=== PATIENT | female | born 1980 | race Caucasian/White ===

== ENCOUNTER 2019-04-22 10:58 | Observation (INO) | payer SELFPAY ==
[~2019-04-22] VITALS: Ht 175.2 cm; Wt 105.8 kg
[2019-04-22] VITALS (10 sets, daily range): BP systolic 106–138; BP diastolic 55–88
[~2019-04-22 10:58] MED LIST: AZTH250C; CTRZ10T; FLX20C; KETO-22 PO; OLN2.5T; ORPH100T PO; [UNRECOGNIZED DRUG - OTHER]
[2019-04-22] MEDS ORDERED: D5 NS 1000 ML IV SOLUTION 1,000 ML IV ONE ×2 (11:27→13:02)
[2019-04-22] MEDS ORDERED: ONDANSETRON 4 MG/2 ML (SDV) Z0FRAN ONE (11:27)
[2019-04-22] MEDS ORDERED: ONDANSETRON 4 MG/2 ML (SDV) Z0FRAN IVP ONE (11:30)
--- NOTE | 2019-04-22 11:32 | ED General ---
General Chief Complaint: Glucose Problems Stated Complaint: LOW BLOOD SUGAR Nursing Triage Note: PT BROUGHT IN BY [facility] WITH COMPLAINT OF LOW BLOOD SUGAR. ON SCENE, PTS BS WAS 24. PT GIVEN AMP D50, BS UP TO 160. ON SECOND RECHECK, BS DOWN TO 90 AND GIVEN SECOND AMP D50. ON ARRIVAL, BS 69. PT STATES HER SUGARS HAVE BEEN IN THE 60s AT HOME THE LAST WEEK BUT ARE USUALLY IN THE 400s. STATES SHE HAS NOT BEEN EATING MUCH AT HOME DUE TO STRESS. Nursing Sepsis Screen: No Definite Risk History of Present Illness Date Seen by Provider: Apr 22, 2019 Time Seen by Provider: 11:05 Initial Comments 38-year-old female presents via EMS after having hypoglycemia at home. She's been a type II diabetic and her providers concerned that she may be a late onset type I diabetic. She is only taking insulin for her diabetes, Levemir and regular. She reports over the last 3 days that she has not been eating or drinking due to stress. She does report taking her insulin yesterday but she is unsure of the amount or times. She adjusts her insulin based on her diet and blood sugars. Prior to 3 days ago, she reports blood sugars 150-300. She did not eat last evening but did consume alcohol products, she is unsure of amounts but doesn't report drinking vodka and beer. Here last recall is approximately 2030 yesterday. Her last hemoglobin A1c was 7.8; she is seeing a counselor about the stress. Her only other medication is ibuprofen. She denies any suicidal or homicidal thoughts. She is currently unemployed. She denies illicit drug use, but does state she could have used drugs last night and doesn't remember. Timing/Duration: 2-3 Days Associated Systoms: No Chest Pain, No Cough, No Diaphoresis, No Fever/Chills, No Headaches; Loss of Appetite, Malaise, Nausea/Vomiting; No Rash, No Seizure, No Shortness of Air, No Syncope; Weakness Allergies and Home Medications Allergies Coded Allergies: Cephalexin (Verified Allergy, Unknown, 05/06/07) Morphine (Verified Allergy, Unknown, 05/06/07) Home Medications Ketorolac Tromethamine 10 Mg Tablet, 10 MG PO Q6H PRN FOR PAIN Prescribed by: ELIESER MERINO on 12/08/10 1524 Orphenadrine Citrate 100 Mg Tablet.sa, 100 MG PO BID FOR MUSCLE SPASMS Prescribed by: ELIESER MERINO on 12/08/10 1524 Patient Home Medication List Home Medication List Reviewed: Yes Review of Systems Review of Systems Constitutional: see HPI, malaise, weakness Gastrointestinal: see HPI, loss of appetite, nausea Psychiatric/Neurological: See HPI, Other (Stress) All Other Systems Reviewed Negative Unless Noted: Yes Past Whlxjnx-Jczctf-Ptbrrd Hx Past Med/Social Hx: Reviewed Nursing Past Med/Soc Hx Patient Social History Alcohol Use: Occasionally Uses Recreational Drug Use: No Smoking Status: Current Everyday Smoker Recent Foreign Travel: No Contact w/Someone Who Travel: No Recent Infectious Disease Expo: No Recent Hopitalizations: No Physical Abuse: No Sexual Abuse: No Mistreated: No Fear: No Immunizations Up To Date Tetanus Booster (TDap): Unknown PED Vaccines UTD: Yes Seasonal Allergies Seasonal Allergies: No Past Medical History Surgeries: Yes (WILEY., KIDNEY BIOPSY) Respiratory: No Cardiac: No Reproductive Disorders: No Sexually Transmitted Disease: No Gastrointestinal: Yes Musculoskeletal: Yes (NO CURVATURE IN LOWER SPINE) Chronic Back Pain Endocrine: Yes Diabetes, Insulin dep Are Your Blood Sugars Over 250: Yes Physical Exam Vital Signs Vital Signs - First Documented 04/22/19 10:58 Temp 35.4 Pulse 85 Resp 16 B/P (MAP) 128/101 (110) Pulse Ox 99 O2 Delivery Room Air Capillary Refill : Less Than 3 Seconds Height, Weight, BMI Height: '" Weight: lbs. oz. kg; 34.00 BMI Method: General Appearance: No Apparent Distress, WD/WN Eyes: Bilateral Eye Normal Inspection, Bilateral Eye PERRL, Bilateral Eye EOMI HEENT: PERRL/EOMI, TMs Normal, Normal ENT Inspection, Pharynx Normal, Other (or al mucosa pink and moist) Neck: Full Range of Motion, Normal Inspection, Non Tender, Supple Respiratory: Chest Non Tender, Lungs Clear, Normal Breath Sounds Cardiovascular: Regular Rate, Rhythm, No Murmur, Normal Peripheral Pulses Gastrointestinal: Normal Bowel Sounds, Non Tender, Soft; No Distended, No Guarding, No Mass, No Rebound, No Tenderness Back: Normal Inspection, No CVA Tenderness Extremity: Normal Capillary Refill, Normal Inspection, Normal Range of Motion, No Calf Tenderness Neurologic/Psychiatric: Alert, Oriented x3, No Motor/Sensory Deficits, Normal Mood/Affect Skin: Normal Color, Warm/Dry; No Diaphoresis, No Rash Lymphatic: No Adenopathy Progress/Results/Core Measures Suspected Sepsis Recent Fever Within 48 Hours: No Infection Criteria Present: None New/Unexplained Altered Menta: No Sepsis Screen: No Definite Risk SIRS Temperature: Pulse: 85 Respiratory Rate: 16 Laboratory Tests 04/22/19 11:11: White Blood Count 9.5 Blood Pressure 128 /101 Mean: 110 Laboratory Tests 04/22/19 11:11: Creatinine 0.73, Platelet Count 312, Total Bilirubin 0.3 Results/Orders Lab Results Laboratory Tests Test 04/22/19 11:10 04/22/19 11:11 04/22/19 12:05 04/22/19 12:49 Range/Units Glucometer 69 L 77 70-110 MG/DL White Blood Count 9.5 4.3-11.0 10^3/uL Red Blood Count 4.41 4.35-5.85 10^6/uL Hemoglobin 13.8 11.5-16.0 G/DL Hematocrit 41 35-52 % Mean Corpuscular Volume 93 80-99 FL Mean Corpuscular Hemoglobin 31 25-34 PG Mean Corpuscular Hemoglobin Concent 34 32-36 G/DL Red Cell Distribution Width 13.8 10.0-14.5 % Platelet Count 312 130-400 10^3/uL Mean Platelet Volume 9.8 7.4-10.4 FL Neutrophils (%) (Auto) 84 H 42-75 % Lymphocytes (%) (Auto) 12 12-44 % Monocytes (%) (Auto) 4 0-12 % Eosinophils (%) (Auto) 0 0-10 % Basophils (%) (Auto) 0 0-10 % Neutrophils # (Auto) 7.9 H 1.8-7.8 X 10^3 Lymphocytes # (Auto) 1.1 1.0-4.0 X 10^3 Monocytes # (Auto) 0.4 0.0-1.0 X 10^3 Eosinophils # (Auto) 0.0 0.0-0.3 10^3/uL Basophils # (Auto) 0.0 0.0-0.1 10^3/uL Sodium Level 147 H 135-145 MMOL/L Potassium Level 2.8 L 3.6-5.0 MMOL/L Chloride Level 107 98-107 MMOL/L Carbon Dioxide Level 23 21-32 MMOL/L Anion Gap 17 H 5-14 MMOL/L Blood Urea Nitrogen 15 7-18 MG/DL Creatinine 0.73 0.60-1.30 MG/DL Estimat Glomerular Filtration Rate > 60 BUN/Creatinine Ratio 21 Glucose Level 67 L 70-105 MG/DL Calcium Level 9.3 8.5-10.1 MG/DL Corrected Calcium 9.2 8.5-10.1 MG/DL Total Bilirubin 0.3 0.1-1.0 MG/DL Aspartate Amino Transf (AST/SGOT) 19 5-34 U/L Alanine Aminotransferase (ALT/SGPT) 17 0-55 U/L Alkaline Phosphatase 78 40-136 U/L Total Protein 7.4 6.4-8.2 GM/DL Albumin 4.1 3.2-4.5 GM/DL Serum Alcohol < 10 <10 MG/DL Urine Color YELLOW Urine Clarity CLEAR Urine pH 6 5-9 Urine Specific [place] 1.020 1.016-1.022 Urine Protein 3+ H NEGATIVE Urine Glucose (UA) 3+ H NEGATIVE Urine Ketones 1+ H NEGATIVE Urine Nitrite NEGATIVE NEGATIVE Urine Bilirubin NEGATIVE NEGATIVE Urine Urobilinogen 1 NORMAL MG/DL Urine Leukocyte Esterase 1+ H NEGATIVE Urine RBC (Auto) NEGATIVE NEGATIVE Urine RBC RARE /HPF Urine WBC 0-2 /HPF Urine Squamous Epithelial Cells 2-5 /HPF Urine Crystals NONE /LPF Urine Bacteria MODERATE H /HPF Urine Casts NONE /LPF Urine Mucus LARGE H /LPF Urine Culture Indicated NO Urine Opiates Screen NEGATIVE NEGATIVE Urine Oxycodone Screen NEGATIVE NEGATIVE Urine Methadone Screen NEGATIVE NEGATIVE Urine Propoxyphene Screen NEGATIVE NEGATIVE Urine Barbiturates Screen NEGATIVE NEGATIVE Ur Tricyclic Antidepressants Screen NEGATIVE NEGATIVE Urine Phencyclidine Screen NEGATIVE NEGATIVE Urine Amphetamines Screen NEGATIVE NEGATIVE Urine Methamphetamines Screen NEGATIVE NEGATIVE Urine Benzodiazepines Screen NEGATIVE NEGATIVE Urine Cocaine Screen NEGATIVE NEGATIVE Urine Cannabinoids Screen POSITIVE H NEGATIVE Test 04/22/19 14:23 Range/Units Glucometer 39 *L 70-110 MG/DL My Orders Orders - SUDHEER OLIVERA Accucheck Stat ONCE (04/22/19 11:10) Alcohol (04/22/19 11:27) Cbc With Automated Diff (04/22/19 11:27) Comprehensive Metabolic Panel (04/22/19 11:27) Drug Screen Stat (Urine) (04/22/19 11:27) Ua Culture If Indicated (04/22/19 11:27) Ondansetron Injection (Zofran Injectio (04/22/19 11:30) D5 Ns 1000 Ml Iv Solution (Dextrose 5%/0 (04/22/19 11:27) Ondansetron Injection (Zofran Injectio (04/22/19 11:27) Potassium Cl 10meq/50ml Ivpb (Kcl 10 Meq (04/22/19 12:00) Accucheck Stat ONCE (04/22/19 12:41) General/Regular (04/22/19 Dinner) D5 Ns 1000 Ml Iv Solution (Dextrose 5%/0 (04/22/19 13:02) Medications Given in ED Current Medications Medications Dose Ordered Sig/Yvan Route Start Time Stop Time Status Last Admin Dose Admin Dextrose/Sodium Chloride 1,000 ml @ STK-MED ONCE IV 04/22/19 11:27 04/22/19 11:28 DC 04/22/19 11:30 500 MLS/HR Dextrose/Sodium Chloride 1,000 ml @ STK-MED ONCE IV 04/22/19 13:02 04/22/19 13:03 DC 04/22/19 13:06 500 MLS/HR Ondansetron HCl 8 mg ONCE ONCE IVP 04/22/19 11:30 04/22/19 11:31 DC 04/22/19 11:30 8 MG Vital Signs/I&O 04/22/19 10:58 Temp 35.4 Pulse 85 Resp 16 B/P (MAP) 128/101 (110) Pulse Ox 99 O2 Delivery Room Air Capillary Refill : Less Than 3 Seconds Blood Pressure Mean: 110 Point of Care Testing Finger Stick Blood Glucose: 69 Progress Note : Time: 11:05 Progress Note Patient seen and evaluated, will give D5 half-normal saline at 250 mils per hour. Zofran 8 mg per IV and labs. 1200 Nausea improved. Alert and oriented. No complaints at this time. 1230 eating soup broth and hot tea. No further N/V. K+ 2.7, will give 20 mEq of K+ in IV. 1245 Accucheck 77. [address] Jo, agreed to admit patient. Will change to D10 IV. Cont inue to monitor Accucheck Q1 hour. Will admit to ICU. Patient agreeable to plans. No complaints at this time. Departure Impression Primary Impression: Hypoglycemia associated with diabetes Disposition: ADMITTED INPATIENT Condition: Stable Admissions Decision to Admit Reason: Admit from ER (General) Decision to Admit/Date: Apr 22, 2019 Time/Decision to Admit Time: 13:30 Departure-Patient Inst. Referrals: NO,LOCAL PHYSICIAN (PCP/Family) Primary Care Physician SUDHEER OLIVERA Apr 22, 2019 11:32
[2019-04-22 11:34] LABS: BASOPHILS % (AUTO) 0 % (0-10); EOSINOPHILS % (AUTO) 0 % (0-10); HEMATOCRIT 41 % (35-52); HEMOGLOBIN 13.8 G/DL (11.5-16.0); LYMPHOCYTES # (AUTO) 1.1 X 10^3 (1.0-4.0); LYMPHOCYTES % (AUTO) 12 % (12-44); MEAN CORPUSCULAR HEMOGLOBIN 31 PG (25-34); MEAN CORPUSCULAR HGB CONC 34 G/DL (32-36); MEAN CORPUSCULAR VOLUME 93 FL (80-99); MEAN PLATELET VOLUME 9.8 FL (7.4-10.4); MONOCYTES # (AUTO) 0.4 X 10^3 (0.0-1.0); MONOCYTES % (AUTO) 4 % (0-12); NEUTROPHILS # (AUTO) 7.9 X 10^3 (1.8-7.8); NEUTROPHILS % (AUTO) 84 % (42-75); PLATELET COUNT 312 10^3/uL (130-400); RED CELL DISTRIBUTION WIDTH 13.8 % (10.0-14.5); WHITE BLOOD COUNT 9.5 10^3/uL (4.3-11.0)
[2019-04-22 11:52] LABS: ALANINE AMINOTRANSFERASE 17 U/L (0-55); ALBUMIN 4.1 GM/DL (3.2-4.5); ALKALINE PHOSPHATASE 78 U/L (40-136); BILIRUBIN,TOTAL 0.3 MG/DL (0.1-1.0); BUN/CREATININE RATIO 21; CALCIUM 9.3 MG/DL (8.5-10.1); CARBON DIOXIDE 23 MMOL/L (21-32); CHLORIDE 107 MMOL/L (98-107); CREATININE SERUM 0.73 MG/DL (0.60-1.30); GFR ESTIMATED > 60; GLUCOSE 67 MG/DL (70-105); POTASSIUM 2.8 MMOL/L (3.6-5.0); SODIUM 147 MMOL/L (135-145); TOTAL PROTEIN 7.4 GM/DL (6.4-8.2)
[2019-04-22 12:14] LABS: BILIRUBIN,URINE NEGATIVE (NEGATIVE); CLARITY,URINE CLEAR; COLOR,URINE YELLOW; GLUCOSE, URINE (UA) 3+ (NEGATIVE); KETONES,URINE 1+ (NEGATIVE); LEUKOCYTE ESTERASE ,URINE 1+ (NEGATIVE); NITRITE,URINE NEGATIVE (NEGATIVE); PH,URINE 6 (5-9); PROTEIN,URINE 3+ (NEGATIVE); UROBILINOGEN,URINE 1 MG/DL (NORMAL)
[2019-04-22] MEDS: POTASSIUM CL 10MEQ/50ML IVPB 50 ML IV SCH ×2 (12:25→13:24)
[2019-04-22 12:28] LABS: AMPHETAMINE SCREEN, URINE NEGATIVE (NEGATIVE); BARBITURATE SCREEN URINE NEGATIVE (NEGATIVE); BENZODIAZEPINES SCREEN URINE NEGATIVE (NEGATIVE); CANNABINOID SCREEN, URINE POSITIVE (NEGATIVE); COCAINE SCREEN URINE NEGATIVE (NEGATIVE); METHADONE STAT NEGATIVE (NEGATIVE); METHAMPHETAMINE SCREEN URINE S NEGATIVE (NEGATIVE); OPIATE SCREEN URINE NEGATIVE (NEGATIVE); OXYCODONE STAT NEGATIVE (NEGATIVE); PROPOXYPHENE STAT NEGATIVE (NEGATIVE); TRICYCLIC ANTIDEPRESSANTS SCRE NEGATIVE (NEGATIVE)
[2019-04-22 12:32] LABS: BACTERIA,URINE MODERATE /HPF; RBC,URINE RARE /HPF; WBC,URINE 0-2 /HPF
--- NOTE | 2019-04-22 14:20 | NUR ---
NOEMI CABEZAS admitted to room CU5-1, with an admitting diagnosis of hypoglycemia, on 04/22/19 from AM via wheelchair, accompanied by staff.NOEMI CABEZAS introduced to surroundings, call light, bed controls, phone, TV, temperature control, lights, meal times, smoking policy, visitor policy, side rail policy, bathrooms and showers. Patient Rights given to patient in the handbook. NOEMI CABEZAS verbalizes understanding that [facility] is not responsible for the loss or damage to any personal effects or valuables that are kept in the patients posession during their hospitalization. The following Patient Care Plans were discussed with the pt: Discharge Planning. NOEMI CABEZAS verbalizes understanding of Interdisciplinary Patient Education. Patient and/or family were informed about the Rapid Response Team and its purpose.
[2019-04-22] MEDS ORDERED: DEXTROSE 50% 50 ML (IMS) SYR ONE ×2 (14:24→15:41)
[2019-04-22] MEDS ORDERED: LORazepam INJ 2 MG/ML (ATIVAN) VIAL IVP PRN (15:15)
[2019-04-22] MEDS ORDERED: DEXTROSE 10% IV SOLUTION 1,000 ML IV SCH ×2 (15:15→18:00)
[2019-04-22] MEDS ORDERED: ACETAMINOPHEN 325 MG TABLET PO PRN (15:15)
[2019-04-22] MEDS ORDERED: IBUPROFEN 600 MG (MOTRIN) TAB PO PRN (15:15)
[2019-04-22] MEDS: ONDANSETRON 4 MG/2 ML (SDV) Z0FRAN IVP PRN (15:16)
[2019-04-22] MEDS: DEXTROSE 50% 50 ML (IMS) SYR IV PRN ×4 (15:30→19:28)
[2019-04-22] MEDS: KCL 10 MEQ TAB (MICRO K) PO SCH (16:47)
[2019-04-22] MEDS ORDERED: LOPERAMIDE 2 MG (IMODIUM) TABLET PO PRN (17:15)
[2019-04-22] MEDS ORDERED: MELATONIN 3 MG TABLET PO PRN (17:15)
[2019-04-22] MEDS ORDERED: CALCIUM CARBONATE 500 MG (TUMS) TAB.CHEW PO PRN (17:15)
[2019-04-22] MEDS ORDERED: DOCUSATE SODIUM 100 MG (COLACE) CAP PO PRN (17:15)
[2019-04-22] MEDS ORDERED: ALPRAZolam 0.25 MG (XANAX) TAB PO PRN (17:15)
[2019-04-22] MEDS ORDERED: DEXTROSE 50% 50 ML (IMS) SYR INJ STA (17:44)
[2019-04-22 18:26] LABS: BUN/CREATININE RATIO 20; CALCIUM 8.5 MG/DL (8.5-10.1); CARBON DIOXIDE 21 MMOL/L (21-32); CHLORIDE 108 MMOL/L (98-107); CREATININE SERUM 0.69 MG/DL (0.60-1.30); GFR ESTIMATED > 60; GLUCOSE 110 MG/DL (70-105); MAGNESIUM 1.8 MG/DL (1.6-2.4); PHOSPHORUS 2.1 MG/DL (2.3-4.7); POTASSIUM 3.6 MMOL/L (3.6-5.0); SODIUM 142 MMOL/L (135-145)
[2019-04-22] MEDS: SENNA W/DOCUSATE (SENOKOT S) TABLET PO SCH (19:31)
[2019-04-23] VITALS (12 sets, daily range): BP systolic 81–127; BP diastolic 38–80
--- NOTE | 2019-04-23 00:18 | NUR ---
THIS RN CONTACTED E-ICU ABOUT PT BLOOD SUGARS. PT CAME IN WITH DIAGNOSIS OF HYPOGLYCEMIA. THIS RN INFORMED JOSÉ, -ICU THAT THE LAST THREE BLOOD SUGARS: 2227- 138, 2326- 184, 0015- 194. THIS RN ASKED IF DR. HERNANDEZ WANTED TO LEAVE D10 RUNNING AT 100MLS/HR OR IF HE WANTED TO CHANGE HER FLUIDS OR THE RATE. GLEN, E-ICU STATED SHE WOULD PASS MY MESSAGE ALONG TO DR. HERNANDEZ.
--- NOTE | 2019-04-23 00:25 | NUR ---
ATTEMPTED TO DOCUMENT ON PT OUTCOMES. UNABLE TO DOCUMENT THIS RN WAS FLAGGED THAT A TARGET DATE NOT SET.
[2019-04-23] MEDS ORDERED: D5 NS 1000 ML IV SOLUTION 1,000 ML IV ONE (00:34)
[2019-04-23] MEDS ORDERED: D5 NS 1000 ML IV SOLUTION 1,000 ML IV SCH (01:00)
--- NOTE | 2019-04-23 03:21 | NUR ---
NOTIFIED E-ICU OF PT'S CONTINUED ELEVATION IN BLOOD SUGARS. THIS RN INFORMED Alex KUMAR-ICU OF LAST THREE CONSECUTIVE BLOOD SUGARS: 0017- 221, 0218- 930, 0320- 291. Alex KUMAR-NELSON STATED SHE WOULD NOTIFY DR. HERNANDEZ. Addendum: 04/23/19 at 0329 by NIKO COELHO RN 328- SID TILLMAN PLACED PT'S FLUID ON STANDBY UNTIL ORDERS ARE OBTAINED.
--- NOTE | 2019-04-23 03:25 | NUR ---
RECEIVED CALL FROM JOSÉ, E-ICU. JOSÉ WANTED TO CONFIRM IF THE PATIENT HAD SLIDING SCALE INSULIN ORDERED DURING. THIS RN INFORMED HER THAT THE PT DOES NOT HAVE SLIDING SCALE INSULIN ORDERED. JOSÉ STATED SHE WOULD SEE IF DR. HERNANDEZ WANTS TO D/C THE D5NS AND START SLIDING SCALE INSULIN.
[2019-04-23] MEDS ORDERED: NS IV 1000 ML 1,000 ML ONE (03:32)
--- NOTE | 2019-04-23 03:32 | NUR ---
RECEIVED CALL FROM JOSÉ E-ICU. JOSÉ STATED THAT DR. HERNANDEZ WANTS TO D/C PT'S D5NS, START NS AT 100MLS/HR, ADMINISTER A ONE TIME DOSE OF LISPRO SUBCU. AND CALL IN TWO HOURS WITH AN UPDATE ON PT'S BLOOD SUGAR. SEE ORDER HISTORY.
[2019-04-23] MEDS ORDERED: inSUlin ASPART (NovoLOG) 1 UNIT/0.01 ML (CHARGE PER UNIT) ONE (03:33)
[2019-04-23] MEDS ORDERED: NS IV 1000 ML 1,000 ML IV SCH (03:45)
[2019-04-23] MEDS ORDERED: inSUlin ASPART (NovoLOG) 1 UNIT/0.01 ML (CHARGE PER UNIT) SC ONE (03:45)
[2019-04-23 03:55] LABS: BASOPHILS % (AUTO) 0 % (0-10); EOSINOPHILS # (AUTO) 0.2 10^3/uL (0.0-0.3); EOSINOPHILS % (AUTO) 3 % (0-10); HEMATOCRIT 38 % (35-52); HEMOGLOBIN 12.6 G/DL (11.5-16.0); LYMPHOCYTES # (AUTO) 2.9 X 10^3 (1.0-4.0); LYMPHOCYTES % (AUTO) 36 % (12-44); MEAN CORPUSCULAR HEMOGLOBIN 31 PG (25-34); MEAN CORPUSCULAR HGB CONC 34 G/DL (32-36); MEAN CORPUSCULAR VOLUME 94 FL (80-99); MEAN PLATELET VOLUME 10.1 FL (7.4-10.4); MONOCYTES # (AUTO) 0.4 X 10^3 (0.0-1.0); MONOCYTES % (AUTO) 5 % (0-12); NEUTROPHILS # (AUTO) 4.7 X 10^3 (1.8-7.8); NEUTROPHILS % (AUTO) 57 % (42-75); PLATELET COUNT 253 10^3/uL (130-400); RED CELL DISTRIBUTION WIDTH 13.7 % (10.0-14.5); WHITE BLOOD COUNT 8.3 10^3/uL (4.3-11.0)
[2019-04-23] MEDS ORDERED: DEXTROSE 10% IV SOLUTION 1,000 ML IV SCH (04:00)
[2019-04-23 04:15] LABS: ALANINE AMINOTRANSFERASE 11 U/L (0-55); ALBUMIN 3.3 GM/DL (3.2-4.5); ALKALINE PHOSPHATASE 80 U/L (40-136); BILIRUBIN,TOTAL 0.4 MG/DL (0.1-1.0); BUN/CREATININE RATIO 11; CALCIUM 8.1 MG/DL (8.5-10.1); CARBON DIOXIDE 22 MMOL/L (21-32); CHLORIDE 106 MMOL/L (98-107); CREATININE SERUM 0.88 MG/DL (0.60-1.30); GFR ESTIMATED > 60; GLUCOSE 315 MG/DL (70-105); MAGNESIUM 1.8 MG/DL (1.6-2.4); PHOSPHORUS 2.8 MG/DL (2.3-4.7); POTASSIUM 3.6 MMOL/L (3.6-5.0); SODIUM 138 MMOL/L (135-145)
[2019-04-23] MEDS ORDERED: KCL 20 MEQ TAB (K-DUR) PO ONE (04:45)
[2019-04-23] MEDS: ONDANSETRON 4 MG/2 ML (SDV) Z0FRAN IVP PRN (05:35)
--- NOTE | 2019-04-23 05:44 | NUR ---
04/23/19 0541- THIS RN CONTACTED E-ICU TO PROVIDE UPDATE ON PT'S BLOOD SUGAR LEVELS AFTER ADMINISTERED 8UNITS LISPRO AND WAITING TWO HOURS TO CHECK FINGER STICK PER DR. HERNANDEZ'S ORDERS. THIS RN INFORMED JOSÉ, -ICU THAT PT'S BLOOD SUGAR 165. THIS RN ASKED IF WE NEED TO CONTINUE Q1H FINGER STICKS. AGAR, -ICU STATED SHE WOULD PASS ALONG THIS RN'S REQUEST TO DR. HERNANDEZ. 04/23/19 0544- ORDERS RECEIVED TO CHANGE PT'S ACCUCHECKS FROM Q1H TO AC/HS. SEE ORDER HISTORY.
[2019-04-23] MEDS ORDERED: KCL 20 MEQ TAB (K-DUR) PO SCH (06:00)
[2019-04-23] MEDS ORDERED: POTASSIUM CL 10MEQ/50ML IVPB 50 ML IV SCH (06:00)
[2019-04-23] MEDS ORDERED: MAGNESIUM 1 GM/100 ML IVPB 100 ML IV SCH (06:00)
[2019-04-23] MEDS: SENNA W/DOCUSATE (SENOKOT S) TABLET PO SCH (08:30)
[2019-04-23] MEDS: KCL 10 MEQ TAB (MICRO K) PO SCH (08:30)
[2019-04-23] MEDS ORDERED: INSU100V5 SQ ×2 (09:05→09:53)
[2019-04-23] MEDS ORDERED: DIPH25CA79 PO (09:05)
[2019-04-23] MEDS ORDERED: IBUP-1780 PO (09:05)
[2019-04-23] MEDS ORDERED: INSU100V16 SQ ×2 (09:05→09:53)
--- NOTE | 2019-04-23 09:05 | NUR ---
SPOKE WITH THE PATIENT ABOUT HER MEDICATIONS. SHE LISTED WHAT SHE IS TAKING AND I VERIFIED THE LAST FILL DATES WITH [facility]. [facility] FILLED: 04-16-19 LEVEMIR VIALS 50 UNITS BID 04-04-19 IBU 800MG BID PRN #[id number] 03-23-19 NOVOLOG VIALS 20 UNITS TID (STATES SHE USES 10 UNITS TID WITH MEALS) SHE STATES SHE ALSO TAKES BENADRYL OTC NEEDED.
--- NOTE | 2019-04-23 10:48 | Short Stay Summary-Hospitalist ---
ANTONIA AVILAAN MED STUDENT 04/23/19 1048: History of Present Illness HPI/Chief Complaint CC: Severe hypoglycemia Patient asleep in bed when I entered. She denies having any memory of arriving in the hospital or anything that occurred last night after 8 pm. She does recall having some spells of dizziness/lightheadedness yesterday. She reports having had one episode of hypoglycemia similar to this before, but she did not need to go to the hospital. Mostly complains of anxiety and emotional distress, causing her symptoms of chest pain and nausea. The anxiety and distress is caused in part by her current medical condition as well as recent events in her personal life. The chest pain is across her whole chest, described as tension or tightness, and is not associated with exertion or shortness of breath. Her nausea is constant, not associated with eating, but she does not have an appetite because of it. Source: patient, other (friend) Exam Limitations: no limitations Date Seen 04/23/19 Time Seen by a Provider: 08:50 Attending Physician Judit Jo DO PCP No,Local Physician Referring Physician Date of Admission Apr 22, 2019 at 13:20 Home Medications & Allergies Home Medications Reviewed patient Home Medication Reconciliation performed by pharmacy medication reconciliations commercial hvac technician and/or nursing. Patients Allergies have been reviewed. Allergies Allergies Coded Allergies cephalexin (Verified Allergy, Unknown, 05/06/07) morphine (Verified Allergy, Unknown, 05/06/07) Past Wwgkbou-Jrbixa-Kphref Hx Past Med/Social Hx: Reviewed Nursing Past Med/Soc Hx Patient Social History Alcohol Use: Occasionally Uses Recreational Drug Use: No Smoking Status: Current Everyday Smoker Recent Foreign Travel: No Contact w/other who traveled: No Recent Hopitalizations: No Recent Infectious Disease Expo: No Immunizations Up To Date Tetanus Booster (TDap): Unknown Pediatric: Yes Seasonal Allergies Seasonal Allergies: No Past Medical History Reproductive: No Sexually Transmitted Disease: No Musculoskeletal: Chronic Back Pain Endocrine: Diabetes, Insulin dep Are Your Blood Sugars Over 250: Yes Review of Systems Constitutional: No chills; dizziness (light headed); No fever Respiratory: no symptoms reported; No dyspnea on exertion, No short of breath Cardiovascular: No no symptoms reported; chest pain (tightness across whole chest, relates to anxiety/emotional distress); No edema, No palpitations Gastrointestinal: nausea (reports caused by anxiety/emotional distress) Psychiatric/Neurological: Anxiety, Emotional Problems; Denies Numbness, Denies Tingling Physical Exam Physical Exam Vital Signs Vital Signs - First Documented 04/22/19 10:58 Temp 35.4 Pulse 85 Resp 16 B/P (MAP) 128/101 (110) Pulse Ox 99 O2 Delivery Room Air Capillary Refill : Less Than 3 Seconds Height, Weight, BMI Height: '" Weight: lbs. oz. kg; 34.00 BMI Method: General Appearance: No Apparent Distress, WD/WN, Anxious HEENT: Other (oral mucosa pink and moist) Respiratory: Chest Non Tender, Lungs Clear, Normal Breath Sounds Cardiovascular: Regular Rate, Rhythm, No Murmur, Normal Peripheral Pulses Gastrointestinal: No Distended, No Guarding, No Mass, No Rebound, No Tenderness Extremity: Normal Capillary Refill, Normal Inspection, No Calf Tenderness, No Pedal Edema Neurologic/Psychiatric: Alert, Oriented x3, No Motor/Sensory Deficits, Normal Mood/Affect Skin: Normal Color, Warm/Dry; No Diaphoresis, No Rash Results Results/Procedures Labs Laboratory Tests 04/22/19 11:11 04/22/19 18:00 04/23/19 03:05 Patient resulted labs reviewed. Clinical Quality Measures DVT/VTE Risk/Contraindication: Risk Factor Score Per Nursin RFS Level Per Nursing on Admit: 1=Low/No VTE PPX JUDIT JO DO 04/23/192107: History of Present Illness HPI/Chief Complaint CC: Refractory Hypoglycemia HPI: This is a 38yoWF who presented to the ER with altered mental status found to have blood sugar of 24 which is not unusual for her since her usual blood sugars are 300 but very brittle status who doesn't remember anything the past 24 hrs other than drinking alcohol and having marijuana use. Pt found to have such refractory hypoglycemia requiring a D10 drip 60cc an hour with a half an amp of D50 for blood sugars less than 80. She is now back to her usual of 300 and is ready to go home. I did adjust her down a little bit prior to DC. She will have close follow up as scheduled with Art Cabrera in 2 days. Physical Exam Physical Exam General Appearance: No Apparent Distress, WD/WN, Anxious Neck: Full Range of Motion Respiratory: Lungs Clear Cardiovascular: Regular Rate, Rhythm Short Stay Diagnosis Discharge Diagnosis-Short Stay Admission Diagnosis Refractory hypoglycemia Final Discharge Diagnosis Refractory hypoglycemia Conclusion Plan DC home Decrease insulin Stop ETOH and SHELL Diagnosis/Problems Diagnosis/Problems (1) Hypoglycemia associated with diabetes Status: Acute Supervisory-Addendum Brief Verification & Attestation Participated in pt care: history, MDM, physical Personally performed: exam, history, MDM, supervision of care Care discussed with: Medical Student Procedures: n/a Results interpretation: Verified all documentation Verification and Attestation of Medical Student E/M Service A medical student performed and documented this service in my presence. I rev iewed and verified all information documented by the medical student and made modifications to such information, when appropriate. I personally performed the physical exam and medical decision making. Judit Jo, Apr 23, 2019,21:08 JAVED AVILA MED STUDENT Apr 23, 2019 10:48 JUIDT JO DO Apr 23, 2019 21:08
[2019-04-23] MEDS ORDERED: inSUlin ASPART (NovoLOG) 1 UNIT/0.01 ML (CHARGE PER UNIT) SC SCH (16:00)
[2019-04-23] MEDS ORDERED: THIAMINE 100 MG/ML 2 ML (VITAMIN B-1) VIAL IV SCH (18:00)
== END 2019-04-23 09:51 | disposition home or self-care (01) ==
LOC: EDUNIT# 11:00 → ER 11:02 → UNDOADMOB 13:20 → ICU 13:20 → UNDODISOB 04-23 11:20
PROVIDERS: ADMIT Family Medicine; ATTEND Internal Medicine
DX: E16.2 Hypoglycemia, unspecified (principal); F17.210 Nicotine dependence, cigarettes, uncomplicated; M54.9 Dorsalgia, unspecified; G89.29 Other chronic pain; E11.9 Type 2 diabetes mellitus without complications; Z88.1 Allergy status to other antibiotic agents; Z88.5 Allergy status to narcotic agent; Z79.4 Long term (current) use of insulin
CPT/HCPCS: 36415; 80048; 80053; 80306; 80320; 81000; 82962; 83735; 84100; 85025; 87081; G0378

== ENCOUNTER 2019-05-12 19:22 | Inpatient (IN) | payer MEDICAID ==
[~2019-05-12] VITALS: Ht 160 cm; Wt 102.7 kg
[~2019-05-12 19:22] MED LIST changes: +DIPH25CA79 PO; +IBUP-1780 PO; +INSU100V16 SQ; +INSU100V5 SQ
[2019-05-12] MEDS ORDERED: NS IV 1000 ML 1,000 ML IV ONE ×2 (19:39→20:15)
[2019-05-12] MEDS ORDERED: NITROGLYCERIN 0.4 MG SL TABS BTL 25'S SL ONE (19:41)
[2019-05-12] MEDS ORDERED: ASPIRIN 81 MG CHEW (CHILDREN'S ASA) ONE (19:41)
[2019-05-12] MEDS: NITROGLYCERIN 0.4 MG SL TABS BTL 25'S SL PRN ×2 (19:45→19:51)
[2019-05-12] MEDS ORDERED: ONDANSETRON 4 MG/2 ML (SDV) Z0FRAN IVP ONE (19:45)
[2019-05-12] MEDS ORDERED: ASPIRIN 81 MG CHEW (CHILDREN'S ASA) PO ONE (19:45)
[2019-05-12 19:47] LABS: BASOPHILS % (AUTO) 0 % (0-10); EOSINOPHILS # (AUTO) 0.1 10^3/uL (0.0-0.3); EOSINOPHILS % (AUTO) 1 % (0-10); HEMATOCRIT 45 % (35-52); HEMOGLOBIN 14.6 G/DL (11.5-16.0); LYMPHOCYTES # (AUTO) 2.1 X 10^3 (1.0-4.0); LYMPHOCYTES % (AUTO) 13 % (12-44); MEAN CORPUSCULAR HEMOGLOBIN 31 PG (25-34); MEAN CORPUSCULAR HGB CONC 32 G/DL (32-36); MEAN CORPUSCULAR VOLUME 94 FL (80-99); MEAN PLATELET VOLUME 10.4 FL (7.4-10.4); MONOCYTES # (AUTO) 0.4 X 10^3 (0.0-1.0); MONOCYTES % (AUTO) 3 % (0-12); NEUTROPHILS # (AUTO) 13.7 X 10^3 (1.8-7.8); NEUTROPHILS % (AUTO) 84 % (42-75); PLATELET COUNT 290 10^3/uL (130-400); RED CELL DISTRIBUTION WIDTH 13.8 % (10.0-14.5); WHITE BLOOD COUNT 16.4 10^3/uL (4.3-11.0)
--- NOTE | 2019-05-12 19:57 | Diagnostic Imaging Report ---
INDICATION: Chest pain. Comparison with 12/08/2010. FINDINGS: Portable chest shows the lungs to be well aerated. There are no infiltrates. The heart is not enlarged. There is no pulmonary edema. No hilar adenopathy. No pneumothorax or pleural effusion. No bony abnormalities. IMPRESSION: Normal portable chest. Dictated by: Dictated on workstation # [id number]
[2019-05-12 19:59] LABS: PROTHROMBIN TIME PATIENT 13.2 SEC (12.2-14.7)
[2019-05-12 20:05] LABS: BAND NEUTROPHILS 6 %; BASOPHILS % (MANUAL) 0 %; EOSINOPHILS % (MANUAL) 0 %; LYMPHOCYTES % (MANUAL) 9 %; MONOCYTES % (MANUAL) 1 %; NEUTROPHILS % (MANUAL) 84 %; TOXIC GRANULATION/VACUOLAZATIO 1+
--- NOTE | 2019-05-12 20:06 | ED Chest Pain ---
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 PT REPORTS NO HX OF CARDIAC PROBLEMS. Nursing Sepsis Screen: No Definite Risk Source: patient, old records Exam Limitations: no limitations History of Present Illness Date Seen by Provider: May 12, 2019 Time Seen by Provider: 19:31 Initial Comments This 38-year-old woman presents to the emergency room with complaints of chest pain and pain that radiates across her shoulders and back that started about an hour prior to arrival. She has associated nausea. She is tachycardic and dyspneic but not hypoxic. She has history of diabetes and episodes of DKA. She denies any recent drug or alcohol use but she does have history of alcohol abuse in the past. She does smoke. She has no known cardiac disease. She has been afebrile. Pain does not seem to change with breathing or movement. She describes the pain as originating from the lower central chest and characterized as a squeezing. She reports a pain level of 8 or 9 out of 10. She reports her blood sugars have been normal today. She took her long-acting insulin this morning. Allergies and Home Medications Allergies Coded Allergies: cephalexin (Verified Allergy, Unknown, 05/06/07) morphine (Verified Allergy, Unknown, 05/06/07) Home Medications Diphenhydramine HCl 25 Mg Capsule, 25 MG PO TID PRN for ALLERGIES, (Reported) Ibuprofen 800 Mg Tablet, 800 MG PO BID PRN for PAIN-MILD, (Reported) Insulin Aspart 100 Unit/1 Ml Susp, 7 UNIT SQ AC Prescribed by: RAIN ARROYO on 04/23/19952 Insulin Determir 1,000 Units/10 Ml Soln, 38 UNITS SQ BID Prescribed by: RAIN ARROYO on 04/23/19952 Patient Home Medication List Home Medication List Reviewed: Yes Review of Systems Review of Systems Constitutional: no symptoms reported EENTM: No Symptoms Reported Respiratory: See HPI Cardiovascular: See HPI Gastrointestinal: See HPI Genitourinary: No Symptoms Reported Musculoskeletal: no symptoms reported Skin: no symptoms reported Psychiatric/Neurological: No Symptoms Reported Endocrine: No Symptoms Reported Hematologic/Lymphatic: No Symptoms Reported Past Hjfrnpw-Sfgshy-Ogkjdz Hx Past Med/Social Hx: Reviewed and Corrections made Patient Social History Alcohol Use: Denies Use Recreational Drug Use: No Smoking Status: Current Everyday Smoker Type Used: Cigars 2nd Hand Smoke Exposure: Yes Recent Foreign Travel: No Contact w/Someone Who Travel: No Recent Infectious Disease Expo: No Recent Hopitalizations: No Physical Abuse: No Sexual Abuse: No Mistreated: No Fear: No Immunizations Up To Date Tetanus Booster (TDap): Unknown PED Vaccines UTD: Yes Seasonal Allergies Seasonal Allergies: No Past Medical History Surgeries: Yes (WILEY., KIDNEY BIOPSY) Tubal Ligation Respiratory: No Cardiac: No Neurological: No Reproductive Disorders: No Sexually Transmitted Disease: No Gastrointestinal: Yes Musculoskeletal: Yes (NO CURVATURE IN LOWER SPINE) Chronic Back Pain Endocrine: Yes (reports history of DKA) Diabetes, Insulin dep HEENT: No Cancer: No Psychosocial: No Physical Exam Vital Signs Vital Signs - First Documented 05/12/19 19:30 Temp 36.4 Pulse 122 Resp 20 B/P (MAP) 161/80 (107) O2 Delivery Room Air Capillary Refill : Less Than 3 Seconds Height, Weight, BMI Height: '" Weight: lbs. oz. kg; 40.00 BMI Method: General Appearance: WD/WN, Moderate Distress HEENT: PERRL/EOMI, Other (oropharynx dry) Neck: Normal Inspection Respiratory: Lungs Clear; No Crackles, No Wheezing; Other (tachypnea. Tenderness to palpation is mild over the left lower anterior chest) Cardiovascular: No Edema, No Murmur, Tachycardia Gastrointestinal: Normal Bowel Sounds, Soft, Tenderness (minimal in the epigas trium) Extremity: Normal Inspection, No Pedal Edema, Other (minimal tenderness in the right calf) Neurologic/Psychiatric: Oriented x3, No Motor/Sensory Deficits, nitro man II-XII Norm as Tested, Other (anxious) Skin: Normal Color, Warm/Dry Progress/Results/Core Measures Results/Orders Lab Results Laboratory Tests Test 05/12/19 19:35 05/12/19 20:26 05/12/19 21:03 Range/Units White Blood Count 16.4 H 4.3-11.0 10^3/uL Red Blood Count 4.77 4.35-5.85 10^6/uL Hemoglobin 14.6 11.5-16.0 G/DL Hematocrit 45 35-52 % Mean Corpuscular Volume 94 80-99 FL Mean Corpuscular Hemoglobin 31 25-34 PG Mean Corpuscular Hemoglobin Concent 32 32-36 G/DL Red Cell Distribution Width 13.8 10.0-14.5 % Platelet Count 290 130-400 10^3/uL Mean Platelet Volume 10.4 7.4-10.4 FL Neutrophils (%) (Auto) 84 H 42-75 % Lymphocytes (%) (Auto) 13 12-44 % Monocytes (%) (Auto) 3 0-12 % Eosinophils (%) (Auto) 1 0-10 % Basophils (%) (Auto) 0 0-10 % Neutrophils # (Auto) 13.7 H 1.8-7.8 X 10^3 Lymphocytes # (Auto) 2.1 1.0-4.0 X 10^3 Monocytes # (Auto) 0.4 0.0-1.0 X 10^3 Eosinophils # (Auto) 0.1 0.0-0.3 10^3/uL Basophils # (Auto) 0.0 0.0-0.1 10^3/uL Neutrophils % (Manual) 84 % Lymphocytes % (Manual) 9 % Monocytes % (Manual) 1 % Eosinophils % (Manual) 0 % Basophils % (Manual) 0 % Band Neutrophils 6 % Toxic Granulation 1+ Prothrombin Time 13.2 12.2-14.7 SEC INR Comment 1.0 0.8-1.4 Activated Partial Thromboplast Time 30 24-35 SEC D-Dimer 0.49 0.00-0.49 UG/ML Sodium Level 135 135-145 MMOL/L Potassium Level 4.6 3.6-5.0 MMOL/L Chloride Level 100 98-107 MMOL/L Carbon Dioxide Level 9 *L 21-32 MMOL/L Anion Gap 26 H 5-14 MMOL/L Blood Urea Nitrogen 15 7-18 MG/DL Creatinine 1.17 0.60-1.30 MG/DL Estimat Glomerular Filtration Rate 52 BUN/Creatinine Ratio 13 Glucose Level 550 *H 70-105 MG/DL Calcium Level 9.4 8.5-10.1 MG/DL Corrected Calcium 9.2 8.5-10.1 MG/DL Magnesium Level 2.1 1.6-2.4 MG/DL Total Bilirubin 0.9 0.1-1.0 MG/DL Aspartate Amino Transf (AST/SGOT) 12 5-34 U/L Alanine Aminotransferase (ALT/SGPT) 10 0-55 U/L Alkaline Phosphatase 107 40-136 U/L Myoglobin 22.3 10.0-92.0 NG/ML Troponin I < 0.028 <0.028 NG/ML Total Protein 7.8 6.4-8.2 GM/DL Albumin 4.3 3.2-4.5 GM/DL Lipase < 4 L 8-78 U/L Beta-Hydroxybutyrate (Chem panel) 7.58 H 0.00-0.27 MMOL/L Serum Test, Qualitative NEGATIVE NEGATIVE Serum Alcohol < 10 <10 MG/DL Urine Color YELLOW Urine Clarity CLEAR Urine pH 6 5-9 Urine Specific [place] 1.020 1.016-1.022 Urine Protein 2+ H NEGATIVE Urine Glucose (UA) 4+ H NEGATIVE Urine Ketones 4+ H NEGATIVE Urine Nitrite NEGATIVE NEGATIVE Urine Bilirubin NEGATIVE NEGATIVE Urine Urobilinogen NORMAL NORMAL MG/DL Urine Leukocyte Esterase NEGATIVE NEGATIVE Urine RBC (Auto) NEGATIVE NEGATIVE Urine RBC NONE /HPF Urine WBC NONE /HPF Urine Squamous Epithelial Cells 2-5 /HPF Urine Crystals NONE /LPF Urine Bacteria TRACE /HPF Urine Casts NONE /LPF Urine Mucus NEGATIVE /LPF Urine Culture Indicated NO Urine Opiates Screen NEGATIVE NEGATIVE Urine Oxycodone Screen NEGATIVE NEGATIVE Urine Methadone Screen NEGATIVE NEGATIVE Urine Propoxyphene Screen NEGATIVE NEGATIVE Urine Barbiturates Screen NEGATIVE NEGATIVE Ur Tricyclic Antidepressants Screen NEGATIVE NEGATIVE Urine Phencyclidine Screen NEGATIVE NEGATIVE Urine Amphetamines Screen NEGATIVE NEGATIVE Urine Methamphetamines Screen NEGATIVE NEGATIVE Urine Benzodiazepines Screen NEGATIVE NEGATIVE Urine Cocaine Screen NEGATIVE NEGATIVE Urine Cannabinoids Screen POSITIVE H NEGATIVE Glucometer 434 *H 70-110 MG/DL My Orders Orders - CHARISMA PHILLIPS MD Cbc With Automated Diff (05/12/19 19:39) Magnesium (05/12/19 19:39) Chest 1 View, Ap/Pa Only (05/12/19 19:39) Ekg Tracing (05/12/19 19:39) Cardiac Profile 1 (05/12/19 19:39) Comprehensive Metabolic Panel (05/12/19 19:39) Myoglobin Serum (05/12/19 19:39) Protime With Inr (05/12/19 19:39) Partial Thromboplastin Time (05/12/19 19:39) O2 (05/12/19 19:39) Monitor-Rhythm Ecg Trace Only (05/12/19 19:39) Lipid Panel (05/13/19 06:00) Ed Iv/Invasive Line Start (05/12/19 19:39) Fibrin Degradation Products (05/12/19 19:39) Nitroglycerin 0.4 Mg Btl 25's (Nitrostat (05/12/19 19:45) Aspirin Chewable Tablet (Baby Aspirin Ch (05/12/19 19:45) Alcohol (05/12/19 19:39) Drug Screen Stat (Urine) (05/12/19 19:39) Hcg,Qualitative Serum (05/12/19 19:39) Ondansetron Injection (Zofran Injectio (05/12/19 19:45) Ns Iv 1000 Ml (Sodium Chloride 0.9%) (05/12/19 19:39) Ua Culture If Indicated (05/12/19 19:41) Nitroglycerin 0.4 Mg Btl 25's (Nitrostat (05/12/19 19:41) Aspirin Chewable Tablet (Baby Aspirin Ch (05/12/19 19:41) Manual Differential (05/12/19 19:35) Lipase (05/12/19 20:07) Ct Angio Chest W (05/12/19 20:15) Insulin (Regular) Human (Humulin R (Per (05/12/19 20:15) Ed Iv/Invasive Line Start (05/12/19 20:15) Ns Iv 1000 Ml (Sodium Chloride 0.9%) (05/12/19 20:15) Famotidine Injection (Pepcid Injection) (05/12/19 20:30) Promethazine Injection (Phenergan Injec (05/12/19 20:30) Iohexol Injection (Omnipaque 350 Mg/Ml 1 (05/12/19 20:30) Received Contrast (Hold Metformin- Contr (05/12/19 20:30) Sodium Chloride Flush (Catheter Flush Sy (05/12/19 20:30) Ns (Ivpb) (Sodium Chloride 0.9% Ivpb Bag (05/12/19 20:30) Accucheck Stat ONCE (05/12/19 20:57) Medications Given in ED Current Medications Medications Dose Ordered Sig/Yvan Route Start Time Stop Time Status Last Admin Dose Admin Aspirin 324 mg ONCE ONCE PO 05/12/19 19:45 05/12/19 19:46 DC 05/12/19 19:45 324 MG Famotidine 20 mg ONCE ONCE IVP 05/12/19 20:30 05/12/19 20:31 DC 05/12/19 20:49 20 MG Insulin Human Regular 5 unit ONCE ONCE IV 05/12/19 20:15 05/12/19 20:16 DC 05/12/19 20:24 5 UNIT Iohexol 100 ml ONCE ONCE IV 05/12/19 20:30 05/12/19 20:31 DC 05/12/19 20:39 83 ML Nitroglycerin 0.4 mg UD PRN SL 05/12/19 19:45 05/12/19 19:51 0.4 MG Ondansetron HCl 8 mg ONCE ONCE IVP 05/12/19 19:45 05/12/19 19:46 DC 05/12/19 19:44 8 MG Promethazine HCl 25 mg ONCE ONCE IVP 05/12/19 20:30 05/12/19 20:31 DC 05/12/19 21:05 25 MG Sodium Chloride 10 ml NEEDED PRN IV 05/12/19 20:30 05/12/19 20:39 10 ML Sodium Chloride 100 ml ONCE ONCE IV 05/12/19 20:30 05/12/19 20:31 DC 05/12/19 20:39 80 ML Sodium Chloride 1,000 ml @ 0 mls/hr Q0M ONCE IV 05/12/19 19:39 05/12/19 19:41 DC 05/12/19 19:44 999 MLS/HR Sodium Chloride 1,000 ml @ 0 mls/hr Q0M ONCE IV 05/12/19 20:15 05/12/19 20:16 DC 05/12/19 21:05 999 MLS/HR Vital Signs/I&O 05/12/19 05/12/19 19:30 19:52 Temp 36.4 Pulse 122 Resp 20 B/P (MAP) 161/80 (107) O2 Delivery Room Air Room Air Blood Pressure Mean: 107 Progress Progress Note #1: Time: 20:01 Progress Note Chest pain workup is underway. Patient received 2 nitroglycerin which seemed to improve her pain from 8 or 9 out of 10 down to 4/10. She still complains of a lot of pain across her shoulders. She is still tachypneic. Aspirin was administered. Zofran was given for nausea but patient vomited despite Zofran. Patient has a leukocytosis. Most of her labs are still pending. EKG showed sinus tachycardia with no ST changes. IV fluids are infusing. Progress Note #2: Time: 20:24 Progress Note The patient's pain is significantly better and nausea is beginning to subside. Labs have been reviewed. Patient appears to have DKA with a CO2 of 9 and a blood sugar of 550. A second liter of IV normal saline has been ordered. Residual nausea will be treated with Phenergan. Insulin therapy will be initiated with 5 units of regular insulin by IV route. I discussed evaluating her chest pain further CT angiogram. This would help rule out any aortic pathology or occult infection not picked up on the x-ray. Patient states she h as never experienced chest and back pain like this before with DKA and she would like to proceed with CT angiogram to rule out other causes. Progress Note #3: Time: 22:25 Progress Note Patient received 2 full liters of IV normal saline. She also received Phenergan for refractory nausea. Blood sugars were trending down. Just prior to transfer to the ICU a third liter of IV fluid was hung containing 5 units of insulin. Initial ECG Impression Date: May 12, 2019 Initial ECG Impression Time: 19:37 Initial ECG Rate: 122 Initial ECG Rhythm: S.Tach Comment Sinus tachycardia with no ST elevation or depression. No abnormal intervals or axis deviation. Diagnostic Imaging Diagonstic Imaging: Xray Plain Films/CT/US/NM/MRI: chest Comments Chest x-ray viewed by me and report reviewed. See report below: NAME: NOEMI CABEZAS [facility] REC#: [id number] PT STATUS: REG ER : 1980 PHYSICIAN: CHARISMA PHILLIPS MD ADMIT DATE: 05/12/19/ER Draft Date of Exam:05/12/19 CHEST 1 VIEW, AP/PA ONLY INDICATION: Chest pain. Comparison with 12/08/2010. FINDINGS: Portable chest shows the lungs to be well aerated. There are no infiltrates. The heart is not enlarged. There is no pulmonary edema. No hilar adenopathy. No pneumothorax or pleural effusion. No bony abnormalities. IMPRESSION: Normal portable chest. Dictated on workstation # [id number] Dict: 05/12/191954 Trans: 05/12/191955 [facility] [id number] Interpreted by: CHE TAYLOR MD Diagonstic Imaging: CT Plain Films/CT/US/NM/MRI: chest Comments CT angiogram of the chest viewed by me and report reviewed. See report below: NAME: NOEMI CABEZAS [facility] REC#: [id number] PT STATUS: REG ER : 1980 PHYSICIAN: CHARISMA PHILLIPS MD ADMIT DATE: 05/12/19/ER Signed Date of Exam:05/12/19 CT ANGIO CHEST W PROCEDURE: CT angiography of the chest with contrast. TECHNIQUE: Multiple contiguous axial images were obtained through the chest after uneventful bolus administration of intravenous contrast. 3D reconstructed CTA MIP acquisitions were also performed. Auto Exposure Controls were utilized during the CT exam to meet ALARA standards for radiation dose reduction. INDICATION: Chest pain with shortness of breath. FINDINGS: There is moderate opacification of the pulmonary arteries. No filling defects are demonstrated. No evidence of aortic aneurysm or dissection. No evidence of pleural effusion or pericardial effusion. The azygous lymph node measures 1.2 cm. Hilar lymph node measures approximately 1.2 cm, bilaterally, as well. The heart is not enlarged. No evidence of pneumothorax. The adrenal glands are not enlarged. There are no bony lesions. IMPRESSION: Normal CT angiography of the chest. No evidence of pulmonary emboli. Dictated by: Dictated on workstation # [id number] Dict: 05/12/192045 Trans: 05/12/192053 [facility] [id number] Interpreted by: CHE TAYLOR MD Electronically signed by: CHE TAYLOR MD 05/12/192053 Departure Communication (Admissions) Time/Spoke to Admitting Phy: 21:10 Dr. Puente Time/Spoke to Consulting Phy: 21:15 Dr. Aragon Impression Primary Impression: Diabetic ketoacidosis Qualified Codes: E10.10 - Type 1 diabetes mellitus with ketoacidosis without coma Additional Impressions: Chest pain Qualified Codes: R07.9 - Chest pain, unspecified Nausea and vomiting Qualified Codes: R11.2 - Nausea with vomiting, unspecified Disposition: ADMITTED INPATIENT Condition: Improved Admissions Decision to Admit Reason: Admit from ER (General) Decision to Admit/Date: May 12, 2019 Time/Decision to Admit Time: 20:10 Departure-Patient Inst. Referrals: [facility] [place] [facility] [place] Primary Care Physician CHARISMA PHILLIPS MD May 12, 2019 20:06
[2019-05-12 20:10] LABS: ALANINE AMINOTRANSFERASE 10 U/L (0-55); ALBUMIN 4.3 GM/DL (3.2-4.5); ALKALINE PHOSPHATASE 107 U/L (40-136); BILIRUBIN,TOTAL 0.9 MG/DL (0.1-1.0); BUN/CREATININE RATIO 13; CALCIUM 9.4 MG/DL (8.5-10.1); CHLORIDE 100 MMOL/L (98-107); CREATININE SERUM 1.17 MG/DL (0.60-1.30); GFR ESTIMATED 52; MAGNESIUM 2.1 MG/DL (1.6-2.4); POTASSIUM 4.6 MMOL/L (3.6-5.0); SODIUM 135 MMOL/L (135-145); TOTAL PROTEIN 7.8 GM/DL (6.4-8.2)
[2019-05-12 20:12] LABS: CARBON DIOXIDE 9 MMOL/L (21-32); GLUCOSE 550 MG/DL (70-105)
[2019-05-12] MEDS ORDERED: inSUlin (REGULAR) HUMAN 1 UNIT/0.01 ML (CHARGE PER UNIT) IV ONE ×2 (20:15→21:30)
[2019-05-12] MEDS ORDERED: FAMOTIDINE 20MG/2ML IV (PEPCID) IVP ONE (20:30)
[2019-05-12] MEDS ORDERED: NS 100 ML (IVPB) BAG IV ONE (20:30)
[2019-05-12] MEDS ORDERED: CATHETER FLUSH 10 ML SYR IV PRN (20:30)
[2019-05-12] MEDS ORDERED: HOLD METFORMIN - RECEIVED CONTRAST 20 ML VIAL IV SCH (20:30)
[2019-05-12] MEDS ORDERED: IOHEXOL 350 MG/ML 100 ML (OMNIPAQUE 350) VIAL IV ONE (20:30)
[2019-05-12] MEDS ORDERED: PROMETHAZINE INJ 25 MG/ML (PHENERGAN) AMP IVP ONE (20:30)
[2019-05-12 20:31] LABS: BILIRUBIN,URINE NEGATIVE (NEGATIVE); CLARITY,URINE CLEAR; COLOR,URINE YELLOW; GLUCOSE, URINE (UA) 4+ (NEGATIVE); KETONES,URINE 4+ (NEGATIVE); LEUKOCYTE ESTERASE ,URINE NEGATIVE (NEGATIVE); NITRITE,URINE NEGATIVE (NEGATIVE); PH,URINE 6 (5-9); PROTEIN,URINE 2+ (NEGATIVE)
[2019-05-12 20:36] LABS: BACTERIA,URINE TRACE /HPF
--- NOTE | 2019-05-12 20:52 | Diagnostic Imaging Report ---
PROCEDURE: CT angiography of the chest with contrast. TECHNIQUE: Multiple contiguous axial images were obtained through the chest after uneventful bolus administration of intravenous contrast. 3D reconstructed CTA MIP acquisitions were also performed. Auto Exposure Controls were utilized during the CT exam to meet ALARA standards for radiation dose reduction. INDICATION: Chest pain with shortness of breath. FINDINGS: There is moderate opacification of the pulmonary arteries. No filling defects are demonstrated. No evidence of aortic aneurysm or dissection. No evidence of pleural effusion or pericardial effusion. The azygous lymph node measures 1.2 cm. Hilar lymph node measures approximately 1.2 cm, bilaterally, as well. The heart is not enlarged. No evidence of pneumothorax. The adrenal glands are not enlarged. There are no bony lesions. IMPRESSION: Normal CT angiography of the chest. No evidence of pulmonary emboli. Dictated by: Dictated on workstation # [id number]
[2019-05-12 20:54] LABS: AMPHETAMINE SCREEN, URINE NEGATIVE (NEGATIVE); BARBITURATE SCREEN URINE NEGATIVE (NEGATIVE); BENZODIAZEPINES SCREEN URINE NEGATIVE (NEGATIVE); CANNABINOID SCREEN, URINE POSITIVE (NEGATIVE); COCAINE SCREEN URINE NEGATIVE (NEGATIVE); METHADONE STAT NEGATIVE (NEGATIVE); METHAMPHETAMINE SCREEN URINE S NEGATIVE (NEGATIVE); OPIATE SCREEN URINE NEGATIVE (NEGATIVE); OXYCODONE STAT NEGATIVE (NEGATIVE); PROPOXYPHENE STAT NEGATIVE (NEGATIVE); TRICYCLIC ANTIDEPRESSANTS SCRE NEGATIVE (NEGATIVE)
[2019-05-12] MEDS ORDERED: NS IV 1000 ML 1,000 ML IV SCH (21:24)
--- NOTE | 2019-05-12 21:47 | NUR ---
REPORT CALLED TO SID TILLMAN. THE ICU ROOM IS BEING CLEANED AND RN STATES SHE WILL CALL WHEN THE ROOM IS READY.
--- NOTE | 2019-05-12 21:56 | NUR ---
PT RESTING IN BED. PT INFORMED THAT THE ROOM SHE WILL BE TRANSFERING TO IN ICU IS BEING CLEANED AND THAT SHE WILL BE MOVED SOON THE ROOM IS READY.
[2019-05-12] MEDS ORDERED: NORMAL SALINE 250 ML ONE (22:36)
[2019-05-12] MEDS ORDERED: REGULAR inSUlin DRIP 250 UNITS/NS 250 ML IV SCH ×2 (22:45)
[2019-05-12] MEDS ORDERED: NS IV 1000 ML X 1 WIDE OPEN IV ONE (22:45)
[2019-05-12] MEDS ORDERED: morphine INJ 4 MG/ML 1 ML (VIAL/SYRINGE) IV PRN (22:45)
[2019-05-12] MEDS ORDERED: NICOTINE 21 MG (NICODERM) PATCH TD PRN (22:45)
[2019-05-12] MEDS ORDERED: DEXTROSE 10% IV SOLUTION 1,000 ML IV SCH (22:45)
[2019-05-12] MEDS ORDERED: NITROGLYCERIN 0.4 MG SL TABS BTL 25'S SL PRN (22:45)
[2019-05-12 22:46] VITALS: BP 138/76
[2019-05-12 23:00] VITALS: BP 143/78
[2019-05-12] MEDS: D5 1/2 NS IV 1,000 ML IV SCH (23:11)
[2019-05-12 23:15] VITALS: BP 122/66
[2019-05-12] MEDS: 1/2 NS IV SOLUTION 1,000 ML IV SCH (23:29)
[2019-05-12 23:30] VITALS: BP 117/74
[2019-05-12] MEDS: POTASSIUM CL 10MEQ/50ML IVPB 50 ML IV SCH (23:30)
[2019-05-13] VITALS (11 sets, daily range): BP systolic 100–126; BP diastolic 40–84
--- NOTE | 2019-05-13 00:07 | NUR ---
PT INFORMED THIS RN THAT SHE IS NOT ALLERGIC TO MORPHINE AND REQUESTED THAT THIS RN TAKE IT OFF HER ALLERGY LIST. MORPHINE TAKEN OFF OF PT ALLERGY LIST PER PT REQUEST.
[2019-05-13 00:53] LABS: BUN/CREATININE RATIO 15; CALCIUM 7.8 MG/DL (8.5-10.1); CHLORIDE 111 MMOL/L (98-107); CREATININE SERUM 0.87 MG/DL (0.60-1.30); GFR ESTIMATED > 60; GLUCOSE 261 MG/DL (70-105); POTASSIUM 4.5 MMOL/L (3.6-5.0); SODIUM 138 MMOL/L (135-145)
[2019-05-13 00:55] LABS: CARBON DIOXIDE 8 MMOL/L (21-32)
[2019-05-13] MEDS: D5 1/2 NS IV 1,000 ML IV SCH ×2 (01:07→05:55)
[2019-05-13] MEDS ORDERED: MIRTAZAPINE 15 MG (REMERON) TAB ONE (01:10)
[2019-05-13] MEDS: POTASSIUM CL 10MEQ/50ML IVPB 50 ML IV SCH ×4 (01:19→07:09)
[2019-05-13] MEDS ORDERED: MIRTAZAPINE 15 MG (REMERON) TAB PO ONE ×2 (01:23→21:00)
[2019-05-13] MEDS: 1/2 NS IV SOLUTION 1,000 ML IV SCH ×2 (03:00→06:46)
[2019-05-13 03:42] LABS: BASOPHILS % (AUTO) 0 % (0-10); EOSINOPHILS % (AUTO) 0 % (0-10); HEMATOCRIT 37 % (35-52); LYMPHOCYTES # (AUTO) 2.6 X 10^3 (1.0-4.0); LYMPHOCYTES % (AUTO) 22 % (12-44); MEAN CORPUSCULAR HEMOGLOBIN 31 PG (25-34); MEAN CORPUSCULAR HGB CONC 33 G/DL (32-36); MEAN CORPUSCULAR VOLUME 94 FL (80-99); MEAN PLATELET VOLUME 10.3 FL (7.4-10.4); MONOCYTES # (AUTO) 0.4 X 10^3 (0.0-1.0); MONOCYTES % (AUTO) 4 % (0-12); NEUTROPHILS # (AUTO) 8.8 X 10^3 (1.8-7.8); NEUTROPHILS % (AUTO) 74 % (42-75); PLATELET COUNT 275 10^3/uL (130-400); RED CELL DISTRIBUTION WIDTH 13.5 % (10.0-14.5); WHITE BLOOD COUNT 11.9 10^3/uL (4.3-11.0)
[2019-05-13 04:03] LABS: BUN/CREATININE RATIO 13; CALCIUM 7.7 MG/DL (8.5-10.1); CARBON DIOXIDE 10 MMOL/L (21-32); CHLORIDE 112 MMOL/L (98-107); CHOLESTEROL 172 MG/DL (< 200); CREATININE SERUM 0.83 MG/DL (0.60-1.30); GFR ESTIMATED > 60; GLUCOSE 269 MG/DL (70-105); HDL CHOLESTEROL 36 MG/DL (40-60); MAGNESIUM 1.9 MG/DL (1.6-2.4); PHOSPHORUS 1.7 MG/DL (2.3-4.7); POTASSIUM 4.4 MMOL/L (3.6-5.0); SODIUM 135 MMOL/L (135-145); TRIGLYCERIDES 82 MG/DL (<150); VLDL CHOLESTEROL 16 MG/DL (5-40)
[2019-05-13] MEDS ORDERED: MAGNESIUM 1 GM/100 ML IVPB 200 ML IV ONE (04:45)
[2019-05-13] MEDS ORDERED: PROMETHAZINE INJ 25 MG/ML (PHENERGAN) AMP ONE (04:50)
[2019-05-13] MEDS: MAGNESIUM 1 GM/100 ML IVPB 100 ML IV SCH ×2 (04:56→05:55)
[2019-05-13] MEDS ORDERED: PROMETHAZINE INJ 25 MG/ML (PHENERGAN) AMP IV ONE (05:15)
--- NOTE | 2019-05-13 08:07 | Diagnostic Imaging Report ---
CHEST 1 VIEW, AP/PA ONLY Indication: Chest pain Comparison: 05/12/2019 Findings: No focal airspace disease in the visualized lungs. Please note that the posterior lower lobes are poorly evaluated by portable radiography. No pleural effusion or pneumothorax. Normal cardiomediastinal silhouette. Impression: 1. No acute cardiopulmonary process by portable radiography. Dictated by: Dictated on workstation # [id number]
[2019-05-13] MEDS ORDERED: FAMOTIDINE 20MG/2ML IV (PEPCID) IV SCH (09:00)
[2019-05-13] MEDS ORDERED: ASPIRIN E.C. 81 MG (ECOTRIN) TAB PO SCH (09:00)
--- NOTE | 2019-05-13 13:07 | Short Stay Summary-Hospitalist ---
History of Present Illness HPI/Chief Complaint This 38-year-old woman presents to the emergency room with complaints of chest pain and pain that radiates across her shoulders and back that started about an hour prior to arrival. She has associated nausea. She is tachycardic and dyspneic but not hypoxic. She has history of diabetes and episodes of DKA. She denies any recent drug or alcohol use but she does have history of alcohol abuse in the past. She does smoke. She has no known cardiac disease. She has been afebrile. Pain does not seem to change with breathing or movement. She describes the pain as originating from the lower central chest and characterized as a squeezing. She reports a pain level of 8 or 9 out of 10. She reports her blood sugars have been normal today. She took her long-acting insulin this morning. The patient was noted to be in DKA with a CO2 level of 8 and a blood sugar a little over 300. Insulin drip was initiated and the patient was admitted to the intensive care unit. She was feeling better upon arrival to the unit but her CO2 level at 3 a.m. this morning was up to 10 her tachypnea had resolved. She had a recent admission for severe hypoglycemia and had not been taking bolus insulin for about 24 hours prior to her admission she stated because her blood sugars have been normal for fear of hypoglycemia. I strongly suspect that her insulin deficiency is more significant than she states especially considering the fact that there is no current evidence to suggest underlying infection. We discussed the importance in when her blood sugars are normal of still taking bolus insulin that it reduces doses. She normally takes 7 units before meals and advised that if her blood sugar levels are under 100 that she at least take 2 units of her Humalog and continue her basal therapy. We discussed the fact that her ketosis/acids and her blood had not been cleared yet and she need to remain on IV insulin for another day and then consider switch to basal bolus therapy. We discussed the high likelihood of return to life-threatening diabetic ketoacidosis if she left AGAINST MEDICAL ADVICE today. Despite this she left AGAINST MEDICAL ADVICE she did have a fingerstick blood sugar I was told for in the 190 and was given 20 units of insulin before discharge AGAINST MEDICAL ADVICE subcutaneous encouraged to eat regular meals check her blood sugar and go back on her regular basal bolus therapy. Several hours before discharge her vital signs were stable she was alert and oriented with no evidence for confusion with unremarkable chest pulmonary and abdominal exam tolerating solids with no ambulatory difficulties. The patient's chest pain resolved with negative troponin level and no ischemic changes on the EKG. Discussed the fact that smoking was aggravating her reflux and I suspect esophageal spasm may be the underlying cause of her chest pain. Advised omeprazole 20 mg daily and follow-up next week with [facility] prior to her leaving AGAINST MEDICAL ADVICE. Date Seen 05/13/19 Time Seen by a Provider: 09:30 Attending Physician Eren Puente MD PCP [facility] [place], Referring Physician Date of Admission May 12, 2019 at 21:16 Home Medications & Allergies Home Medications Reviewed patient Home Medication Reconciliation performed by pharmacy medication reconciliations refrigeration technician and/or nursing. Patients Allergies have been reviewed. Allergies Allergies Coded Allergies cephalexin (Verified Allergy, Unknown, 05/06/07) Past Vihpswp-Rjvxog-Dcvxng Hx Past Med/Social Hx: Reviewed and Corrections made Patient Social History Alcohol Use: Denies Use Recreational Drug Use: No Smoking Status: Current Everyday Smoker Type Used: Cigars 2nd Hand Smoke Exposure: Yes Recent Foreign Travel: No Contact w/other who traveled: No Recent Hopitalizations: No Recent Infectious Disease Expo: No Immunizations Up To Date Tetanus Booster (TDap): Unknown Pediatric: Yes Date of Pneumonia Vaccine: Apr 25, 2019 Seasonal Allergies Seasonal Allergies: No Past Medical History Surgeries: Tubal Ligation Reproductive: No Sexually Transmitted Disease: No Musculoskeletal: Chronic Back Pain Endocrine: Diabetes, Insulin dep Review of Systems Constitutional: no symptoms reported Cardiovascular: No no symptoms reported, No see HPI; chest pain; No edema, No Hx of Intervention, No palpitations, No syncope, No vascular heart diseas, No other Gastrointestinal: heartburn, other (No nausea vomiting or melena noted.) Physical Exam Physical Exam Vital Signs Vital Signs - First Documented 05/12/19 05/12/19 19:30 22:29 Temp 36.4 Pulse 122 Resp 20 B/P (MAP) 161/80 (107) Pulse Ox 99 O2 Delivery Room Air Capillary Refill : Less Than 3 Seconds Height, Weight, BMI Height: '" Weight: lbs. oz. kg; 40.11 BMI Method: General Appearance: WD/WN, Moderate Distress HEENT: PERRL/EOMI, Other (oropharynx dry) Neck: Normal Inspection Respiratory: Chest Non Tender, Lungs Clear, Normal Breath Sounds, No Accessory Muscle Use, No Respiratory Distress; No Crackles, No Wheezing; Other (tachypnea. Tenderness to palpation is mild over the left lower anterior chest) Cardiovascular: Regular Rate, Rhythm, No Edema, No Gallop, No JVD, No Murmur, Tachycardia Gastrointestinal: Normal Bowel Sounds, No Organomegaly, Non Tender, Soft, Tenderness (minimal in the epigastrium) Extremity: Normal Inspection, No Pedal Edema, Other (minimal tenderness in the right calf) Neurologic/Psychiatric: Oriented x3, No Motor/Sensory Deficits, sex therapist II-XII Norm as Tested, Other (anxious) Skin: Normal Color, Warm/Dry Results Results/Procedures Labs Laboratory Tests 05/12/19 19:35 05/13/19 00:15 05/13/19 02:55 Patient resulted labs reviewed. Short Stay Diagnosis Discharge Diagnosis-Short Stay Admission Diagnosis 1. Diabetic ketoacidosis 2. Chest pain Final Discharge Diagnosis 1. Type I diabetes mellitus with ketoacidosis 2. Chest pain noncardiac in etiology suspect reflux related. Conclusion Plan See history of present illness Clinical Quality Measures AMI/AHF: ASA po Prior to arrival: No DVT/VTE Risk/Contraindication: Risk Factor Score Per Nursin RFS Level Per Nursing on Admit: 2=Moderate Copy Copies To 1: [facility]/EREN BETHEA MD May 13, 2019 13:07
[2019-05-13] MEDS ORDERED: MIRTAZAPINE 15 MG (REMERON) TAB PO SCH (21:00)
== END 2019-05-13 09:54 | disposition left against medical advice (07) | DRG 639 ==
LOC: EDUNIT# 19:22 → ER 19:23 → ICU 21:16
PROVIDERS: ADMIT Internal Medicine; ATTEND Internal Medicine
DX: E11.10 Type 2 diabetes mellitus with ketoacidosis without coma (principal); F10.11 Alcohol abuse, in remission; F17.290 Nicotine dependence, other tobacco product, uncomplicated; M54.9 Dorsalgia, unspecified; K21.9 Gastro-esophageal reflux disease without esophagitis; Z98.51 Tubal ligation status; Z79.4 Long term (current) use of insulin
CPT/HCPCS: 36415; 71045; 71275; 80048; 80053; 80061; 80306; 80320; 81000; 82010; 82962; 83690; 83735; 83874; 84100; 84484; 84703; 85007; 85025; 85027; 85379; 85610; 85730; 87081; 93005; 93041; 96361; 96374; 96375; 96376; G0378

== ENCOUNTER 2019-09-08 17:02 | Emergency (ER) | payer MEDICAID ==
[~2019-09-08] VITALS: Ht 172 cm; Wt 86.0 kg
[2019-09-08] MEDS ORDERED: NS IV 1000 ML 1,000 ML IV SCH ×2 (17:19→18:13)
[2019-09-08 17:37] LABS: BASOPHILS % (AUTO) 1 % (0-10); EOSINOPHILS # (AUTO) 0.2 10^3/uL (0.0-0.3); EOSINOPHILS % (AUTO) 4 % (0-10); HEMATOCRIT 37 % (35-52); LYMPHOCYTES # (AUTO) 1.4 X 10^3 (1.0-4.0); LYMPHOCYTES % (AUTO) 33 % (12-44); MEAN CORPUSCULAR HEMOGLOBIN 31 PG (25-34); MEAN CORPUSCULAR HGB CONC 33 G/DL (32-36); MEAN CORPUSCULAR VOLUME 94 FL (80-99); MEAN PLATELET VOLUME 9.7 FL (7.4-10.4); MONOCYTES # (AUTO) 0.3 X 10^3 (0.0-1.0); MONOCYTES % (AUTO) 7 % (0-12); NEUTROPHILS # (AUTO) 2.3 X 10^3 (1.8-7.8); NEUTROPHILS % (AUTO) 56 % (42-75); PLATELET COUNT 207 10^3/uL (130-400); RED CELL DISTRIBUTION WIDTH 13.8 % (10.0-14.5); WHITE BLOOD COUNT 4.1 10^3/uL (4.3-11.0)
[2019-09-08 17:49] LABS: BILIRUBIN,URINE NEGATIVE (NEGATIVE); CLARITY,URINE CLEAR; COLOR,URINE YELLOW; GLUCOSE, URINE (UA) 3+ (NEGATIVE); KETONES,URINE NEGATIVE (NEGATIVE); LEUKOCYTE ESTERASE ,URINE NEGATIVE (NEGATIVE); NITRITE,URINE NEGATIVE (NEGATIVE); PROTEIN,URINE NEGATIVE (NEGATIVE)
[2019-09-08 17:53] VITALS: BP 150/90
[2019-09-08 17:56] LABS: ALBUMIN 3.7 GM/DL (3.2-4.5); BILIRUBIN,TOTAL 0.6 MG/DL (0.1-1.0); CALCIUM 8.2 MG/DL (8.5-10.1); CREATININE SERUM 1.18 MG/DL (0.60-1.30); POTASSIUM 3.7 MMOL/L (3.6-5.0); TOTAL PROTEIN 6.4 GM/DL (6.4-8.2)
--- NOTE | 2019-09-08 18:10 | NUR ---
GLUCOSE IS 713.
--- NOTE | 2019-09-08 18:12 | ED General ---
General Chief Complaint: Glucose Problems Stated Complaint: N/V/HEADACHE/ POSS HIGH BLOOD SUGAR Nursing Triage Note: THE PT IS AMBULATORY TO THE ROOM WITHOUT DIFFICULTY. NO DISTRESS IS SEENON ARRIVAL. LOC IS NORMAL FOR THE PT. THE HAS A HIGH BLOOD SUGAR. Nursing Sepsis Screen: No Definite Risk History of Present Illness Date Seen by Provider: Sep 08, 2019 Time Seen by Provider: 17:55 Initial Comments 39-year-old female sitting type I diabetic with an insulin pump reports that her blood sugars have been high today (500-640). She was diagnosed with influenza A earlier this morning. She had cough, fever, nausea and vomiting for approximately 4 days. Timing/Duration: 4-6 Hours Associated Systoms: No Chest Pain; Cough; No Diaphoresis; Fever/Chills; No Headaches, No Loss of Appetite; Malaise; No Nausea/Vomiting, No Rash, No Seizure, No Shortness of Air, No Syncope, No Weakness, No Other Allergies and Home Medications Allergies Coded Allergies: cephalexin (Verified Allergy, Unknown, 05/06/07) Home Medications Diphenhydramine HCl 25 Mg Capsule, 25 MG PO TID PRN for ALLERGIES, (Reported) Ibuprofen 800 Mg Tablet, 800 MG PO BID PRN for PAIN-MILD, (Reported) Insulin Aspart 100 Unit/1 Ml Susp, 7 UNIT SQ AC Prescribed by: RAIN ARROYO on 04/23/19952 Insulin Determir 1,000 Units/10 Ml Soln, 38 UNITS SQ BID Prescribed by: RAIN ARROYO on 04/23/19952 Patient Home Medication List Home Medication List Reviewed: Yes Review of Systems Review of Systems Constitutional: see HPI, fever, malaise, weakness Respiratory: see HPI, cough Cardiovascular: no symptoms reported, see HPI; No chest pain Gastrointestinal: see HPI, nausea All Other Systems Reviewed Negative Unless Noted: Yes Past Ojayfag-Cazxlo-Xkvhvq Hx Past Med/Social Hx: Reviewed Nursing Past Med/Soc Hx Patient Social History Type Used: Cigars 2nd Hand Smoke Exposure: Yes Recent Foreign Travel: No Contact w/Someone Who Travel: No Recent Infectious Disease Expo: No Recent Hopitalizations: No Physical Abuse: No Sexual Abuse: No Mistreated: No Fear: No Immunizations Up To Date Tetanus Booster (TDap): Unknown PED Vaccines UTD: Yes Date of Pneumonia Vaccine: Apr 25, 2019 Seasonal Allergies Seasonal Allergies: No Past Medical History Surgeries: Yes (WILEY., KIDNEY BIOPSY) Tubal Ligation Respiratory: No Cardiac: No Neurological: No Reproductive Disorders: No Sexually Transmitted Disease: No Gastrointestinal: Yes Musculoskeletal: Yes (NO CURVATURE IN LOWER SPINE) Chronic Back Pain Endocrine: Yes (reports history of DKA) Diabetes, Insulin dep HEENT: No Cancer: No Psychosocial: No Physical Exam Vital Signs Vital Signs - First Documented 09/08/19 17:53 Temp 36.7 Pulse 99 Resp 16 B/P (MAP) 150/90 (110) Capillary Refill : Less Than 3 Seconds Height, Weight, BMI Height: '" Weight: lbs. oz. kg; 29.00 BMI Method: General Appearance: No Apparent Distress, WD/WN Eyes: Bilateral Eye Normal Inspection, Bilateral Eye PERRL, Bilateral Eye EOMI HEENT: PERRL/EOMI, TMs Normal, Normal ENT Inspection, Pharynx Normal Neck: Full Range of Motion, Normal Inspection, Non Tender, Supple Respiratory: Chest Non Tender, Lungs Clear, Normal Breath Sounds Cardiovascular: Regular Rate, Rhythm, No Edema, No Murmur, Normal Peripheral Pulses Gastrointestinal: Normal Bowel Sounds, Non Tender, Soft Back: Normal Inspection, No CVA Tenderness, No Vertebral Tenderness Extremity: Normal Capillary Refill, Normal Inspection, Normal Range of Motion Neurologic/Psychiatric: Alert, Oriented x3, No Motor/Sensory Deficits, Normal Mood/Affect Skin: Normal Color, Warm/Dry Progress/Results/Core Measures Suspected Sepsis Recent Fever Within 48 Hours: No Infection Criteria Present: None New/Unexplained Altered Menta: No Sepsis Screen: No Definite Risk SIRS Temperature: Pulse: 99 Respiratory Rate: 16 Laboratory Tests 09/08/19 17:30: White Blood Count 4.1L Blood Pressure 150 /90 Mean: 110 Laboratory Tests 09/08/19 17:30: Creatinine 1.18, Platelet Count 207, Total Bilirubin 0.6 Results/Orders Lab Results Laboratory Tests Test 09/08/19 17:17 09/08/19 17:30 09/08/19 17:40 09/08/19 19:00 Range/Units Glucometer > 600 *H 414 *H 70-110 MG/DL White Blood Count 4.1 L 4.3-11.0 10^3/uL Red Blood Count 3.89 L 4.35-5.85 10^6/uL Hemoglobin 12.0 11.5-16.0 G/DL Hematocrit 37 35-52 % Mean Corpuscular Volume 94 80-99 FL Mean Corpuscular Hemoglobin 31 25-34 PG Mean Corpuscular Hemoglobin Concent 33 32-36 G/DL Red Cell Distribution Width 13.8 10.0-14.5 % Platelet Count 207 130-400 10^3/uL Mean Platelet Volume 9.7 7.4-10.4 FL Neutrophils (%) (Auto) 56 42-75 % Lymphocytes (%) (Auto) 33 12-44 % Monocytes (%) (Auto) 7 0-12 % Eosinophils (%) (Auto) 4 0-10 % Basophils (%) (Auto) 1 0-10 % Neutrophils # (Auto) 2.3 1.8-7.8 X 10^3 Lymphocytes # (Auto) 1.4 1.0-4.0 X 10^3 Monocytes # (Auto) 0.3 0.0-1.0 X 10^3 Eosinophils # (Auto) 0.2 0.0-0.3 10^3/uL Basophils # (Auto) 0.0 0.0-0.1 10^3/uL Sodium Level 130 L 135-145 MMOL/L Potassium Level 3.7 3.6-5.0 MMOL/L Chloride Level 101 98-107 MMOL/L Carbon Dioxide Level 15 L 21-32 MMOL/L Anion Gap 14 5-14 MMOL/L Blood Urea Nitrogen 16 7-18 MG/DL Creatinine 1.18 0.60-1.30 MG/DL Estimat Glomerular Filtration Rate 51 BUN/Creatinine Ratio 14 Glucose Level 713 *H 70-105 MG/DL Calcium Level 8.2 L 8.5-10.1 MG/DL Corrected Calcium 8.4 L 8.5-10.1 MG/DL Total Bilirubin 0.6 0.1-1.0 MG/DL Aspartate Amino Transf (AST/SGOT) 10 5-34 U/L Alanine Aminotransferase (ALT/SGPT) 10 0-55 U/L Alkaline Phosphatase 66 40-136 U/L Total Protein 6.4 6.4-8.2 GM/DL Albumin 3.7 3.2-4.5 GM/DL Urine Color YELLOW Urine Clarity CLEAR Urine pH 6.0 5-9 Urine Specific [place] <=1.005 1.016-1.022 Urine Protein NEGATIVE NEGATIVE Urine Glucose (UA) 3+ H NEGATIVE Urine Ketones NEGATIVE NEGATIVE Urine Nitrite NEGATIVE NEGATIVE Urine Bilirubin NEGATIVE NEGATIVE Urine Urobilinogen 0.2 < = 1.0 MG/DL Urine Leukocyte Esterase NEGATIVE NEGATIVE Urine RBC (Auto) NEGATIVE NEGATIVE Urine RBC 0-2 /HPF Urine WBC NONE /HPF Urine Crystals NONE /LPF Urine Bacteria NEGATIVE /HPF Urine Casts NONE /LPF Urine Mucus NEGATIVE /LPF Urine Culture Indicated NO Micro Results Microbiology 09/08/19 Influenza Types A,B Antigen (DUNG) - Final, Complete My Orders Orders - SUDHEER OLIVERA Influenza A And B Antigens (09/08/19 17:18) Cbc With Automated Diff (09/08/19 17:19) Comprehensive Metabolic Panel (09/08/19 17:19) Ua Culture If Indicated (09/08/19 17:19) Ed Iv/Invasive Line Start (09/08/19 17:19) Ns Iv 1000 Ml (Sodium Chloride 0.9%) (09/08/19 17:19) Ondansetron Injection (Zofran Injectio (09/08/19 18:15) Insulin (Regular) Human (Humulin R (Per (09/08/19 18:13) Ed Iv/Invasive Line Start (09/08/19 18:13) Ns Iv 1000 Ml (Sodium Chloride 0.9%) (09/08/19 18:13) Accucheck Stat ONCE (09/08/19 19:04) Medications Given in ED Current Medications Medications Dose Ordered Sig/Yvan Route Start Time Stop Time Status Last Admin Dose Admin Ondansetron HCl 4 mg ONCE ONCE IVP 09/08/19 18:15 09/08/19 18:16 DC 09/08/19 18:24 4 MG Vital Signs/I&O 09/08/19 17:53 Temp 36.7 Pulse 99 Resp 16 B/P (MAP) 150/90 (110) Capillary Refill : Less Than 3 Seconds Blood Pressure Mean: 110 Progress Note : Time: 17:55 Progress Note Patient seen and evaluated, will obtain labs and reevaluate. Normal saline 1 L per IV. Zofran 4 mg IV for nausea. 183 glucose 713, will give second normal saline 1 L with 10 units of regular insulin per IV. 1914 glucose 414. Patient reports be feeling much better. Requesting discharge to home. No ketones in her urine. She will continue to monitor her blood glucose closely with her pump and administer insulin as needed. She understands importance of slowly decreasing her blood sugar at this point. Discharge instructions and return precautions reviewed with her in detail. All questions answered. Departure Impression Primary Impression: Hyperglycemia Additional Impression: Influenza A Disposition: 01 HOME, SELF-CARE Condition: Improved Departure-Patient Inst. Decision time for Depature: 19:15 Referrals: [facility] (PCP/Family) Primary Care Physician Patient Instructions: Flu, Adult (DC), Hyperglycemia, Adult (DC) Add. Discharge Instructions: Continue to increase water intake, 16 ounces every 2 hours while awake. Monitor blood sugars. Adjust insulin per results. Follow-up with your primary care provider if symptoms are not improving or worsen. Continue to use Zofran 1 tablet every 6-8 hours as needed for nausea or vomiting. Stay home and rest while febrile or generalized discomfort from the flu. Do not go out and about until fever free for 24 hours without Tylenol or ibuprofen. Alternate ibuprofen 600 mg and Tylenol 650 mg every 4 hours for pain or fever. Return to the emergency department for elevated blood sugars, persistent nausea and vomiting, fever greater than 101 not relieved by Tylenol or ibuprofen, or new urgent needs. All discharge instructions reviewed with patient and/or family. Voiced understanding. Copy Copies To 1: CAREY DAVISON MD, AMY ARNP Sep 08, 2019 18:12
[2019-09-08] MEDS ORDERED: inSUlin (REGULAR) HUMAN 1 UNIT/0.01 ML (CHARGE PER UNIT) IV STA (18:13)
[2019-09-08] MEDS ORDERED: ONDANSETRON 4 MG/2 ML (SDV) Z0FRAN IVP ONE (18:15)
[2019-09-08 18:28] LABS: BACTERIA,URINE NEGATIVE /HPF; RBC,URINE 0-2 /HPF
--- NOTE | 2019-09-08 19:02 | NUR ---
BED SIDE POC IS 414.
== END 2019-09-08 19:50 | disposition home or self-care (01) ==
LOC: EDUNIT# 17:02 → ER 17:04
DX: E10.65 Type 1 diabetes mellitus with hyperglycemia (principal); J10.1 Influenza due to other identified influenza virus with other respiratory manifestations; E10.10 Type 1 diabetes mellitus with ketoacidosis without coma; Z88.1 Allergy status to other antibiotic agents; Z79.4 Long term (current) use of insulin; Z77.22 Contact with and (suspected) exposure to environmental tobacco smoke (acute) (chronic)
CPT/HCPCS: 36415; 80053; 81000; 82962; 85025; 87804

== ENCOUNTER 2019-10-22 09:13 | Observation (INO) | payer MEDICAID ==
[~2019-10-22] VITALS: Ht 175 cm; Wt 88.4 kg
--- OUTSIDE RECORDS SUMMARY | 2019-10-22 09:19 | XMS REPORT ---
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 Name Role Phone ALENA Perez Unavailable PROBLEMS Type Condition ICD9-CM Code VIC48-YV Code Onset Dates Condition S tatus SNOMED Code Problem Type 1 diabetes mellitus with hypoglycemia and without com a E10.649 Active 36312776 Problem Anxiety F41.9 Active 68121361 Problem Adjustment disorder with mixed anxiety and depressed mood F43.23 Active 035635928 Problem Intractable migraine without status migrainosus, unspecified migraine type G43.919 Active 814567197 Problem Primary insomnia F51.01 Active 397 2004 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 [id number] [place] [address] Aug, Nausea and vomiting, intract ability of vomiting not specified, unspecified vomiting type R11.2 and Flu-like symptoms R68.89 [facility] [address] [place] [id number] [place] [address] Aug, [facility] [address] [facility] [place] [address] 17 Aug, 2019 [facility] [address] [place] [address] [id number] [place] [address] 15 Aug, 2019 [facility] [address] [place] [address] 15 Aug, 2019 [facility] [address] [place] [id number] [place] [address] 12 Aug, 2019 [facility] [id number] [place] [address] 11 Aug, 2019 [facility] [id number] [place] [address] 10 Aug, 2019 [facility] [address] [id number] [place] [address] Aug, 2019 [facility] [id number] [place] [address] Aug, 2019 [facility] [id number] [place] [address] 04 Aug, 2019 [facility] [id number] [place] [address] Aug, 2019 [facility] [address] [facility] [address] [place] [address] Aug, [facility] [address] [facility] [id number] [address] [place] [address] Aug, Urinary tract infection, sit e not specified N39.0 and Hematuria, unspecified R31.9 [facility] [address] [place] [id number] [place] [address] Aug, [facility] [id number] [place] [address] Jul, [facility] [id number] [place] [address] Jul, [facility] [id number] [place] [address] Jul, [facility] [address] [address] Jul, Frequent UTI N39.0 [facility] [address] [address] Jul, [facility] [address] [address] Jul, Dysuria R30.0 [facility] [address] [address] Jul, [facility] [address] [address] Jul, Dysuria R30.0 [facility] [address] [address] Jul, Adjustment disorder with mixed anxiety a nd depressed mood F43.23 [facility] [address] [address] Jul, [facility] [address] [address] Jul, [facility] [address] [address] Jul, Fatigue, unspecified type R53.83 ; Type 1 diabetes mellitus with hypoglycemia and without coma E10.649 and Mixed hyperlipidemia E78.2 [facility] [address] [address] Jul, [facility] [address] [address] Jul, [facility] [address] [address] Jun, [facility] [address] [place] [id number] [place] [address] Jun, [facility] [address] [facility] [id number] [address] [place] [address] Jun, Fatigue, unspecified type R5 3.83 [facility] [address] [place] [address] [id number] [place] [address] Jun, [facility] [address] [address] Jun, [facility] [address] [address] Jun, [facility] [address] [address] Jun, [facility] [address] [address] Jun, [facility] [address] [address] Jun, [facility] [address] [address] Jun, Type 2 diabetes mellitus with diabetic p olyneuropathy E11.42 [facility] [id number] [place] [address] Jun, [facility] [address] [address] Jun, [facility] [address] [place] [id number] [place] [address] May, [facility] [address] [address] May, Type 2 diabetes mellitus with diabetic p olyneuropathy E11.42 [facility] [id number] [place] [address] May, Type 1 diabetes mellitus with hypoglycem ia and without coma E10.649 [facility] [address] [address] May, [facility] [address] [address] May, Type 2 diabetes mellitus with diabetic p olyneuropathy E11.42 [facility] [address] [address] May, Type 2 diabetes mellitus with diabetic p olyneuropathy E11.42 [place] [address] [address] May, Type 2 diabetes mellitus with diabetic p olyneuropathy E11.42 [place] [address] [address] May, Adjustment disorder with mixed anxiety a nd depressed mood F43.23 [facility] [address] [address] May, Bronchitis J40 [place] [address] [address] Apr, [facility] [address] [address] Apr, Bronchitis J40 [facility] [address] [address] Apr, Adjustment disorder with mixed anxiety a nd depressed mood F43.23 ; Primary insomnia F51.01 and Mood disorder F39 [place] [address] [address] Apr, [place] [address] [address] Apr, Type 2 diabetes mellitus with diabetic p olyneuropathy E11.42 and Mixed hyperlipidemia E78.2 [place] [address] [address] Apr, Mood disorder F39 [place] [address] [address] Apr, Type 2 diabetes mellitus with diabetic p olyneuropathy E11.42 [place] [address] [address] Apr, Type 2 diabetes mellitus with diabetic p olyneuropathy E11.42 [place] [address] [id number] [place] [address] Apr, Type 2 diabetes mellitus with diabetic p olyneuropathy E11.42 [facility] [id number] [place] [address] Apr, [facility] [address] [id number] [address] Apr, [facility] [address] [address] Apr, [facility] [address] [address] Apr, [facility] [address] [address] Apr, [facility] [address] [address] Apr, [facility] [address] [address] Apr, Type 2 diabetes mellitus with diabetic p olyneuropathy E11.42 ; Mixed hyperlipidemia E78.2 ; Dyshidrotic eczema L30.1 ; Frequent UTI N39.0 and Encounter for immunization Z23 [facility] [address] [place] [id number] [place] [address] Apr, Adjustment disorder with mixed anxiety a nd depressed mood F43.23 ; Primary insomnia F51.01 and Mood disorder F39 [facility] [address] [place] [id number] [place] [address] Apr, [facility] [address] [address] Apr, [facility] [address] [address] Apr, [facility] [address] [address] Apr, [facility] [address] [address] Apr, [facility] [address] [place] [id number] [place] [address] Apr, Mood disorder F39 [facility] [address] [address] 30 Mar, 2019 Type 2 diabetes mellitus with diabetic p olyneuropathy E11.42 [facility] [address] [address] 25 Mar, 2019 Urinary tract infection, site not specif ied N39.0 [facility] [address] [address] Mar, [facility] [address] [address] Mar, [facility] [address] [address] Mar, [facility] [address] [address] Mar, Intractable migraine without status migr ainosus, unspecified migraine type G43.919 [facility] [address] [address] Mar, [facility] [address] [address] Mar, [facility] [address] [facility] [id number] [address] [place] [address] 18 Mar, 2019 Urinary tract infection, sit e not specified N39.0 and Hematuria, unspecified R31.9 [facility] [address] [id number] [place] [address] 17 Mar, 2019 [facility] [address] [address] 16 Mar, 2019 Mood disorder F39 [facility] [address] [address] 13 Mar, 2019 Type 2 diabetes mellitus with diabetic p olyneuropathy E11.42 [facility] [address] [address] Mar, [facility] [id number] [place] [address] Mar, [facility] [place] [address] [place] [id number] [place] [address] Feb, [facility] [place] [facility] [address] [address] Feb, [facility] [place] [address] [place] [id number] [place] [address] Feb, [facility] [place] [facility] [address] [place] [id number] [place] [address], [place] [address] Feb, [facility] [place] [address] [place] [id number] [place] [address] Feb, [facility] [address] [address] Feb, [facility] [address] [address] Feb, Dysuria R30.0 [facility] [place] [facility] [address] [place] [id number] [place] [address] Feb, [facility] [address] [address] Feb, [facility] [address] [address] Feb, [facility] [address] [address] Feb, [facility] [address] [place] [id number] [place] [address] Jan, HPV (human papilloma virus) infection B9 7.7 [facility] [address] [id number] [place] [address] Dec, [facility] [place] [facility] [address] [address] Dec, [facility] [address] [address] Dec, [place] [address] [place] [id number] [place] [address] Dec, Mixed hyperlipidemia E78.2 [place] [address] [place] [id number] [place] [address] 05 Dec, 2018 Type 2 diabetes mellitus with diabetic p olyneuropathy E11.42 and FCI 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 [place] [address] [address] November, Type 2 diabetes mellitus with diabetic p olyneuropathy E11.42 [place] [address] [address] November, Dysuria R30.0 and History of HPV infecti on Z86.19 [place] [address] [place] [id number] [place] [address] November, [place] [address] [address] November, UTI symptoms R39.9 [place] [address] [address] November, [place] [address] [address] November, UTI symptoms R39.9 [place] [address] [place] [id number] [place] [address] November, [place] [address] [address] November, Acute cystitis with hematuria N30.[address] [place] [address] Sep, Acute UTI N39.0 and Uncontro lled type 2 diabetes mellitus with hyperglycemia E11.65 [place] [address] [place] [address] Jul, Type 2 diabetes mellitus with diabetic p olyneuropathy E11.42 [place] [address] [address] Jul, [facility] [address] [address] Jul, [facility] [address] [address] Jul, Acute cystitis without hematuria N30.00 [facility] [address] [address] 09 Jul, 2018 [facility] [address] [address] Jul, Acute UTI N39.0 [facility] [address] [address] Jun, [facility] [address] [address] Jun, Type 2 diabetes mellitus with diabetic p olyneuropathy E11.42 ; FCI 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 and Primary insomnia F51.01 [facility] [address] [address] Apr, Type 2 diabetes mellitus with diabetic p olyneuropathy E11.[address] [id number] Apr, Type 2 diabetes mellitus with diabetic polyneuropathy E11.42 ; Primary insomnia F51.01 and Anxiety F41.[address] [id number] Mar, Type 2 diabetes mellitus with diabetic polyneuropathy E11.[address] [id number] Mar, Type 2 diabetes mellitus with diabetic polyneuropathy E11.42 ; 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 ; Anxiety F41.9 and Primary insomnia F51.[address] [id number] Feb, Type II or unspecified type diabetes mellitus without mention of complication, uncontrolled E11.[address] [facility] [address] [id number] Jan, Type II or unspecified type diabetes mellitus without mention of complication, uncontrolled E11.65 ; 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 ; Type 2 diabetes mellitus with diabetic polyneuropathy E11.42 ; Tinea B35.9 ; Acute eczema L30.9 and Anxiety F41.[address] [id number] November, [address] [id number] November, Type 2 diabetes mellitus with diabetic polyneuropathy E11.42 ; 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 ; Primary insomnia F51.01 and Anxiety F41.[address] [id number] Oct, [address] [id number] Oct, [address] [id number] Oct, Well woman exam with routine gynecological exam Z01.419 ; Screening breast examination Z12.31 ; Type 2 diabetes mellitus with diabetic polyneuropathy E11.42 ; 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 ; CVA tenderness M54.9 ; High risk sexual behavior Z72.51 ; Acute cystitis without hematuria N30.00 ; Anxiety F41.9 ; Type II or unspecified type diabetes mellitus without mention of complication, uncontrolled E11.65 and Primary insomnia F51.[address] [id number] Aug, Primary insomnia F51.[address] [id number] Aug, Abrasion T14.8XXA ; Open wound T14.8XXA and Type II or unspecified type diabetes mellitus without mention of complication, uncontrolled E11.[address] [id number] Jul, Type II or unspecified type diabetes mellitus without mention of complication, uncontrolled E11.65 ; Anxiety F41.9 ; Primary insomnia F51.01 ; Abrasion T14.8XXA and Pain in left ross M79.[address] [id number] May, Type II or unspecified type diabetes mellitus without mention of complication, uncontrolled E11.[address] [id number] May, Primary insomnia F51.[address] [id number] Apr, Primary insomnia F51.[address] [id number] Mar, [address] [id number] Mar, Type II or unspecified type diabetes mellitus without mention of complication, uncontrolled E11.65 ; Primary insomnia F51.01 ; Other insomnia G47.09 and Anxiety F41.[address] [id number] Jan, Type II or unspecified type diabetes mellitus without mention of complication, uncontrolled E11.65 ; Anxiety F41.9 and Other insomnia G47.[address] [id number] Dec, Type II or unspecified type diabetes mellitus without mention of complication, uncontrolled E11.65 ; Anxiety F41.9 and Other insomnia G47.[address] [id number] November, Type II or unspecified type diabetes mellitus without mention of complication, uncontrolled E11.[address] [id number] 14 Oct, 2016 Dysuria R30.[address] [id number] 14 Sep, 2016 Pain, dental K08.[address] [id number] Aug, [address] [id number] Aug, Dysuria R30.0 ; Type II or unspecified type diabetes mellitus without mention of complication, uncontrolled E11.65 and Medial epicondylitis, left elbow M77.[address] [id number] Jul, Acute pharyngitis due to other specified organisms J02.[address] [id number] Jun, Cellulitis of unspecified part of limb L03.119 ; Type II or unspecified type diabetes mellitus without mention of complication, uncontrolled E11.65 ; Cellulitis of right lower extremity L03.115 and Ulcer of skin, limited to breakdown of skin L98.[address] [id number] Jun, Cellulitis of unspecified part of limb L03.119 ; Cellulitis of right lower extremity L03.115 and Ulcer of skin, limited to breakdown of skin L98.[address] [id number] Jun, Cellulitis of unspecified part of limb L03.119 ; Cellulitis of right lower extremity L03.115 and Ulcer of skin, limited to breakdown of skin L98.[address] [id number] Jun, [address] [id number] Jun, [address] [id number] Jun, Dysuria R30.[address] [id number] May, [address] [id number] May, Painful swelling of joint M25.40 and Type II or unspecified type diabetes mellitus without mention of complication, uncontrolled E11.[address] [id number] May, Painful swelling of joint M25.[address] [id number] May, Painful swelling of joint M25.40 ; Glucosuria R81 and History of chest pain Z87.898 [facility] [address] [id number] [facility] [place] [id number] May, [facility] [address] [id number] Apr, Well woman exam with routine gynecological exam Z01.419 and High risk sexual behavior Z72.[address] [id number] Apr, Kidney infection N15.9 ; UTI symptoms R39.9 and Dysuria R30.[address] [id number] Apr, Grief reaction F43.[address] [id number] Mar, [address] [id number] Mar, Grief reaction F43.[address] [id number] Feb, [address] [id number] Feb, Stress reaction F43.0 and Type II or unspecified type diabetes mellitus without mention of complication, uncontrolled E11.[address] [id number] Jan, [address] [id number] Dec, [address] [id number] Dec, [address] [id number] Dec, [address] [id number] November, [address] [id number] November, Pharyngitis J02.[address] [id number] Oct, [address] [id number] Oct, Sciatic leg pain M54.[address] [id number] Sep, [address] [id number] Sep, [address] [id number] Sep, Sciatic leg pain M54.[address] [id number] Aug, Pharyngitis J02.[address] [id number] Jul, Type II or unspecified type diabetes mellitus without mention of complication, uncontrolled E11.65 and Midline low back pain without sciatica M54.[address] [id number] Jun, Diabetes with unspecified complication, type II or unspecified type, uncontrolled 250.[address] [id number] Jun, [facility] [id number] [place] [address] May, [address] [id number] May, Diabetes with unspecified complication, type II or unspecified type, uncontrolled 250.[address] [id number] Apr, [facility] [address] [id number] Y[place] [id number] Apr, [address] [id number] Apr, Type 2 diabetes mellitus with hyperglycemia E11.65 ; Depression with anxiety F41.8 ; Influenza vaccination declined Z28.21 and Diabetes with unspecified complication, type II or unspecified type, uncontrolled 250.[address] [id number] Apr, [place] [address] [facility] [id number] Mar, [facility] [place] [address] [facility] [address] Mar, [facility] [place] [address] [facility]07[place] [address] Mar, [facility] [place] [address] [facility] [id number] Feb, [facility] [place] [address] [facility] [id number] Feb, [facility] [place] [address] [facility] [id number] Feb, [facility] [id number] [id number] Feb, [facility] [address]757[facility] [address] Feb, Dental abscess 522.[address] [place] [address] [address] Jan, Diabetes with unspecified complication, type II or unspecified type, uncontrolled 250.92 ; Vaginal denise 112.1 ; Broken tooth 873.63 and Screening for STD (sexually transmitted disease) V74.5 [facility] [address] [address] Oct, [facility] [address] [address] Oct, [place] [id number] [place] [id number] Sep, [facility] [address] [address] Sep, [place] [id number] [place] [id number] Aug, [facility] [address] [address] Aug, [address] [place] [id number] Aug, [facility] [address] [place] [address] Aug, [facility] [address] [facility]07757[facility] [id number] Jul, [facility] [place] [facility] [address] [facility] [place] [address] Jul, [facility] [address] [facility]07757[facility] [id number] Jul, [facility] [place] [facility] [id number] [place] [address] Jul, [facility] [place] [facility] [address] [facility] [place] [address] Jul, [facility] [id number] [id number] Jul, [facility] [address] [id number] [id number] Jul, [facility] [place] [facility] [id number] [place] [address] Jul, [facility] [id number] [id number] Jul, [facility] [place] [facility] [id number] [place] [address] Jul, [facility] [address] [id number] [id number] Jun, [facility] [place] [facility] [id number] [place] [address] Jun, [facility] [place] [facility] [address] [facility] [place] [address] Jun, [facility] [address] [facility]07757[place] [id number] Jun, [facility] [place] [facility] [id number] [place] [address] Jun, [facility] [place] [facility] [address] [facility] [place] [address] May, [facility] [id number] [id number] May, [facility] [id number] [id number] May, [facility] [place] [facility] [address] [id number] [place] [address] May, [facility] [id number] [id number] May, [facility] [place] [facility] [id number] [place] [address] May, [facility] [place] [facility] [id number] [place] [address] Apr, [facility] [place] [facility] [id number] [place] [address] Mar, [facility] [place] [facility] [id number] [place] [address] Jan, [facility] [id number] [id number] Jan, [facility] [place] [facility] [id number] [place] [address] Jan, [facility] [id number] [id number] Jan, [facility] [place] [facility] [id number] [place] [address] Jan, [facility] [address] [facility] [id number] Dec, [facility] [place] [facility] [id number] [place] [address] Dec, [facility] [id number] [id number] November, [facility] [place] [facility] [id number] [place] [address] November, [facility] [id number] [id number] November, [facility] [place] [facility] [id number] [place] [address] November, [facility] [address] [id number] [id number] Oct, [facility] [place] [facility] [address] [id number] [place] [address] Oct, [facility] [id number] [id number] Oct, [facility] [place] [facility] [address] [id number] [place] [address] Oct, [facility] [place] [facility] [id number] [place] [address] Oct, [facility] [place] [facility] [address] [id number] [place] [address] Oct, [facility] [address] [id number] [id number] Sep, [facility] [place] [facility] [id number] [place] [address] Sep, [facility] [place] [facility] [id number] [place] [address] Aug, [facility] [address] [id number] [id number] Aug, [facility] [place] [facility] [address] [id number] [place] [address] Aug, [facility] [address] [id number] [id number] Aug, [facility] [place] [facility] [address] [id number] [place] [address] Aug, [facility] [id number] [id number] Aug, [facility] [place] [facility] [address] [id number] [place] [address] Aug, [facility] [id number] [id number] Aug, [facility] [place] [facility] [address] [id number] [place] [address] Aug, [facility] [address] [facility] [id number] Jul, [facility] [place] [facility] [address] [id number] [place] [address] Jul, [facility] [address] [facility] [id number] Jun, [facility] [place] [facility] [address] [id number] [place] [address] Jun, [facility] [id number] [id number] Jun, [facility] [place] [facility] [id number] [place] [address] Jun, [facility] [id number] [id number] Jun, [facility] [place] [facility] [id number] [place] [address] Jun, [facility] [place] [facility] [id number] [place] [address] Jun, [facility] [place] [facility] [id number] [place] [address] Jun, [facility] [place] [facility] [id number] [place] [address] Jun, [facility] [id number] [id number] Jun, [facility] [place] [facility] [address] [id number] [place] [address] Jun, [facility] [place] [facility] [id number] [place] [address] May, [facility] [id number] [id number] May, [facility] [place] [facility] [address] [id number] [place] [address] May, [facility] [address] [facility] [id number] May, [facility] [place] [facility] [id number] [place] [address] May, [facility] [place] [facility] [id number] [place] [address] Apr, [facility] [place] [facility] [address] [id number] [place] [address] Apr, [facility] [place] [facility] [address] [id number] [place] [address] Apr, [facility] [place] [facility] [address] [id number] [place] [address] Apr, [facility] [place] [facility] [id number] [place] [address] Apr, [facility] [place] [facility] [address] [id number] [place] [address] Apr, [facility] [id number] [place] [id number] Apr, [facility] [place] [facility] [id number] [place] [address] Apr, [facility] [id number] [place] [id number] Apr, [facility] [place] [facility] [id number] [place] [address] Apr, [facility] [place] [facility] [id number] [place] [address] Apr, [facility] [id number] [id number] Apr, [facility] [place] [facility] [id number] [place] [address] Apr, [facility] [id number] [id number] Apr, [facility] [place] [facility] [address] [id number] [place] [address] Apr, [facility] [place] [facility] [id number] [place] [address] Mar, [facility] [id number] [id number] Mar, [facility] [place] [facility] [id number] [place] [address] Mar, [facility] [id number] [place] [address] Mar, [facility] [id number] [place] [id number] Mar, [facility] [id number] [place] [id number] Mar, [facility] [address] [id number] Mar, [facility] [address], [place] [id number] Mar, [facility] [id number] [place] [id number] Mar, [facility] [address], [place] [id number] Mar, [facility] [id number] [place] [id number] Mar, [facility] [address] [id number] Mar, [facility] [address] [address] Mar, [id number] [place] [id number] Jul, [facility] [address] [address] Oct, [facility] [address] [address] Oct, [facility] [address] [address] May, [facility] [address] [address] Jun, IMMUNIZATIONS No Known Immunizations SOCIAL HISTORY Never Assessed REASON FOR VISIT PLAN OF CARE VITAL SIGNS MEDICATIONS Unknown Medications RESULTS No Results PROCEDURES No Known procedures INSTRUCTIONS MEDICATIONS ADMINISTERED No Known Medications MEDICAL (GENERAL) HISTORY Type Description Date Medical History hearing loss Medical History renal disease Medical History hyperthyroidism Medical History ADD Medical History Arthritis Medical History Chronic pain Medical History Abnormal monofilament 04/26/2015 Medical History type I diabetes Medical History Personal history of noncompl iance with medical treatment, presenting hazards to health Medical History Diabetes with unspecified co mplication, type II or unspecified type, uncontrolled Medical History Sacroiliitis, not elsewhere classified Medical 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 Surgical History tubal ligation 2012 Surgical History kidney biopsy Surgical History cholecystectomy Surgical History had all teeth removed in [facility] 7 Hospitalization History DKA 07/2014 Hospitalization History [facility] hypoglycemia 08/2015 Hospitalization History [facility] elevated blood sugar 09/06 15 Hospitalization History Lupis Negrete in [place] for DKS for 3 days, sugar on admin 926 08/08/2017 Hospitalization History hypoglycemia April 222018 Hospitalization History admitted to ICU for low blood sugars 04/2019 Hospitalization History DKA 05/12/2019
--- OUTSIDE RECORDS SUMMARY | 2019-10-22 09:20 | XMS REPORT ---
Author Author Mickey Perez [facility] Address [address] [place] [address] Care Team Providers Care Courtesy Van Driver Name Role Phone ALENA Perez Unavailable PROBLEMS Type Condition ICD9-CM Code EDG52-PI Code Onset Dates Condition S tatus SNOMED Code Problem Type 1 diabetes mellitus with hypoglycemia and without com a E10.649 Active 53115836 Problem Anxiety F41.9 Active 58003026 Problem Adjustment disorder with mixed anxiety and depressed mood F43.23 Active 361112555 Problem Intractable migraine without status migrainosus, unspecified migraine type G43.919 Active 111465330 Problem Primary insomnia F51.01 Active 397 2004 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 546777050 Problem Mixed hyperlipidemia E78.2 Active 311771749 Problem Mood disorder F39 Active 897884 05 ALLERGIES No Information ENCOUNTERS Encounter Location Date Diagnosis [place] [address] [address] Sep, [facility] [address] [address] Sep, [facility] [address] [address] Sep, [facility] [address] [address] Aug, Adjustment disorder with mixed anxiety a nd depressed mood F43.23 [facility] [address] [facility] [id number] [address] [address] Aug, Nausea and vomiting, intract ability of vomiting not specified, unspecified vomiting type R11.2 and Flu-like symptoms R68.89 [facility] [address] [place] [id number] [place] [address] Aug, [facility] [address] [id number] [place] [address] 17 Aug, 2019 [facility] [address] [place] [address] [id number] [place] [address] 15 Aug, 2019 [facility] [address] [id number] [place] [address] 15 Aug, 2019 [facility] [address] [place] [address] [id number] [place] [address] 12 Aug, 2019 [facility] [address] [id number] [place] [address] 11 Aug, 2019 [facility] [address] [place] [address] [id number] [place] [address] 10 Aug, 2019 [facility] [address] [id number] [place] [address] Aug, 2019 [facility] [address] [id number] [place] [address] Aug, 2019 [facility] [address] [place] [address] [id number] [place] [address] 04 Aug, 2019 [facility] [address] [place] [address] [id number] [place] [address] Aug, 2019 [facility] [address] [id number] [place] [address] Aug, [facility] [address] [facility] [id number] [address] [place] [address] Aug, Urinary tract infection, sit e not specified N39.0 and Hematuria, unspecified R31.9 [facility] [address] [place] [id number] [place] [address] Aug, [facility] [address] [place] [address] [id number] [place] [address] Jul, [facility] [address] [id number] [place] [address] Jul, [facility] [id number] [place] [address] Jul, [facility] [address] [address] Jul, Frequent UTI N39.0 [facility] [address] [address] Jul, [facility] [address] [address] Jul, Dysuria R30.0 [facility] [address] [address] Jul, [facility] [address] [address] Jul, Dysuria R30.0 [facility] [address] [address] Jul, Adjustment disorder with mixed anxiety a nd depressed mood F43.23 [facility] [address] [address] Jul, [facility] [address] [address] Jul, [facility] [address] [address] Jul, Fatigue, unspecified type R53.83 ; Type 1 diabetes mellitus with hypoglycemia and without coma E10.649 and Mixed hyperlipidemia E78.2 [facility] [address] [address] Jul, [facility] [address] [address] Jul, [facility] [address] [address] Jun, [facility] [address] [place] [id number] [place] [address] Jun, [facility] [address] [facility] [id number] [address] [place] [address] Jun, Fatigue, unspecified type R5 3.83 [facility] [address] [place] [id number] [place] [address] Jun, [facility] [address] [address] Jun, [facility] [address] [address] Jun, [facility] [address] [address] Jun, [facility] [address] [address] Jun, [facility] [address] [address] Jun, [facility] [address] [address] Jun, Type 2 diabetes mellitus with diabetic p olyneuropathy E11.42 [facility] [address] [id number] [place] [address] Jun, [facility] [address] [address] Jun, [facility] [address] [place] [id number] [place] [address] May, [facility] [address] [address] May, Type 2 diabetes mellitus with diabetic p olyneuropathy E11.42 [facility] [address] [address] [id number] [place] [address] May, Type 1 diabetes mellitus with hypoglycem ia and without coma E10.649 [facility] [address] [address] May, [facility] [address] [address] May, Type 2 diabetes mellitus with diabetic p olyneuropathy E11.42 [facility] [address] [address] May, Type 2 diabetes mellitus with diabetic p olyneuropathy E11.42 [place] [address] [address] May, Type 2 diabetes mellitus with diabetic p olyneuropathy E11.42 [place] [address] [address] May, Adjustment disorder with mixed anxiety a nd depressed mood F43.23 [facility] WALK IN [facility] [address] [address] May, Bronchitis J40 [place] [address] [address] Apr, [facility] IN [facility] [address] [address] Apr, Bronchitis J40 [facility] [address] [address] Apr, Adjustment disorder with mixed anxiety a nd depressed mood F43.23 ; Primary insomnia F51.01 and Mood disorder F39 [place] [address] [address] Apr, [place] [address] [address] Apr, Type 2 diabetes mellitus with diabetic p olyneuropathy E11.42 and Mixed hyperlipidemia E78.2 [place] [address] [address] Apr, Mood disorder F39 [place] [address] [address] Apr, Type 2 diabetes mellitus with diabetic p olyneuropathy E11.42 [place] [address] [address] Apr, Type 2 diabetes mellitus with diabetic p olyneuropathy E11.42 [place] [address] [address] [id number] [place] [address] Apr, Type 2 diabetes mellitus with diabetic p olyneuropathy E11.42 [facility] [address] [address] [id number] [place] [address] Apr, [facility] [address] [facility] [id number] [address] Apr, [facility] [address] [address] Apr, [facility] [address] [address] Apr, [facility] [address] [address] Apr, [facility] [address] [address] Apr, [facility] [address] [address] Apr, Type 2 diabetes mellitus with diabetic p olyneuropathy E11.42 ; Mixed hyperlipidemia E78.2 ; Dyshidrotic eczema L30.1 ; Frequent UTI N39.0 and Encounter for immunization Z23 [facility] [address] [place] [id number] [place] [address] Apr, Adjustment disorder with mixed anxiety a nd depressed mood F43.23 ; Primary insomnia F51.01 and Mood disorder F39 [facility] [address] [place] [id number] [place] [address] Apr, [facility] [address] [address] Apr, [facility] [address] [address] Apr, [facility] [address] [address] Apr, [facility] [address] [address] Apr, [facility] [address] [place] [id number] [place] [address] Apr, Mood disorder F39 [facility] [address] [address] 30 Mar, 2019 Type 2 diabetes mellitus with diabetic p olyneuropathy E11.42 [facility] [address] [address] 25 Mar, 2019 Urinary tract infection, site not specif ied N39.0 [facility] [address] [address] Mar, [facility] [address] [address] Mar, [facility] [address] [address] Mar, [facility] [address] [address] Mar, Intractable migraine without status migr ainosus, unspecified migraine type G43.919 [facility] [address] [address] Mar, [facility] [address] [address] Mar, [facility]ALK IN [facility] [address] [facility] [id number] [address] [place] [address] 18 Mar, 2019 Urinary tract infection, sit e not specified N39.0 and Hematuria, unspecified R31.9 [facility] [id number] [place] [address] 17 Mar, 2019 [facility] [address] [address] 16 Mar, 2019 Mood disorder F39 [facility] [address] [address] 13 Mar, 2019 Type 2 diabetes mellitus with diabetic p olyneuropathy E11.42 [facility] [address] [address] Mar, [facility] [address] [place] [address] [id number] [place] [address] Mar, [facility] [address] [place] [address] [id number] [place] [address] Feb, [facility] [address] [address] Feb, [facility] [address] [place] [id number] [place] [address] Feb, [facility] [address] [place] [id number] [place] [address], [place] [address] Feb, [facility] [address] [place] [id number] [place] [address] Feb, [facility] [address] [address] Feb, [facility] [address] [address] Feb, Dysuria R30.0 [facility] [address] [place] [id number] [place] [address] Feb, [facility] [address] [address] Feb, [facility] [address] [address] Feb, [facility] [address] [address] Feb, [facility] [address] [place] [id number] [place] [address] Jan, HPV (human papilloma virus) infection B9 7.7 [facility] [address] [place] [address] [id number] [place] [address] Dec, [facility] [address] [address] Dec, [facility] [address] [address] Dec, [place] [address] [place] [id number] [place] [address] Dec, Mixed hyperlipidemia E78.2 [place] [address] [place] [id number] [place] [address] 05 Dec, 2018 Type 2 diabetes mellitus with diabetic p olyneuropathy E11.42 and custodial 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 [place] [address] [address] November, Type 2 diabetes mellitus with diabetic p olyneuropathy E11.42 [place] [address] [address] November, Dysuria R30.0 and History of HPV infecti on Z86.19 [place] [address] [address] [id number] [place] [address] November, [place] [address] [address] November, UTI symptoms R39.9 [place] [address] [address] November, [place] [address] [address] November, UTI symptoms R39.9 [place] [address] [place] [id number] [place] [address] November, [place] [address] [address] November, Acute cystitis with hematuria N30.[address] [place] [address] Sep, Acute UTI N39.0 and Uncontro lled type 2 diabetes mellitus with hyperglycemia E11.65 [place] [address] [id number] [place] [address] Jul, Type 2 diabetes mellitus with diabetic p olyneuropathy E11.42 [place] [address] [address] Jul, [facility] [address] [address] Jul, [facility] [address] [address] Jul, Acute cystitis without hematuria N30.00 [facility] [address] [address] 09 Jul, 2018 [facility] [address] [address] Jul, Acute UTI N39.0 [facility] [address] [address] Jun, [facility] [address] [address] Jun, Type 2 diabetes mellitus with diabetic p olyneuropathy E11.42 ; custodial 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 and Primary insomnia F51.01 [facility] [address] [address] Apr, Type 2 diabetes mellitus with diabetic p olyneuropathy E11.[address] [id number] Apr, Type 2 diabetes mellitus with diabetic polyneuropathy E11.42 ; Primary insomnia F51.01 and Anxiety F41.[address] [id number] Mar, Type 2 diabetes mellitus with diabetic polyneuropathy E11.[address] [id number] Mar, Type 2 diabetes mellitus with diabetic polyneuropathy E11.42 ; 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 ; Anxiety F41.9 and Primary insomnia F51.[address] [id number] Feb, Type II or unspecified type diabetes mellitus without mention of complication, uncontrolled E11.[address] [facility] [address] [id number] Jan, Type II or unspecified type diabetes mellitus without mention of complication, uncontrolled E11.65 ; 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 ; Type 2 diabetes mellitus with diabetic polyneuropathy E11.42 ; Tinea B35.9 ; Acute eczema L30.9 and Anxiety F41.[address] [id number] November, [address] [id number] November, Type 2 diabetes mellitus with diabetic polyneuropathy E11.42 ; 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 ; Primary insomnia F51.01 and Anxiety F41.[address] [id number] Oct, [address] [id number] Oct, [address] [id number] Oct, Well woman exam with routine gynecological exam Z01.419 ; Screening breast examination Z12.31 ; Type 2 diabetes mellitus with diabetic polyneuropathy E11.42 ; 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 ; CVA tenderness M54.9 ; High risk sexual behavior Z72.51 ; Acute cystitis without hematuria N30.00 ; Anxiety F41.9 ; Type II or unspecified type diabetes mellitus without mention of complication, uncontrolled E11.65 and Primary insomnia F51.[address] [id number] Aug, Primary insomnia F51.[address] [id number] Aug, Abrasion T14.8XXA ; Open wound T14.8XXA and Type II or unspecified type diabetes mellitus without mention of complication, uncontrolled E11.[address] [id number] Jul, Type II or unspecified type diabetes mellitus without mention of complication, uncontrolled E11.65 ; Anxiety F41.9 ; Primary insomnia F51.01 ; Abrasion T14.8XXA and Pain in left ross M79.[address] [id number] May, Type II or unspecified type diabetes mellitus without mention of complication, uncontrolled E11.[address] [id number] May, Primary insomnia F51.[address] [id number] Apr, Primary insomnia F51.[address] [id number] Mar, [address] [id number] Mar, Type II or unspecified type diabetes mellitus without mention of complication, uncontrolled E11.65 ; Primary insomnia F51.01 ; Other insomnia G47.09 and Anxiety F41.[address] [id number] Jan, Type II or unspecified type diabetes mellitus without mention of complication, uncontrolled E11.65 ; Anxiety F41.9 and Other insomnia G47.[address] [id number] Dec, Type II or unspecified type diabetes mellitus without mention of complication, uncontrolled E11.65 ; Anxiety F41.9 and Other insomnia G47.[address] [id number] November, Type II or unspecified type diabetes mellitus without mention of complication, uncontrolled E11.[address] [id number] 14 Oct, 2016 Dysuria R30.[address] [id number] 14 Sep, 2016 Pain, dental K08.[address] [id number] Aug, [address] [id number] Aug, Dysuria R30.0 ; Type II or unspecified type diabetes mellitus without mention of complication, uncontrolled E11.65 and Medial epicondylitis, left elbow M77.[address] [id number] Jul, Acute pharyngitis due to other specified organisms J02.[address] [id number] Jun, Cellulitis of unspecified part of limb L03.119 ; Type II or unspecified type diabetes mellitus without mention of complication, uncontrolled E11.65 ; Cellulitis of right lower extremity L03.115 and Ulcer of skin, limited to breakdown of skin L98.[address] [id number] Jun, Cellulitis of unspecified part of limb L03.119 ; Cellulitis of right lower extremity L03.115 and Ulcer of skin, limited to breakdown of skin L98.[address] [id number] Jun, Cellulitis of unspecified part of limb L03.119 ; Cellulitis of right lower extremity L03.115 and Ulcer of skin, limited to breakdown of skin L98.[address] [id number] Jun, [address] [id number] Jun, [address] [id number] Jun, Dysuria R30.[address] [id number] May, [address] [id number] May, Painful swelling of joint M25.40 and Type II or unspecified type diabetes mellitus without mention of complication, uncontrolled E11.[address] [id number] May, Painful swelling of joint M25.[address] [id number] May, Painful swelling of joint M25.40 ; Glucosuria R81 and History of chest pain Z87.[address] [facility] [id number] [facility] [place] [id number] May, [facility] [address] [id number] Apr, Well woman exam with routine gynecological exam Z01.419 and High risk sexual behavior Z72.[address] [id number] Apr, Kidney infection N15.9 ; UTI symptoms R39.9 and Dysuria R30.[address] [id number] Apr, Grief reaction F43.[address] [id number] Mar, [address] [id number] Mar, Grief reaction F43.[address] [id number] Feb, [address] [id number] Feb, Stress reaction F43.0 and Type II or unspecified type diabetes mellitus without mention of complication, uncontrolled E11.[address] [id number] Jan, [address] [id number] Dec, [address] [id number] Dec, [address] [id number] Dec, [address] [id number] November, [address] [id number] November, Pharyngitis J02.[address] [id number] Oct, [address] [id number] Oct, Sciatic leg pain M54.[address] [id number] Sep, [address] [id number] Sep, [address] [id number] Sep, Sciatic leg pain M54.[address] [id number] Aug, Pharyngitis J02.[address] [id number] Jul, Type II or unspecified type diabetes mellitus without mention of complication, uncontrolled E11.65 and Midline low back pain without sciatica M54.[address] [id number] Jun, Diabetes with unspecified complication, type II or unspecified type, uncontrolled 250.[address] [id number] Jun, [facility] [address] [id number] YAN [employer] ([employer]) [place] [id number] May, [address] [id number] May, Diabetes with unspecified complication, type II or unspecified type, uncontrolled 250.[address] [id number] Apr, [facility] [address] [id number] [facility] ([employer] [place] [id number] Apr, [address] [id number] Apr, Type 2 diabetes mellitus with hyperglycemia E11.65 ; Depression with anxiety F41.8 ; Influenza vaccination declined Z28.21 and Diabetes with unspecified complication, type II or unspecified type, uncontrolled 250.[address] [id number] Apr, [place] [address] [facility] [address] Mar, [facility] [place] [address] [facility] [id number] Mar, [facility] [place] [address] [facility] [id number] Mar, [facility] [place] [address] [facility] [address] Feb, [facility] [place] [address] [facility] [id number] Feb, [facility] [place] [address] [facility] [address] Feb, [facility] [place] [address] [id number] Feb, [facility] [address] [id number] Feb, Dental abscess [address] [place] [id number] [address] Jan, Diabetes with unspecified complication, type II or unspecified type, uncontrolled 250.92 ; Vaginal denise 112.1 ; Broken tooth 873.63 and Screening for STD (sexually transmitted disease) V74.5 [facility] [address] [address] Oct, [facility] [address] [address] Oct, [place] [id number] [place] [id number] Sep, [facility] [address] [address] Sep, [place] [id number] [place] [id number] Aug, [facility] [address] [address] Aug, [address] [place] [id number] Aug, [facility] [address] [place] [address] Aug, [facility] [address] [facility]757[facility] [id number] Jul, [facility] [address] [facility] [place] [address] Jul, [facility] [address] [facility]07757[facility] [id number] Jul, [facility] [id number] [place] [address] Jul, [facility] [address] [facility] [place] [address] Jul, [facility] [address] [place] [id number] [id number] Jul, [facility] [address] [place] [address] [id number] [id number] Jul, [facility] [id number] [place] [address] Jul, [facility] [address] [place] [address] [id number] [id number] Jul, [facility] [address] [id number] [place] [address] Jul, [facility] [address] [id number] [id number] Jun, [facility] [address] [id number] [place] [address] Jun, [facility] [address] [id number] [place] [address] Jun, [facility] [address] [id number] [id number] Jun, [facility] [address] [id number] [place] [address] Jun, [facility] [address] [id number] [place] [address] May, [facility] [address] [id number] [id number] May, [facility] [address] [id number] [id number] May, [facility] [facility] [address] [id number] [place] [address] May, [facility] [id number] [id number] May, [facility] [id number] [place] [address] May, [facility] [id number] [place] [address] Apr, [facility] [id number] [place] [address] Mar, [facility] [id number] [place] [address] Jan, [facility] [id number] [id number] Jan, [facility] [id number] [place] [address] Jan, [facility] [id number] [id number] Jan, [facility] [id number] [place] [address] Jan, [facility] [address] [id number] [id number] Dec, [facility] [id number] [place] [address] Dec, [facility] [address] [id number] [id number] November, [facility] [id number] [place] [address] November, [facility] [address] [id number] [id number] November, [facility] [id number] [place] [address] November, [facility] [address] [id number] [id number] Oct, [facility] [address] [id number] [place] [address] Oct, [facility] [id number] [id number] Oct, [facility] [address] [id number] [place] [address] Oct, [facility] [id number] [place] [address] Oct, [facility] [address] [id number] [place] [address] Oct, [facility] [address] [id number] [id number] Sep, [facility] [id number] [place] [address] Sep, [facility] [id number] [place] [address] Aug, [facility] [address] [id number] [id number] Aug, [facility] [address] [id number] [place] [address] Aug, [facility] [id number] [id number] Aug, [facility] [address] [id number] [place] [address] Aug, [facility] [address] [id number] [id number] Aug, [facility] [address] [id number] [place] [address] Aug, [facility] [address] [id number] [id number] Aug, [facility] [address] [id number] [place] [address] Aug, [facility] [address] [facility] [id number] Jul, [facility] [address] [id number] [place] [address] Jul, [facility] [address] [facility] [id number] Jun, [facility] [address] [id number] [place] [address] Jun, [facility] [address] [id number] [id number] Jun, [facility] [id number] [place] [address] Jun, [facility] [address] [id number] [id number] Jun, [facility] [id number] [place] [address] Jun, [facility] [id number] [place] [address] Jun, [facility] [id number] [place] [address] Jun, [facility] [id number] [place] [address] Jun, [facility] [id number] [id number] Jun, [facility] [address] [id number] [place] [address] Jun, [facility] [id number] [place] [address] May, [facility] [address] [id number] [id number] May, [facility] [address] [id number] [place] [address] May, [facility] [address] [facility] [id number] May, [facility] [id number] [place] [address] May, [facility] [id number] [place] [address] Apr, [facility] [address] [id number] [place] [address] Apr, [facility] [address] [id number] [place] [address] Apr, [facility] [address] [id number] [place] [address] Apr, [facility] [id number] [place] [address] Apr, [facility] [address] [id number] [place] [address] Apr, [facility] [id number] [place] [id number] Apr, [facility] [id number] [place] [address] Apr, [facility] [id number] [place] [id number] Apr, [facility] [id number] [place] [address] Apr, [facility] [id number] [place] [address] Apr, [facility] [address] [id number] [id number] Apr, [facility] [id number] [place] [address] Apr, [facility] [id number] [id number] Apr, [facility] [address] [id number] [place] [address] Apr, [facility] [id number] [place] [address] Mar, [facility] [id number] [id number] Mar, [facility] [id number] [place] [address] Mar, [facility] [id number] [place] [address] Mar, [facility] [id number] [place] [id number] Mar, [facility] [id number] [place] [id number] Mar, [facility] [address] [id number] Mar, [facility] [address], [place] [id number] Mar, [facility] [id number] [place] [id number] Mar, [facility] [address], [place] [id number] Mar, [facility] [id number] [place] [id number] Mar, [facility] [address] [id number] Mar, [facility] [address] [address] Mar, [id number] [place] [id number] Jul, [facility] [address] [address] Oct, [facility] [address] [address] Oct, [facility] [address] [address] May, [facility] [address] [address] Jun, IMMUNIZATIONS No Known Immunizations SOCIAL HISTORY [...] Surgical History had all teeth removed in [facility] 7 Hospitalization History DKA 07/2014 Hospitalization History [facility] hypoglycemia 08/2015 Hospitalization History [facility] elevated blood sugar 09/06 15 Hospitalization History [facility] Negre[facility] [place] for DKS for 3 days, sugar on admin 926 08/08/2017 Hospitalization History hypoglycemia April 222018 Hospitalization History admitted to ICU for low blood sugars 04/2019 Hospitalization History DKA 05/12/2019
--- OUTSIDE RECORDS SUMMARY | 2019-10-22 09:20 | XMS REPORT ---
Author Author Mickey Perez [facility] Address [address] [place] [address] Care Team Providers Care Procedure Writer Name Role Phone ALENA Perez Unavailable PROBLEMS Type Condition ICD9-CM Code UAP09-KN Code Onset Dates Condition S tatus SNOMED Code Problem Type 1 diabetes mellitus with hypoglycemia and without com a E10.649 Active 62730101 Problem Anxiety F41.9 Active 88542253 Problem Adjustment disorder with mixed anxiety and depressed mood F43.23 Active 661070728 Problem Intractable migraine without status migrainosus, unspecified migraine type G43.919 Active 242163049 Problem Primary insomnia F51.01 Active 397 2004 Problem 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 Active 073064239 Problem Mixed hyperlipidemia E78.2 Active 606794884 Problem Mood disorder F39 Active 562144 05 ALLERGIES No Information ENCOUNTERS Encounter Location Date Diagnosis [facility] [address] [address] Sep, [facility] [address] [address] Sep, [facility] [address] [address] Aug, Adjustment disorder with mixed anxiety a nd depressed mood F43.23 [facility] [address] [facility] [id number] [address] [place] [address] Aug, Nausea and vomiting, intract ability of vomiting not specified, unspecified vomiting type R11.2 and Flu-like symptoms R68.89 [facility] [id number] [place] [address] Aug, [facility] [address] [address] Aug, 2019 [facility] [address] [id number] [place] [address] 15 Aug, 2019 [facility] [id number] [place] [address] 15 Aug, 2019 [facility] [address] [id number] [place] [address] 12 Aug, 2019 [facility] [id number] [place] [address] 11 Aug, 2019 [facility] [id number] [place] [address] 10 Aug, 2019 [facility] [id number] [place] [address] Aug, 2019 [facility] [id number] [place] [address] Aug, 2019 [facility] [id number] [place] [address] 04 Aug, 2019 [facility] [id number] [place] [address] Aug, [facility] [id number] [place] [address] Aug, [facility] [address] [facility] [id number] [address] [place] [address] Aug, Urinary tract infection, sit e not specified N39.0 and Hematuria, unspecified R31.9 [facility] [id number] [place] [address] Aug, [facility] [id number] [place] [address] Jul, [facility] [id number] [place] [address] Jul, [facility] [id number] [place] [address] Jul, [facility] [address] [address] Jul, Frequent UTI N39.0 [facility] [address] [address] Jul, [facility] [address] [address] Jul, Dysuria R30.0 [facility] [address] [address] Jul, [facility] [address] [address] Jul, Dysuria R30.0 [place] [address] [address] Jul, Adjustment disorder with mixed anxiety a nd depressed mood F43.23 [place] [address] [address] Jul, [facility] [address] [address] Jul, [facility] [address] [address] Jul, Fatigue, unspecified type R53.83 ; Type 1 diabetes mellitus with hypoglycemia and without coma E10.649 and Mixed hyperlipidemia E78.2 [place] [address] [address] Jul, [facility] [address] [address] Jul, [facility] [address] [address] Jun, [facility] [address] [address] Jun, [facility] [address] [facility] [id number] [address] [place] [address] Jun, Fatigue, unspecified type R5 3.83 [place] [address] [address] Jun, [facility] [address] [address] Jun, [facility] [address] [address] Jun, [facility] [address] [address] Jun, [facility] [address] [address] Jun, [facility] [address] [address] Jun, [facility] [address] [address] Jun, Type 2 diabetes mellitus with diabetic p olyneuropathy E11.42 [facility] [address] [address] Jun, [facility] [address] [address] Jun, [facility] [address] [address] May, [facility] [address] [address] May, Type 2 diabetes mellitus with diabetic p olyneuropathy E11.42 [facility] [address] [address] May, Type 1 diabetes mellitus with hypoglycem ia and without coma E10.649 [facility] [address] [address] May, [facility] [address] [address] May, Type 2 diabetes mellitus with diabetic p olyneuropathy E11.42 [facility] [address] [address] May, Type 2 diabetes mellitus with diabetic p olyneuropathy E11.42 [facility] [address] [address] May, Type 2 diabetes mellitus with diabetic p olyneuropathy E11.42 [facility] [address] [address] May, Adjustment disorder with mixed anxiety a nd depressed mood F43.23 [facility] [address] [place] [id number] [place] [address] May, Bronchitis J40 [facility] [address] [address] Apr, [facility] [address] [address] Apr, Bronchitis J40 [facility] [address] [address] Apr, Adjustment disorder with mixed anxiety a nd depressed mood F43.23 ; Primary insomnia F51.01 and Mood disorder F39 [facility] [address] [address] Apr, [facility] [address] [address] Apr, Type 2 diabetes mellitus with diabetic p olyneuropathy E11.42 and Mixed hyperlipidemia E78.2 [place] [address] [address] Apr, Mood disorder F39 [facility] [address] [address] Apr, Type 2 diabetes mellitus with diabetic p olyneuropathy E11.42 [facility] [address] [address] Apr, Type 2 diabetes mellitus with diabetic p olyneuropathy E11.42 [facility] [address] [address] Apr, Type 2 diabetes mellitus with diabetic p olyneuropathy E11.42 [facility] [address] [id number] [place] [address] Apr, [facility] [address] [place] [id number] [address] Apr, [facility] [id number] [place] [address] Apr, [facility] [address] [address] Apr, [facility] [id number] [place] [address] Apr, [facility] [address] [address] Apr, [facility] [id number] [place] [address] Apr, Type 2 diabetes mellitus with diabetic p olyneuropathy E11.42 ; Mixed hyperlipidemia E78.2 ; Dyshidrotic eczema L30.1 ; Frequent UTI N39.0 and Encounter for immunization Z23 [facility] [id number] [place] [address] Apr, Adjustment disorder with mixed anxiety a nd depressed mood F43.23 ; Primary insomnia F51.01 and Mood disorder F39 [facility] [id number] [place] [address] Apr, [facility] [id number] [place] [address] Apr, [facility] [id number] [place] [address] Apr, [facility] [address] [address] Apr, [facility] [address] [address] Apr, [facility] [address] [address] Apr, Mood disorder F39 [facility] [id number] [place] [address] 30 Mar, 2019 Type 2 diabetes mellitus with diabetic p olyneuropathy E11.42 [facility] [address] [address] Mar, Urinary tract infection, site not specif ied N39.0 [facility] [address] [address] Mar, [facility] [address] [address] Mar, [facility] [address] [address] Mar, [facility] [address] [address] Mar, Intractable migraine without status migr ainosus, unspecified migraine type G43.919 [facility] [address] [address] Mar, [facility] [address] [address] Mar, [facility] [address] [facility] [id number] [address] [place] [address] 18 Mar, 2019 Urinary tract infection, sit e not specified N39.0 and Hematuria, unspecified R31.9 [facility] [address] [address] 17 Mar, 2019 [facility] [address] [address] 16 Mar, 2019 Mood disorder F39 [facility] [address] [address] Mar, Type 2 diabetes mellitus with diabetic p olyneuropathy E11.42 [facility] [address] [address] Mar, [facility] [address] [address] Mar, [facility] [id number] [place] [address] Feb, [facility] [id number] [place] [address] Feb, [facility] [address] [address] Feb, [facility] [id number] [place] [address] Feb, [facility] [id number] [place] [address] Feb, [facility] [id number] [place] [address] Feb, [facility] [address] [address] Feb, Dysuria R30.0 [facility] [id number] [place] [address] Feb, [facility] [id number] [place] [address] Feb, [facility] [id number] [place] [address] Feb, [facility] [address] [address] Feb, [facility] [id number] [place] [address] Jan, HPV (human papilloma virus) infection B9 7.7 [facility] [id number] [place] [address] Dec, [facility] [address] [address] Dec, [facility] [address] [address] Dec, [facility] [id number] [place] [address] Dec, Mixed hyperlipidemia E78.2 [place] [id number] [place] [address] 05 Dec, 2018 Type 2 diabetes mellitus with diabetic p olyneuropathy E11.42 and jail 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 [place] [id number] [place] [address] November, Type 2 diabetes mellitus with diabetic p olyneuropathy E11.42 [place] [id number] [place] [address] November, Dysuria R30.0 and History of HPV infecti on Z86.19 [place] [id number] [place] [address] November, [place] [id number] [place] [address] November, UTI symptoms R39.9 [place] [id number] [place] [address] November, [place] [id number] [place] [address] November, UTI symptoms R39.9 [place] [id number] [place] [address] November, [place] [id number] [place] [address] November, Acute cystitis with hematuria N30.[address] [place] [address] Sep, Acute UTI N39.0 and Uncontro lled type 2 diabetes mellitus with hyperglycemia E11.65 [place] [id number] [place] [address] Jul, Type 2 diabetes mellitus with diabetic p olyneuropathy E11.42 [place] [id number] [place] [address] Jul, [place] [address] [address] Jul, [facility] [address] [address] Jul, Acute cystitis without hematuria N30.00 [facility] [address] [address] 09 Jul, 2018 [facility] [address] [address] Jul, Acute UTI N39.0 [facility] [address] [address] Jun, [place] [address] [address] Jun, Type 2 diabetes mellitus with diabetic p olyneuropathy E11.42 ; jail 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 and Primary insomnia F51.01 [place] [address] [address] Apr, Type 2 diabetes mellitus with diabetic p olyneuropathy E11.[address] [id number] Apr, Type 2 diabetes mellitus with diabetic polyneuropathy E11.42 ; Primary insomnia F51.01 and Anxiety F41.[address] [id number] Mar, Type 2 diabetes mellitus with diabetic polyneuropathy E11.[address] [id number] Mar, Type 2 diabetes mellitus with diabetic polyneuropathy E11.42 ; 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 ; Anxiety F41.9 and Primary insomnia F51.[address] [id number] Feb, Type II or unspecified type diabetes mellitus without mention of complication, uncontrolled E11.[address] [id number] Jan, Type II or unspecified type diabetes mellitus without mention of complication, uncontrolled E11.65 ; jail 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 ; Type 2 diabetes mellitus with diabetic polyneuropathy E11.42 ; Tinea B35.9 ; Acute eczema L30.9 and Anxiety F41.[address] [id number] November, [address] [id number] November, Type 2 diabetes mellitus with diabetic polyneuropathy E11.42 ; jail 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 ; Primary insomnia F51.01 and Anxiety F41.[address] [id number] Oct, [address] [id number] Oct, [address] [id number] Oct, Well woman exam with routine gynecological exam Z01.419 ; Screening breast examination Z12.31 ; Type 2 diabetes mellitus with diabetic polyneuropathy E11.42 ; 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 ; CVA tenderness M54.9 ; High risk sexual behavior Z72.51 ; Acute cystitis without hematuria N30.00 ; Anxiety F41.9 ; Type II or unspecified type diabetes mellitus without mention of complication, uncontrolled E11.65 and Primary insomnia F51.[address] [id number] Aug, Primary insomnia F51.[address] [id number] Aug, Abrasion T14.8XXA ; Open wound T14.8XXA and Type II or unspecified type diabetes mellitus without mention of complication, uncontrolled E11.[address] [id number] Jul, Type II or unspecified type diabetes mellitus without mention of complication, uncontrolled E11.65 ; Anxiety F41.9 ; Primary insomnia F51.01 ; Abrasion T14.8XXA and Pain in left ross M79.[address] [id number] May, Type II or unspecified type diabetes mellitus without mention of complication, uncontrolled E11.[address] [id number] May, Primary insomnia F51.[address] [id number] Apr, Primary insomnia F51.[address] [id number] Mar, [address] [id number] Mar, Type II or unspecified type diabetes mellitus without mention of complication, uncontrolled E11.65 ; Primary insomnia F51.01 ; Other insomnia G47.09 and Anxiety F41.[address] [id number] Jan, Type II or unspecified type diabetes mellitus without mention of complication, uncontrolled E11.65 ; Anxiety F41.9 and Other insomnia G47.[address] [id number] 07 Dec, 2016 Type II or unspecified type diabetes mellitus without mention of complication, uncontrolled E11.65 ; Anxiety F41.9 and Other insomnia G47.[address] [id number] 15 Nov, 2016 Type II or unspecified type diabetes mellitus without mention of complication, uncontrolled E11.[address] [id number] 14 Oct, 2016 Dysuria R30.[address] [id number] 14 Sep, 2016 Pain, dental K08.[address] [id number] Aug, [address] [id number] 16 Aug, 2016 Dysuria R30.0 ; Type II or unspecified type diabetes mellitus without mention of complication, uncontrolled E11.65 and Medial epicondylitis, left elbow M77.[address] [facility] [address] [id number] Jul, Acute pharyngitis due to other specified organisms J02.[address] [id number] Jun, Cellulitis of unspecified part of limb L03.119 ; Type II or unspecified type diabetes mellitus without mention of complication, uncontrolled E11.65 ; Cellulitis of right lower extremity L03.115 and Ulcer of skin, limited to breakdown of skin L98.[address] [id number] Jun, Cellulitis of unspecified part of limb L03.119 ; Cellulitis of right lower extremity L03.115 and Ulcer of skin, limited to breakdown of skin L98.[address] [id number] Jun, Cellulitis of unspecified part of limb L03.119 ; Cellulitis of right lower extremity L03.115 and Ulcer of skin, limited to breakdown of skin L98.[address] [id number] Jun, [address] [id number] Jun, [address] [id number] Jun, Dysuria R30.[address] [id number] May, [address] [id number] May, Painful swelling of joint M25.40 and Type II or unspecified type diabetes mellitus without mention of complication, uncontrolled E11.[address] [id number] May, Painful swelling of joint M25.[address] [id number] May, Painful swelling of joint M25.40 ; Glucosuria R81 and History of chest pain Z87.898 [facility] [address] [facility] [id number] [place] [id number] May, [address] [address] Apr, Well woman exam with routine gynecological exam Z01.419 and High risk sexual behavior Z72.[address] [place] [address] [id number] Apr, Kidney infection N15.9 ; UTI symptoms R39.9 and Dysuria R30.[address] [id number] Apr, Grief reaction F43.[address] [id number] Mar, [address] [id number] Mar, Grief reaction F43.[address] [id number] Feb, [address] [id number] Feb, Stress reaction F43.0 and Type II or unspecified type diabetes mellitus without mention of complication, uncontrolled E11.[address] [id number] Jan, [address] [id number] Dec, [address] [id number] Dec, [address] [id number] Dec, [address] [id number] November, [address] [id number] November, Pharyngitis J02.[address] [id number] Oct, [address] [id number] Oct, Sciatic leg pain M54.[address] [id number] Sep, [address] [id number] Sep, [address] [id number] Sep, Sciatic leg pain M54.[address] [id number] Aug, Pharyngitis J02.[address] [id number] Jul, Type II or unspecified type diabetes mellitus without mention of complication, uncontrolled E11.65 and Midline low back pain without sciatica M54.[address] [id number] Jun, Diabetes with unspecified complication, type II or unspecified type, uncontrolled 250.[address] [id number] Jun, [facility] [address] [place] [address] May, [address] [id number] May, Diabetes with unspecified complication, type II or unspecified type, uncontrolled 250.[address] [id number] Apr, [facility] [address] [place] [id number] Apr, [address] [id number] Apr, Type 2 diabetes mellitus with hyperglycemia E11.65 ; Depression with anxiety F41.8 ; Influenza vaccination declined Z28.21 and Diabetes with unspecified complication, type II or unspecified type, uncontrolled 250.[address] [id number] Apr, [address] [id number] Mar, [address] [address] Mar, [facility] [address] [facility] [id number] Mar, [facility] [place] [address] [facility] [id number] Feb, [facility] [place] [address] [facility] [id number] Feb, [facility] [place] [address] [place] [id number] [place] [id number] Feb, [facility] [place] [address] [facility] [id number] Feb, [facility] [place] [address] [id number] Feb, Dental abscess 522.5 [facility] [place] [address] [id number] Jan, Diabetes with unspecified complication, type II or unspecified type, uncontrolled 250.92 ; Vaginal denise 112.1 ; Broken tooth 873.63 and Screening for STD (sexually transmitted disease) V74.5 [facility] [address] [address] Oct, [facility] [address] [address] Oct, [facility] [place] [address] [place] [id number] [id number] Sep, [facility] [address] [address] Sep, [facility] [place] [address] [id number] [id number] Aug, [facility] [address] [address] Aug, [address] [id number] Aug, [facility] [address] [address] Aug, [facility] [address] [place] [id number] Jul, [facility] [address] [id number] [place] [address] Jul, [facility] [address] [id number] [place] [id number] Jul, [facility] [address] [id number] [place] [address] Jul, [facility] [address] [id number] [place] [address] Jul, [facility] [address] [id number] [id number] Jul, [facility] [id number] [place] [id number] Jul, [facility] [id number] [place] [address] Jul, [facility] [id number] [place] [id number] Jul, [facility] [id number] [place] [address] Jul, [facility] [address] [id number] [place] [id number] Jun, [facility] [id number] [place] [address] Jun, [facility] [address] [id number] [place] [address] Jun, [facility] [address] [facility] [id number] Jun, [facility] [address] [id number] [place] [address] Jun, [facility] [id number] [place] [address] May, [facility] [address] [id number] [id number] May, [facility] [address] [facility] [id number] May, [facility] [address] [id number] [place] [address] May, [facility] [address] [id number] [id number] May, [facility] [address] [id number] [place] [address] May, [facility] [address] [id number] [place] [address] Apr, [facility] [address] [id number] [place] [address] Mar, [facility] [address] [id number] [place] [address] Jan, [facility] [id number] [id number] Jan, [facility] [id number] [place] [address] Jan, [facility] [id number] [id number] Jan, [facility] [id number] [place] [address] Jan, [facility] [id number] [id number] Dec, [facility] [id number] [place] [address] Dec, [facility] [id number] [id number] November, [facility] [id number] [place] [address] November, [facility] [address] [id number] [id number] November, [facility] [id number] [place] [address] November, [facility] [address] [facility] [id number] Oct, [facility] [id number] [place] [address] Oct, [facility] [address] [id number] [place] [id number] Oct, [facility] [address] [id number] [place] [address] Oct, [facility] [address] [id number] [place] [address] Oct, [facility] [id number] [place] [address] Oct, [facility] [address] [id number] [id number] Sep, [facility] [id number] [place] [address] Sep, [facility] [id number] [place] [address] Aug, [facility] [address] [id number] [id number] Aug, [facility] [id number] [place] [address] Aug, [facility] [address] [id number] [id number] Aug, [facility] [id number] [place] [address] Aug, [facility] [address] [id number] [id number] Aug, [facility] [address] [id number] [place] [address] Aug, [facility] [address] [facility] [id number] Aug, [facility] [id number] [place] [address] Aug, [facility] [address] [facility] [id number] Jul, [facility] [id number] [place] [address] Jul, [facility] [address] [id number] [place] [id number] Jun, [facility] [address] [id number] [place] [address] Jun, [facility] [address] [id number] [id number] Jun, [facility] [id number] [place] [address] Jun, [facility] [address] [id number] [id number] Jun, [facility] [id number] [place] [address] Jun, [facility] [id number] [place] [address] Jun, [facility] [id number] [place] [address] Jun, [facility] [id number] [place] [address] Jun, [facility] [address] [id number] [id number] Jun, [facility] [id number] [place] [address] Jun, [facility] [id number] [place] [address] May, [facility] [address] [id number] [id number] May, [facility] [id number] [place] [address] May, [facility] [address] [facility] [id number] May, [facility] [id number] [place] [address] May, [facility] [id number] [place] [address] Apr, [facility] [id number] [place] [address] Apr, [facility] [address] [id number] [place] [address] Apr, [facility] [address] [id number] [place] [address] Apr, [facility] [address] [id number] [place] [address] Apr, [facility] [id number] [place] [address] Apr, [facility] [address] [id number] [id number] Apr, [facility] [id number] [place] [address] Apr, [facility] [id number] [id number] Apr, [facility] [id number] [place] [address] Apr, [facility] [address] [id number] [place] [address] Apr, [facility] [place] [facility] [id number] [place] [id number] Apr, [facility] [id number] [place] [address] Apr, [facility] [place] [id number] [id number] Apr, [facility] [id number] [place] [address] Apr, [facility] [address] [id number] [place] [address] Mar, [facility] [place] [id number] [id number] Mar, [facility] [id number] [place] [address] Mar, [facility] [id number] [place] [address] Mar, [facility] [id number] [place] [id number] Mar, [address] [place] [id number] [place] [id number] Mar, [facility] [id number] [place] [id number] Mar, [facility] [id number] [place] [id number] Mar, [facility] [address] [id number] Mar, [address] [id number] Mar, [address] [id number] Mar, [address] [id number] Mar, [place] [address] [address] Mar, [address] [id number] Jul, [facility] [address] [address] Oct, [facility] [address] [address] Oct, [place] [address] [address] May, [facility] [address] [address] Jun, IMMUNIZATIONS No Known Immunizations SOCIAL HISTORY [...] Surgical History had all teeth removed in [facility] 7 Hospitalization History DKA 07/2014 Hospitalization History [facility] hypoglycemia 08/2015 Hospitalization History [facility] elevated blood sugar 09/06 15 Hospitalization History [facility] in [place] for DKS for 3 days, sugar on admin 926 08/08/2017 Hospitalization History hypoglycemia April 222018 Hospitalization History admitted to ICU for low blood sugars 04/2019 Hospitalization History DKA 05/12/2019
--- OUTSIDE RECORDS SUMMARY | 2019-10-22 09:20 | XMS REPORT ---
Author Author Mickey Perez [facility] Address [address] [place] [address] Care Team Providers Care Central Supply Assistant Name Role Phone ALENA Perez Unavailable PROBLEMS Type Condition ICD9-CM Code TJA37-AV Code Onset Dates Condition S tatus SNOMED Code Problem Type 1 diabetes mellitus with hypoglycemia and without com a E10.649 Active 23440485 Problem Anxiety F41.9 Active 46531400 Problem Adjustment disorder with mixed anxiety and depressed mood F43.23 Active 533692427 Problem Intractable migraine without status migrainosus, unspecified migraine type G43.919 Active 866923312 Problem Primary insomnia F51.01 Active 397 2004 Problem intermediate card tender 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 Active 751160047 Problem Mixed hyperlipidemia E78.2 Active 325831639 Problem Mood disorder F39 Active 799170 05 ALLERGIES No Information ENCOUNTERS Encounter Location Date Diagnosis [facility] [address] [address] Sep, [facility] [address] [address] Sep, [facility] [address] [address] Aug, Adjustment disorder with mixed anxiety a nd depressed mood F43.23 [facility] [address] [facility] [id number] [address] [place] [address] Aug, Nausea and vomiting, intract ability of vomiting not specified, unspecified vomiting type R11.2 and Flu-like symptoms R68.89 [facility] [id number] [place] [address] Aug, [facility] [address] [address] Aug, 2019 [facility] [address] [id number] [place] [address] 15 Aug, 2019 [facility] [id number] [place] [address] 15 Aug, 2019 [facility] [address] [id number] [place] [address] 12 Aug, 2019 [facility] [id number] [place] [address] 11 Aug, 2019 [facility] [id number] [place] [address] 10 Aug, 2019 [facility] [id number] [place] [address] Aug, 2019 [facility] [id number] [place] [address] Aug, 2019 [facility] [id number] [place] [address] 04 Aug, 2019 [facility] [id number] [place] [address] Aug, [facility] [id number] [place] [address] Aug, [facility] [address] [facility] [id number] [address] [place] [address] Aug, Urinary tract infection, sit e not specified N39.0 and Hematuria, unspecified R31.9 [facility] [id number] [place] [address] Aug, [facility] [id number] [place] [address] Jul, [facility] [id number] [place] [address] Jul, [facility] [id number] [place] [address] Jul, [facility] [address] [address] Jul, Frequent UTI N39.0 [facility] [address] [address] Jul, [facility] [address] [address] Jul, Dysuria R30.0 [facility] [address] [address] Jul, [facility] [address] [address] Jul, Dysuria R30.0 [address] [address] [address] Jul, Adjustment disorder with mixed anxiety a nd depressed mood F43.23 [address] [place] [address] [address] Jul, [facility] [address] [address] Jul, [facility] [address] [address] Jul, Fatigue, unspecified type R53.83 ; Type 1 diabetes mellitus with hypoglycemia and without coma E10.649 and Mixed hyperlipidemia E78.2 [place] [address] [address] Jul, [facility] [address] [address] Jul, [facility] [address] [address] Jun, [facility] [address] [address] Jun, [facility] [address] [facility] [id number] [address] [place] [address] Jun, Fatigue, unspecified type R5 3.83 [place] [address] [address] Jun, [facility] [address] [address] Jun, [facility] [address] [address] Jun, [facility] [address] [address] Jun, [facility] [address] [address] Jun, [facility] [address] [address] Jun, [facility] [address] [address] Jun, Type 2 diabetes mellitus with diabetic p olyneuropathy E11.42 [facility] [address] [address] Jun, [facility] [address] [address] Jun, [facility] [address] [address] May, [facility] [address] [address] May, Type 2 diabetes mellitus with diabetic p olyneuropathy E11.42 [facility] [address] [address] May, Type 1 diabetes mellitus with hypoglycem ia and without coma E10.649 [facility] [address] [address] May, [facility] [address] [address] May, Type 2 diabetes mellitus with diabetic p olyneuropathy E11.42 [facility] [address] [address] May, Type 2 diabetes mellitus with diabetic p olyneuropathy E11.42 [facility] [address] [address] May, Type 2 diabetes mellitus with diabetic p olyneuropathy E11.42 [facility] [address] [address] May, Adjustment disorder with mixed anxiety a nd depressed mood F43.23 [facility] [id number] [place] [address] May, Bronchitis J40 [facility] [address] [address] Apr, [facility] [address] [address] Apr, Bronchitis J40 [facility] [address] [address] Apr, Adjustment disorder with mixed anxiety a nd depressed mood F43.23 ; Primary insomnia F51.01 and Mood disorder F39 [facility] [address] [address] Apr, [facility] [address] [address] Apr, Type 2 diabetes mellitus with diabetic p olyneuropathy E11.42 and Mixed hyperlipidemia E78.2 [place] [address] [address] Apr, Mood disorder F39 [facility] [address] [address] Apr, Type 2 diabetes mellitus with diabetic p olyneuropathy E11.42 [facility] [address] [address] Apr, Type 2 diabetes mellitus with diabetic p olyneuropathy E11.42 [facility] [address] [address] Apr, Type 2 diabetes mellitus with diabetic p olyneuropathy E11.42 [facility] [address] [id number] [place] [address] Apr, [facility] [address] [place] [id number] [place] [address] Apr, [facility] [id number] [place] [address] Apr, [facility] [address] [address] Apr, [facility] [id number] [place] [address] Apr, [facility] [address] [address] Apr, [facility] [id number] [place] [address] Apr, Type 2 diabetes mellitus with diabetic p olyneuropathy E11.42 ; Mixed hyperlipidemia E78.2 ; Dyshidrotic eczema L30.1 ; Frequent UTI N39.0 and Encounter for immunization Z23 [facility] [id number] [place] [address] Apr, Adjustment disorder with mixed anxiety a nd depressed mood F43.23 ; Primary insomnia F51.01 and Mood disorder F39 [facility] [id number] [place] [address] Apr, [facility] [id number] [place] [address] Apr, [facility] [id number] [place] [address] Apr, [facility] [address] [address] Apr, [facility] [address] [address] Apr, [facility] [address] [address] Apr, Mood disorder F39 [facility] [id number] [place] [address] 30 Mar, 2019 Type 2 diabetes mellitus with diabetic p olyneuropathy E11.42 [facility] [address] [address] Mar, Urinary tract infection, site not specif ied N39.0 [facility] [address] [address] Mar, [facility] [address] [address] Mar, [facility] [address] [address] Mar, [facility] [address] [address] Mar, Intractable migraine without status migr ainosus, unspecified migraine type G43.919 [facility] [address] [address] Mar, [facility] [address] [address] Mar, [facility] [address] [facility] [id number] [address] [place] [address] 18 Mar, 2019 Urinary tract infection, sit e not specified N39.0 and Hematuria, unspecified R31.9 [facility] [address] [address] 17 Mar, 2019 [facility] [address] [address] 16 Mar, 2019 Mood disorder F39 [facility] [address] [address] Mar, Type 2 diabetes mellitus with diabetic p olyneuropathy E11.42 [facility] [address] [address] Mar, [facility] [address] [address] Mar, [facility] [id number] [place] [address] Feb, [facility] [id number] [place] [address] Feb, [facility] [address] [address] Feb, [facility] [id number] [place] [address] Feb, [facility] [id number] [place] [address] Feb, [facility] [id number] [place] [address] Feb, [facility] [address] [address] Feb, Dysuria R30.0 [facility] [id number] [place] [address] Feb, [facility] [id number] [place] [address] Feb, [facility] [id number] [place] [address] Feb, [facility] [address] [address] Feb, [facility] [id number] [place] [address] Jan, HPV (human papilloma virus) infection B9 7.7 [facility] [id number] [place] [address] Dec, [facility] [address] [address] Dec, [facility] [address] [address] Dec, [facility] [id number] [place] [address] Dec, Mixed hyperlipidemia E78.2 [place] [id number] [place] [address] 05 Dec, 2018 Type 2 diabetes mellitus with diabetic p olyneuropathy E11.42 and residential 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 [place] [id number] [place] [address] November, Type 2 diabetes mellitus with diabetic p olyneuropathy E11.42 [place] [id number] [place] [address] November, Dysuria R30.0 and History of HPV infecti on Z86.19 [place] [id number] [place] [address] November, [place] [id number] [place] [address] November, UTI symptoms R39.9 [place] [id number] [place] [address] November, [place] [id number] [place] [address] November, UTI symptoms R39.9 [place] [id number] [place] [address] November, [place] [id number] [place] [address] November, Acute cystitis with hematuria N30.[address] [place] [address] Sep, Acute UTI N39.0 and Uncontro lled type 2 diabetes mellitus with hyperglycemia E11.65 [place] [id number] [place] [address] Jul, Type 2 diabetes mellitus with diabetic p olyneuropathy E11.42 [place] [id number] [place] [address] Jul, [place] [address] [address] Jul, [facility] [address] [address] Jul, Acute cystitis without hematuria N30.00 [facility] [address] [address] 09 Jul, 2018 [facility] [address] [address] Jul, Acute UTI N39.0 [facility] [address] [address] Jun, [place] [address] [address] Jun, Type 2 diabetes mellitus with diabetic p olyneuropathy E11.42 ; residential 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 and Primary insomnia F51.01 [place] [address] [address] Apr, Type 2 diabetes mellitus with diabetic p olyneuropathy E11.[address] [id number] Apr, Type 2 diabetes mellitus with diabetic polyneuropathy E11.42 ; Primary insomnia F51.01 and Anxiety F41.[address] [id number] Mar, Type 2 diabetes mellitus with diabetic polyneuropathy E11.[address] [id number] Mar, Type 2 diabetes mellitus with diabetic polyneuropathy E11.42 ; intermediate card tender 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 ; Anxiety F41.9 and Primary insomnia F51.[address] [id number] Feb, Type II or unspecified type diabetes mellitus without mention of complication, uncontrolled E11.[address] [id number] Jan, Type II or unspecified type diabetes mellitus without mention of complication, uncontrolled E11.65 ; residential 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 ; Type 2 diabetes mellitus with diabetic polyneuropathy E11.42 ; Tinea B35.9 ; Acute eczema L30.9 and Anxiety F41.[address] [id number] November, [address] [id number] November, Type 2 diabetes mellitus with diabetic polyneuropathy E11.42 ; residential 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 ; Primary insomnia F51.01 and Anxiety F41.[address] [id number] Oct, [address] [id number] Oct, [address] [id number] Oct, Well woman exam with routine gynecological exam Z01.419 ; Screening breast examination Z12.31 ; Type 2 diabetes mellitus with diabetic polyneuropathy E11.42 ; intermediate card tender 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 ; CVA tenderness M54.9 ; High risk sexual behavior Z72.51 ; Acute cystitis without hematuria N30.00 ; Anxiety F41.9 ; Type II or unspecified type diabetes mellitus without mention of complication, uncontrolled E11.65 and Primary insomnia F51.[address] [id number] Aug, Primary insomnia F51.[address] [id number] Aug, Abrasion T14.8XXA ; Open wound T14.8XXA and Type II or unspecified type diabetes mellitus without mention of complication, uncontrolled E11.[address] [id number] Jul, Type II or unspecified type diabetes mellitus without mention of complication, uncontrolled E11.65 ; Anxiety F41.9 ; Primary insomnia F51.01 ; Abrasion T14.8XXA and Pain in left ross M79.[address] [id number] May, Type II or unspecified type diabetes mellitus without mention of complication, uncontrolled E11.[address] [id number] May, Primary insomnia F51.[address] [id number] Apr, Primary insomnia F51.[address] [id number] Mar, [address] [id number] Mar, Type II or unspecified type diabetes mellitus without mention of complication, uncontrolled E11.65 ; Primary insomnia F51.01 ; Other insomnia G47.09 and Anxiety F41.[address] [id number] Jan, Type II or unspecified type diabetes mellitus without mention of complication, uncontrolled E11.65 ; Anxiety F41.9 and Other insomnia G47.[address] [id number] 07 Dec, 2016 Type II or unspecified type diabetes mellitus without mention of complication, uncontrolled E11.65 ; Anxiety F41.9 and Other insomnia G47.[address] [id number] 15 Nov, 2016 Type II or unspecified type diabetes mellitus without mention of complication, uncontrolled E11.[address] [id number] 14 Oct, 2016 Dysuria R30.[address] [id number] 14 Sep, 2016 Pain, dental K08.[address] [id number] Aug, [address] [id number] 16 Aug, 2016 Dysuria R30.0 ; Type II or unspecified type diabetes mellitus without mention of complication, uncontrolled E11.65 and Medial epicondylitis, left elbow M77.[address] [facility] [address] [id number] Jul, Acute pharyngitis due to other specified organisms J02.[address] [id number] Jun, Cellulitis of unspecified part of limb L03.119 ; Type II or unspecified type diabetes mellitus without mention of complication, uncontrolled E11.65 ; Cellulitis of right lower extremity L03.115 and Ulcer of skin, limited to breakdown of skin L98.[address] [id number] Jun, Cellulitis of unspecified part of limb L03.119 ; Cellulitis of right lower extremity L03.115 and Ulcer of skin, limited to breakdown of skin L98.[address] [id number] Jun, Cellulitis of unspecified part of limb L03.119 ; Cellulitis of right lower extremity L03.115 and Ulcer of skin, limited to breakdown of skin L98.[address] [id number] Jun, [address] [id number] Jun, [address] [id number] Jun, Dysuria R30.[address] [id number] May, [address] [id number] May, Painful swelling of joint M25.40 and Type II or unspecified type diabetes mellitus without mention of complication, uncontrolled E11.[address] [id number] May, Painful swelling of joint M25.[address] [id number] May, Painful swelling of joint M25.40 ; Glucosuria R81 and History of chest pain Z87.898 [facility] [address] [facility] [id number] [place] [id number] May, [address] [address] Apr, Well woman exam with routine gynecological exam Z01.419 and High risk sexual behavior Z72.[address] [place] [id number] Apr, Kidney infection N15.9 ; UTI symptoms R39.9 and Dysuria R30.[address] [id number] Apr, Grief reaction F43.[address] [id number] Mar, [address] [id number] Mar, Grief reaction F43.[address] [id number] Feb, [address] [id number] Feb, Stress reaction F43.0 and Type II or unspecified type diabetes mellitus without mention of complication, uncontrolled E11.[address] [id number] Jan, [address] [id number] Dec, [address] [id number] Dec, [address] [id number] Dec, [address] [id number] November, [address] [id number] November, Pharyngitis J02.[address] [id number] Oct, [address] [id number] Oct, Sciatic leg pain M54.[address] [id number] Sep, [address] [id number] Sep, [address] [id number] Sep, Sciatic leg pain M54.[address] [id number] Aug, Pharyngitis J02.[address] [id number] Jul, Type II or unspecified type diabetes mellitus without mention of complication, uncontrolled E11.65 and Midline low back pain without sciatica M54.[address] [id number] Jun, Diabetes with unspecified complication, type II or unspecified type, uncontrolled 250.[address] [id number] Jun, [facility] [address] [place] [id number] May, [address] [id number] May, Diabetes with unspecified complication, type II or unspecified type, uncontrolled 250.[address] [id number] Apr, [facility] [address] [place] [id number] Apr, [address] [id number] Apr, Type 2 diabetes mellitus with hyperglycemia E11.65 ; Depression with anxiety F41.8 ; Influenza vaccination declined Z28.21 and Diabetes with unspecified complication, type II or unspecified type, uncontrolled 250.[address] [id number] Apr, [address] [id number] Mar, [address] [address] Mar, [facility] [address] [facility] [id number] Mar, [facility] [address] [facility] [id number] Feb, [facility] [address] [facility] [id number] Feb, [facility] [id number] [place] [id number] Feb, [facility] [address] [facility] [id number] Feb, [facility] [place] [address] [address] Feb, Dental abscess 522.5 [facility], [place] [address] [address] Jan, Diabetes with unspecified complication, type II or unspecified type, uncontrolled 250.92 ; Vaginal denise 112.1 ; Broken tooth 873.63 and Screening for STD (sexually transmitted disease) V74.5 [facility] [address] [address] Oct, [facility] [address] [address] Oct, [facility], [place] [address] [place] [address] Sep, [facility] [address] [address] Sep, [facility], [place] [address] [place] [id number] Aug, [facility] [address] [address] Aug, [address] [id number] Aug, [facility] [address] [address] Aug, [facility] [address] [place] [id number] Jul, [facility] [address] [id number] [place] [address] Jul, [facility] [address] [facility]07757[facility] [id number] Jul, [facility] [address] [id number] [place] [address] Jul, [facility] [address] [id number] [place] [address] Jul, [facility] [address] [facility]07757[facility] [id number] Jul, [facility] [id number] [id number] Jul, [facility] [id number] [place] [address] Jul, [facility] [address] [id number] [id number] Jul, [facility] [id number] [place] [address] Jul, [facility] [address] [facility]07757[facility] [id number] Jun, [facility] [id number] [place] [address] Jun, [facility] [address] [id number] [place] [address] Jun, [facility] [address] [facility] [id number] Jun, [facility] [address] [id number] [place] [address] Jun, [facility] [id number] [place] [address] May, [facility] [address] [facility]07757[facility] [id number] May, [facility] [address] [facility]07[place] [id number] May, [facility] [address] [id number] [place] [address] May, [facility] [address] [id number] [id number] May, [facility] [address] [id number] [place] [address] May, [facility] [address] [id number] [place] [address] Apr, [facility] [address] [id number] [place] [address] Mar, [facility] [address] [id number] [place] [address] Jan, [facility] [address] [id number] [id number] Jan, [facility] [id number] [place] [address] Jan, [facility] [address] [id number] [id number] Jan, [facility] [id number] [place] [address] Jan, [facility] [address] [id number] [id number] Dec, [facility] [id number] [place] [address] Dec, [facility] [address] [id number] [id number] November, [facility] [id number] [place] [address] November, [facility] [address] [id number] [id number] November, [facility] [id number] [place] [address] November, [facility] [address] [facility] [id number] Oct, [facility] [id number] [place] [address] Oct, [facility] [address] [id number] [place] [id number] Oct, [facility] [address] [id number] [place] [address] Oct, [facility] [address] [id number] [place] [address] Oct, [facility] [id number] [place] [address] Oct, [facility] [address] [id number] [id number] Sep, [facility] [id number] [place] [address] Sep, [facility] [id number] [place] [address] Aug, [facility] [address] [id number] [id number] Aug, [facility] [id number] [place] [address] Aug, [facility] [address] [id number] [id number] Aug, [facility] [id number] [place] [address] Aug, [facility] [address] [id number] [id number] Aug, [facility] [address] [id number] [place] [address] Aug, [facility] [address] [id number] [id number] Aug, [facility] [id number] [place] [address] Aug, [facility] [address] [id number] [id number] Jul, [facility] [id number] [place] [address] Jul, [facility] [address] [id number] [place] [id number] Jun, [facility] [address] [id number] [place] [address] Jun, [facility] [address] [id number] [place] [id number] Jun, [facility] [id number] [place] [address] Jun, [facility] [id number] [place] [id number] Jun, [facility] [id number] [place] [address] Jun, [facility] [id number] [place] [address] Jun, [facility] [id number] [place] [address] Jun, [facility] [id number] [place] [address] Jun, [facility] [address] [id number] [id number] Jun, [facility] [id number] [place] [address] Jun, [facility] [id number] [place] [address] May, [facility] [address] [id number] [id number] May, [facility] [id number] [place] [address] May, [facility] [address] [facility] [id number] May, [facility] [id number] [place] [address] May, [facility] [id number] [place] [address] Apr, [facility] [id number] [place] [address] Apr, [facility] [address] [id number] [place] [address] Apr, [facility] [address] [id number] [place] [address] Apr, [facility] [address] [id number] [place] [address] Apr, [facility] [id number] [place] [address] Apr, [facility] [address] [id number] [id number] Apr, [facility] [id number] [place] [address] Apr, [facility] [address] [id number] [id number] Apr, [facility] [id number] [place] [address] Apr, [facility] [address] [id number] [place] [address] Apr, [facility] [address] [id number] [place] [id number] Apr, [facility] [id number] [place] [address] Apr, [facility] [address] [id number] [id number] Apr, [facility] [id number] [place] [address] Apr, [facility] [address] [id number] [place] [address] Mar, [facility] [address] [id number] [id number] Mar, [facility] [id number] [place] [address] Mar, [facility] [id number] [place] [address] Mar, [facility] [id number] [place] [id number] Mar, [facility] [address] [id number] Mar, [facility] [id number] [place] [id number] Mar, [facility] [id number] [place] [id number] Mar, [facility] [address] [id number] Mar, [facility] [address] [id number] Mar, [facility] [address] [id number] Mar, [facility] [address] [id number] Mar, [facility] [address] [address] Mar, [facility] [address] [id number] Jul, [facility] [address] [address] Oct, [facility] [address] [address] Oct, [facility] [address] [address] May, [facility] [address] [address] Jun, IMMUNIZATIONS No Known Immunizations SOCIAL HISTORY Never Assessed REASON FOR VISIT PLAN OF CARE VITAL SIGNS Height 69 in 2013-08-20 Weight 239.38 lbs 2013-08-20 Temperature 97 degrees Fahrenheit 2013-08-20 Heart Rate 82 bpm 2013-08-20 Respiratory Rate 16 2013-08-20 Blood pressure systolic 112 mmHg 2013-08-20 Blood pressure diastolic 70 mmHg 2013-08-20 MEDICATIONS Unknown Medications RESULTS No Results PROCEDURES Procedure Date Ordered Result Body Site ASSAY, TRIIODOTHYRONINE (T3) Aug 20, 2013 ASSAY THYROID STIM HORMONE Aug 20, 2013 ASSAY OF FREE THYROXINE Aug 20, 2013 ASSAY OF TOTAL THYROXINE Aug 20, 2013 GLYCATED HEMOGLOBIN TEST Aug 20, 2013 VENIPUNCT, ROUTINE* Aug 20, 2013 INSTRUCTIONS MEDICATIONS ADMINISTERED No Known Medications MEDICAL [...] Surgical History had all teeth removed in [facility] 7 Hospitalization History DKA 07/2014 Hospitalization History [facility] hypoglycemia 08/2015 Hospitalization History [facility] elevated blood sugar 09/06 16 Hospitalization History [facility] [place] for DKS for 3 days, sugar on admin 926 08/08/2017 Hospitalization History hypoglycemia April 22-2018 Hospitalization History admitted to ICU for low blood sugars 04/2019 Hospitalization History DKA 05/12/2019
--- OUTSIDE RECORDS SUMMARY | 2019-10-22 09:27 | XMS REPORT | Continuity of Care Document ---
Author Organization Unknown Address Unknown Phone Unavailable Allergies Active Description Code Type Severity Reaction Onset Reported/Identified Relationship to Patient Clinical Status Yes cephalexin [id number] Drug Allerg y Unknown N/A 05/06/2007 Yes morphine [id number] Drug Allergy Unknown N/A 05/06/2007 Medications There is no data. 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 10 TYPE 2 DIABETES MELLITUS WITH KETOACIDOS 05/13/2019 EREN MICHAELS MD Ot F10. 11 ALCOHOL ABUSE, IN REMISSION 05/13/2019 EREN MICHAELS MD Ot F17.290 NICOTINE DEPENDENCE, OTHER TOBACCO PRODU 05/13/2019 EREN MICHAELS MD Ot K21. 9 GASTRO-ESOPHAGEAL REFLUX DISEASE WITHOUT 05/13/2019 EREN MICHAELS MD Ot M54. 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 Results Test Result Range CBC - 05/09/18 08:59 WHITE BLOOD CELL COUNT 5.6 Thousand/uL 3 .8-10.8 RED BLOOD CELL COUNT 4.19 Million/uL 3.8 0-5.10 HEMOGLOBIN 12.7 g/dL 11.7-15.5 HEMATOCRIT 38.6 % 35.0-45.0 MCV 92.1 fL 80.0-100.0 MCH 30.3 pg 27.0-33.0 MCHC 32.9 g/dL 32.0-36.0 RDW 12.9 % 11.0-15.0 PLATELET COUNT 326 Thousand/uL 140-400 MPV 10.1 fL 7.5-12.5 ABSOLUTE NEUTROPHILS 2817 cells/uL 1500- 7800 ABSOLUTE LYMPHOCYTES 2173 cells/uL 850-3 900 ABSOLUTE MONOCYTES 308 cells/uL 200-950 ABSOLUTE EOSINOPHILS 252 cells/uL 15-500 ABSOLUTE BASOPHILS 50 cells/uL 0-200 NEUTROPHILS 50.3 % NRG LYMPHOCYTES 38.8 % NRG MONOCYTES 5.5 % NRG EOSINOPHILS 4.5 % NRG BASOPHILS 0.9 % NRG CULTURE, URINE - 09/26/18 12:13 CULTURE, URINE, ROUTINE SEE NOTE NRG CULTURE, URINE - 11/17/18 16:35 CULTURE, URINE, ROUTINE SEE NOTE NRG CULTURE, URINE - 11/24/18 17:36 CULTURE, URINE, ROUTINE NRG CULTURE, GENITAL - 12/05/18 10:22 CULTURE, GENITAL SEE NOTE NRG SUREPATH PAP AND HPV mRNA E6/E7 - 10:22 CLINICAL INFORMATION: NRG LMP: NRG PREV. PAP: NRG PREV. BX: NRG SOURCE: Cervix NRG STATEMENT OF ADEQUACY: NRG INTERPRETATION/RESULT: NRG RN TRIAGE: NRG HPV mRNA E6/E7, SUREPATH VIAL Detected NOT DETECTED REVIEW RN TRIAGE: NRG INFECTION: NRG COMMENT NRG LIPID PANEL - 12/20/18 13:42 CHOLESTEROL, TOTAL 206 mg/dL <200 HDL CHOLESTEROL 42 mg/dL >50 TRIGLYCERIDES 187 mg/dL <150 LDL-CHOLESTEROL 132 mg/dL (calc) NRG CHOL/HDLC RATIO 4.9 (calc) <5.0 NON HDL CHOLESTEROL 164 mg/dL (calc) <13 0 CMP - 12/20/18 13:42 GLUCOSE 75 mg/dL 65-99 UREA NITROGEN (BUN) 15 mg/dL 7-25 CREATININE 0.71 mg/dL 0.50-1.10 eGFR NON-AFR. BRITISH 108 mL/min/1.73m2 > OR = 60 eGFR 125 mL/min/1.73m2 > OR = 60 BUN/CREATININE RATIO NOT APPLICABLE (calc) 6-22 SODIUM 136 mmol/L 135-146 POTASSIUM 3.9 mmol/L 3.5-5.3 CHLORIDE 107 mmol/L 98-110 CARBON DIOXIDE 22 mmol/L 20-32 CALCIUM 9.4 mg/dL 8.6-10.2 PROTEIN, TOTAL 7.3 g/dL 6.1-8.1 ALBUMIN 4.0 g/dL 3.6-5.1 GLOBULIN 3.3 g/dL (calc) 1.9-3.7 ALBUMIN/GLOBULIN RATIO 1.2 (calc) 1.0-2. 5 BILIRUBIN, TOTAL 0.5 mg/dL 0.2-1.2 ALKALINE PHOSPHATASE 99 U/L 33-115 AST 14 U/L 10-30 ALT 8 U/L 6-29 TISSUE, 2 SPECIMENS - 02/14/19 17:51 A SOURCE NRG A GROSS DESCRIPTION NRG A DIAGNOSIS NRG CULTURE, URINE - 02/20/19 11:44 CULTURE, URINE, ROUTINE SEE NOTE NRG CULTURE, URINE - 04/04/19 09:39 CULTURE, URINE, ROUTINE SEE NOTE NRG CULTURE, URINE - 04/11/19 10:35 CULTURE, URINE, ROUTINE SEE NOTE NRG Capillary blood glucose measurement by g lucometer (mass/volume) - 04/22/19 11:10 Capillary blood glucose measurement by glucometer (mas s/volume) 69 mg/dL 70-110 Complete blood count (CBC) with automate d white blood cell (WBC) differential - 04/22/19 11:11 Blood leukocytes automated count (number/volume) 9.5 10*3/uL 4.3-11.0 Blood erythrocytes automated count (number/volume) 4.41 10*6/uL 4.35-5.85 Venous blood hemoglobin measurement (mass/volume) 13.8 g/dL 11.5-16.0 Blood hematocrit (volume fraction) 41 % 35-52 Automated erythrocyte mean corpuscular volume 93 [ foz_us] 80-99 Automated erythrocyte mean corpuscular h emoglobin (mass per erythrocyte) 31 pg 25-34 Automated erythrocyte mean corpuscular h emoglobin concentration measurement (mass/volume) 34 g/dL 32-36 Automated erythrocyte distribution width ratio 13. 8 % 10.0- 14.5 Automated blood platelet count (count/volume) 312 10*3/uL 130-400 Automated blood platelet mean volume measurement 9.8 [foz_us] 7.4-10.4 Automated blood neutrophils/100 leukocytes 84 % 42-75 Automated blood lymphocytes/100 leukocytes 12 % 12-44 Blood monocytes/100 leukocytes 4 % 0-12 Automated blood eosinophils/100 leukocytes 0 % 0-10 Automated blood basophils/100 leukocytes 0 % 0-10 Blood neutrophils automated count (number/volume) 7.9 10*3 1.8-7.8 Blood lymphocytes automated count (number/volume) 1.1 10*3 1.0-4.0 Blood monocytes automated count (number/volume) 0. 4 10*3 0.0-1.0 Automated eosinophil count 0.0 10*3/uL 0 .0-0.3 Automated blood basophil count (count/volume) 0.0 10*3/uL 0.0-0.1 Comprehensive metabolic panel - 04/22/19 11:11 Serum or plasma sodium measurement (moles/volume) 147 mmol/L 135-145 Serum or plasma potassium measurement (moles/volume) 2.8 mmol/L 3.6-5.0 Serum or plasma chloride measurement (moles/volume) 107 mmol/L 98-107 Carbon dioxide 23 mmol/L 21-32 Serum or plasma anion gap determination (moles/volume) 17 mmol/L 5-14 Serum or plasma urea nitrogen measurement (mass/volume ) 15 mg/dL 7-18 Serum or plasma creatinine measurement (mass/volume) 0.73 mg/dL 0.60-1.30 Serum or plasma urea nitrogen/creatinine mass ratio 21 NRG Serum or plasma creatinine measurement w ith calculation of estimated glomerular filtration rate > NRG Serum or plasma glucose measurement (mass/volume) 67 mg/dL 70-105 Serum or plasma calcium measurement (mass/volume) 9.3 mg/dL 8.5-10.1 Serum or plasma total bilirubin measurement (mass/volu me) 0.3 mg/dL 0.1-1.0 Serum or plasma alkaline phosphatase minh surement (enzymatic activity/volume) 78 U/L 40-136 Serum or plasma aspartate aminotransfera se measurement (enzymatic activity/volume) 19 U/L 5-34 Serum or plasma alanine aminotransferase measurement (enzymatic activity/volume) 17 U/L 0-55 Serum or plasma protein measurement (mass/volume) 7.4 g/dL 6.4-8.2 Serum or plasma albumin measurement (mass/volume) 4.1 g/dL 3.2-4.5 CALCIUM CORRECTED 9.2 mg/dL 8.5-10.1 Serum or plasma ethanol measurement (mas s/volume) - 04/22/19 11:11 Serum or plasma ethanol measurement (mass/volume) < mg/dL <10 Urine drug screening test - 04/22/19 12: 05 Urine phencyclidine detection by screening method NEGATIVE NEGATIVE Urine benzodiazepines detection by screening method NEGATIVE NEGATIVE Urine cocaine detection NEGATIVE NEGATI VE Urine amphetamines detection by screening method N EGATIVE NEGATIVE Urine methamphetamine detection by screening method NEGATIVE NEGATIVE Urine cannabinoids detection by screening method P OSITIVE NEGATIVE Urine opiates detection by screening method NEGATI VE NEGATIVE Urine barbiturates detection NEGATIVE N EGATIVE Screening urine tricyclic antidepressants detection NEGATIVE NEGATIVE Urine methadone detection by screening method NEGA TIVE NEGATIVE Urine oxycodone detection NEGATIVE NEGA TIVE Urine propoxyphene detection NEGATIVE N EGATIVE Complete urinalysis with reflex to cultu re - 04/22/19 12:05 Urine color determination YELLOW NRG Urine clarity determination CLEAR NR G Urine pH measurement by test strip 6 5-9 Specific gravity of urine by test strip 1.020 1.016-1.022 Urine protein assay by test strip, semi-quantitative 3+ NEGATIVE Urine glucose detection by automated test strip 3+ NEGATIVE Erythrocytes detection in urine sediment by light micr oscopy NEGATIVE NEGATIVE Urine ketones detection by automated test strip 1+ NEGATIVE Urine nitrite detection by test strip NEGATIVE NEGATIVE Urine total bilirubin detection by test strip NEGA TIVE NEGATIVE Urine urobilinogen measurement by automated test strip (mass/volume) 1 mg/dL NORMAL Urine leukocyte esterase detection by dipstick 1+ NEGATIVE Automated urine sediment erythrocyte cou nt by microscopy (number/high power field) RARE NRG Automated urine sediment leukocyte count by microscopy (number/high power field) [HPF] NRG Bacteria detection in urine sediment by light microsco py MODERATE NRG Squamous epithelial cells detection in u rine sediment by light microscopy 2-5 NRG Crystals detection in urine sediment by light microsco py NONE NRG Casts detection in urine sediment by light microscopy NONE NRG Mucus detection in urine sediment by light microscopy LARGE NRG Complete urinalysis with reflex to culture NO NRG Capillary blood glucose measurement by g lucometer (mass/volume) - 04/22/19 12:49 Capillary blood glucose measurement by glucometer (mas s/volume) 77 mg/dL 70-110 Capillary blood glucose measurement by g lucometer (mass/volume) - 04/22/19 14:23 Capillary blood glucose measurement by glucometer (mas s/volume) 39 mg/dL 70-110 Capillary blood glucose measurement by g lucometer (mass/volume) - 04/22/19 14:50 Capillary blood glucose measurement by glucometer (mas s/volume) 98 mg/dL 70-110 Methicillin resistant Staphylococcus aur eus (MRSA) screening culture - 04/22/19 15:09 Methicillin resistant Staphylococcus aureus (MRSA) scr eening culture NEG NRG Capillary blood glucose measurement by g lucometer (mass/volume) - 04/22/19 15:32 Capillary blood glucose measurement by glucometer (mas s/volume) 50 mg/dL 70-110 Capillary blood glucose measurement by g lucometer (mass/volume) - 04/22/19 16:04 Capillary blood glucose measurement by glucometer (mas s/volume) 66 mg/dL 70-110 Capillary blood glucose measurement by g lucometer (mass/volume) - 04/22/19 16:45 Capillary blood glucose measurement by glucometer (mas s/volume) 42 mg/dL 70-110 Capillary blood glucose measurement by g lucometer (mass/volume) - 04/22/19 17:16 Capillary blood glucose measurement by glucometer (mas s/volume) 46 mg/dL 70-110 Whole blood basic metabolic panel - 01/03 18:00 Serum or plasma sodium measurement (moles/volume) 142 mmol/L 135-145 Serum or plasma potassium measurement (moles/volume) 3.6 mmol/L 3.6-5.0 Serum or plasma chloride measurement (moles/volume) 108 mmol/L 98-107 Carbon dioxide 21 mmol/L 21-32 Serum or plasma anion gap determination (moles/volume) 13 mmol/L 5-14 Serum or plasma urea nitrogen measurement (mass/volume ) 14 mg/dL 7-18 Serum or plasma creatinine measurement (mass/volume) 0.69 mg/dL 0.60-1.30 Serum or plasma urea nitrogen/creatinine mass ratio 20 NRG Serum or plasma creatinine measurement w ith calculation of estimated glomerular filtration rate > NRG Serum or plasma glucose measurement (mass/volume) 110 mg/dL 70-105 Serum or plasma calcium measurement (mass/volume) 8.5 mg/dL 8.5-10.1 Serum or plasma phosphate measurement (m ass/volume) - 04/22/19 18:00 Serum or plasma phosphate measurement (mass/volume) 2.1 mg/dL 2.3-4.7 Magnesium - 04/22/19 18:00 Magnesium 1.8 mg/dL 1.6-2.4 Capillary blood glucose measurement by g lucometer (mass/volume) - 04/22/19 18:18 Capillary blood glucose measurement by glucometer (mas s/volume) 90 mg/dL 70-110 Capillary blood glucose measurement by g lucometer (mass/volume) - 04/22/19 19:15 Capillary blood glucose measurement by glucometer (mas s/volume) 69 mg/dL 70-110 Capillary blood glucose measurement by g lucometer (mass/volume) - 04/22/19 20:12 Capillary blood glucose measurement by glucometer (mas s/volume) 93 mg/dL 70-110 Capillary blood glucose measurement by g lucometer (mass/volume) - 04/22/19 21:18 Capillary blood glucose measurement by glucometer (mas s/volume) 94 mg/dL 70-110 Capillary blood glucose measurement by g lucometer (mass/volume) - 04/22/19 22:28 Capillary blood glucose measurement by glucometer (mas s/volume) 138 mg/dL 70-110 Capillary blood glucose measurement by g lucometer (mass/volume) - 04/22/19 23:25 Capillary blood glucose measurement by glucometer (mas s/volume) 184 mg/dL 70-110 Capillary blood glucose measurement by g lucometer (mass/volume) - 04/23/19 00:15 Capillary blood glucose measurement by glucometer (mas s/volume) 190 mg/dL 70-110 Capillary blood glucose measurement by g lucometer (mass/volume) - 04/23/19 01:17 Capillary blood glucose measurement by glucometer (mas s/volume) 221 mg/dL 70-110 Capillary blood glucose measurement by g lucometer (mass/volume) - 04/23/19 02:17 Capillary blood glucose measurement by glucometer (mas s/volume) 251 mg/dL 70-110 Comprehensive metabolic panel - 04/23/19 03:05 Serum or plasma sodium measurement (moles/volume) 138 mmol/L 135-145 Serum or plasma potassium measurement (moles/volume) 3.6 mmol/L 3.6-5.0 Serum or plasma chloride measurement (moles/volume) 106 mmol/L 98-107 Carbon dioxide 22 mmol/L 21-32 Serum or plasma anion gap determination (moles/volume) 10 mmol/L 5-14 Serum or plasma urea nitrogen measurement (mass/volume ) 10 mg/dL 7-18 Serum or plasma creatinine measurement (mass/volume) 0.88 mg/dL 0.60-1.30 Serum or plasma urea nitrogen/creatinine mass ratio 11 NRG Serum or plasma creatinine measurement w ith calculation of estimated glomerular filtration rate > NRG Serum or plasma glucose measurement (mass/volume) 315 mg/dL 70-105 Serum or plasma calcium measurement (mass/volume) 8.1 mg/dL 8.5-10.1 Serum or plasma total bilirubin measurement (mass/volu me) 0.4 mg/dL 0.1-1.0 Serum or plasma alkaline phosphatase minh surement (enzymatic activity/volume) 80 U/L 40-136 Serum or plasma aspartate aminotransfera se measurement (enzymatic activity/volume) 15 U/L 5-34 Serum or plasma alanine aminotransferase measurement (enzymatic activity/volume) 11 U/L 0-55 Serum or plasma protein measurement (mass/volume) 6.0 g/dL 6.4-8.2 Serum or plasma albumin measurement (mass/volume) 3.3 g/dL 3.2-4.5 CALCIUM CORRECTED 8.7 mg/dL 8.5-10.1 Serum or plasma phosphate measurement (m ass/volume) - 04/23/19 03:05 Serum or plasma phosphate measurement (mass/volume) 2.8 mg/dL 2.3-4.7 Magnesium - 04/23/19 03:05 Magnesium 1.8 mg/dL 1.6-2.4 Complete blood count (CBC) with automate d white blood cell (WBC) differential - 04/23/19 03:05 Blood leukocytes automated count (number/volume) 8.3 10*3/uL 4.3-11.0 Blood erythrocytes automated count (number/volume) 4.02 10*6/uL 4.35-5.85 Venous blood hemoglobin measurement (mass/volume) 12.6 g/dL 11.5-16.0 Blood hematocrit (volume fraction) 38 % 35-52 Automated erythrocyte mean corpuscular volume 94 [ foz_us] 80-99 Automated erythrocyte mean corpuscular h emoglobin (mass per erythrocyte) 31 pg 25-34 Automated erythrocyte mean corpuscular h emoglobin concentration measurement (mass/volume) 34 g/dL 32-36 Automated erythrocyte distribution width ratio 13. 7 % 10.0- 14.5 Automated blood platelet count (count/volume) 253 10*3/uL 130-400 Automated blood platelet mean volume measurement 10.1 [foz_us] 7.4-10.4 Automated blood neutrophils/100 leukocytes 57 % 42-75 Automated blood lymphocytes/100 leukocytes 36 % 12-44 Blood monocytes/100 leukocytes 5 % 0-12 Automated blood eosinophils/100 leukocytes 3 % 0-10 Automated blood basophils/100 leukocytes 0 % 0-10 Blood neutrophils automated count (number/volume) 4.7 10*3 1.8-7.8 Blood lymphocytes automated count (number/volume) 2.9 10*3 1.0-4.0 Blood monocytes automated count (number/volume) 0. 4 10*3 0.0-1.0 Automated eosinophil count 0.2 10*3/uL 0 .0-0.3 Automated blood basophil count (count/volume) 0.0 10*3/uL 0.0-0.1 Capillary blood glucose measurement by g lucometer (mass/volume) - 04/23/19 03:19 Capillary blood glucose measurement by glucometer (mas s/volume) 291 mg/dL 70-110 Capillary blood glucose measurement by g lucometer (mass/volume) - 04/23/19 05:33 Capillary blood glucose measurement by glucometer (mas s/volume) 162 mg/dL 70-110 C-PEPTIDE, SERUM - 05/07/19 08:22 C-PEPTIDE <0.10 ng/mL 0.80-3.85 Complete blood count (CBC) with automate d white blood cell (WBC) differential - 05/12/19 19:35 Blood leukocytes automated count (number/volume) 16.4 10*3/uL 4.3-11.0 Blood erythrocytes automated count (number/volume) 4.77 10*6/uL 4.35-5.85 Venous blood hemoglobin measurement (mass/volume) 14.6 g/dL 11.5-16.0 Blood hematocrit (volume fraction) 45 % 35-52 Automated erythrocyte mean corpuscular volume 94 [ foz_us] 80-99 Automated erythrocyte mean corpuscular h emoglobin (mass per erythrocyte) 31 pg 25-34 Automated erythrocyte mean corpuscular h emoglobin concentration measurement (mass/volume) 32 g/dL 32-36 Automated erythrocyte distribution width ratio 13. 8 % 10.0- 14.5 Automated blood platelet count (count/volume) 290 10*3/uL 130-400 Automated blood platelet mean volume measurement 10.4 [foz_us] 7.4-10.4 Automated blood neutrophils/100 leukocytes 84 % 42-75 Automated blood lymphocytes/100 leukocytes 13 % 12-44 Blood monocytes/100 leukocytes 3 % 0-12 Automated blood eosinophils/100 leukocytes 1 % 0-10 Automated blood basophils/100 leukocytes 0 % 0-10 Blood neutrophils automated count (number/volume) 13.7 10*3 1.8-7.8 Blood lymphocytes automated count (number/volume) 2.1 10*3 1.0-4.0 Blood monocytes automated count (number/volume) 0. 4 10*3 0.0-1.0 Automated eosinophil count 0.1 10*3/uL 0 .0-0.3 Automated blood basophil count (count/volume) 0.0 10*3/uL 0.0-0.1 Serum or plasma choriogonadotropin (preg uche test) detection - 05/12/19 19:35 Serum or plasma choriogonadotropin ( test) de tection NEGATIVE NEGATIVE PT panel in platelet poor plasma by coag ulation assay - 05/12/19 19:35 Prothrombin time (PT) in platelet poor plasma by coagu lation assay 13.2 s 12.2-14.7 INR in platelet poor plasma or blood by coagulation as say 1.0 0.8-1.4 Activated partial thromboplastin time (a PTT) in platelet poor plasma bycoagulation assay - 05/12/19 19:35 Activated partial thromboplastin time (a PTT) in platelet poor plasma bycoagulation assay 30 s 24-35 Manual absolute plasma cell count - 04/18 01/03 19:35 Blood monocytes/100 leukocytes 1 % NRG Manual blood segmented neutrophils/100 leukocytes 84 % NRG Blood band neutrophils/100 leukocytes 6 % NRG Manual blood lymphocytes/100 leukocytes 9 % NRG Manual eosinophils/100 leukocytes in nose 0 % NRG Manual blood basophils/100 leukocytes 0 % NRG Blood toxic granules detection by light microscopy 1+ NRG Comprehensive metabolic panel - 05/12/19 19:35 Serum or plasma sodium measurement (moles/volume) 135 mmol/L 135-145 Serum or plasma potassium measurement (moles/volume) 4.6 mmol/L 3.6-5.0 Serum or plasma chloride measurement (moles/volume) 100 mmol/L 98-107 Carbon dioxide 9 mmol/L 21-32 Serum or plasma anion gap determination (moles/volume) 26 mmol/L 5-14 Serum or plasma urea nitrogen measurement (mass/volume ) 15 mg/dL 7-18 Serum or plasma creatinine measurement (mass/volume) 1.17 mg/dL 0.60-1.30 Serum or plasma urea nitrogen/creatinine mass ratio 13 NRG Serum or plasma creatinine measurement w ith calculation of estimated glomerular filtration rate 52 NRG Serum or plasma glucose measurement (mass/volume) 550 mg/dL 70-105 Serum or plasma calcium measurement (mass/volume) 9.4 mg/dL 8.5-10.1 Serum or plasma total bilirubin measurement (mass/volu me) 0.9 mg/dL 0.1-1.0 Serum or plasma alkaline phosphatase minh surement (enzymatic activity/volume) 107 U/L 40-136 Serum or plasma aspartate aminotransfera se measurement (enzymatic activity/volume) 12 U/L 5-34 Serum or plasma alanine aminotransferase measurement (enzymatic activity/volume) 10 U/L 0-55 Serum or plasma protein measurement (mass/volume) 7.8 g/dL 6.4-8.2 Serum or plasma albumin measurement (mass/volume) 4.3 g/dL 3.2-4.5 CALCIUM CORRECTED 9.2 mg/dL 8.5-10.1 Magnesium - 05/12/19 19:35 Magnesium 2.1 mg/dL 1.6-2.4 Serum or plasma troponin i.cardiac measu rement (mass/volume) - 05/12/19 19:35 Serum or plasma troponin i.cardiac measurement (mass/v olume) < ng/mL <0.028 Myoglobin, serum - 05/12/19 19:35 Myoglobin, serum 22.3 ng/mL 10.0-92.0 Serum or plasma ethanol measurement (mas s/volume) - 05/12/19 19:35 Serum or plasma ethanol measurement (mass/volume) < mg/dL <10 Fibrin D-dimer FEU measurement in platel et poor plasma (mass/volume) - 05/12/19 19:35 Fibrin D-dimer FEU measurement in platelet poor plasma (mass/volume) 0.49 ug/mL 0.00-0.49 Lipase - 05/12/19 19:35 Lipase < U/L 8-78 Beta-hydroxybutyric acid measurement - 1 19:35 Beta-hydroxybutyric acid measurement 7.58 mmol/L 0.00-0.27 Complete urinalysis with reflex to cultu re - 05/12/19 20:26 Urine color determination YELLOW NRG Urine clarity determination CLEAR NR G Urine pH measurement by test strip 6 5-9 Specific gravity of urine by test strip 1.020 1.016-1.022 Urine protein assay by test strip, semi-quantitative 2+ NEGATIVE Urine glucose detection by automated test strip 4+ NEGATIVE Erythrocytes detection in urine sediment by light micr oscopy NEGATIVE NEGATIVE Urine ketones detection by automated test strip 4+ NEGATIVE Urine nitrite detection by test strip NEGATIVE NEGATIVE Urine total bilirubin detection by test strip NEGA TIVE NEGATIVE Urine urobilinogen measurement by automated test strip (mass/volume) NORMAL NORMAL Urine leukocyte esterase detection by dipstick NEG ATIVE NEGATIVE Automated urine sediment erythrocyte cou nt by microscopy (number/high power field) NONE NRG Automated urine sediment leukocyte count by microscopy (number/high power field) NONE NRG Bacteria detection in urine sediment by light microsco py TRACE NRG Squamous epithelial cells detection in u rine sediment by light microscopy 2-5 NRG Crystals detection in urine sediment by light microsco py NONE NRG Casts detection in urine sediment by light microscopy NONE NRG Mucus detection in urine sediment by light microscopy NEGATIVE NRG Complete urinalysis with reflex to culture NO NRG Urine drug screening test - 05/12/19 20: 26 Urine phencyclidine detection by screening method NEGATIVE NEGATIVE Urine benzodiazepines detection by screening method NEGATIVE NEGATIVE Urine cocaine detection NEGATIVE NEGATI VE Urine amphetamines detection by screening method N EGATIVE NEGATIVE Urine methamphetamine detection by screening method NEGATIVE NEGATIVE Urine cannabinoids detection by screening method P OSITIVE NEGATIVE Urine opiates detection by screening method NEGATI VE NEGATIVE Urine barbiturates detection NEGATIVE N EGATIVE Screening urine tricyclic antidepressants detection NEGATIVE NEGATIVE Urine methadone detection by screening method NEGA TIVE NEGATIVE Urine oxycodone detection NEGATIVE NEGA TIVE Urine propoxyphene detection NEGATIVE N EGATIVE Capillary blood glucose measurement by g lucometer (mass/volume) - 05/12/19 21:03 Capillary blood glucose measurement by glucometer (mas s/volume) 434 mg/dL 70-110 Capillary blood glucose measurement by g lucometer (mass/volume) - 05/12/19 22:18 Capillary blood glucose measurement by glucometer (mas s/volume) 343 mg/dL 70-110 Methicillin resistant Staphylococcus aur eus (MRSA) screening culture - 05/12/19 22:30 Methicillin resistant Staphylococcus aureus (MRSA) scr eening culture NEG NRG Capillary blood glucose measurement by g lucometer (mass/volume) - 05/12/19 22:45 Capillary blood glucose measurement by glucometer (mas s/volume) 341 mg/dL 70-110 Capillary blood glucose measurement by g lucometer (mass/volume) - 05/13/19 00:04 Capillary blood glucose measurement by glucometer (mas s/volume) 258 mg/dL 70-110 Whole blood basic metabolic panel - 04/18 02/02 00:15 Serum or plasma sodium measurement (moles/volume) 138 mmol/L 135-145 Serum or plasma potassium measurement (moles/volume) 4.5 mmol/L 3.6-5.0 Serum or plasma chloride measurement (moles/volume) 111 mmol/L 98-107 Carbon dioxide 8 mmol/L 21-32 Serum or plasma anion gap determination (moles/volume) 19 mmol/L 5-14 Serum or plasma urea nitrogen measurement (mass/volume ) 13 mg/dL 7-18 Serum or plasma creatinine measurement (mass/volume) 0.87 mg/dL 0.60-1.30 Serum or plasma urea nitrogen/creatinine mass ratio 15 NRG Serum or plasma creatinine measurement w ith calculation of estimated glomerular filtration rate > NRG Serum or plasma glucose measurement (mass/volume) 261 mg/dL 70-105 Serum or plasma calcium measurement (mass/volume) 7.8 mg/dL 8.5-10.1 Serum or plasma troponin i.cardiac measu rement (mass/volume) - 05/13/19 00:15 Serum or plasma troponin i.cardiac measurement (mass/v olume) < ng/mL <0.028 Capillary blood glucose measurement by g lucometer (mass/volume) - 05/13/19 01:01 Capillary blood glucose measurement by glucometer (mas s/volume) 241 mg/dL 70-110 Capillary blood glucose measurement by g lucometer (mass/volume) - 05/13/19 02:04 Capillary blood glucose measurement by glucometer (mas s/volume) 202 mg/dL 70-110 Complete blood count (CBC) with automate d white blood cell (WBC) differential - 05/13/19 02:55 Blood leukocytes automated count (number/volume) 11.9 10*3/uL 4.3-11.0 Blood erythrocytes automated count (number/volume) 3.89 10*6/uL 4.35-5.85 Venous blood hemoglobin measurement (mass/volume) 12.0 g/dL 11.5-16.0 Blood hematocrit (volume fraction) 37 % 35-52 Automated erythrocyte mean corpuscular volume 94 [ foz_us] 80-99 Automated erythrocyte mean corpuscular h emoglobin (mass per erythrocyte) 31 pg 25-34 Automated erythrocyte mean corpuscular h emoglobin concentration measurement (mass/volume) 33 g/dL 32-36 Automated erythrocyte distribution width ratio 13. 5 % 10.0- 14.5 Automated blood platelet count (count/volume) 275 10*3/uL 130-400 Automated blood platelet mean volume measurement 10.3 [foz_us] 7.4-10.4 Automated blood neutrophils/100 leukocytes 74 % 42-75 Automated blood lymphocytes/100 leukocytes 22 % 12-44 Blood monocytes/100 leukocytes 4 % 0-12 Automated blood eosinophils/100 leukocytes 0 % 0-10 Automated blood basophils/100 leukocytes 0 % 0-10 Blood neutrophils automated count (number/volume) 8.8 10*3 1.8-7.8 Blood lymphocytes automated count (number/volume) 2.6 10*3 1.0-4.0 Blood monocytes automated count (number/volume) 0. 4 10*3 0.0-1.0 Automated eosinophil count 0.0 10*3/uL 0 .0-0.3 Automated blood basophil count (count/volume) 0.0 10*3/uL 0.0-0.1 Whole blood basic metabolic panel - 04/18 02/02 02:55 Serum or plasma sodium measurement (moles/volume) 135 mmol/L 135-145 Serum or plasma potassium measurement (moles/volume) 4.4 mmol/L 3.6-5.0 Serum or plasma chloride measurement (moles/volume) 112 mmol/L 98-107 Carbon dioxide 10 mmol/L 21-32 Serum or plasma anion gap determination (moles/volume) 13 mmol/L 5-14 Serum or plasma urea nitrogen measurement (mass/volume ) 11 mg/dL 7-18 Serum or plasma creatinine measurement (mass/volume) 0.83 mg/dL 0.60-1.30 Serum or plasma urea nitrogen/creatinine mass ratio 13 NRG Serum or plasma creatinine measurement w ith calculation of estimated glomerular filtration rate > NRG Serum or plasma glucose measurement (mass/volume) 269 mg/dL 70-105 Serum or plasma calcium measurement (mass/volume) 7.7 mg/dL 8.5-10.1 Serum or plasma phosphate measurement (m ass/volume) - 05/13/19 02:55 Serum or plasma phosphate measurement (mass/volume) 1.7 mg/dL 2.3-4.7 Magnesium - 05/13/19 02:55 Magnesium 1.9 mg/dL 1.6-2.4 Lipid 1996 panel - 05/13/19 02:55 Serum or plasma triglyceride measurement (mass/volume) 82 mg/dL <150 Serum or plasma cholesterol measurement (mass/volume) 172 mg/dL < 200 Serum or plasma cholesterol in HDL measurement (mass/v olume) 36 mg/dL 40-60 Cholesterol in LDL [mass/volume] in serum or plasma by direct assay 128 mg/dL 1-129 Serum or plasma cholesterol in VLDL measurement (mass/ volume) 16 mg/dL 5-40 Capillary blood glucose measurement by g lucometer (mass/volume) - 05/13/19 03:02 Capillary blood glucose measurement by glucometer (mas s/volume) 266 mg/dL 70-110 Capillary blood glucose measurement by g lucometer (mass/volume) - 05/13/19 03:59 Capillary blood glucose measurement by glucometer (mas s/volume) 191 mg/dL 70-110 Capillary blood glucose measurement by g lucometer (mass/volume) - 05/13/19 05:04 Capillary blood glucose measurement by glucometer (mas s/volume) 186 mg/dL 70-110 Capillary blood glucose measurement by g lucometer (mass/volume) - 05/13/19 05:57 Capillary blood glucose measurement by glucometer (mas s/volume) 171 mg/dL 70-110 Capillary blood glucose measurement by g lucometer (mass/volume) - 05/13/19 07:06 Capillary blood glucose measurement by glucometer (mas s/volume) 166 mg/dL 70-110 Capillary blood glucose measurement by g lucometer (mass/volume) - 05/13/19 08:10 Capillary blood glucose measurement by glucometer (mas s/volume) 204 mg/dL 70-110 Capillary blood glucose measurement by g lucometer (mass/volume) - 05/13/19 09:10 Capillary blood glucose measurement by glucometer (mas s/volume) 199 mg/dL 70-110 GLUCOSE, SERUM - 06/08/19 09:51 GLUCOSE 333 mg/dL 65-99 C-PEPTIDE, SERUM - 06/08/19 09:51 C-PEPTIDE <0.10 ng/mL 0.80-3.85 CMP - 07/24/19 11:17 GLUCOSE 174 mg/dL 65-99 UREA NITROGEN (BUN) 12 mg/dL 7-25 CREATININE 0.70 mg/dL 0.50-1.10 eGFR NON-AFR. BRITISH 109 mL/min/1.73m2 > OR = 60 eGFR 126 mL/min/1.73m2 > OR = 60 BUN/CREATININE RATIO NOT APPLICABLE (calc) 6-22 SODIUM 140 mmol/L 135-146 POTASSIUM 4.1 mmol/L 3.5-5.3 CHLORIDE 106 mmol/L 98-110 CARBON DIOXIDE 27 mmol/L 20-32 CALCIUM 8.7 mg/dL 8.6-10.2 PROTEIN, TOTAL 6.0 g/dL 6.1-8.1 ALBUMIN 3.7 g/dL 3.6-5.1 GLOBULIN 2.3 g/dL (calc) 1.9-3.7 ALBUMIN/GLOBULIN RATIO 1.6 (calc) 1.0-2. 5 BILIRUBIN, TOTAL 0.4 mg/dL 0.2-1.2 ALKALINE PHOSPHATASE 102 U/L 33-115 AST 13 U/L 10-30 ALT 12 U/L 6-29 CULTURE, URINE - 08/10/19 15:21 CULTURE, URINE, ROUTINE SEE NOTE NRG CULTURE, URINE - 08/20/19 16:24 CULTURE, URINE, ROUTINE SEE NOTE NRG Capillary blood glucose measurement by g lucometer (mass/volume) - 09/08/19 17:17 Capillary blood glucose measurement by glucometer (mas s/volume) > mg/dL 70-110 Complete blood count (CBC) with automate d white blood cell (WBC) differential - 09/08/19 17:30 Blood leukocytes automated count (number/volume) 4.1 10*3/uL 4.3-11.0 Blood erythrocytes automated count (number/volume) 3.89 10*6/uL 4.35-5.85 Venous blood hemoglobin measurement (mass/volume) 12.0 g/dL 11.5-16.0 Blood hematocrit (volume fraction) 37 % 35-52 Automated erythrocyte mean corpuscular volume 94 [ foz_us] 80-99 Automated erythrocyte mean corpuscular h emoglobin (mass per erythrocyte) 31 pg 25-34 Automated erythrocyte mean corpuscular h emoglobin concentration measurement (mass/volume) 33 g/dL 32-36 Automated erythrocyte distribution width ratio 13. 8 % 10.0- 14.5 Automated blood platelet count (count/volume) 207 10*3/uL 130-400 Automated blood platelet mean volume measurement 9.7 [foz_us] 7.4-10.4 Automated blood neutrophils/100 leukocytes 56 % 42-75 Automated blood lymphocytes/100 leukocytes 33 % 12-44 Blood monocytes/100 leukocytes 7 % 0-12 Automated blood eosinophils/100 leukocytes 4 % 0-10 Automated blood basophils/100 leukocytes 1 % 0-10 Blood neutrophils automated count (number/volume) 2.3 10*3 1.8-7.8 Blood lymphocytes automated count (number/volume) 1.4 10*3 1.0-4.0 Blood monocytes automated count (number/volume) 0. 3 10*3 0.0-1.0 Automated eosinophil count 0.2 10*3/uL 0 .0-0.3 Automated blood basophil count (count/volume) 0.0 10*3/uL 0.0-0.1 Comprehensive metabolic panel - 09/08/19 17:30 Serum or plasma sodium measurement (moles/volume) 130 mmol/L 135-145 Serum or plasma potassium measurement (moles/volume) 3.7 mmol/L 3.6-5.0 Serum or plasma chloride measurement (moles/volume) 101 mmol/L 98-107 Carbon dioxide 15 mmol/L 21-32 Serum or plasma anion gap determination (moles/volume) 14 mmol/L 5-14 Serum or plasma urea nitrogen measurement (mass/volume ) 16 mg/dL 7-18 Serum or plasma creatinine measurement (mass/volume) 1.18 mg/dL 0.60-1.30 Serum or plasma urea nitrogen/creatinine mass ratio 14 NRG Serum or plasma creatinine measurement w ith calculation of estimated glomerular filtration rate 51 NRG Serum or plasma glucose measurement (mass/volume) 713 mg/dL 70-105 Serum or plasma calcium measurement (mass/volume) 8.2 mg/dL 8.5-10.1 Serum or plasma total bilirubin measurement (mass/volu me) 0.6 mg/dL 0.1-1.0 Serum or plasma alkaline phosphatase minh surement (enzymatic activity/volume) 66 U/L 40-136 Serum or plasma aspartate aminotransfera se measurement (enzymatic activity/volume) 10 U/L 5-34 Serum or plasma alanine aminotransferase measurement (enzymatic activity/volume) 10 U/L 0-55 Serum or plasma protein measurement (mass/volume) 6.4 g/dL 6.4-8.2 Serum or plasma albumin measurement (mass/volume) 3.7 g/dL 3.2-4.5 CALCIUM CORRECTED 8.4 mg/dL 8.5-10.1 Complete urinalysis with reflex to cultu re - 09/08/19 17:40 Urine color determination YELLOW NRG Urine clarity determination CLEAR NR G Urine pH measurement by test strip 6.0 5-9 Specific gravity of urine by test strip <= 1.016-1.022 Urine protein assay by test strip, semi-quantitative NEGATIVE NEGATIVE Urine glucose detection by automated test strip 3+ NEGATIVE Erythrocytes detection in urine sediment by light micr oscopy NEGATIVE NEGATIVE Urine ketones detection by automated test strip NE GATIVE NEGATIVE Urine nitrite detection by test strip NEGATIVE NEGATIVE Urine total bilirubin detection by test strip NEGA TIVE NEGATIVE Urine urobilinogen measurement by automated test strip (mass/volume) 0.2 mg/dL < = 1.0 Urine leukocyte esterase detection by dipstick NEG ATIVE NEGATIVE Automated urine sediment erythrocyte cou nt by microscopy (number/high power field) [HPF] NRG Automated urine sediment leukocyte count by microscopy (number/high power field) NONE NRG Bacteria detection in urine sediment by light microsco py NEGATIVE NRG Crystals detection in urine sediment by light microsco py NONE NRG Casts detection in urine sediment by light microscopy NONE NRG Mucus detection in urine sediment by light microscopy NEGATIVE NRG Complete urinalysis with reflex to culture NO NRG Influenza virus A and B antigen detectio n - 09/08/19 17:45 FLU RESULT NEGATIVE FOR INFLUENZA A AND B ANTIGENS BY IA NRG Capillary blood glucose measurement by g lucometer (mass/volume) - 09/08/19 19:00 Capillary blood glucose measurement by glucometer (mas s/volume) 414 mg/dL 70-110 Encounters ACCT No. Visit Date/Time Discharge Status Pt. Type Provider Facility Loc./Unit Complaint [id number] 10/13/2019 10:10:00 10/13/2019 23:59:[address] [facility] Outpatient ALBERT CERVANTES [facility] [id number] 08/20/2019 13:35:00 Document Registration [id number] 08/10/2019 15:20:00 Document Registration [id number] 07/24/2019 10:40:00 Document Registration [id number] 06/08/2019 10:15:00 Document Registration [id number] 05/07/2019 09:00:00 Document Registration [id number] 04/11/2019 10:00:00 Document Registration [id number] 04/04/2019 08:30:00 Document Registration [id number] 02/20/2019 10:20:00 Document Registration [id number] 02/14/2019 13:00:00 Document Registration [id number] 12/20/2018 13:00:00 Document Registration [id number] 12/05/2018 09:40:00 Document Registration [id number] 11/24/2018 15:40:00 Document Registration [id number] 11/17/2018 16:00:00 Document Registration [id number] 09/26/2018 11:20:00 Document Registration [id number] 05/09/2018 08:20:00 Document Registration [id number] 09/08/2019 17:04:00 19:50:00 DIS Outpatient SUDHEER OLIVERA Vi [facility] ER N/V/HEADACHE/ POSS HIGH BLOOD SUGAR [id number] 05/12/2019 22:46:00 09:54:00 DIS Outpatient XENIA COLBY, EREN Cardenas [facility] ICU DKA, CHEST PAIN, N/V [id number] 04/22/2019 13:20:00 11:20:00 DIS Outpatient RAIN ARROYO DO [facility] ICU HYPOGLYCEMIA,HYPERKAL[place] [id number] 04/19/2013 10:59:00 013 23:59:59 CLS Outpatient [id number] 05/08/2007 18:06:00 Document Registration
[2019-10-22] MEDS ORDERED: MIRT15TA6 PO (09:29)
[2019-10-22] MEDS ORDERED: HYDR50CA3 PO (09:29)
[2019-10-22 09:30] LABS: BASOPHILS % (AUTO) 0 % (0-10); EOSINOPHILS # (AUTO) 0.2 10^3/uL (0.0-0.3); EOSINOPHILS % (AUTO) 1 % (0-10); HEMATOCRIT 44 % (35-52); HEMOGLOBIN 14.6 G/DL (11.5-16.0); LYMPHOCYTES # (AUTO) 1.6 X 10^3 (1.0-4.0); LYMPHOCYTES % (AUTO) 10 % (12-44); MEAN CORPUSCULAR HEMOGLOBIN 31 PG (25-34); MEAN CORPUSCULAR HGB CONC 33 G/DL (32-36); MEAN CORPUSCULAR VOLUME 92 FL (80-99); MEAN PLATELET VOLUME 10.6 FL (7.4-10.4); MONOCYTES # (AUTO) 0.6 X 10^3 (0.0-1.0); MONOCYTES % (AUTO) 4 % (0-12); NEUTROPHILS # (AUTO) 13.1 X 10^3 (1.8-7.8); NEUTROPHILS % (AUTO) 85 % (42-75); PLATELET COUNT 282 10^3/uL (130-400); RED CELL DISTRIBUTION WIDTH 13.5 % (10.0-14.5); WHITE BLOOD COUNT 15.5 10^3/uL (4.3-11.0)
[2019-10-22] MEDS ORDERED: ASPIRIN 81 MG CHEW (CHILDREN'S ASA) PO ONE (09:30)
[2019-10-22] MEDS ORDERED: NITROGLYCERIN 0.4 MG SL TABS BTL 25'S SL PRN ×2 (09:30→12:15)
[2019-10-22] MEDS ORDERED: NS IV 1000 ML 1,000 ML IV ONE ×2 (09:40→10:27)
--- NOTE | 2019-10-22 09:51 | ED Chest Pain ---
General Chief Complaint: Chest Wall Stated Complaint: CHEST TIGHTNESS;ARM NUMBNESS Nursing Triage Note: pt presents to ed with complaints of medial chest pain that radiates to her back/shoulder blades and numbness down her arms that woke her up from her sleep around 0730 this am. pt denies recent fever/soa/cough Nursing Sepsis Screen: No Definite Risk Source: patient Exam Limitations: no limitations History of Present Illness Date Seen by Provider: Oct 22, 2019 Time Seen by Provider: 09:18 Initial Comments This 39-year-old woman presents to the emergency room with chest pain in her right chest and across her shoulders that radiates as numbness down into her right arm. This pain started around 07:30. She notes deep breathing improves the pain a little bit but she otherwise identifies no alleviating or exacerbating factors. She does have trouble with anxiety in hopes this is an anxiety episode. She is a type I diabetic with an insulin pump. Her blood sugar prior to arrival was 513 and she administered a bolus via her pump. Blood sugar on our assessment was 481. She has no history of heart disease but her mother did have early heart disease. She is a smoker. She infrequently uses alcohol and denies any drug use. She denies any cough, fever, or shortness of breath. She has had no recent travel. 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 Allergies and Home Medications Allergies Coded Allergies: cephalexin (Verified Allergy, Unknown, 05/06/07) Home Medications Acetaminophen 500 Mg Tablet, 1,000 MG PO Q8H PRN for PAIN-MILD (1-4), (Reported) Diphenhydramine HCl 25 Mg Capsule, 25 MG PO TID PRN for ALLERGIES, (Reported) Hydroxyzine Pamoate 50 Mg Capsule, 50 MG PO BID PRN for ALLERGY/ANXIETY, (Reported) Ibuprofen 800 Mg Tablet, 800 MG PO BID PRN for PAIN-MILD, (Reported) Insulin Lispro 100 Unit/1 Ml Vial, UNITS SC PER PUMP, (Reported) USES PER INSULIN PUMP- SCRIPT SAYS MAX DAILY DOSE OF 75 UNITS Mirtazapine 15 Mg Tablet, 15 MG PO DAILY, (Reported) Patient Home Medication List Home Medication List Reviewed: Yes Review of Systems Review of Systems Constitutional: no symptoms reported EENTM: No Symptoms Reported Respiratory: No Symptoms Reported Cardiovascular: See HPI Gastrointestinal: No Symptoms Reported Genitourinary: No Symptoms Reported Musculoskeletal: no symptoms reported Skin: no symptoms reported Psychiatric/Neurological: See HPI Endocrine: See HPI Hematologic/Lymphatic: No Symptoms Reported Past Srsbkhq-Lnbofm-Gcripn Hx Past Med/Social Hx: Reviewed Nursing Past Med/Soc Hx Patient Social History Alcohol Use: Occasionally Uses Recreational Drug Use: No Smoking Status: Current Everyday Smoker Type Used: Cigars 2nd Hand Smoke Exposure: Yes Recent Foreign Travel: No Contact w/Someone Who Travel: No Recent Infectious Disease Expo: No Recent Hopitalizations: No Physical Abuse: No Sexual Abuse: No Mistreated: No Fear: No Immunizations Up To Date Tetanus Booster (TDap): Unknown PED Vaccines UTD: Yes Date of Pneumonia Vaccine: Apr 25, 2019 Seasonal Allergies Seasonal Allergies: No Past Medical History Surgeries: Yes (WILEY., KIDNEY BIOPSY) Tubal Ligation Respiratory: No Cardiac: No Neurological: No : No Reproductive Disorders: No Sexually Transmitted Disease: No Genitourinary: No Gastrointestinal: Yes Musculoskeletal: Yes (NO CURVATURE IN LOWER SPINE) Chronic Back Pain Endocrine: Yes (reports history of DKA, type I with insulin pump) Diabetes, Insulin dep HEENT: No Cancer: No Psychosocial: No Family Medical History Reviewed and Corrections made Heart Disease, CAD Under 55 Years Old Physical Exam Vital Signs Vital Signs - First Documented 10/22/19 09:21 Temp 36.9 Pulse 111 Resp 16 B/P (MAP) 110/77 (88) Pulse Ox 96 Capillary Refill : Less Than 3 Seconds Height, Weight, BMI Height: '" Weight: lbs. oz. 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 as 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 Skin: Normal Color, Warm/Dry Progress/Results/Core Measures Results/Orders Lab Results Laboratory Tests Test 10/22/19 09:20 10/22/19 09:35 10/22/19 09:38 10/22/19 10:08 Range/Units White Blood Count 15.5 H 4.3-11.0 10^3/uL Red Blood Count 4.78 4.35-5.85 10^6/uL Hemoglobin 14.6 11.5-16.0 G/DL Hematocrit 44 35-52 % Mean Corpuscular Volume 92 80-99 FL Mean Corpuscular Hemoglobin 31 25-34 PG Mean Corpuscular Hemoglobin Concent 33 32-36 G/DL Red Cell Distribution Width 13.5 10.0-14.5 % Platelet Count 282 130-400 10^3/uL Mean Platelet Volume 10.6 H 7.4-10.4 FL Neutrophils (%) (Auto) 85 H 42-75 % Lymphocytes (%) (Auto) 10 L 12-44 % Monocytes (%) (Auto) 4 0-12 % Eosinophils (%) (Auto) 1 0-10 % Basophils (%) (Auto) 0 0-10 % Neutrophils # (Auto) 13.1 H 1.8-7.8 X 10^3 Lymphocytes # (Auto) 1.6 1.0-4.0 X 10^3 Monocytes # (Auto) 0.6 0.0-1.0 X 10^3 Eosinophils # (Auto) 0.2 0.0-0.3 10^3/uL Basophils # (Auto) 0.0 0.0-0.1 10^3/uL Neutrophils % (Manual) 82 % Lymphocytes % (Manual) 16 % Monocytes % (Manual) 1 % Eosinophils % (Manual) 1 % Band Neutrophils % Blood Morphology Comment NORMAL Prothrombin Time 12.5 12.2-14.7 SEC INR Comment 0.9 0.8-1.4 Activated Partial Thromboplast Time 26 24-35 SEC D-Dimer <= 0.27 0.00-0.49 UG/ML Sodium Level 135 135-145 MMOL/L Potassium Level 3.9 3.6-5.0 MMOL/L Chloride Level 102 98-107 MMOL/L Carbon Dioxide Level 16 L 21-32 MMOL/L Anion Gap 17 H 5-14 MMOL/L Blood Urea Nitrogen 13 7-18 MG/DL Creatinine 1.13 0.60-1.30 MG/DL Estimat Glomerular Filtration Rate 54 BUN/Creatinine Ratio 12 Glucose Level 592 *H 70-105 MG/DL Calcium Level 8.7 8.5-10.1 MG/DL Corrected Calcium 8.7 8.5-10.1 MG/DL Magnesium Level 1.7 1.6-2.4 MG/DL Total Bilirubin 0.9 0.1-1.0 MG/DL Aspartate Amino Transf (AST/SGOT) 19 5-34 U/L Alanine Aminotransferase (ALT/SGPT) 18 0-55 U/L Alkaline Phosphatase 83 40-136 U/L Myoglobin 36.8 10.0-92.0 NG/ML Troponin I < 0.028 <0.028 NG/ML C-Reactive Protein High Sensitivity 0.94 H 0.00-0.50 MG/DL Total Protein 6.7 6.4-8.2 GM/DL Albumin 4.0 3.2-4.5 GM/DL Beta-Hydroxybutyrate (Chem panel) 3.06 H 0.00-0.27 MMOL/L Glucometer 481 *H 427 *H 70-110 MG/DL Test 10/22/19 10:22 Range/Units Urine Color YELLOW Urine Clarity CLEAR Urine pH 6.0 5-9 Urine Specific [place] <=1.005 1.016-1.022 Urine Protein NEGATIVE NEGATIVE Urine Glucose (UA) 3+ H NEGATIVE Urine Ketones 2+ H NEGATIVE Urine Nitrite NEGATIVE NEGATIVE Urine Bilirubin NEGATIVE NEGATIVE Urine Urobilinogen 0.2 < = 1.0 MG/DL Urine Leukocyte Esterase NEGATIVE NEGATIVE Urine RBC (Auto) NEGATIVE NEGATIVE Urine RBC NONE /HPF Urine WBC NONE /HPF Urine Squamous Epithelial Cells 5-10 /HPF Urine Crystals NONE /LPF Urine Bacteria TRACE /HPF Urine Casts NONE /LPF Urine Mucus NEGATIVE /LPF Urine Culture Indicated NO My Orders Orders - CHARISMA PHILLIPS MD Cbc With Automated Diff (10/22/19 09:24) Magnesium (10/22/19 09:24) Chest 1 View, Ap/Pa Only (10/22/19 09:24) Ekg Tracing (10/22/19 09:24) Comprehensive Metabolic Panel (10/22/19 09:24) Myoglobin Serum (10/22/19 09:24) Protime With Inr (10/22/19 09:24) Partial Thromboplastin Time (10/22/19 09:24) O2 (4/6/20 09:24) Monitor-Rhythm Ecg Trace Only (10/22/19 09:24) Lipid Panel (10/23/19 06:00) Ed Iv/Invasive Line Start (10/22/19 09:24) Fibrin Degradation Products (10/22/19 09:24) Nitroglycerin 0.4 Mg Btl 25's (Nitrostat (10/22/19 09:30) Aspirin Chewable Tablet (Baby Aspirin Ch (10/22/19 09:30) Accucheck Stat ONCE (10/22/19 09:30) Manual Differential (10/22/19 09:20) Accucheck Stat ONCE (10/22/19 09:39) Ua Culture If Indicated (10/22/19 09:40) Ns Iv 1000 Ml (Sodium Chloride 0.9%) (10/22/19 09:40) Hs C Reactive Protein (10/22/19 09:35) Troponin I (10/22/19 09:35) Ns Iv 1000 Ml (Sodium Chloride 0.9%) (10/22/19 10:27) Clopidogrel Tablet (Plavix Tablet) (10/22/19 11:15) Metoprolol Succinate (Xl) Tab (Toprol Xl (10/22/19 11:15) Medications Given in ED Current Medications Medications Dose Ordered Sig/Yvan Route Start Time Stop Time Status Last Admin Dose Admin Aspirin 324 mg ONCE ONCE PO 10/22/19 09:30 10/22/19 09:31 DC 10/22/19 09:32 324 MG Clopidogrel Bisulfate 75 mg ONCE ONCE PO 10/22/19 11:15 10/22/19 11:16 DC 10/22/19 11:21 75 MG Metoprolol Succinate 25 mg ONCE ONCE PO 10/22/19 11:15 10/22/19 11:16 DC 10/22/19 11:21 25 MG Nitroglycerin 0.4 mg UD PRN SL 10/22/19 09:30 10/22/19 12:08 DC 10/22/19 09:32 0.4 MG Sodium Chloride 1,000 ml @ 0 mls/hr Q0M ONCE IV 10/22/19 09:40 10/22/19 09:41 DC 10/22/19 09:49 0 MLS/HR Sodium Chloride 1,000 ml @ 0 mls/hr Q0M ONCE IV 10/22/19 10:27 10/22/19 10:28 DC 10/22/19 11:04 0 MLS/HR Vital Signs/I&O 10/22/19 09:21 Temp 36.9 Pulse 111 Resp 16 B/P (MAP) 110/77 (88) Pulse Ox 96 Blood Pressure Mean: 88 FSBG Bedside Testing Finger Stick Blood Glucose: 481 Progress Progress Note #1: Time: 10:10 Progress Note Patient received aspirin and nitroglycerin. Pain immediately decreased from 9/10 down to 3/10 with nitroglycerin. Liter of IV fluid is infusing. We will monitor blood sugars closely. Progress Note #2: Time: 11:25 Progress Note Labs revealed mild DKA. Patient gave herself a second bolus via her insulin pump. Blood sugars trending down. I discussed the case with Dr. Jo and Dr. Rai who both feel admission is appropriate. She may need to be on an insulin drip for short period of time until her DKA corrects. Dr. Rai requested adding Plavix and Toprol XL to her medications. Initial ECG Impression Date: Oct 22, 2019 Initial ECG Impression Time: 09:16 Initial ECG Rate: 111 Initial ECG Rhythm: S.Tach Initial ECG Intervals: Normal Initial ECG Impression: Normal Comment Sinus tachycardia with no ST elevation or depression. No abnormal intervals or axis deviation. Diagnostic Imaging Diagonstic Imaging: Xray Plain Films/CT/US/NM/MRI: chest Comments Chest x-ray viewed by me and report reviewed. See report below: NAME: NOEMI CABEZAS [facility] REC#: [id number] PT STATUS: REG ER : 1980 PHYSICIAN: CHARISMA PHILLIPS MD ADMIT DATE: 10/22/19/ER Draft* Date of Exam:10/22/19 CHEST 1 VIEW, AP/PA ONLY INDICATION: Chest tightness with right arm numbness since this morning, previous tubal ligation. COMPARISON STUDY: Chest from 05/13/2019. FINDINGS: A portable upright view of the chest demonstrates the lungs to be clear. The heart, mediastinum, pulmonary vascularity, and visualized bony thorax are normal. IMPRESSION: Negative chest. Dictated on workstation # [id number] Dict: 10/22/19 1003 Trans: 10/22/19 1005 [id number] Interpreted by: JUAN F GEORGES MD Departure Communication (Admissions) Time/Spoke to Admitting Phy: 10:38 Dr. Jo Time/Spoke to Consulting Phy: 10:50 Dr. Rai Impression Primary Impression: Chest pain Qualified Codes: R07.9 - Chest pain, unspecified Additional Impression: DKA (diabetic ketoacidoses) Qualified Codes: E10.10 - Type 1 diabetes mellitus with ketoacidosis without coma Disposition: ADMITTED INPATIENT Condition: Improved Admissions Decision to Admit Reason: Admit from ER (General) Decision to Admit/Date: Oct 22, 2019 Time/Decision to Admit Time: 10:30 Departure-Patient Inst. Referrals: [facility] (PCP/Family) Primary Care Physician CHARISMA PHILLIPS MD Oct 22, 2019 09:51
[2019-10-22 10:01] LABS: INR 0.9 (0.8-1.4); PROTHROMBIN TIME PATIENT 12.5 SEC (12.2-14.7)
--- NOTE | 2019-10-22 10:05 | Diagnostic Imaging Report ---
INDICATION: Chest tightness with right arm numbness since this morning, previous tubal ligation. COMPARISON STUDY: Chest from 05/13/2019. FINDINGS: A portable upright view of the chest demonstrates the lungs to be clear. The heart, mediastinum, pulmonary vascularity, and visualized bony thorax are normal. IMPRESSION: Negative chest. Dictated by: Dictated on workstation # [id number]
[2019-10-22 10:06] LABS: ALANINE AMINOTRANSFERASE 18 U/L (0-55); ALKALINE PHOSPHATASE 83 U/L (40-136); BILIRUBIN,TOTAL 0.9 MG/DL (0.1-1.0); BUN/CREATININE RATIO 12; CALCIUM 8.7 MG/DL (8.5-10.1); CARBON DIOXIDE 16 MMOL/L (21-32); CHLORIDE 102 MMOL/L (98-107); CREATININE SERUM 1.13 MG/DL (0.60-1.30); GFR ESTIMATED 54; MAGNESIUM 1.7 MG/DL (1.6-2.4); POTASSIUM 3.9 MMOL/L (3.6-5.0); SODIUM 135 MMOL/L (135-145); TOTAL PROTEIN 6.7 GM/DL (6.4-8.2)
[2019-10-22 10:23] LABS: GLUCOSE 592 MG/DL (70-105)
[2019-10-22 10:25] LABS: EOSINOPHILS % (MANUAL) 1 %; LYMPHOCYTES % (MANUAL) 16 %; MONOCYTES % (MANUAL) 1 %; NEUTROPHILS % (MANUAL) 82 %
[2019-10-22 10:26] LABS: RBC MORPH NORMAL
[2019-10-22 10:27] LABS: BILIRUBIN,URINE NEGATIVE (NEGATIVE); CLARITY,URINE CLEAR; COLOR,URINE YELLOW; GLUCOSE, URINE (UA) 3+ (NEGATIVE); KETONES,URINE 2+ (NEGATIVE); LEUKOCYTE ESTERASE ,URINE NEGATIVE (NEGATIVE); NITRITE,URINE NEGATIVE (NEGATIVE); PROTEIN,URINE NEGATIVE (NEGATIVE)
[2019-10-22 10:38] LABS: BACTERIA,URINE TRACE /HPF
[2019-10-22] MEDS ORDERED: CLOPIDOGREL 75 MG (PLAVIX) TABLET PO ONE (11:15)
--- OUTSIDE RECORDS SUMMARY | 2019-10-22 11:46 | XMS REPORT | Continuity of Care Document ---
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 4 PHYSICIAN PEDIATRICIAN (CURRENT) USE OF INSULIN 05/13/2019 EREN MICHAELS MD Ot Z98. 51 TUBAL LIGATION STATUS 09/15/2019 JAROD, SUDHEER GUTIÉRREZP Ot E10.10 TYPE 1 DIABETES MELLITUS WITH KETOACIDOS 09/15/2019 JAROD, SUDHEER DIETARY COOK Ot E10.65 TYPE 1 DIABETES MELLITUS WITH HYPERGLYCE 09/15/2019 JAROD, SUDHEER DIETARY COOK Ot J10.1 FLU DUE TO OTH IDENT INFLUENZA VIRUS W O 09/15/2019 JAROD, SUDHEER DIETARY COOK Ot R11.2 NAUSEA WITH VOMITING, UNSPECIFIED 09/15/2019 JAROD, SUDHEER DIETARY COOK Ot Z77.22 CNTCT W AND EXPSR TO ENVIRON TOBACCO SMO 09/15/2019 JAROD, SUDHEER DIETARY COOK Ot Z79.4 PHYSICIAN PEDIATRICIAN (CURRENT) USE OF INSULIN 09/15/2019 JAROD, SUDHEER DIETARY COOK Ot Z88.1 ALLERGY STATUS TO OTHER ANTIBIOTIC [...] NRG STATEMENT OF ADEQUACY: NRG INTERPRETATION/RESULT: NRG LICENSE ISSUER: NRG HPV mRNA E6/E7, SUREPATH VIAL Detected NOT DETECTED REVIEW LICENSE ISSUER: NRG INFECTION: NRG COMMENT NRG LIPID PANEL - 12/20/18 13:42 CHOLESTEROL, TOTAL 206 mg/dL <200 HDL CHOLESTEROL 42 mg/dL >50 TRIGLYCERIDES 187 mg/dL <150 LDL-CHOLESTEROL 132 mg/dL (calc) NRG CHOL/HDLC RATIO 4.9 (calc) <5.0 NON HDL CHOLESTEROL 164 mg/dL (calc) <13 0 CMP - 12/20/18 13:42 GLUCOSE 75 mg/dL 65-99 UREA NITROGEN (BUN) 15 mg/dL 7-25 CREATININE 0.71 mg/dL 0.50-1.10 eGFR NON-AFR. NEPALESE 108 mL/min/1.73m2 > OR = 60 eGFR [...] 7-25 CREATININE 0.70 mg/dL 0.50-1.10 eGFR NON-AFR. NEPALESE 109 mL/min/1.73m2 > OR = 60 eGFR [...] by glucometer (mas s/volume) 414 mg/dL 70-110 Complete blood count (CBC) with automate d white blood cell (WBC) differential - 10/22/19 09:20 Blood leukocytes automated count (number/volume) 15.5 10*3/uL 4.3-11.0 Blood erythrocytes automated count (number/volume) 4.78 10*6/uL 4.35-5.85 Venous blood hemoglobin measurement (mass/volume) 14.6 g/dL 11.5-16.0 Blood hematocrit (volume fraction) 44 % 35-52 Automated erythrocyte mean corpuscular volume 92 [ foz_us] 80-99 Automated erythrocyte mean corpuscular h emoglobin (mass per erythrocyte) 31 pg 25-34 Automated erythrocyte mean corpuscular h emoglobin concentration measurement (mass/volume) 33 g/dL 32-36 Automated erythrocyte distribution width ratio 13. 5 % 10.0- 14.5 Automated blood platelet count (count/volume) 282 10*3/uL 130-400 Automated blood platelet mean volume measurement 10.6 [foz_us] 7.4-10.4 Automated blood neutrophils/100 leukocytes 85 % 42-75 Automated blood lymphocytes/100 leukocytes 10 % 12-44 Blood monocytes/100 leukocytes 4 % 0-12 Automated blood eosinophils/100 leukocytes 1 % 0-10 Automated blood basophils/100 leukocytes 0 % 0-10 Blood neutrophils automated count (number/volume) 13.1 10*3 1.8-7.8 Blood lymphocytes automated count (number/volume) 1.6 10*3 1.0-4.0 Blood monocytes automated count (number/volume) 0. 6 10*3 0.0-1.0 Automated eosinophil count 0.2 10*3/uL 0 .0-0.3 Automated blood basophil count (count/volume) 0.0 10*3/uL 0.0-0.1 Manual absolute plasma cell count - 01/04 09:20 Blood monocytes/100 leukocytes 1 % [facility] Manual blood segmented neutrophils/100 leukocytes 82 % NR Manual blood lymphocytes/100 leukocytes 16 % NR Manual eosinophils/100 leukocytes in nose 1 % [facility] Blood erythrocyte morphology finding identification NORMAL [facility] Comprehensive metabolic panel - 10/22/19 09:35 Serum or plasma sodium measurement (moles/volume) 135 mmol/L 135-145 Serum or plasma potassium measurement (moles/volume) 3.9 mmol/L 3.6-5.0 Serum or plasma chloride measurement (moles/volume) 102 mmol/L 98-107 Carbon dioxide 16 mmol/L 21-32 Serum or plasma anion gap determination (moles/volume) 17 mmol/L 5-14 Serum or plasma urea nitrogen measurement (mass/volume ) 13 mg/dL 7-18 Serum or plasma creatinine measurement (mass/volume) 1.13 mg/dL 0.60-1.30 Serum or plasma urea nitrogen/creatinine mass ratio 12 NRG Serum or plasma creatinine measurement w ith calculation of estimated glomerular filtration rate 54 NRG Serum or plasma glucose measurement (mass/volume) 592 mg/dL 70-105 Serum or plasma calcium measurement (mass/volume) 8.7 mg/dL 8.5-10.1 Serum or plasma total bilirubin measurement (mass/volu me) 0.9 mg/dL 0.1-1.0 Serum or plasma alkaline phosphatase minh surement (enzymatic activity/volume) 83 U/L 40-136 Serum or plasma aspartate aminotransfera se measurement (enzymatic activity/volume) 19 U/L 5-34 Serum or plasma alanine aminotransferase measurement (enzymatic activity/volume) 18 U/L 0-55 Serum or plasma protein measurement (mass/volume) 6.7 g/dL 6.4-8.2 Serum or plasma albumin measurement (mass/volume) 4.0 g/dL 3.2-4.5 CALCIUM CORRECTED 8.7 mg/dL 8.5-10.1 Magnesium - 10/22/19 09:35 Magnesium 1.7 mg/dL 1.6-2.4 Serum or plasma troponin i.cardiac measu rement (mass/volume) - 10/22/19 09:35 Serum or plasma troponin i.cardiac measurement (mass/v olume) < ng/mL <0.028 Myoglobin, serum - 10/22/19 09:35 Myoglobin, serum 36.8 ng/mL 10.0-92.0 Serum or plasma C reactive protein measu rement (mass/volume) - 10/22/19 09:35 Serum or plasma C reactive protein measurement (mass/v olume) 0.94 mg/dL 0.00-0.50 Beta-hydroxybutyric acid measurement - 0 10/22/19 09:35 Beta-hydroxybutyric acid measurement 3.06 mmol/L 0.00-0.27 Capillary blood glucose measurement by g lucometer (mass/volume) - 10/22/19 09:38 Capillary blood glucose measurement by glucometer (mas s/volume) 481 mg/dL 70-110 Capillary blood glucose measurement by g lucometer (mass/volume) - 10/22/19 10:08 Capillary blood glucose measurement by glucometer (mas s/volume) 427 mg/dL 70-110 Complete urinalysis with reflex to cultu re - 10/22/19 10:22 Urine color determination YELLOW NRG Urine clarity [...] Urine ketones detection by automated test strip 2+ NEGATIVE Urine nitrite detection by test strip [...] in u rine sediment by light microscopy 5-10 NRG Crystals detection in urine sediment by light microsco py NONE NRG Casts detection in urine sediment by light microscopy NONE NRG Mucus detection in urine sediment by light microscopy NEGATIVE NRG Complete urinalysis with reflex to culture NO NRG Encounters ACCT No. Visit Date/Time Discharge Status Pt. Type Provider Facility Loc./Unit Complaint [id number] 10/13/2019 10:10:00 10/13/2019 23:59:[address] [facility] Outpatient ALBERT CERVANTES [facility] [id number] 08/20/2019 13:35:00 Document Registration [id number] 08/10/2019 15:20:00 Document Registration [id number] 07/24/2019 10:40:00 Document Registration [id number] 06/08/2019 10:15:00 Document Registration [id number] 05/07/2019 09:00:00 Document Registration [id number] 04/11/2019 10:00:00 Document Registration [id number] 04/04/2019 08:30:00 Document Registration [id number] 02/20/2019 10:20:00 Document Registration [id number] 02/14/2019 13:00:00 Document Registration [id number] 12/20/2018 13:00:00 Document Registration [id number] 12/05/2018 09:40:00 Document Registration [id number] 11/24/2018 15:40:00 Document Registration [id number] 11/17/2018 16:00:00 Document Registration [id number] 09/26/2018 11:20:00 Document Registration [id number] 05/09/2018 08:20:00 Document Registration [id number] 09/08/2019 17:04:00 19:50:00 DIS Outpatient SUDHEER OLIVERA Vi a [facility] ER N/V/HEADACHE/ POSS HIGH BLOOD SUGAR [id number] 05/12/2019 22:46:00 09:54:00 DIS Outpatient XENIA COLBY, EREN Cardenas [facility] ICU DKA, CHEST PAIN, N/V [id number] 04/22/2019 13:20:00 11:20:00 DIS Outpatient RAIN ARROYO DO [facility] ICU HYPOGLYCEMIA,[place]PER[place] [id number] 04/19/2013 10:59:00 013 23:59:59 CLS Outpatient [id number] 10/22/2019 09:31:00 Document Registration [id number] 05/08/2007 18:06:00 Document Registration
--- NOTE | 2019-10-22 11:55 | Consultation-Cardiology ---
HPI-Cardiology Cardiology Consultation: Date of Consultation 10/22/19 Time Seen by a Provider: 11:30 Date of Admission Attending Physician Judit Jo DO Admitting Physician [facility] Consulting Physician ORALIA GLASGOW MD, MA, FACP, FACC, FSCAI, CCDS HPI: Chief Complaint: CC: Chest pain HPI: 39 yo woman who presented with chest pain: first episode, not experienced before, R parasternal, radiating to shoulders (more to the right), severe, associated with some numbness of R arm and forearm, began at 7:30 am and relieved about 3 hours later in ER with s/l NTG. No diaphoresis or shortness of breath or palp or syncope. Does not report ankle swelling. Has some gen malaise Review of Systems-Cardiology Review of Systems Constitutional: malaise; No weight loss, No weight gain Eyes: No vision change Ears/Nose/Throat: No ear discharge, No nasal drainage, No recent hearing loss Respiratory: As described under HPI Cardiovascular: As described under HPI Gastrointestinal: No constipation, No diarrhea, No nausea, No vomiting Genitourinary: No dysuria, No hematuria, No urine frequency changes Musculoskeletal: No back pain Skin: No rash, No ulcerations Psychiatric/Neurological: No seizure, No focal weakness, No syncope Hematologic: No bleeding abnormalities NBO-Agkyto-Mwlhih Hx Patient Social History Alcohol Use: Occasionally Uses Recreational Drug Use: No Smoking Status: Current Everyday Smoker Type Used: Cigars 2nd Hand Smoke Exposure: Yes Recent Foreign Travel: No Recent Infectious Disease Expo: No Immunizations Up To Date Tetanus Booster (TDap): Unknown Date of Pneumonia Vaccine: Apr 25, 2019 Past Medical History PMH As described under Assessment. Family Medical History Family Medical History: Mother had [place] in her 50s Allergies and Home Medications Allergies Coded Allergies: cephalexin (Verified Allergy, Unknown, 05/06/07) Home Medications Diphenhydramine HCl 25 Mg Capsule, 25 MG PO TID PRN for ALLERGIES, (Reported) Ibuprofen 800 Mg Tablet, 800 MG PO BID PRN for PAIN-MILD, (Reported) Insulin Aspart 100 Unit/1 Ml Susp, 7 UNIT SQ AC Prescribed by: JUDIT JO on 04/23/19952 Insulin Determir 1,000 Units/10 Ml Soln, 38 UNITS SQ BID Prescribed by: JUDIT JO on 04/23/19952 Patient Home Medication List Home Medication List Reviewed: Yes Physical Exam-Cardiology Physical Exam Vital Signs/I&O 10/22/19 09:21 Temp 36.9 Pulse 111 Resp 16 B/P (MAP) 110/77 (88) Pulse Ox 96 Capillary Refill : Less Than 3 Seconds Constitutional: AAO x 3, well-developed, well-nourished HEENT: EOMI, hearing is well preserved; No xanthelasmas are seen Neck: carotid pulses are 2 + bilaterally, with good upstrokes Respiratory: No accessory muscle use; other (good bilat air entry, no adventitious sounds) Cardiovascular: regular rate-rhythm, S1 and S2, systolic murmur (faint JENNIFER at cardiac base) Gastrointestinal: No tender; soft; No guarding, No rebound; audible bowel sounds Extremities: No clubbing, No cyanosis, No significant edema Neurologic/Psychiatric: oriented x 3, other (moves all limbs equally) Skin: warm/dry; No cyanosis, No cool, No rash, No ulcerations Data Review Labs Laboratory Tests 10/22/19 09:20: White Blood Count 15.5H, Red Blood Count 4.78, Hemoglobin 14.6, Hematocrit 44, Mean Corpuscular Volume 92, Mean Corpuscular Hemoglobin 31, Mean Corpuscular He moglobin Concent 33, Red Cell Distribution Width 13.5, Platelet Count 282, Mean Platelet Volume 10.6H, Neutrophils (%) (Auto) 85H, Lymphocytes (%) (Auto) 10L, Monocytes (%) (Auto) 4, Eosinophils (%) (Auto) 1, Basophils (%) (Auto) 0, Neutrophils # (Auto) 13.1H, Lymphocytes # (Auto) 1.6, Monocytes # (Auto) 0.6, Eosinophils # (Auto) 0.2, Basophils # (Auto) 0.0, Neutrophils % (Manual) 82, Lymphocytes % (Manual) 16, Monocytes % (Manual) 1, Eosinophils % (Manual) 1, Band Neutrophils , Blood Morphology Comment NORMAL 10/22/19 09:35: Prothrombin Time 12.5, INR Comment 0.9, Activated Partial Thromboplast Time 26, D-Dimer <= 0.27, Sodium Level 135, Potassium Level 3.9, Chloride Level 102, Carbon Dioxide Level 16L, Anion Gap 17H, Blood Urea Nitrogen 13, Creatinine 1.13, Estimat Glomerular Filtration Rate 54, BUN/Creatinine Ratio 12, Glucose L evel 592*H, Calcium Level 8.7, Corrected Calcium 8.7, Magnesium Level 1.7, Total Bilirubin 0.9, Aspartate Amino Transf (AST/SGOT) 19, Alanine Aminotransferase (ALT/SGPT) 18, Alkaline Phosphatase 83, Myoglobin 36.8, Troponin I < 0.028, C- Reactive Protein High Sensitivity 0.94H, Total Protein 6.7, Albumin 4.0, Beta- Hydroxybutyrate (Chem panel) 3.06H 10/22/19 09:38: Glucometer 481*H 10/22/19 10:08: Glucometer 427*H 10/22/19 10:22: Urine Color YELLOW, Urine Clarity CLEAR, Urine pH 6.0, Urine Specific [place] <=1.005, Urine Protein NEGATIVE, Urine Glucose (UA) 3+H, Urine Ketones 2+H, Urine Nitrite NEGATIVE, Urine Bilirubin NEGATIVE, Urine Urobilinogen 0.2, Urine Leukocyte Esterase NEGATIVE, Urine RBC (Auto) NEGATIVE, Urine RBC NONE, Urine WBC NONE, Urine Squamous Epithelial Cells 5-10, Urine Crystals NONE, Urine Bacteria TRACE, Urine Casts NONE, Urine Mucus NEGATIVE, Urine Culture Indicated NO Laboratory Tests 10/22/19 09:20 10/22/19 09:35 A/P-Cardiology Assessment/Admission Diagnosis Chest pain of undetermined etiology. No evidence of ACS at this time Type 1 DM DKA Chronic tobacco use Fam h/o early CAD Discussion and Recomendations * Serial enzymes and ECG * If evidence of ACS, consider cath * If no evidence of ACS, consider noninvasive risk strat * Advised to quit smoking * Echo to eval for wall motion / structural heart disease * Management of DM and DKA is by Dr Jo * Monitor labs ORALIA GLASGOW MD [facility] CCDS Oct 22, 2019 11:55
[2019-10-22 12:00] VITALS: BP 113/73
[2019-10-22] MEDS ORDERED: NS IV 1000 ML 1,000 ML IV SCH (12:11)
[2019-10-22] MEDS ORDERED: 1/2 NS IV SOLUTION 1,000 ML IV SCH (12:11)
[2019-10-22] MEDS ORDERED: D5 1/2 NS 1000 ML IV SOLUTION 1,000 ML IV SCH (12:15)
[2019-10-22] MEDS ORDERED: POTASSIUM CL 10MEQ/50ML IVPB 50 ML IV SCH (12:15)
[2019-10-22] MEDS ORDERED: inSUlin REGULAR TPN/DRIP ONLY 250 UNITS in NORMAL SALINE 250 ML IV SCH (12:15)
[2019-10-22] MEDS ORDERED: ONDANSETRON 4 MG/2 ML (SDV) Z0FRAN IV PRN (12:15)
[2019-10-22] MEDS ORDERED: morphine INJ 4 MG/ML 1 ML (VIAL/SYRINGE) IV PRN (12:15)
[2019-10-22] MEDS ORDERED: CATHETER FLUSH 10 ML SYR IV PRN (12:30)
[2019-10-22] MEDS: POTASSIUM CL 10MEQ/50ML IVPB 50 ML IV SCH ×2 (12:39→14:30)
[2019-10-22 12:45] VITALS: BP 107/78
[2019-10-22 12:46] LABS: BUN/CREATININE RATIO 14; CALCIUM 8.1 MG/DL (8.5-10.1); CARBON DIOXIDE 19 MMOL/L (21-32); CHLORIDE 111 MMOL/L (98-107); GFR ESTIMATED > 60; GLUCOSE 207 MG/DL (70-105); POTASSIUM 3.8 MMOL/L (3.6-5.0); SODIUM 139 MMOL/L (135-145)
--- NOTE | 2019-10-22 12:56 | History & Physical-Hospitalist ---
History of Present Illness HPI/Chief Complaint CC: DKA w/right sided chest pain HPI: This is a 39yoWF clinic patient of [facility] Sade Cabrera and Yumi Miller to help manage her insulin pump who presents to the ER with right-sided chest pain radiating into her right arm. Patient smokes and has a FH of CAD and the pain worsened prompting her ER visit. No fever or travel hx. No cough. DKA noted on labs and sugar was 500+ on admit labs with bicarb of 16. Insulin pump will be held and IV insulin initiated to resolve the acidosis. NO other pain is reported. Source: patient Exam Limitations: no limitations Date Seen 10/22/19 Time Seen by a Provider: 11:45 Attending Physician Judit Arroyo DO [facility] Referring Physician Date of Admission Oct 22, 2019 at 11:15 Home Medications & Allergies Home Medications Reviewed patient Home Medication Reconciliation performed by pharmacy medication reconciliations technicians and trades workers and/or nursing. Patients Allergies have been reviewed. Allergies Allergies Coded Allergies cephalexin (Verified Allergy, Unknown, 05/06/07) Past Ymofyjy-Bmbcnf-Fbocjg Hx Past Med/Social Hx: Reviewed Nursing Past Med/Soc Hx, Reviewed and Corrections made Patient Social History Marrital Status: Employed/Student: unemployed Alcohol Use: Occasionally Uses Recreational Drug Use: No Smoking Status: Current Everyday Smoker Type Used: Cigars 2nd Hand Smoke Exposure: Yes Recent Foreign Travel: No Contact w/other who traveled: No Recent Hopitalizations: No Recent Infectious Disease Expo: No Immunizations Up To Date Tetanus Booster (TDap): Unknown Pediatric: Yes Date of Pneumonia Vaccine: Apr 25, 2019 Seasonal Allergies Seasonal Allergies: No Past Medical History Surgeries: Tubal Ligation : No Reproductive: No Sexually Transmitted Disease: No Musculoskeletal: Chronic Back Pain Endocrine: Diabetes, Insulin dep Family History Reviewed and Corrections made Heart Disease, CAD Under 55 Years Old Review of Systems Constitutional: see HPI, weakness Cardiovascular: chest pain Physical Exam Physical Exam Vital Signs Vital Signs - First Documented 10/22/19 09:21 Temp 36.9 Pulse 111 Resp 16 B/P (MAP) 110/77 (88) Pulse Ox 96 Capillary Refill : Less Than 3 Seconds Height, Weight, BMI Height: '" Weight: lbs. oz. kg; 28.00 BMI Method: General Appearance: No Apparent Distress Eyes: Right Eye Normal Inspection, Right Eye PERRL HEENT: PERRL/EOMI, TMs Normal, Normal ENT Inspection, Pharynx Normal, Moist Mucous Membranes Neck: Full Range of Motion, Normal Inspection, Non Tender Respiratory: Chest Non Tender, Lungs Clear, Normal Breath Sounds, No Accessory Muscle Use, No Respiratory Distress Cardiovascular: Regular Rate, Rhythm, No Edema, No Gallop, No JVD, No Murmur, Normal Peripheral Pulses Gastrointestinal: Normal Bowel Sounds, No Organomegaly, No Pulsatile Mass, Non Tender, Soft Back: Normal Inspection, No CVA Tenderness, No Vertebral Tenderness Extremity: Normal Capillary Refill, Normal Inspection, Normal Range of Motion, Non Tender, No Calf Tenderness, No Pedal Edema Neurologic/Psychiatric: Alert, Oriented x3, No Motor/Sensory Deficits, Normal Mood/Affect Skin: Normal Color, Warm/Dry Lymphatic: No Adenopathy Results Results/Procedures Labs Laboratory Tests 10/22/19 09:20 10/22/19 09:35 10/22/19 12:20 Patient resulted labs reviewed. Assessment/Plan Admission Diagnosis Assessment: Chest pain right sided with negative troponin consulted Dr Rai DKA placed on insulin drip and holding insulin pump infusion Smoker FH of CAD Plan: Admit Cardiology consultation DC smoking Insulin drip for DKA Admission Status: Observation Diagnosis/Problems Diagnosis/Problems (1) DKA (diabetic ketoacidoses) Status: Acute Qualifiers: Diabetes mellitus type: type 1 Diabetes mellitus complication detail: without coma Qualified Codes: E10.10 - Type 1 diabetes mellitus with ketoacidosis without coma (2) Chest pain Status: Acute Qualifiers: Chest pain type: unspecified Qualified Codes: R07.9 - Chest pain, unspecified JUDIT ARROYO DO Oct 22, 2019 12:56
[2019-10-22] MEDS ORDERED: INSU100V SC (14:10)
[2019-10-22] MEDS ORDERED: ACET-2267 PO (14:14)
--- NOTE | 2019-10-22 14:14 | NUR ---
SPOKE WITH THE PT, WENT THRU THE EXT MED HISTORY AND CALLED [facility] TO COMPLETE THE MED REC HUMALOG- PATIENT USES PUMP AND DOES NOT KNOW IF THERE IS A MAX # OF UNITS TO USE PER DAY, HOWEVER [facility] DID HAVE LISTED ON THE SCRIPT OF MAX 75 UNITS DAILY OTC MEDS: BENADRYL TYLENOL
[2019-10-22] MEDS ORDERED: DOCUSATE SODIUM 100 MG (COLACE) CAP PO PRN (14:15)
[2019-10-22] MEDS ORDERED: CALCIUM CARBONATE 500 MG (TUMS) TAB.CHEW PO PRN (14:15)
[2019-10-22] MEDS ORDERED: ENOXAPARIN 40 MG/0.4 ML (LOVENOX) SYR SC SCH (14:15)
[2019-10-22] MEDS ORDERED: ALPRAZolam 0.25 MG (XANAX) TAB PO PRN (14:15)
[2019-10-22] MEDS ORDERED: ONDANSETRON 4 MG (ZOFRAN) ORAL DISSOLVE TAB PO PRN (14:15)
[2019-10-22] MEDS ORDERED: MELATONIN 3 MG TABLET PO PRN (14:15)
[2019-10-22] MEDS ORDERED: diphenhydrAMINE 25 MG TAB (BENADRYL) PO PRN (14:15)
[2019-10-22] MEDS ORDERED: HYDROcodone/APAP 5 MG/325 MG (LORTAB) TAB PO PRN (14:15)
[2019-10-22] MEDS ORDERED: ONDANSETRON 4 MG/2 ML (SDV) Z0FRAN IVP PRN (14:15)
[2019-10-22] MEDS ORDERED: ACETAMINOPHEN 500 MG TAB (TYLENOL) PO PRN (14:15)
[2019-10-22] MEDS ORDERED: LOPERAMIDE 2 MG (IMODIUM) TABLET PO PRN (14:15)
[2019-10-22 15:00] VITALS: BP 110/68
[2019-10-22 15:05] LABS: BUN/CREATININE RATIO 14; CALCIUM 7.9 MG/DL (8.5-10.1); CARBON DIOXIDE 21 MMOL/L (21-32); CHLORIDE 110 MMOL/L (98-107); CREATININE SERUM 0.77 MG/DL (0.60-1.30); GFR ESTIMATED > 60; GLUCOSE 194 MG/DL (70-105); POTASSIUM 3.6 MMOL/L (3.6-5.0); SODIUM 138 MMOL/L (135-145)
[2019-10-22 16:00] VITALS: BP 121/78
[2019-10-22 17:25] VITALS: BP 121/78
[2019-10-22] MEDS ORDERED: SENNA W/DOCUSATE (SENOKOT S) TABLET PO SCH (21:00)
[2019-10-23] MEDS ORDERED: ASPIRIN 81 MG CHEW (CHILDREN'S ASA) PO SCH (09:00)
[2019-10-23] MEDS ORDERED: CLOPIDOGREL 75 MG (PLAVIX) TABLET PO SCH (09:00)
== END 2019-10-22 16:15 | disposition left against medical advice (07) ==
LOC: EDUNIT# 09:13 → ER 09:15 → ICU 11:15
PROVIDERS: ADMIT Internal Medicine; ATTEND Internal Medicine
DX: E11.10 Type 2 diabetes mellitus with ketoacidosis without coma (principal); F17.210 Nicotine dependence, cigarettes, uncomplicated; Z88.1 Allergy status to other antibiotic agents; Z79.4 Long term (current) use of insulin; Z79.899 Other long term (current) drug therapy; Z82.49 Family history of ischemic heart disease and other diseases of the circulatory system; Z90.49 Acquired absence of other specified parts of digestive tract
CPT/HCPCS: 36415; 71045; 80048; 80053; 81000; 82010; 82962; 83735; 83874; 84484; 85007; 85027; 85379; 85610; 85730; 86141; 93041; G0378

== ENCOUNTER 2019-11-27 17:51 | Observation (INO) | payer MEDICAID ==
[2019-11-27] VITALS (8 sets, daily range): BP systolic 97–138; BP diastolic 48–105
[~2019-11-27] VITALS: Ht 175 cm; Wt 88.1 kg
[~2019-11-27 17:51] MED LIST changes: +ACET-2267 PO; +HYDR50CA3 PO; +INSU100V SC; +MIRT15TA6 PO
[2019-11-27] MEDS ORDERED: NS IV 1000 ML 1,000 ML IV SCH ×3 (18:15→19:54)
[2019-11-27 18:18] LABS: BASOPHILS % (AUTO) 0 % (0-10); EOSINOPHILS # (AUTO) 0.2 10^3/uL (0.0-0.3); EOSINOPHILS % (AUTO) 4 % (0-10); HEMATOCRIT 43 % (35-52); HEMOGLOBIN 14.5 G/DL (11.5-16.0); LYMPHOCYTES % (AUTO) 33 % (12-44); MEAN CORPUSCULAR HEMOGLOBIN 31 PG (25-34); MEAN CORPUSCULAR HGB CONC 34 G/DL (32-36); MEAN CORPUSCULAR VOLUME 93 FL (80-99); MEAN PLATELET VOLUME 10.3 FL (7.4-10.4); MONOCYTES # (AUTO) 0.3 X 10^3 (0.0-1.0); MONOCYTES % (AUTO) 4 % (0-12); NEUTROPHILS # (AUTO) 3.6 X 10^3 (1.8-7.8); NEUTROPHILS % (AUTO) 59 % (42-75); PLATELET COUNT 268 10^3/uL (130-400); RED CELL DISTRIBUTION WIDTH 13.7 % (10.0-14.5); WHITE BLOOD COUNT 6.1 10^3/uL (4.3-11.0)
[2019-11-27 18:20] LABS: BILIRUBIN,URINE NEGATIVE (NEGATIVE); CLARITY,URINE CLEAR; COLOR,URINE YELLOW; GLUCOSE, URINE (UA) 3+ (NEGATIVE); KETONES,URINE NEGATIVE (NEGATIVE); LEUKOCYTE ESTERASE ,URINE NEGATIVE (NEGATIVE); NITRITE,URINE NEGATIVE (NEGATIVE); PROTEIN,URINE NEGATIVE (NEGATIVE)
[2019-11-27 18:22] LABS: ALBUMIN 4.1 GM/DL (3.2-4.5); POTASSIUM 4.4 MMOL/L (3.6-5.0)
[2019-11-27 18:23] LABS: CALCIUM 8.9 MG/DL (8.5-10.1)
[2019-11-27 18:24] LABS: TOTAL PROTEIN 7.5 GM/DL (6.4-8.2)
[2019-11-27 18:26] LABS: BILIRUBIN,TOTAL 0.4 MG/DL (0.1-1.0)
[2019-11-27 18:27] LABS: BACTERIA,URINE TRACE /HPF
[2019-11-27 18:28] LABS: CREATININE SERUM 1.37 MG/DL (0.60-1.30)
--- NOTE | 2019-11-27 18:34 | ED General ---
General Chief Complaint: Glucose Problems Stated Complaint: DKA Nursing Triage Note: PT STATES HER GLUCOMETER SHOWED 600 AT HOME. THIRST AND NAUSEA. Nursing Sepsis Screen: No Definite Risk Source of Information: Patient Exam Limitations: No Limitations History of Present Illness Date Seen by Provider: November 27, 2019 Time Seen by Provider: 18:32 Initial Comments To ER by private vehicle from home with reports of DKA. She's had high blood sugars since Tuesday, today is Tuesday. No fevers or chills. Excessive thirst and nausea. States she does not want an ABG drawn. Timing/Duration: 1-2 Days Severity: Moderate Associated Systoms: Nausea/Vomiting Allergies and Home Medications Allergies Coded Allergies: cephalexin (Verified Allergy, Unknown, 05/06/07) Home Medications Acetaminophen 500 Mg Tablet, 1,000 MG PO Q8H PRN for PAIN-MILD (1-4), (Reported) Diphenhydramine HCl 25 Mg Capsule, 25 MG PO TID PRN for ALLERGIES, (Reported) Hydroxyzine Pamoate 50 Mg Capsule, 50 MG PO BID PRN for ALLERGY/ANXIETY, (Reported) Ibuprofen 800 Mg Tablet, 800 MG PO BID PRN for PAIN-MILD, (Reported) Insulin Lispro 100 Unit/1 Ml Vial, UNITS SC PER PUMP, (Reported) USES PER INSULIN PUMP- SCRIPT SAYS MAX DAILY DOSE OF 75 UNITS Mirtazapine 15 Mg Tablet, 15 MG PO DAILY, (Reported) Patient Home Medication List Home Medication List Reviewed: Yes Review of Systems Review of Systems Constitutional: see HPI EENTM: see HPI Respiratory: no symptoms reported Cardiovascular: no symptoms reported Genitourinary: no symptoms reported Musculoskeletal: no symptoms reported Skin: no symptoms reported Psychiatric/Neurological: No Symptoms Reported Hematologic/Lymphatic: No Symptoms Reported Immunological/Allergic: no symptoms reported Past Uldmqyq-Eruhah-Knkrdi Hx Patient Social History Alcohol Use: Denies Use Recreational Drug Use: No Smoking Status: Current Everyday Smoker Type Used: Cigars 2nd Hand Smoke Exposure: Yes Recent Foreign Travel: No Contact w/Someone Who Travel: No Recent Infectious Disease Expo: No Recent Hopitalizations: No Physical Abuse: No Sexual Abuse: No Mistreated: No Fear: No Immunizations Up To Date Tetanus Booster (TDap): Unknown PED Vaccines UTD: Yes Date of Pneumonia Vaccine: Apr 25, 2019 Seasonal Allergies Seasonal Allergies: No Past Medical History Surgeries: Yes (WILEY., KIDNEY BIOPSY) Tubal Ligation Respiratory: No Cardiac: No Neurological: No : No (TUBAL) 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 oz. kg; 28.00 BMI Method: General Appearance: No Apparent Distress, WD/WN, Other (hemodynamic stable, heart rate 90, blood pressure 141/86, O2 98%.) Eyes: Bilateral Eye Normal Inspection, Bilateral Eye PERRL, Bilateral Eye EOMI HEENT: PERRL/EOMI, TMs Normal Neck: Full Range of Motion, Normal Inspection Respiratory: No Accessory Muscle Use, No Respiratory Distress Cardiovascular: Regular Rate, Rhythm, Normal Peripheral Pulses Gastrointestinal: Normal Bowel Sounds, Non Tender, Soft Extremity: Normal Capillary Refill, Normal Inspection Neurologic/Psychiatric: Alert, Oriented x3 Skin: Normal Color, Warm/Dry (who ) Progress/Results/Core Measures Suspected Sepsis Recent Fever Within 48 Hours: No Infection Criteria Present: None New/Unexplained Altered Menta: No Sepsis Screen: No Definite Risk SIRS Temperature: Pulse: 99 Respiratory Rate: 20 Laboratory Tests 11/27/19 18:06: White Blood Count 6.1 Blood Pressure 145 /91 Mean: 109 Laboratory Tests 11/27/19 18:06: Creatinine 1.37H, Platelet Count 268, Total Bilirubin 0.4 Results/Orders Lab Results Laboratory Tests Test 11/27/19 17:59 11/27/19 18:06 11/27/19 18:07 Range/Units Urine Color YELLOW Urine Clarity CLEAR Urine pH 6.0 5-9 Urine Specific [place] <=1.005 1.016-1.022 Urine Protein NEGATIVE NEGATIVE Urine Glucose (UA) 3+ H NEGATIVE Urine Ketones NEGATIVE NEGATIVE Urine Nitrite NEGATIVE NEGATIVE Urine Bilirubin NEGATIVE NEGATIVE Urine Urobilinogen 0.2 < = 1.0 MG/DL Urine Leukocyte Esterase NEGATIVE NEGATIVE Urine RBC (Auto) NEGATIVE NEGATIVE Urine RBC NONE /HPF Urine WBC NONE /HPF Urine Squamous Epithelial Cells 2-5 /HPF Urine Crystals NONE /LPF Urine Bacteria TRACE /HPF Urine Casts NONE /LPF Urine Mucus SMALL H /LPF Urine Culture Indicated NO White Blood Count 6.1 4.3-11.0 10^3/uL Red Blood Count 4.66 4.35-5.85 10^6/uL Hemoglobin 14.5 11.5-16.0 G/DL Hematocrit 43 35-52 % Mean Corpuscular Volume 93 80-99 FL Mean Corpuscular Hemoglobin 31 25-34 PG Mean Corpuscular Hemoglobin Concent 34 32-36 G/DL Red Cell Distribution Width 13.7 10.0-14.5 % Platelet Count 268 130-400 10^3/uL Mean Platelet Volume 10.3 7.4-10.4 FL Neutrophils (%) (Auto) 59 42-75 % Lymphocytes (%) (Auto) 33 12-44 % Monocytes (%) (Auto) 4 0-12 % Eosinophils (%) (Auto) 4 0-10 % Basophils (%) (Auto) 0 0-10 % Neutrophils # (Auto) 3.6 1.8-7.8 X 10^3 Lymphocytes # (Auto) 2.0 1.0-4.0 X 10^3 Monocytes # (Auto) 0.3 0.0-1.0 X 10^3 Eosinophils # (Auto) 0.2 0.0-0.3 10^3/uL Basophils # (Auto) 0.0 0.0-0.1 10^3/uL Sodium Level 133 L 135-145 MMOL/L Potassium Level 4.4 3.6-5.0 MMOL/L Chloride Level 102 98-107 MMOL/L Carbon Dioxide Level 18 L 21-32 MMOL/L Anion Gap 13 5-14 MMOL/L Blood Urea Nitrogen 22 H 7-18 MG/DL Creatinine 1.37 H 0.60-1.30 MG/DL Estimat Glomerular Filtration Rate 43 BUN/Creatinine Ratio 16 Glucose Level 751 *H 70-105 MG/DL Calcium Level 8.9 8.5-10.1 MG/DL Corrected Calcium 8.8 8.5-10.1 MG/DL Total Bilirubin 0.4 0.1-1.0 MG/DL Aspartate Amino Transf (AST/SGOT) 18 5-34 U/L Alanine Aminotransferase (ALT/SGPT) 20 0-55 U/L Alkaline Phosphatase 113 40-136 U/L Total Protein 7.5 6.4-8.2 GM/DL Albumin 4.1 3.2-4.5 GM/DL Beta-Hydroxybutyrate (Chem panel) 0.14 0.00-0.27 MMOL/L Glucometer > 600 *H 70-110 MG/DL My Orders Orders - KRISTINA DYSON APRN Cbc With Automated Diff (11/27/19 18:12) Comprehensive Metabolic Panel (11/27/19 18:12) Ua Culture If Indicated (11/27/19 18:12) Beta Hydroxybutyrate (11/27/19 18:12) Ed Iv/Invasive Line Start (11/27/19 18:12) Accucheck Stat ONCE (11/27/19 18:12) Ns Iv 1000 Ml (Sodium Chloride 0.9%) (11/27/19 18:15) Chest 1 View, Ap/Pa Only (11/27/19 18:28) Ns Iv 1000 Ml (Sodium Chloride 0.9%) (11/27/19 18:45) Insulin Regular Tpn/Drip Only (Humulin R (11/27/19 18:45) Vital Signs/I&O 11/27/19 18:02 Temp 36.7 Pulse 99 Resp 20 B/P (MAP) 145/91 (109) Pulse Ox 98 O2 Delivery Room Air Capillary Refill : Less Than 3 Seconds Blood Pressure Mean: 109 Departure Communication (Admissions) Time/Spoke to Admitting Phy: 18:[address] Barone, will admit to ICU on insulin drip. Impression Primary Impression: Type 2 diabetes mellitus with hyperosmolar nonketotic hyperglycemia Disposition: ADMITTED INPATIENT Condition: Stable Admissions Decision to Admit Reason: Admit from ER (General) Decision to Admit/Date: November 27, 2019 Time/Decision to Admit Time: 18:41 Departure-Patient Inst. Referrals: [facility] (PCP/Family) Primary Care Physician KRISTINA DYSON APRN November 27, 2019 18:33
[2019-11-27] MEDS ORDERED: inSUlin REGULAR TPN/DRIP ONLY 250 UNITS in NORMAL SALINE 250 ML IV SCH ×2 (18:45→20:00)
[2019-11-27] MEDS ORDERED: inSUlin (REGULAR) HUMAN 1 UNIT/0.01 ML (CHARGE PER UNIT) IV SCH (19:00)
--- NOTE | 2019-11-27 19:05 | Diagnostic Imaging Report ---
Indication: Shortness of air. Time of exam 6:55 PM Correlation made with prior chest 10/22/2019. The heart size is normal. The pulmonary vascularity is unremarkable. The lungs are clear. No infiltrate, effusion or pneumothorax is detected. Impression: No acute cardiopulmonary process is detected. Dictated by: Dictated on workstation # [id number]
--- NOTE | 2019-11-27 19:47 | NUR ---
NOEMI CABEZAS admitted to room CU9-1, with an admitting diagnosis of HHNK, on 11/27/19 from ED via WC, accompanied by staff.NOEMI CABEZAS introduced to surroundings, call light, bed controls, phone, TV, temperature control, lights, meal times, smoking policy, visitor policy, side rail policy, bathrooms and showers. Patient Rights given to patient in the handbook. NOEMI CABEZAS verbalizes understanding that [facility] is not responsible for the loss or damage to any personal effects or valuables that are kept in the patients possession during their hospitalization. The following Patient Care Plans were discussed with the patient: Discharge Planning, pain management,activity, and room orientation. NOEMI CABEZAS verbalizes understanding of Interdisciplinary Patient Education. Patient and/or family were informed about the Rapid Response Team and its purpose.
[2019-11-27] MEDS ORDERED: 1/2 NS IV SOLUTION 1,000 ML IV SCH (19:54)
[2019-11-27] MEDS ORDERED: D5 1/2 NS 1000 ML IV SOLUTION 1,000 ML IV SCH (20:00)
[2019-11-27] MEDS ORDERED: POTASSIUM CL 10MEQ/50ML IVPB 50 ML IV SCH ×2 (20:00)
[2019-11-27] MEDS ORDERED: ONDANSETRON 4 MG/2 ML (SDV) Z0FRAN IV PRN (20:00)
--- NOTE | 2019-11-27 20:21 | NUR ---
Call placed to Dr Collado at this time. Updated on patient arrival and current BS of 247. Updated that ED did not start insulin drip. Order to DC protocol. Start NS@150, accu check ac&hs with SSC insulin.
--- OUTSIDE RECORDS SUMMARY | 2019-11-27 20:29 | XMS REPORT ---
Author Author Mickey Perez [facility] Address [address] [place] [address] Care Team Providers Care Fuse Spooler Name Role Phone ALENA Peerz Unavailable PROBLEMS Type Condition ICD9-CM Code [id number] Code Onset Dates Condition S tatus SNOMED Code Problem Type 1 diabetes mellitus with hypoglycemia and without com a E10.649 Active 51800616 Problem Anxiety F41.9 Active 86791818 Problem Adjustment disorder with mixed anxiety and depressed mood F43.23 Active 940286740 Problem Intractable migraine without status migrainosus, unspecified migraine type G43.919 Active 000132162 Problem Primary insomnia F51.01 Active 397 2004 Problem 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 examiner 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 Active 446925909 Problem Mixed hyperlipidemia E78.2 Active 779482237 Problem Mood disorder F39 Active 221883 05 ALLERGIES No Information ENCOUNTERS Encounter Location Date Diagnosis [facility] [address] [id number] 30 Oct, 2019 [facility] [address] [id number] [address] [place] [id number] 18 Oct, 2019 Acute cystitis with hematuri a N30.01 [facility] [address] [id number] [address] [place] [id number] 16 Oct, 2019 Type 1 diabetes mellitus wit h hypoglycemia and without coma E10.649 [facility] [address] [facility] [id number] [address] [place] [id number] Sep, Intractable headache, unspec ified chronicity pattern, unspecified headache type R51 [facility] [address] [facility] [id number] [address] [place] [id number] Sep, [facility] [address] [id number] [address] [place] [id number] 16 Sep, 2019 [facility] [address] [facility] [id number] [address] [place] [id number] 10 Sep, 2019 [facility] [address] [facility] [id number] [address] [place] [id number] 02 Sep, 2019 [facility] [address] [facility] [id number] [address] [place] [id number] 25 Aug, 2019 Adjustment disorder with mix ed anxiety and depressed mood F43.23 [facility] [address] [facility] [id number] [address] [place] [id number] 22 Aug, 2019 Nausea and vomiting, intract ability of vomiting not specified, unspecified vomiting type R11.2 and Flu-like symptoms R68.89 [facility] [address] [facility] [id number] [address] [place] [id number] 20 Aug, 2019 [facility] [address] [facility] [id number] [address] [place] [id number] 17 Aug, 2019 [facility] [address] [facility] [id number] [address] [place] [id number] 15 Aug, 2019 [facility] [address] [facility] [id number] [address] [place] [id number] 15 Aug, 2019 [facility] [address] [facility] [id number] [address] [place] [id number] 12 Aug, 2019 [facility] [address] [facility] [id number] [address] [place] [id number] 11 Aug, 2019 [facility] [address] [facility] [id number] [address] [place] [id number] 10 Aug, 2019 [facility] [address] [facility] [id number] [address] [place] [id number] 07 Aug, 2019 [facility] [address] [facility] [id number] [address] [place] [id number] 07 Aug, 2019 [facility] [address] [facility] [id number] [address] [place] [id number] Aug, [facility] [address] [id number] [address] [place] [id number] Aug, [facility] [address] [id number] [address] [place] [id number] Aug, [facility] [address] [id number] [address] [place] [id number] Aug, Urinary tract infection, sit e not specified N39.0 and Hematuria, unspecified R31.9 [facility] [address] [id number] [address] [place] [id number] Aug, [facility] [address] [id number] [address] [place] [id number] Jul, [facility] [address] [id number] [address] [place] [id number] Jul, [facility] [address] [id number] [address] [place] [id number] Jul, [facility] [address] [id number] [address] [place] [id number] Jul, Frequent UTI N39.0 [facility] [address] [id number] [address] [place] [id number] Jul, [facility] [address] [facility] [id number] [address] [place] [id number] Jul, Dysuria R30.0 [facility] [address] [id number] [address] [place] [id number] Jul, [facility] [address] [facility] [id number] [address] [place] [id number] Jul, Dysuria R30.0 [facility] [address] [facility] [id number] [address] [place] [id number] Jul, Adjustment disorder with mix ed anxiety and depressed mood F43.23 [facility] [address] [id number] [address] [place] [id number] Jul, [facility] [address] [id number] [address] [place] [id number] Jul, [facility] [address] [id number] [address] [place] [id number] Jul, Fatigue, unspecified type R5 3.83 ; Type 1 diabetes mellitus with hypoglycemia and without coma E10.649 and Mixed hyperlipidemia E78.2 [facility] [address] [id number] [address] [place] [id number] Jul, [facility] [address] [id number] [address] [place] [id number] Jul, [facility] [address] [id number] [address] [place] [id number] Jun, [facility] [address] [id number] [address] [place] [id number] Jun, [facility] [address] [id number] [address] [place] [id number] Jun, Fatigue, unspecified type R5 3.83 [facility] [address] [id number] [address] [place] [id number] Jun, [facility] [address] [id number] [address] [place] [id number] Jun, [facility] [address] [id number] [address] [place] [id number] Jun, [facility] [address] [id number] [address] [place] [id number] Jun, [facility] [address] [id number] [address] [place] [id number] Jun, [facility] [address] [id number] [address] [place] [id number] Jun, [facility] [address] [id number] [address] [place] [id number] Jun, Type 2 diabetes mellitus wit h diabetic polyneuropathy E11.42 [facility] [address] [facility] [id number] [address] [place] [id number] Jun, [facility] [address] [facility] [id number] [address] [place] [id number] Jun, [facility] [address] [facility] [id number] [address] [place] [id number] May, [facility] [address] [facility] [id number] [address] [place] [id number] May, Type 2 diabetes mellitus wit h diabetic polyneuropathy E11.42 [facility] [address] [facility] [id number] [address] [place] [id number] May, Type 1 diabetes mellitus wit h hypoglycemia and without coma E10.649 [facility] [address] [facility] [id number] [address] [place] [id number] May, [facility] [address] [facility] [id number] [address] [place] [id number] May, Type 2 diabetes mellitus wit h diabetic polyneuropathy E11.42 [facility] [address] [facility] [id number] [address] [place] [id number] May, Type 2 diabetes mellitus wit h diabetic polyneuropathy E11.42 [facility] [address] [facility] [id number] [address] [place] [id number] May, Type 2 diabetes mellitus wit h diabetic polyneuropathy E11.42 [facility] [address] [facility] [id number] [address] [place] [id number] May, Adjustment disorder with mix ed anxiety and depressed mood F43.23 [facility] [address] [facility] [id number] [address] [place] [id number] May, Bronchitis J40 [facility] [address] [facility] [id number] [address] [place] [id number] Apr, [facility] [address] [facility] [id number] [address] [place] [id number] Apr, Bronchitis J40 [facility] [address] [facility] [id number] [address] [place] [id number] Apr, Adjustment disorder with mix ed anxiety and depressed mood F43.23 ; Primary insomnia F51.01 and Mood disorder F39 [facility] [address] [facility] [id number] [address] [place] [id number] Apr, [facility] [address] [facility] [id number] [address] [place] [id number] Apr, Type 2 diabetes mellitus wit h diabetic polyneuropathy E11.42 and Mixed hyperlipidemia E78.2 [facility] [address] [facility] [id number] [address] [place] [id number] Apr, Mood disorder F39 [facility] [address] [facility] [id number] [address] [place] [id number] Apr, Type 2 diabetes mellitus wit h diabetic polyneuropathy E11.42 [facility] [address] [facility] [id number] [address] [place] [id number] Apr, Type 2 diabetes mellitus wit h diabetic polyneuropathy E11.42 [facility] [address] [facility] [id number] [address] [place] [id number] Apr, Type 2 diabetes mellitus wit h diabetic polyneuropathy E11.42 [facility] [address] [facility] [id number] [address] [place] [id number] Apr, [facility] [address] [id number] [place] [address] Apr, [facility] [address] [facility] [id number] [address] [place] [id number] Apr, [facility] [address] [facility] [id number] [address] [place] [id number] Apr, [facility] [address] [facility] [id number] [address] [place] [id number] Apr, [facility] [address] [facility] [id number] [address] [place] [id number] Apr, [facility] [address] [facility] [id number] [address] [place] [id number] Apr, Type 2 diabetes mellitus wit h diabetic polyneuropathy E11.42 ; Mixed hyperlipidemia E78.2 ; Dyshidrotic eczema L30.1 ; Frequent UTI N39.0 and Encounter for immunization Z23 [facility] [address] [facility] [id number] [address] [place] [id number] Apr, Adjustment disorder with mix ed anxiety and depressed mood F43.23 ; Primary insomnia F51.01 and Mood disorder F39 [facility] [address] [facility] [id number] [address] [place] [id number] Apr, [facility] [address] [facility] [id number] [address] [place] [id number] Apr, [facility] [address] [facility] [id number] [address] [place] [id number] Apr, [facility] [address] [facility] [id number] [address] [place] [id number] Apr, [facility] [address] [facility] [id number] [address] [place] [id number] Apr, [facility] [address] [facility] [id number] [address] [place] [id number] Apr, Mood disorder F39 [facility] [address] [facility] [id number] [address] [place] [id number] Mar, Type 2 diabetes mellitus wit h diabetic polyneuropathy E11.42 [facility] [address] [facility] [id number] [address] [place] [id number] Mar, Urinary tract infection, sit e not specified N39.0 [facility] [address] [facility] [id number] [address] [place] [id number] Mar, [facility] [address] [facility] [id number] [address] [place] [id number] Mar, [facility] [address] [id number] [address] [place] [id number] Mar, [facility] [address] [id number] [address] [place] [id number] Mar, Intractable migraine without status migrainosus, unspecified migraine type G43.919 [facility] [address] [id number] [address] [place] [id number] Mar, [facility] [address] [id number] [address] [place] [id number] 18 Mar, 2019 [facility] [address] [facility] [id number] [address] [place] [id number] 18 Mar, 2019 Urinary tract infection, sit e not specified N39.0 and Hematuria, unspecified R31.9 [facility] [address] [id number] [address] [place] [id number] 17 Mar, 2019 [facility] [address] [id number] [address] [place] [id number] 16 Mar, 2019 Mood disorder F39 [facility] [address] [id number] [address] [place] [id number] 13 Mar, 2019 Type 2 diabetes mellitus wit h diabetic polyneuropathy E11.42 [facility] [address] [id number] [address] [place] [id number] Mar, [facility] [address] [id number] [address] [place] [id number] Mar, [facility] [address] [id number] [address] [place] [id number] Feb, [facility] [address] [id number] [address] [place] [id number] Feb, [facility] [address] [facility] [id number] [address] [place] [id number] Feb, [facility] [address] [id number] [address] [place] [id number] Feb, [facility] [address] [facility] [id number] [address] [place] [id number] Feb, [facility] [address] [facility] [id number] [address] [place] [id number] Feb, [facility] [address] [facility] [id number] [address] [place] [id number] Feb, Dysuria R30.0 [facility] [address] [facility] [id number] [address] [place] [id number] Feb, [facility] [address] [facility] [id number] [address] [place] [id number] Feb, [facility] [address] [facility] [id number] [address] [place] [id number] Feb, [facility] [address] [facility] [id number] [address] [place] [id number] Feb, [facility] [address] [facility] [id number] [address] [place] [id number] Jan, HPV (human papilloma virus) infection B97.7 [facility] [address] [facility] [id number] [address] [place] [id number] Dec, [facility] [address] [facility] [id number] [address] [place] [id number] Dec, [facility] [address] [facility] [id number] [address] [place] [id number] Dec, [facility] [address] [facility] [id number] [address] [place] [id number] Dec, Mixed hyperlipidemia E78.2 [facility] [address] [facility] [id number] [address] [place] [id number] Dec, Type 2 diabetes mellitus wit h diabetic polyneuropathy E11.42 and residential 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 [facility] [address] [facility] [id number] [address] [place] [id number] November, Type 2 diabetes mellitus wit h diabetic polyneuropathy E11.42 [facility] [address] [id number] [address] [place] [id number] November, Dysuria R30.0 and History of HPV infection Z86.19 [facility] [address] [id number] [address] [place] [id number] November, [facility] [address] [id number] [address] [place] [id number] November, UTI symptoms R39.9 [facility] [address] [id number] [address] [place] [id number] November, [facility] [address] [id number] [address] [place] [id number] November, UTI symptoms R39.9 [facility] [address] [id number] [address] [place] [id number] November, [facility] [address] [id number] [address] [place] [id number] November, Acute cystitis with hematuri a N30.[id number] [place] [id number] Sep, Acute UTI N39.0 and Uncontro lled type 2 diabetes mellitus with hyperglycemia E11.65 [facility] [address] [id number] [address] [place] [id number] Jul, Type 2 diabetes mellitus wit h diabetic polyneuropathy E11.42 [facility] [address] [id number] [address] [place] [id number] Jul, [facility] [address] [id number] [address] [place] [id number] Jul, [facility] [address] [id number] [address] [place] [id number] Jul, Acute cystitis without hemat uria N30.00 [facility] [id number] [place] [id number] Jul, [facility] [address] [id number] [address] [place] [address] Jul, Acute UTI N39.0 [facility] [address] [id number] [address] [place] [id number] Jun, [facility] [address] [id number] Jun, Type 2 diabetes mellitus wit h diabetic polyneuropathy E11.42 ; residential 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 and Primary insomnia F51.01 [facility] [address] [id number] [address] [place] [id number] Apr, Type 2 diabetes mellitus wit h diabetic polyneuropathy E11.42 [id number] [id number] Apr, Type 2 diabetes mellitus with diabetic p olyneuropathy E11.42 ; Primary insomnia F51.01 and Anxiety F41.9 [id number] [id number] Mar, Type 2 diabetes mellitus with diabetic p olyneuropathy E11.42 [id number] [id number] Mar, Type 2 diabetes mellitus with diabetic p olyneuropathy E11.42 ; residential 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 ; Anxiety F41.9 and Primary insomnia F51.01 [facility] [id number] [id number] Feb, Type II or unspecified type diabetes belinda litus without mention of complication, uncontrolled E11.65 [place] [id number] [id number] Jan, Type II or unspecified type diabetes belinda litus without mention of complication, uncontrolled E11.65 ; hearing examiner 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 ; Type 2 diabetes mellitus with diabetic polyneuropathy E11.42 ; Tinea B35.9 ; Acute eczema L30.9 and Anxiety F41.9 [facility] [address] [id number] [place] [id number] November, [facility] [place] [address] [id number] [place] [id number] November, Type 2 diabetes mellitus with diabetic p olyneuropathy E11.42 ; hearing examiner 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 ; Primary insomnia F51.01 and Anxiety F41.9 [facility] [place] [address] [id number] [place] [id number] Oct, [facility] [place] [address] [id number] [place] [id number] Oct, [facility] [address] [id number] [place] [id number] Oct, Well woman exam with routine gynecologic al exam Z01.419 ; Screening breast examination Z12.31 ; Type 2 diabetes mellitus with diabetic polyneuropathy E11.42 ; residential 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 ; CVA tenderness M54.9 ; High risk sexual behavior Z72.51 ; Acute cystitis without hematuria N30.00 ; Anxiety F41.9 ; Type II or unspecified type diabetes mellitus without mention of complication, uncontrolled E11.65 and Primary insomnia F51.01 [facility] [address] [id number] [place] [id number] Aug, Primary insomnia F51.01 [facility] [address] [id number] [place] [id number] Aug, Abrasion T14.8XXA ; Open wound T14.8XXA and Type II or unspecified type diabetes mellitus without mention of complication, uncontrolled E11.65 [facility] [address] [id number] [place] [id number] Jul, Type II or unspecified type diabetes belinda litus without mention of complication, uncontrolled E11.65 ; Anxiety F41.9 ; Primary insomnia F51.01 ; Abrasion T14.8XXA and Pain in left ross M79.662 [facility] [place] [address] [id number] [place] [id number] May, Type II or unspecified type diabetes belinda litus without mention of complication, uncontrolled E11.65 [facility] [place] [address] [id number] [place] [id number] May, Primary insomnia F51.01 [facility] [place] [address] [id number] [place] [id number] Apr, Primary insomnia F51.01 [facility] [place] [address] [id number] [place] [id number] Mar, [facility] [place] [address] [id number] [place] [id number] Mar, Type II or unspecified type diabetes belinda litus without mention of complication, uncontrolled E11.65 ; Primary insomnia F51.01 ; Other insomnia G47.09 and Anxiety F41.9 [facility] [place] [address] [id number] [place] [id number] Jan, Type II or unspecified type diabetes belinda litus without mention of complication, uncontrolled E11.65 ; Anxiety F41.9 and Other insomnia G47.09 [facility] [facility] [place] [address] [id number] [place] [id number] 07 Dec, 2016 Type II or unspecified type diabetes belinda litus without mention of complication, uncontrolled E11.65 ; Anxiety F41.9 and Other insomnia G47.09 [facility] [place] [address] [id number] [place] [id number] 15 Nov, 2016 Type II or unspecified type diabetes belinda litus without mention of complication, uncontrolled E11.65 [facility] [place] [address] [id number] [place] [id number] 14 Oct, 2016 Dysuria R30.0 [facility] [place] [address] [id number] [place] [id number] 14 Sep, 2016 Pain, dental K08.89 [facility] [place] [address] [id number] [place] [id number] Aug, [facility] [place] [address] [id number] [place] [id number] 16 Aug, 2016 Dysuria R30.0 ; Type II or unspecified t ype diabetes mellitus without mention of complication, uncontrolled E11.65 and Medial epicondylitis, left elbow M77.02 [facility] [place] [address] [id number] [place] [id number] Jul, Acute pharyngitis due to other specified organisms J02.8 [facility] [place] [address] [id number] [place] [id number] Jun, Cellulitis of unspecified part of limb L 03.119 ; Type II or unspecified type diabetes mellitus without mention of complication, uncontrolled E11.65 ; Cellulitis of right lower extremity L03.115 and Ulcer of skin, limited to breakdown of skin L98.491 [facility] [place] [address] [id number] [place] [id number] Jun, Cellulitis of unspecified part of limb L 03.119 ; Cellulitis of right lower extremity L03.115 and Ulcer of skin, limited to breakdown of skin L98.491 [facility] [place] [address] [id number] [place] [id number] Jun, Cellulitis of unspecified part of limb L 03.119 ; Cellulitis of right lower extremity L03.115 and Ulcer of skin, limited to breakdown of skin L98.491 [facility] [place] [address] [id number] [place] [id number] Jun, [facility] [place] [address] [id number] [place] [id number] Jun, [facility] [place] [address] [id number] [place] [id number] Jun, Dysuria R30.0 [facility] [place] [address] [id number] [place] [id number] May, [facility] [place] [address] [id number] [place] [id number] May, Painful swelling of joint M25.40 and Typ e II or unspecified type diabetes mellitus without mention of complication, uncontrolled E11.65 [facility] [place] [address] [id number] [place] [id number] May, Painful swelling of joint M25.40 [facility] [place] [address] [id number] [place] [id number] May, Painful swelling of joint M25.40 ; Gluco suria R81 and History of chest pain Z87.898 [facility] [address] [id number] [place] [id number] May, [facility] [place] [address] [id number] [place] [id number] Apr, Well woman exam with routine gynecologic al exam Z01.419 and High risk sexual behavior Z72.51 [facility] [place] [address] [id number] [place] [id number] Apr, Kidney infection N15.9 ; UTI symptoms R3 9.9 and Dysuria R30.0 [facility] [place] [address] [id number] [place] [id number] Apr, Grief reaction F43.20 [facility] [place] [address] [id number] [place] [id number] Mar, [facility] [place] [address] [id number] [place] [id number] Mar, Grief reaction F43.20 [facility] [place] [address] [id number] [place] [id number] Feb, [facility] [place] [address] [id number] [place] [id number] Feb, Stress reaction F43.0 and Type II or uns pecified type diabetes mellitus without mention of complication, uncontrolled E11.65 [facility] [place] [address] [id number] [place] [id number] Jan, [facility] [place] [address] [id number] [place] [id number] Dec, [facility] [place] [address] [id number] [place] [id number] Dec, [facility] [place] [address] [id number] [place] [id number] Dec, [facility] [place] [address] [id number] [place] [id number] November, [facility] [place] [address] [id number] [place] [id number] November, Pharyngitis J02.9 [facility] [place] [address] [id number] [place] [id number] Oct, [facility] [place] [address] [id number] [place] [id number] Oct, Sciatic leg pain M54.30 [facility] [place] [address] [id number] [place] [id number] Sep, [facility] [place] [address] [id number] [place] [id number] Sep, [facility] [place] [address] [id number] [place] [id number] Sep, Sciatic leg pain M54.30 [facility] [place] [address] [id number] [place] [id number] Aug, Pharyngitis J02.9 [facility] [place] [address] [id number] [place] [id number] Jul, Type II or unspecified type diabetes belinda litus without mention of complication, uncontrolled E11.65 and Midline low back pain without sciatica M54.5 [facility] [place] [address] [id number] [place] [id number] Jun, Diabetes with unspecified complication, type II or unspecified type, uncontrolled 250.92 [facility] [place] [address] [id number] [place] [id number] Jun, [facility] [address] [id number] [place] [id number] May, [facility] [place] [address] [id number] [place] [id number] May, Diabetes with unspecified complication, type II or unspecified type, uncontrolled 250.92 [facility] [place] [address] [id number] [place] [id number] Apr, [facility] [address] [id number] [place] [id number] Apr, [facility] [place] [address] [id number] [place] [id number] Apr, Type 2 diabetes mellitus with hyperglyce giovani E11.65 ; Depression with anxiety F41.8 ; Influenza vaccination declined Z28.21 and Diabetes with unspecified complication, type II or unspecified type, uncontrolled 250.92 [facility] [place] [address] [id number] [place] [id number] Apr, [facility] [place] [address] [id number] [place] [id number] Mar, [facility] [place] [address] [id number] [place] [id number] Mar, [facility] [place] [address] [id number] [place] [id number] Mar, [facility] [place] [address] [id number] [place] [id number] Feb, [facility] [place] [address] [id number] [place] [id number] Feb, [facility] [place] [address] [id number] [place] [id number] Feb, [facility] [place] [address] [id number] [place] [id number] Feb, [place] [address] [facility] [address] [id number] [id number] Feb, Dental abscess 522.5 [facility] [address] [id number] [place] [id number] Jan, Diabetes with unspecified complication, type II or unspecified type, uncontrolled 250.92 ; Vaginal denise 112.1 ; Broken tooth 873.63 and Screening for STD (sexually transmitted disease) V74.5 [facility] [address] [facility] [id number] [address] [place] [address] Oct, [facility] [address] [facility] [id number] [address] [place] [address] Oct, [facility] [address] [id number] [place] [id number] Sep, [facility] [address] [facility] [id number] [address] [place] [address] Sep, [facility] [place] [address] [id number] [place] [id number] Aug, [facility] [address] [id number] [address] [place] [address], [place] [address] Aug, [facility] [place] [address] [id number] [place] [id number] Aug, [facility] [address] [id number] [address] [place] [address], [place] [address] Aug, [facility] [place] [address] [id number] [place] [id number] Jul, [facility] [address] [id number] [address] [place] [address], [place] [address] Jul, [facility] [place] [address] [id number] [place] [id number] Jul, [facility] [address] [id number] [address] [place] [address], [place] [address] Jul, [facility] [address] [id number] [address] [place] [address], [place] [address] Jul, [facility] [place] [address] [id number] [place] [id number] Jul, [facility] [place] [address] [id number] [place] [id number] Jul, [facility] [address] [id number] [address] [place] [address], [place] [address] Jul, [facility] [place] [address] [id number] [place] [id number] Jul, [facility] [address] [id number] [address] [place] [address], [place] [address] Jul, [facility] [place] [address] [id number] [place] [id number] Jun, [facility] [address] [id number] [address] [place] [address] Jun, [facility] [address] [id number] [address] [place] [address], [place] [address] Jun, [facility] [place] [address] [id number] [place] [id number] Jun, [facility] [address] [id number] [address] [place] [address], [place] [address] Jun, [facility] [address] [id number] [address] [place] [address], [place] [address] May, [facility] [place] [address] [id number] [place] [id number] May, [facility] [place] [address] [id number] [place] [id number] May, [facility] [address] [id number] [address] [place] [address], [place] [address] May, [facility] [place] [address] [id number] [place] [id number] May, [facility] [address] [id number] [address] [place] [address], [place] [address] May, [facility] [address] [id number] [address] [place] [address], [place] [address] Apr, [facility] [address] [id number] [address] [place] [address], [place] [address] Mar, [facility] [address] [id number] [address] [place] [address], [place] [address] Jan, [facility] [place] [address] [id number] [place] [id number] Jan, [facility] [address] [id number] [address] [place] [address], [place] [address] Jan, [facility] [place] [address] [id number] [place] [id number] Jan, [facility] [address] [id number] [address] [place] [address], [place] [address] Jan, [facility] [place] [address] [id number] [place] [id number] Dec, [facility] [address] [id number] [address] [place] [address], [place] [address] Dec, [facility] [place] [address] [id number] [place] [id number] November, [facility] [address] [id number] [address] [place] [address], [place] [address] November, [facility] [place] [address] [id number] [place] [id number] November, [facility] [address] [id number] [address] [place] [address], [place] [address] November, [facility] [place] [address] [id number] [place] [id number] Oct, [facility] [address] [id number] [address] [place] [address], [place] [address] Oct, [facility] [place] [address] [id number] [place] [id number] Oct, [facility] [address] [id number] [address] [place] [address], [place] [address] Oct, [facility] [address] [id number] [address] [place] [address], [place] [address] Oct, [facility] [address] [facility] [id number] [address] [place] [address], [place] [address] Oct, [facility] [place] [address] [id number] [place] [id number] Sep, [facility] [address] [id number] [address] [place] [address], [place] [address] Sep, [facility] [address] [id number] [address] [place] [address], [place] [address] Aug, [facility] [place] [address] [id number] [place] [id number] Aug, [facility] [address] [id number] [address] [place] [address], [place] [address] Aug, [facility] [place] [address] [id number] [place] [id number] Aug, [facility] [address] [id number] [facility] [place] [address] Aug, [facility] [place] [address] [id number] [place] [id number] Aug, [facility] [address] [id number] [facility] [place] [address] Aug, [facility] [place] [address] [id number] [place] [id number] Aug, [facility] [address] [id number] [facility] [place] [address] Aug, [facility] [place] [address] [id number] [place] [id number] Jul, [facility] [address] [id number] [facility] [place] [address] Jul, [facility] [place] [address] [id number] [place] [id number] Jun, [facility] [address] [id number] [address] [place] [address], [place] [address] Jun, [facility] [place] [address] [id number] [place] [id number] Jun, [facility] [address] [id number] [facility] [place] [address] Jun, [facility] [place] [address] [id number] [place] [id number] Jun, [facility] [address] [id number] [facility] [place] [address] Jun, [facility] [address] [id number] [address] [place] [address], [place] [address] Jun, [facility] [address] [id number] [address] [place] [address], [place] [address] Jun, [facility] [address] [id number] [address] [place] [address], [place] [address] Jun, [facility] [place] [address] [id number] [place] [id number] Jun, [facility] [address] [id number] [address] [place] [address], [place] [address] Jun, [facility] [address] [id number] [address] [place] [address], [place] [address] May, [facility] [place] [address] [id number] [place] [id number] May, [facility] [address] [id number] [address] [place] [address], [place] [address] May, [facility] [place] [address] [id number] [place] [id number] May, [facility] [address] [id number] [address] [place] [address], [place] [address] May, [facility] [address] [id number] [address] [place] [address] Apr, [facility] [address] [id number] [address] [place] [address], [place] [address] Apr, [facility] [address] [id number] [address] [place] [address] Apr, [facility] [address] [id number] [address] [place] [address] Apr, [facility] [address] [id number] [address] [place] [address] Apr, [facility] [address] [id number] [address] [place] [address], [place] [address] Apr, [facility] [place] [address] [id number] [place] [id number] Apr, [facility] [address] [id number] [address] [place] [address], [place] [address] Apr, [facility] [place] [address] [id number] [place] [id number] Apr, [facility] [address] [id number] [address] [place] [address] Apr, [facility] [address] [facility] [id number] [address] [place] [address] Apr, [facility] [place] [address] [id number] [place] [id number] Apr, [facility] [address] [facility] [id number] [address] [place] [address] Apr, [facility] [place] [address] [id number] [place] [id number] Apr, [facility] [address] [facility] [id number] [address] [place] [address] Apr, [facility] [address] [facility] [id number] [address] [place] [address] Mar, [facility] [place] [address] [id number] [place] [id number] Mar, [facility] [address] [facility] [id number] [address] [place] [address] Mar, [facility] [address] [facility] [id number] [address] [place] [address] Mar, [facility] [place] [address] [id number] [place] [id number] Mar, [facility] [place] [address] [id number] [place] [id number] Mar, [facility] [place] [address] [id number] [place] [id number] Mar, [facility] [place] [address] [id number] [place] [id number] Mar, [facility] [place] [address] [id number] [place] [id number] Mar, [facility] [place] [address] [id number] [place] [id number] Mar, [facility] [place] [address] [id number] [place] [id number] Mar, [facility] [address] [facility] [id number] [place] [id number] Mar, [facility] [address] [facility] [id number] [address] [place] [address] Mar, [facility] [address] [facility] [id number] [place] [id number] Jul, [facility] [address] [facility] [id number] [address] [place] [address] Oct, [facility] [address] [facility] [id number] [address] [place] [address] Oct, [facility] [address] [facility] [id number] [address] [place] [address] May, [facility] [address] [facility] [id number] [address] [place] [address] Jun, IMMUNIZATIONS No Known Immunizations SOCIAL HISTORY Never Assessed REASON FOR VISIT PLAN OF CARE VITAL SIGNS MEDICATIONS Unknown Medications RESULTS No Results PROCEDURES Procedure Date Ordered Result Body Site URINE CULTURE/COLONY COUNT Jun 17, 2014 URINALYSIS, AUTO, W/O SCOPE Jun 17, 2014 INSTRUCTIONS MEDICATIONS ADMINISTERED No Known Medications MEDICAL [...] Surgical History had all teeth removed in [facility] 7 Hospitalization History DKA 07/2014 Hospitalization History [facility] hypoglycemia 08/2015 Hospitalization History [facility] elevated blood sugar 09/06 15 Hospitalization History [facility] in [place] for DKS for 3 days, sugar on admin 926 08/08/2017 Hospitalization History hypoglycemia April 22-2018 Hospitalization History admitted to ICU for low blood sugars 04/2019 Hospitalization History DKA 05/12/2019
--- OUTSIDE RECORDS SUMMARY | 2019-11-27 20:29 | XMS REPORT ---
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 Name Role Phone ALENA Perez Unavailable PROBLEMS Type Condition ICD9-CM Code VHU52-MC Code Onset Dates Condition S tatus SNOMED Code Problem Type 1 diabetes mellitus with hypoglycemia and without com a E10.649 Active 57962040 Problem Anxiety F41.9 Active 90608587 Problem Adjustment disorder with mixed anxiety and depressed mood F43.23 Active 975491274 Problem Intractable migraine without status migrainosus, unspecified migraine type G43.919 Active 690219396 Problem Primary insomnia F51.01 Active 397 2004 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 179946903 Problem Mixed hyperlipidemia E78.2 Active 730935731 Problem Mood disorder F39 Active 619556 05 ALLERGIES No Information ENCOUNTERS Encounter Location Date Diagnosis [facility] [address] [phone] 30 Oct, 2019 [facility] [address] [id number] [address] [place] [phone] 18 Oct, 2019 Acute cystitis with hematuri a N30.01 [facility] [address] [id number] [address] [place] [phone] 16 Oct, 2019 Type 1 diabetes mellitus wit h hypoglycemia and without coma E10.649 [facility] [address] [facility] [id number] [address] [place] [phone] Sep, Intractable headache, unspec ified chronicity pattern, unspecified headache type R51 [facility] [address] [facility] [id number] [address] [place] [phone] Sep, [facility] [address] [id number] [address] [place] [phone] 16 Sep, 2019 [facility] [address] [facility] [id number] [address] [place] [phone] 10 Sep, 2019 [facility] [address] [facility] [id number] [address] [place] [phone] 02 Sep, 2019 [facility] [address] [facility] [id number] [address] [place] [phone] 25 Aug, 2019 Adjustment disorder with mix ed anxiety and depressed mood F43.23 [facility] [address] [facility] [id number] [address] [place] [phone] 22 Aug, 2019 Nausea and vomiting, intract ability of vomiting not specified, unspecified vomiting type R11.2 and Flu-like symptoms R68.89 [facility] [address] [facility] [id number] [address] [place] [phone] 20 Aug, 2019 [facility] [address] [facility] [id number] [address] [place] [phone] 17 Aug, 2019 [facility] [address] [facility] [id number] [address] [place] [phone] 15 Aug, 2019 [facility] [address] [facility] [id number] [address] [place] [phone] 15 Aug, 2019 [facility] [address] [facility] [id number] [address] [place] [phone] 12 Aug, 2019 [facility] [address] [facility] [id number] [address] [place] [phone] 11 Aug, 2019 [facility] [address] [facility] [id number] [address] [place] [phone] 10 Aug, 2019 [facility] [address] [facility] [id number] [address] [place] [phone] 07 Aug, 2019 [facility] [address] [facility] [id number] [address] [place] [phone] 07 Aug, 2019 [facility] [address] [facility] [id number] [address] [place] [phone] Aug, [facility] [address] [id number] [address] [place] [phone] Aug, [facility] [address] [id number] [address] [place] [phone] Aug, [facility] [address] [id number] [address] [place] [phone] Aug, Urinary tract infection, sit e not specified N39.0 and Hematuria, unspecified R31.9 [facility] [address] [id number] [address] [place] [phone] Aug, [facility] [address] [id number] [address] [place] [phone] Jul, [facility] [address] [id number] [address] [place] [phone] Jul, [facility] [address] [id number] [address] [place] [phone] Jul, [facility] [address] [id number] [address] [place] [phone] Jul, Frequent UTI N39.0 [facility] [address] [id number] [address] [place] [phone] Jul, [facility] [address] [facility] [id number] [address] [place] [phone] Jul, Dysuria R30.0 [facility] [address] [id number] [address] [place] [phone] Jul, [facility] [address] [facility] [id number] [address] [place] [phone] Jul, Dysuria R30.0 [facility] [address] [facility] [id number] [address] [place] [phone] Jul, Adjustment disorder with mix ed anxiety and depressed mood F43.23 [facility] [address] [id number] [address] [place] [phone] Jul, [facility] [address] [id number] [address] [place] [phone] Jul, [facility] [address] [id number] [address] [place] [phone] Jul, Fatigue, unspecified type R5 3.83 ; Type 1 diabetes mellitus with hypoglycemia and without coma E10.649 and Mixed hyperlipidemia E78.2 [facility] [address] [id number] [address] [place] [phone] Jul, [facility] [address] [id number] [address] [place] [phone] Jul, [facility] [address] [id number] [address] [place] [phone] Jun, [facility] [address] [id number] [address] [place] [phone] Jun, [facility] [address] [id number] [address] [place] [phone] Jun, Fatigue, unspecified type R5 3.83 [facility] [address] [id number] [address] [place] [phone] Jun, [facility] [address] [id number] [address] [place] [phone] Jun, [facility] [address] [id number] [address] [place] [phone] Jun, [facility] [address] [id number] [address] [place] [phone] Jun, [facility] [address] [id number] [address] [place] [phone] Jun, [facility] [address] [id number] [address] [place] [phone] Jun, [facility] [address] [id number] [address] [place] [phone] Jun, Type 2 diabetes mellitus wit h diabetic polyneuropathy E11.42 [facility] [address] [facility] [id number] [address] [place] [phone] Jun, [facility] [address] [facility] [id number] [address] [place] [phone] Jun, [facility] [address] [facility] [id number] [address] [place] [phone] May, [facility] [address] [facility] [id number] [address] [place] [phone] May, Type 2 diabetes mellitus wit h diabetic polyneuropathy E11.42 [facility] [address] [facility] [id number] [address] [place] [phone] May, Type 1 diabetes mellitus wit h hypoglycemia and without coma E10.649 [facility] [address] [facility] [id number] [address] [place] [phone] May, [facility] [address] [facility] [id number] [address] [place] [phone] May, Type 2 diabetes mellitus wit h diabetic polyneuropathy E11.42 [facility] [address] [facility] [id number] [address] [place] [phone] May, Type 2 diabetes mellitus wit h diabetic polyneuropathy E11.42 [facility] [address] [facility] [id number] [address] [place] [phone] May, Type 2 diabetes mellitus wit h diabetic polyneuropathy E11.42 [facility] [address] [facility] [id number] [address] [place] [phone] May, Adjustment disorder with mix ed anxiety and depressed mood F43.23 [facility] [address] [facility] [id number] [address] [place] [phone] May, Bronchitis J40 [facility] [address] [facility] [id number] [address] [place] [phone] Apr, [facility] [address] [facility] [id number] [address] [place] [phone] Apr, Bronchitis J40 [facility] [address] [facility] [id number] [address] [place] [phone] Apr, Adjustment disorder with mix ed anxiety and depressed mood F43.23 ; Primary insomnia F51.01 and Mood disorder F39 [facility] [address] [facility] [id number] [address] [place] [phone] Apr, [facility] [address] [facility] [id number] [address] [place] [phone] Apr, Type 2 diabetes mellitus wit h diabetic polyneuropathy E11.42 and Mixed hyperlipidemia E78.2 [facility] [address] [facility] [id number] [address] [place] [phone] Apr, Mood disorder F39 [facility] [address] [facility] [id number] [address] [place] [phone] Apr, Type 2 diabetes mellitus wit h diabetic polyneuropathy E11.42 [facility] [address] [facility] [id number] [address] [place] [phone] Apr, Type 2 diabetes mellitus wit h diabetic polyneuropathy E11.42 [facility] [address] [facility] [id number] [address] [place] [phone] Apr, Type 2 diabetes mellitus wit h diabetic polyneuropathy E11.42 [facility] [address] [facility] [id number] [address] [place] [phone] Apr, [facility] [address] [id number] [place] [address] Apr, [facility] [address] [facility] [id number] [address] [place] [phone] Apr, [facility] [address] [facility] [id number] [address] [place] [phone] Apr, [facility] [address] [facility] [id number] [address] [place] [phone] Apr, [facility] [address] [facility] [id number] [address] [place] [phone] Apr, [facility] [address] [facility] [id number] [address] [place] [phone] Apr, Type 2 diabetes mellitus wit h diabetic polyneuropathy E11.42 ; Mixed hyperlipidemia E78.2 ; Dyshidrotic eczema L30.1 ; Frequent UTI N39.0 and Encounter for immunization Z23 [facility] [address] [facility] [id number] [address] [place] [phone] Apr, Adjustment disorder with mix ed anxiety and depressed mood F43.23 ; Primary insomnia F51.01 and Mood disorder F39 [facility] [address] [facility] [id number] [address] [place] [phone] Apr, [facility] [address] [facility] [id number] [address] [place] [phone] Apr, [facility] [address] [facility] [id number] [address] [place] [phone] Apr, [facility] [address] [facility] [id number] [address] [place] [phone] Apr, [facility] [address] [facility] [id number] [address] [place] [phone] Apr, [facility] [address] [facility] [id number] [address] [place] [phone] Apr, Mood disorder F39 [facility] [address] [facility] [id number] [address] [place] [phone] Mar, Type 2 diabetes mellitus wit h diabetic polyneuropathy E11.42 [facility] [address] [facility] [id number] [address] [place] [phone] Mar, Urinary tract infection, sit e not specified N39.0 [facility] [address] [facility] [id number] [address] [place] [phone] Mar, [facility] [address] [facility] [id number] [address] [place] [phone] Mar, [facility] [address] [id number] [address] [place] [phone] Mar, [facility] [address] [id number] [address] [place] [phone] Mar, Intractable migraine without status migrainosus, unspecified migraine type G43.919 [facility] [address] [id number] [address] [place] [phone] Mar, [facility] [address] [id number] [address] [place] [phone] 18 Mar, 2019 [facility] [address] [facility] [id number] [address] [place] [phone] 18 Mar, 2019 Urinary tract infection, sit e not specified N39.0 and Hematuria, unspecified R31.9 [facility] [address] [id number] [address] [place] [phone] 17 Mar, 2019 [facility] [address] [id number] [address] [place] [phone] 16 Mar, 2019 Mood disorder F39 [facility] [address] [id number] [address] [place] [phone] 13 Mar, 2019 Type 2 diabetes mellitus wit h diabetic polyneuropathy E11.42 [facility] [address] [id number] [address] [place] [phone] Mar, [facility] [address] [id number] [address] [place] [phone] Mar, [facility] [address] [id number] [address] [place] [phone] Feb, [facility] [address] [id number] [address] [place] [phone] Feb, [facility] [address] [facility] [id number] [address] [place] [phone] Feb, [facility] [address] [id number] [address] [place] [phone] Feb, [facility] [address] [facility] [id number] [address] [place] [phone] Feb, [facility] [address] [facility] [id number] [address] [place] [phone] Feb, [facility] [address] [facility] [id number] [address] [place] [phone] Feb, Dysuria R30.0 [facility] [address] [facility] [id number] [address] [place] [phone] Feb, [facility] [address] [facility] [id number] [address] [place] [phone] Feb, [facility] [address] [facility] [id number] [address] [place] [phone] Feb, [facility] [address] [facility] [id number] [address] [place] [phone] Feb, [facility] [address] [facility] [id number] [address] [place] [phone] Jan, HPV (human papilloma virus) infection B97.7 [facility] [address] [facility] [id number] [address] [place] [phone] Dec, [facility] [address] [facility] [id number] [address] [place] [phone] Dec, [facility] [address] [facility] [id number] [address] [place] [phone] Dec, [facility] [address] [facility] [id number] [address] [place] [phone] Dec, Mixed hyperlipidemia E78.2 [facility] [address] [facility] [id number] [address] [place] [phone] Dec, Type 2 diabetes mellitus wit h diabetic polyneuropathy E11.42 and group home 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 [facility] [address] [facility] [id number] [address] [place] [phone] November, Type 2 diabetes mellitus wit h diabetic polyneuropathy E11.42 [facility] [address] [id number] [address] [place] [phone] November, Dysuria R30.0 and History of HPV infection Z86.19 [facility] [address] [id number] [address] [place] [phone] November, [facility] [address] [id number] [address] [place] [phone] November, UTI symptoms R39.9 [facility] [address] [id number] [address] [place] [phone] November, [facility] [address] [id number] [address] [place] [phone] November, UTI symptoms R39.9 [facility] [address] [id number] [address] [place] [phone] November, [facility] [address] [id number] [address] [place] [phone] November, Acute cystitis with hematuri a N30.[id number] [place] [phone] Sep, Acute UTI N39.0 and Uncontro lled type 2 diabetes mellitus with hyperglycemia E11.65 [facility] [address] [id number] [address] [place] [phone] Jul, Type 2 diabetes mellitus wit h diabetic polyneuropathy E11.42 [facility] [address] [id number] [address] [place] [phone] Jul, [facility] [address] [id number] [address] [place] [phone] Jul, [facility] [address] [id number] [address] [place] [phone] Jul, Acute cystitis without hemat uria N30.00 [facility] [id number] [place] [phone] Jul, [facility] [address] [id number] [address] [place] [phone] Jul, Acute UTI N39.0 [facility] [address] [id number] [address] [place] [phone] Jun, [facility] [address] [phone] Jun, Type 2 diabetes mellitus wit h diabetic polyneuropathy E11.42 ; group home 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 and Primary insomnia F51.01 [facility] [address] [id number] [address] [place] [id number] Apr, Type 2 diabetes mellitus wit h diabetic polyneuropathy E11.42 [id number] [place] [id number] Apr, Type 2 diabetes mellitus with diabetic p olyneuropathy E11.42 ; Primary insomnia F51.01 and Anxiety F41.9 [id number] [place] [id number] Mar, Type 2 diabetes mellitus with diabetic p olyneuropathy E11.42 [id number] [place] [id number] Mar, Type 2 diabetes mellitus with diabetic p olyneuropathy E11.42 ; group home 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 ; Anxiety F41.9 and Primary insomnia F51.01 [facility] [id number] [place] [id number] Feb, Type II or unspecified type diabetes belinda litus without mention of complication, uncontrolled E11.65 [id number] [id number] Jan, Type II or unspecified type diabetes belinda litus without mention of complication, uncontrolled E11.65 ; 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 [place] [address] [id number] [place] [id number] Oct, [facility] [address] [id number] [place] [id number] Oct, [facility] [address] [id number] [place] [id number] Oct, Well woman exam with routine gynecologic al exam Z01.419 ; Screening breast examination Z12.31 ; Type 2 diabetes mellitus with diabetic polyneuropathy E11.42 ; group home 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 ; CVA tenderness M54.9 ; High risk sexual behavior Z72.51 ; Acute cystitis without hematuria N30.00 ; Anxiety F41.9 ; Type II or unspecified type diabetes mellitus without mention of complication, uncontrolled E11.65 and Primary insomnia F51.01 [facility] [address] [id number] [place] [id number] Aug, Primary insomnia F51.01 [facility] [address] [id number] [place] [id number] Aug, Abrasion T14.8XXA ; Open wound T14.8XXA and Type II or unspecified type diabetes mellitus without mention of complication, uncontrolled E11.65 [facility] [address] [id number] [place] [id number] Jul, Type II or unspecified type diabetes belinda litus without mention of complication, uncontrolled E11.65 ; Anxiety F41.9 ; Primary insomnia F51.01 ; Abrasion T14.8XXA and Pain in left ross M79.[address] [facility] [place] [address] [id number] [place] [id number] May, Type II or unspecified type diabetes belinda litus without mention of complication, uncontrolled E11.[address] [facility] [place] [address] [id number] [place] [id number] May, Primary insomnia F51.01 [facility] [place] [address] [id number] [place] [id number] Apr, Primary insomnia F51.01 [facility] [place] [address] [id number] [place] [id number] Mar, [facility] [place] [address] [id number] [place] [id number] Mar, Type II or unspecified type diabetes belinda litus without mention of complication, uncontrolled E11.65 ; Primary insomnia F51.01 ; Other insomnia G47.09 and Anxiety F41.[address] [facility] [place] [address] [id number] [place] [id number] Jan, Type II or unspecified type diabetes belinda litus without mention of complication, uncontrolled E11.65 ; Anxiety F41.9 and Other insomnia G47.[address] [facility] [place] [address] [id number] [place] [id number] 07 Dec, 2016 Type II or unspecified type diabetes belinda litus without mention of complication, uncontrolled E11.65 ; Anxiety F41.9 and Other insomnia G47.[address] [facility] [place] [address] [id number] [place] [id number] 15 Nov, 2016 Type II or unspecified type diabetes belinda litus without mention of complication, uncontrolled E11.[address] [facility] [place] [address] [id number] [place] [id number] 14 Oct, 2016 Dysuria R30.[address] [facility] [place] [address] [id number] [place] [id number] 14 Sep, 2016 Pain, dental K08.89 [facility] [place] [address] [id number] [place] [id number] Aug, [facility] [place] [address] [id number] [place] [id number] 16 Aug, 2016 Dysuria R30.0 ; Type II or unspecified t ype diabetes mellitus without mention of complication, uncontrolled E11.65 and Medial epicondylitis, left elbow M77.02 [facility] [place] [address] [id number] [place] [id number] Jul, Acute pharyngitis due to other specified organisms J02.8 [facility] [place] [address] [id number] [place] [id number] Jun, Cellulitis of unspecified part of limb L 03.119 ; Type II or unspecified type diabetes mellitus without mention of complication, uncontrolled E11.65 ; Cellulitis of right lower extremity L03.115 and Ulcer of skin, limited to breakdown of skin L98.491 [facility] [place] [address] [id number] [place] [id number] Jun, Cellulitis of unspecified part of limb L 03.119 ; Cellulitis of right lower extremity L03.115 and Ulcer of skin, limited to breakdown of skin L98.491 [facility] [place] [address] [id number] [place] [id number] Jun, Cellulitis of unspecified part of limb L 03.119 ; Cellulitis of right lower extremity L03.115 and Ulcer of skin, limited to breakdown of skin L98.491 [facility] [place] [address] [id number] [place] [id number] Jun, [facility] [place] [address] [id number] [place] [id number] Jun, [facility] [place] [address] [id number] [place] [id number] Jun, Dysuria R30.0 [facility] [place] [address] [id number] [place] [id number] May, [facility] [place] [address] [id number] [place] [id number] May, Painful swelling of joint M25.40 and Typ e II or unspecified type diabetes mellitus without mention of complication, uncontrolled E11.65 [facility] [place] [address] [id number] [place] [id number] May, Painful swelling of joint M25.40 [facility] [place] [address] [id number] [place] [id number] May, Painful swelling of joint M25.40 ; Gluco suria R81 and History of chest pain Z87.898 [facility] [id number] [place] [id number] May, [facility] [place] [address] [id number] [place] [id number] Apr, Well woman exam with routine gynecologic al exam Z01.419 and High risk sexual behavior Z72.51 [facility] [place] [address] [id number] [place] [id number] Apr, Kidney infection N15.9 ; UTI symptoms R3 9.9 and Dysuria R30.0 [facility] [place] [address] [id number] [place] [id number] Apr, Grief reaction F43.20 [facility] [place] [address] [id number] [place] [id number] Mar, [facility] [place] [address] [id number] [place] [id number] Mar, Grief reaction F43.20 [facility] [place] [address] [id number] [place] [id number] Feb, [facility] [place] [address] [id number] [place] [id number] Feb, Stress reaction F43.0 and Type II or uns pecified type diabetes mellitus without mention of complication, uncontrolled E11.65 [facility] [place] [address] [id number] [place] [id number] Jan, [facility] [place] [address] [id number] [place] [id number] Dec, [facility] [place] [address] [id number] [place] [id number] Dec, [facility] [place] [address] [id number] [place] [id number] Dec, [facility] [place] [address] [id number] [place] [id number] November, [facility] [place] [address] [id number] [place] [id number] November, Pharyngitis J02.9 [facility] [place] [address] [id number] [place] [id number] Oct, [facility] [place] [address] [id number] [place] [id number] Oct, Sciatic leg pain M54.30 [facility] [place] [address] [id number] [place] [id number] Sep, [facility] [place] [address] [id number] [place] [id number] Sep, [facility] [place] [address] [id number] [place] [id number] Sep, Sciatic leg pain M54.30 [facility] [place] [address] [id number] [place] [id number] Aug, Pharyngitis J02.9 [facility] [place] [address] [id number] [place] [id number] Jul, Type II or unspecified type diabetes belinda litus without mention of complication, uncontrolled E11.65 and Midline low back pain without sciatica M54.5 [facility] [place] [address] [id number] [place] [id number] Jun, Diabetes with unspecified complication, type II or unspecified type, uncontrolled 250.92 [facility] [place] [address] [id number] [place] [id number] Jun, [facility] [address] [id number] [place] [id number] May, [facility] [place] [address] [id number] [place] [id number] May, Diabetes with unspecified complication, type II or unspecified type, uncontrolled 250.92 [facility] [place] [address] [id number] [place] [id number] Apr, [facility] [address] [id number] [place] [id number] Apr, [facility] [place] [address] [id number] [place] [id number] Apr, Type 2 diabetes mellitus with hyperglyce giovani E11.65 ; Depression with anxiety F41.8 ; Influenza vaccination declined Z28.21 and Diabetes with unspecified complication, type II or unspecified type, uncontrolled 250.92 [facility] [place] [address] [id number] [place] [id number] Apr, [facility] [place] [address] [id number] [place] [id number] Mar, [facility] [place] [address] [id number] [place] [id number] Mar, [facility] [place] [address] [id number] [place] [id number] Mar, [facility] [place] [address] [id number] [place] [id number] Feb, [facility] [place] [address] [id number] [place] [id number] Feb, [facility] [place] [address] [id number] [place] [id number] Feb, [facility] [place] [address] [id number] [place] [id number] Feb, [place] [address] [facility] [address] [id number] [id number] Feb, Dental abscess 522.5 [facility] [address] [id number] [place] [id number] Jan, Diabetes with unspecified complication, type II or unspecified type, uncontrolled 250.92 ; Vaginal denise 112.1 ; Broken tooth 873.63 and Screening for STD (sexually transmitted disease) V74.5 [facility] [address] [facility] [id number] [address] [place] [id number] Oct, [facility] [address] [facility] [id number] [address] [place] [address] Oct, [facility] [address] [id number] [place] [id number] Sep, [facility] [address] [facility] [id number] [address] [place] [address] Sep, [facility] [place] [address] [id number] [place] [id number] Aug, [facility] [address] [id number] [address] [place] [address], [place] [address] Aug, [facility] [place] [address] [id number] [place] [id number] Aug, [facility] [address] [id number] [address] [place] [address], [place] [address] Aug, [facility] [place] [address] [id number] [place] [id number] Jul, [facility] [address] [id number] [address] [place] [address], [place] [address] Jul, [facility] [place] [address] [id number] [place] [id number] Jul, [facility] [address] [id number] [address] [place] [address], [place] [address] Jul, [facility] [address] [id number] [address] [place] [address], [place] [address] Jul, [facility] [place] [address] [id number] [place] [id number] Jul, [facility] [place] [address] [id number] [place] [id number] Jul, [facility] [address] [id number] [address] [place] [address], [place] [address] Jul, [facility] [place] [address] [id number] [place] [id number] Jul, [facility] [address] [id number] [address] [place] [address], [place] [address] Jul, [facility] [place] [address] [id number] [place] [id number] Jun, [facility] [address] [id number] [address] [place] [id number] Jun, [facility] [address] [id number] [address] [place] [address], [place] [address] Jun, [facility] [place] [address] [id number] [place] [id number] Jun, [facility] [address] [id number] [address] [place] [address], [place] [address] Jun, [facility] [address] [id number] [address] [place] [address], [place] [address] May, [facility] [place] [address] [id number] [place] [id number] May, [facility] [place] [address] [id number] [place] [id number] May, [facility] [address] [id number] [address] [place] [address], [place] [address] May, [facility] [place] [address] [id number] [place] [id number] May, [facility] [address] [id number] [address] [place] [address], [place] [address] May, [facility] [address] [id number] [address] [place] [address], [place] [address] Apr, [facility] [address] [id number] [address] [place] [address], [place] [address] Mar, [facility] [address] [id number] [address] [place] [address], [place] [address] Jan, [facility] [place] [address] [id number] [place] [id number] Jan, [facility] [address] [id number] [address] [place] [address], [place] [address] Jan, [facility] [place] [address] [id number] [place] [id number] Jan, [facility] [address] [id number] [address] [place] [address], [place] [address] Jan, [facility] [place] [address] [id number] [place] [id number] Dec, [facility] [address] [id number] [address] [place] [address], [place] [address] Dec, [facility] [place] [address] [id number] [place] [id number] November, [facility] [address] [id number] [address] [place] [address], [place] [address] November, [facility] [place] [address] [id number] [place] [id number] November, [facility] [address] [id number] [address] [place] [address], [place] [address] November, [facility] [place] [address] [id number] [place] [id number] Oct, [facility] [address] [id number] [address] [place] [address], [place] [address] Oct, [facility] [place] [address] [id number] [place] [id number] Oct, [facility] [address] [id number] [address] [place] [address], [place] [address] Oct, [facility] [address] [id number] [address] [place] [address], [place] [address] Oct, [facility] [address] [facility] [id number] [address] [place] [address], [place] [address] Oct, [facility] [place] [address] [id number] [place] [id number] Sep, [facility] [address] [id number] [address] [place] [address], [place] [address] Sep, [facility] [address] [id number] [address] [place] [address], [place] [address] Aug, [facility] [place] [address] [id number] [place] [id number] Aug, [facility] [address] [id number] [address] [place] [address], [place] [address] Aug, [facility] [place] [address] [id number] [place] [id number] Aug, [facility] [address] [id number] [facility] [place] [address] Aug, [facility] [place] [address] [id number] [place] [id number] Aug, [facility] [address] [id number] [facility] [place] [address] Aug, [facility] [place] [address] [id number] [place] [id number] Aug, [facility] [address] [id number] [facility] [place] [address] Aug, [facility] [place] [address] [id number] [place] [id number] Jul, [facility] [address] [id number] [facility] [place] [address] Jul, [facility] [place] [address] [id number] [place] [id number] Jun, [facility] [address] [id number] [address] [place] [address], [place] [address] Jun, [facility] [place] [address] [id number] [place] [id number] Jun, [facility] [address] [id number] [facility] [place] [address] Jun, [facility] [place] [address] [id number] [place] [id number] Jun, [facility] [address] [id number] [facility] [place] [address] Jun, [facility] [address] [id number] [address] [place] [address], [place] [address] Jun, [facility] [address] [id number] [address] [place] [address], [place] [address] Jun, [facility] [address] [id number] [address] [place] [address], [place] [address] Jun, [facility] [place] [address] [id number] [place] [id number] Jun, [facility] [address] [id number] [address] [place] [address], [place] [address] Jun, [facility] [address] [id number] [address] [place] [address], [place] [address] May, [facility] [place] [address] [id number] [place] [id number] May, [facility] [address] [id number] [address] [place] [address], [place] [address] May, [facility] [place] [address] [id number] [place] [id number] May, [facility] [address] [id number] [address] [place] [address], [place] [address] May, [facility] [address] [id number] [address] [place] [address] Apr, [facility] [address] [id number] [address] [place] [address], [place] [address] Apr, [facility] [address] [id number] [address] [place] [address] Apr, [facility] [address] [id number] [address] [place] [address] Apr, [facility] [address] [id number] [address] [place] [address] Apr, [facility] [address] [id number] [address] [place] [address], [place] [address] Apr, [facility] [place] [address] [id number] [place] [id number] Apr, [facility] [address] [id number] [address] [place] [address], [place] [address] Apr, [facility] [place] [address] [id number] [place] [id number] Apr, [facility] [address] [id number] [address] [place] [address] Apr, [facility] [address] [facility] [id number] [address] [place] [address] Apr, [facility] [place] [address] [id number] [place] [id number] Apr, [facility] [address] [facility] [id number] [address] [place] [address] Apr, [facility] [place] [address] [id number] [place] [id number] Apr, [facility] [address] [facility] [id number] [address] [place] [address] Apr, [facility] [address] [facility] [id number] [address] [place] [address] Mar, [facility] [place] [address] [id number] [place] [id number] Mar, [facility] [address] [facility] [id number] [address] [place] [address] Mar, [facility] [address] [facility] [id number] [address] [place] [address] Mar, [facility] [place] [address] [id number] [place] [id number] Mar, [facility] [place] [address] [id number] [place] [id number] Mar, [facility] [place] [address] [id number] [place] [id number] Mar, [facility] [place] [address] [id number] [place] [id number] Mar, [facility] [place] [address] [id number] [place] [id number] Mar, [facility] [place] [address] [id number] [place] [id number] Mar, [facility] [place] [address] [id number] [place] [id number] Mar, [facility] [address] [facility] [id number] [place], [place] [id number] Mar, [facility] [address] [facility] [id number] [address] [place] [address] Mar, [facility] [address] [facility] [id number] [place], [place] [id number] Jul, [facility] [address] [facility] [id number] [address] [place] [address] Oct, [facility] [address] [facility] [id number] [address] [place] [address] Oct, [facility] [address] [facility] [id number] [address] [place] [address] May, [facility] [address] [place] [id number] [address] [place] [address] Jun, IMMUNIZATIONS No Known Immunizations SOCIAL HISTORY Never Assessed REASON FOR VISIT PLAN OF CARE VITAL SIGNS Height 69 in 2014-08-21 Weight 240.4 lbs 2014-08-21 Temperature 98.9 degrees Fahrenheit 2014-08-21 Heart Rate 84 bpm 2014-08-21 Respiratory Rate 20 2014-08-21 Blood pressure systolic 122 mmHg 2014-08-21 Blood pressure diastolic 74 mmHg 2014-08-21 MEDICATIONS Unknown Medications RESULTS No Results PROCEDURES Procedure Date Ordered Result Body Site MICROALBUMIN, SEMIQUANT Aug 21, 2014 DRUG SCREEN, QUALITATE/MULTI Aug 21, 2014 INSTRUCTIONS MEDICATIONS ADMINISTERED No Known Medications [...] Surgical History had all teeth removed in [facility] 7 Hospitalization History DKA 07/2014 Hospitalization History [facility] hypoglycemia 08/2015 Hospitalization History [facility] elevated blood sugar 09/06 15 Hospitalization History Lupis Negrete in [place] for DKS for 3 days, sugar on admin 926 08/08/2017 Hospitalization History hypoglycemia April 222018 Hospitalization History admitted to ICU for low blood sugars 04/2019 Hospitalization History DKA 05/12/2019
--- OUTSIDE RECORDS SUMMARY | 2019-11-27 20:29 | XMS REPORT ---
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 Assistant Name Role Phone ALENA Perez Unavailable PROBLEMS Type Condition ICD9-CM Code FWY11-SH Code Onset Dates Condition S tatus SNOMED Code Problem Type 1 diabetes mellitus with hypoglycemia and without com a E10.649 Active 69068446 Problem Anxiety F41.9 Active 38226371 Problem Adjustment disorder with mixed anxiety and depressed mood F43.23 Active 960356481 Problem Intractable migraine without status migrainosus, unspecified migraine type G43.919 Active 101620222 Problem Primary insomnia F51.01 Active 397 2004 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 [address] [place] [id number] [address] [place] [id number] 18 Oct, 2019 Acute cystitis with hematuri a N30.01 [facility] [address] [facility] [id number] [address] [place] [id number] 16 Oct, 2019 Type 1 diabetes mellitus wit h hypoglycemia and without coma E10.[address] [facility] [address] [facility] [id number] [address] [place] [id number] Sep, Intractable headache, unspec ified chronicity pattern, unspecified headache type R51 [facility] [address] [facility] [id number] [address] [place] [id number] Sep, [facility] [address] [id number] [address] [place] [id number] 16 Sep, 2019 [facility] [address] [facility] [id number] [address] [place] [id number] 10 Sep, 2019 [facility] [address] [facility] [id number] [address] [place] [id number] 02 Sep, 2019 [facility] [address] [facility] [id number] [address] [place] [id number] 25 Aug, 2019 Adjustment disorder with mix ed anxiety and depressed mood F43.[address] [facility] [address] [facility] [id number] [address] [place] [id number] 22 Aug, 2019 Nausea and vomiting, intract ability of vomiting not specified, unspecified vomiting type R11.2 and Flu-like symptoms R68.89 [facility] [address] [facility] [id number] [address] [place] [id number] 20 Aug, 2019 [facility] [address] [facility] [id number] [address] [place] [id number] 17 Aug, 2019 [facility] [address] [facility] [id number] [address] [place] [id number] 15 Aug, 2019 [facility] [address] [facility] [id number] [address] [place] [id number] 15 Aug, 2019 [facility] [address] [facility] [id number] [address] [place] [id number] 12 Aug, 2019 [facility] [address] [facility] [id number] [address] [place] [id number] 11 Aug, 2019 [facility] [address] [facility] [id number] [address] [place] [id number] 10 Aug, 2019 [facility] [address] [facility] [id number] [address] [place] [id number] 07 Aug, 2019 [facility] [address] [facility] [id number] [address] [place] [id number] 07 Aug, 2019 [facility] [address] [facility] [id number] [address] [place] [id number] Aug, [facility] [address] [id number] [address] [place] [id number] Aug, [facility] [address] [id number] [address] [place] [id number] Aug, [facility] [address] [id number] [address] [place] [id number] Aug, Urinary tract infection, sit e not specified N39.0 and Hematuria, unspecified R31.9 [facility] [address] [id number] [address] [place] [id number] Aug, [facility] [address] [id number] [address] [place] [id number] Jul, [facility] [address] [id number] [address] [place] [id number] Jul, [facility] [address] [id number] [address] [place] [id number] Jul, [facility] [address] [id number] [address] [place] [id number] Jul, Frequent UTI N39.0 [facility] [address] [id number] [address] [place] [id number] Jul, [facility] [address] [facility] [id number] [address] [place] [id number] Jul, Dysuria R30.0 [facility] [address] [id number] [address] [place] [id number] Jul, [facility] [address] [facility] [id number] [address] [place] [address] Jul, Dysuria R30.0 [facility] [address] [facility] [id number] [address] [place] [id number] Jul, Adjustment disorder with mix ed anxiety and depressed mood F43.23 [facility] [address] [id number] [address] [place] [id number] Jul, [facility] [address] [id number] [address] [place] [id number] Jul, [facility] [address] [id number] [address] [place] [id number] Jul, Fatigue, unspecified type R5 3.83 ; Type 1 diabetes mellitus with hypoglycemia and without coma E10.649 and Mixed hyperlipidemia E78.2 [facility] [address] [id number] [address] [place] [id number] Jul, [facility] [address] [id number] [address] [place] [id number] Jul, [facility] [address] [id number] [address] [place] [id number] Jun, [facility] [address] [id number] [address] [place] [id number] Jun, [facility] [address] [id number] [address] [place] [id number] Jun, Fatigue, unspecified type R5 3.83 [facility] [address] [id number] [address] [place] [id number] Jun, [facility] [address] [id number] [address] [place] [id number] Jun, [facility] [address] [id number] [address] [place] [id number] Jun, [facility] [address] [id number] [address] [place] [id number] Jun, [facility] [address] [id number] [address] [place] [id number] Jun, [facility] [address] [id number] [address] [place] [id number] Jun, [facility] [address] [id number] [address] [place] [id number] Jun, Type 2 diabetes mellitus wit h diabetic polyneuropathy E11.42 [facility] [address] [facility] [id number] [address] [place] [id number] Jun, [facility] [address] [facility] [id number] [address] [place] [id number] Jun, [facility] [address] [facility] [id number] [address] [place] [id number] May, [facility] [address] [facility] [id number] [address] [place] [id number] May, Type 2 diabetes mellitus wit h diabetic polyneuropathy E11.42 [facility] [address] [facility] [id number] [address] [place] [id number] May, Type 1 diabetes mellitus wit h hypoglycemia and without coma E10.649 [facility] [address] [facility] [id number] [address] [place] [id number] May, [facility] [address] [facility] [id number] [address] [place] [id number] May, Type 2 diabetes mellitus wit h diabetic polyneuropathy E11.42 [facility] [address] [facility] [id number] [address] [place] [address] May, Type 2 diabetes mellitus wit h diabetic polyneuropathy E11.42 [facility] [address] [facility] [id number] [address] [place] [id number] May, Type 2 diabetes mellitus wit h diabetic polyneuropathy E11.42 [facility] [address] [facility] [id number] [address] [place] [id number] May, Adjustment disorder with mix ed anxiety and depressed mood F43.[address] [facility] [address] [facility] [id number] [address] [place] [id number] May, Bronchitis J40 [facility] [address] [facility] [id number] [address] [place] [id number] Apr, [facility] [address] [facility] [id number] [address] [place] [id number] Apr, Bronchitis J40 [facility] [address] [facility] [id number] [address] [place] [address] Apr, Adjustment disorder with mix ed anxiety and depressed mood F43.23 ; Primary insomnia F51.01 and Mood disorder F39 [facility] [address] [facility] [id number] [address] [place] [id number] Apr, [facility] [address] [facility] [id number] [address] [place] [id number] Apr, Type 2 diabetes mellitus wit h diabetic polyneuropathy E11.42 and Mixed hyperlipidemia E78.2 [facility] [address] [facility] [id number] [address] [place] [id number] Apr, Mood disorder F39 [facility] [address] [facility] [id number] [address] [place] [id number] Apr, Type 2 diabetes mellitus wit h diabetic polyneuropathy E11.42 [facility] [address] [facility] [id number] [address] [place] [id number] Apr, Type 2 diabetes mellitus wit h diabetic polyneuropathy E11.42 [facility] [address] [facility] [id number] [address] [place] [id number] Apr, Type 2 diabetes mellitus wit h diabetic polyneuropathy E11.42 [facility] [address] [facility] [id number] [address] [place] [id number] Apr, [facility] [id number] [id number] [place] [address] Apr, [facility] [address] [facility] [id number] [address] [place] [id number] Apr, [facility] [address] [facility] [id number] [address] [place] [id number] Apr, [facility] [address] [facility] [id number] [address] [place] [address] Apr, [facility] [address] [facility] [id number] [address] [place] [id number] Apr, [facility] [address] [facility] [id number] [address] [place] [address] Apr, Type 2 diabetes mellitus wit h diabetic polyneuropathy E11.42 ; Mixed hyperlipidemia E78.2 ; Dyshidrotic eczema L30.1 ; Frequent UTI N39.0 and Encounter for immunization Z23 [facility] [address] [facility] [id number] [address] [place] [id number] Apr, Adjustment disorder with mix ed anxiety and depressed mood F43.23 ; Primary insomnia F51.01 and Mood disorder F39 [facility] [address] [facility] [id number] [address] [place] [id number] Apr, [facility] [address] [facility] [id number] [address] [place] [id number] Apr, [facility] [address] [facility] [id number] [address] [place] [id number] Apr, [facility] [address] [facility] [id number] [address] [place] [id number] Apr, [facility] [address] [facility] [id number] [address] [place] [id number] Apr, [facility] [address] [facility] [id number] [address] [place] [id number] Apr, Mood disorder F39 [facility] [address] [facility] [id number] [address] [place] [address] Mar, Type 2 diabetes mellitus wit h diabetic polyneuropathy E11.42 [facility] [address] [facility] [id number] [address] [place] [id number] Mar, Urinary tract infection, sit e not specified N39.0 [facility] [address] [facility] [id number] [address] [place] [id number] Mar, [facility] [address] [facility] [id number] [address] [place] [id number] Mar, [facility] [address] [id number] [address] [place] [id number] Mar, [facility] [address] [id number] [address] [place] [id number] Mar, Intractable migraine without status migrainosus, unspecified migraine type G43.919 [facility] [address] [id number] [address] [place] [id number] Mar, [facility] [address] [id number] [address] [place] [id number] 18 Mar, [address] [facility] [address] [facility] [id number] [address] [place] [id number] 18 Mar, 2019 Urinary tract infection, sit e not specified N39.0 and Hematuria, unspecified R31.9 [facility] [address] [id number] [address] [place] [id number] 17 Mar, 2019 [facility] [address] [id number] [address] [place] [id number] 16 Mar, 2019 Mood disorder F39 [facility] [address] [id number] [address] [place] [id number] 13 Mar, 2019 Type 2 diabetes mellitus wit h diabetic polyneuropathy E11.42 [facility] [address] [id number] [address] [place] [id number] Mar, [facility] [address] [id number] [address] [place] [id number] Mar, [facility] [address] [id number] [address] [place] [id number] Feb, [facility] [address] [id number] [address] [place] [id number] Feb, [facility] [address] [facility] [id number] [address] [place] [id number] Feb, [facility] [address] [id number] [address] [place] [id number] Feb, [facility] [address] [facility] [id number] [address] [place] [id number] Feb, [facility] [address] [facility] [id number] [address] [place] [id number] Feb, [facility] [address] [facility] [id number] [address] [place] [id number] Feb, Dysuria R30.0 [facility] [address] [facility] [id number] [address] [place] [id number] Feb, [facility] [address] [facility] [id number] [address] [place] [id number] Feb, [facility] [address] [facility] [id number] [address] [place] [id number] Feb, [facility] [address] [facility] [id number] [address] [place] [id number] Feb, [facility] [address] [facility] [id number] [address] [place] [id number] Jan, HPV (human papilloma virus) infection B97.7 [facility] [address] [facility] [id number] [address] [place] [id number] Dec, [facility] [address] [facility] [id number] [address] [place] [id number] Dec, [facility] [address] [facility] [id number] [address] [place] [id number] Dec, [facility] [address] [facility] [id number] [address] [place] [id number] Dec, Mixed hyperlipidemia E78.2 [facility] [address] [facility] [id number] [address] [place] [id number] Dec, Type 2 diabetes mellitus wit h diabetic polyneuropathy E11.42 and detention 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 [facility] [address] [facility] [id number] [address] [place] [id number] November, Type 2 diabetes mellitus wit h diabetic polyneuropathy E11.42 [facility] [address] [id number] [address] [place] [id number] November, Dysuria R30.0 and History of HPV infection Z86.19 [facility] [address] [id number] [address] [place] [id number] November, [facility] [address] [id number] [address] [place] [id number] November, UTI symptoms R39.9 [facility] [address] [id number] [address] [place] [id number] November, [facility] [address] [id number] [address] [place] [id number] November, UTI symptoms R39.9 [facility] [address] [id number] [address] [place] [id number] November, [facility] [address] [id number] [address] [place] [id number] November, Acute cystitis with hematuri a N30.[id number] [place] [address] Sep, Acute UTI N39.0 and Uncontro lled type 2 diabetes mellitus with hyperglycemia E11.65 [facility] [address] [id number] [address] [place] [id number] Jul, Type 2 diabetes mellitus wit h diabetic polyneuropathy E11.42 [facility] [address] [id number] [address] [place] [id number] Jul, [facility] [address] [id number] [address] [place] [id number] Jul, [facility] [address] [id number] [address] [place] [id number] Jul, Acute cystitis without hemat uria N30.00 [facility] [id number] [place] [id number] Jul, [facility] [address] [place] [place] [id number] [address] [place] [id number] Jul, Acute UTI N39.0 [facility] [address] [id number] [address] [place] [id number] Jun, [facility] [address] [id number] Jun, Type 2 diabetes mellitus wit h diabetic polyneuropathy E11.42 ; detention 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 and Primary insomnia F51.01 [facility] [address] [place] [id number] [address] [place] [address] Apr, Type 2 diabetes mellitus wit h diabetic polyneuropathy E11.42 [id number] [id number] Apr, Type 2 diabetes mellitus with diabetic p olyneuropathy E11.42 ; Primary insomnia F51.01 and Anxiety F41.9 [id number] [id number] Mar, Type 2 diabetes mellitus with diabetic p olyneuropathy E11.42 [id number] [id number] Mar, Type 2 diabetes mellitus with diabetic p olyneuropathy E11.42 ; detention 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 ; Anxiety F41.9 and Primary insomnia F51.01 [facility] [address] [id number] Feb, Type II or unspecified type diabetes belinda litus without mention of complication, uncontrolled E11.65 [place] [id number] [id number] Jan, Type II or unspecified type diabetes belinda litus without mention of complication, uncontrolled E11.65 ; 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 ; Type 2 diabetes mellitus with diabetic polyneuropathy E11.42 ; Tinea B35.9 ; Acute eczema L30.9 and Anxiety F41.9 [facility] [address] [id number] [place] [id number] November, [facility] [place] [address] [id number] [place] [id number] November, Type 2 diabetes mellitus with diabetic p olyneuropathy E11.42 ; 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 ; Primary insomnia F51.01 and [facility]xiety F41.9 [facility] [place] [address] [id number] [place] [id number] Oct, [facility] [place] [address] [id number] [place] [id number] Oct, [facility] [address] [id number] [place] [id number] Oct, Well woman exam with routine gynecologic al exam Z01.419 ; Screening breast examination Z12.31 ; Type 2 diabetes mellitus with diabetic polyneuropathy E11.42 ; detention 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 ; CVA tenderness M54.9 ; High risk sexual behavior Z72.51 ; Acute cystitis without hematuria N30.00 ; Anxiety F41.9 ; Type II or unspecified type diabetes mellitus without mention of complication, uncontrolled E11.65 and Primary insomnia F51.01 [facility] [address] [id number] [place] [id number] Aug, Primary insomnia F51.01 [facility] [address] [id number] [place] [id number] Aug, Abrasion T14.8XXA ; Open wound T14.8XXA and Type II or unspecified type diabetes mellitus without mention of complication, uncontrolled E11.65 [facility] [address] [id number] [place] [id number] Jul, Type II or unspecified type diabetes belinda litus without mention of complication, uncontrolled E11.65 ; Anxiety F41.9 ; Primary insomnia F51.01 ; Abrasion T14.8XXA and Pain in left ross M79.662 [facility] [place] [address] [id number] [place] [id number] May, Type II or unspecified type diabetes belinda litus without mention of complication, uncontrolled E11.65 [facility] [place] [address] [id number] [place] [id number] May, Primary insomnia F51.01 [facility] [place] [address] [id number] [place] [id number] Apr, Primary insomnia F51.01 [facility] [place] [address] [id number] [place] [id number] Mar, [facility] [place] [address] [id number] [place] [id number] Mar, Type II or unspecified type diabetes belinda litus without mention of complication, uncontrolled E11.65 ; Primary insomnia F51.01 ; Other insomnia G47.09 and Anxiety F41.9 [facility] [place] [address] [id number] [place] [id number] Jan, Type II or unspecified type diabetes belinda litus without mention of complication, uncontrolled E11.65 ; Anxiety F41.9 and Other insomnia G47.09 [facility] [place] [address] [id number] [place] [id number] 07 Dec, 2016 Type II or unspecified type diabetes belinda litus without mention of complication, uncontrolled E11.65 ; Anxiety F41.9 and Other insomnia G47.09 [facility] [place] [address] [id number] [place] [id number] 15 Nov, 2016 Type II or unspecified type diabetes belinda litus without mention of complication, uncontrolled E11.65 [facility] [place] [address] [id number] [place] [id number] 14 Oct, 2016 Dysuria R30.0 [facility] [place] [address] [id number] [place] [id number] 14 Sep, 2016 Pain, dental K08.89 [facility] [place] [address] [id number] [place] [id number] Aug, [facility] [place] [address] [id number] [place] [id number] 16 Aug, 2016 Dysuria R30.0 ; Type II or unspecified t ype diabetes mellitus without mention of complication, uncontrolled E11.65 and Medial epicondylitis, left elbow M77.02 [facility] [place] [address] [id number] [place] [id number] Jul, Acute pharyngitis due to other specified organisms J02.8 [facility] [place] [address] [id number] [place] [id number] Jun, Cellulitis of unspecified part of limb L 03.119 ; Type II or unspecified type diabetes mellitus without mention of complication, uncontrolled E11.65 ; Cellulitis of right lower extremity L03.115 and Ulcer of skin, limited to breakdown of skin L98.491 [facility] [place] [address] [id number] [place] [id number] Jun, Cellulitis of unspecified part of limb L 03.119 ; Cellulitis of right lower extremity L03.115 and Ulcer of skin, limited to breakdown of skin L98.491 [facility] [place] [address] [id number] [place] [id number] Jun, Cellulitis of unspecified part of limb L 03.119 ; Cellulitis of right lower extremity L03.115 and Ulcer of skin, limited to breakdown of skin L98.491 [facility] [place] [address] [id number] [place] [id number] Jun, [facility] [place] [address] [id number] [place] [id number] Jun, [facility] [place] [address] [id number] [place] [id number] Jun, Dysuria R30.0 [facility] [place] [address] [id number] [place] [id number] May, [facility] [place] [address] [id number] [place] [id number] May, Painful swelling of joint M25.40 and Typ e II or unspecified type diabetes mellitus without mention of complication, uncontrolled E11.65 [facility] [place] [address] [id number] [place] [id number] May, Painful swelling of joint M25.40 [facility] [place] [address] [id number] [place] [id number] May, Painful swelling of joint M25.40 ; Gluco suria R81 and History of chest pain Z87.898 [facility] [address] [id number] [place] [id number] May, [facility] [place] [address] [id number] [place] [id number] Apr, Well woman exam with routine gynecologic al exam Z01.419 and High risk sexual behavior Z72.51 [facility] [place] [address] [id number] [place] [id number] Apr, Kidney infection N15.9 ; UTI symptoms R3 9.9 and Dysuria R30.0 [facility] [place] [address] [id number] [place] [id number] Apr, Grief reaction F43.20 [facility] [place] [address] [id number] [place] [id number] Mar, [facility] [place] [address] [id number] [place] [id number] Mar, Grief reaction F43.20 [facility] [place] [address] [id number] [place] [id number] Feb, [facility] [place] [address] [id number] [place] [id number] Feb, Stress reaction F43.0 and Type II or uns pecified type diabetes mellitus without mention of complication, uncontrolled E11.65 [facility] [place] [address] [id number] [place] [id number] Jan, [facility] [place] [address] [id number] [place] [id number] Dec, [facility] [place] [address] [id number] [place] [id number] Dec, [facility] [place] [address] [id number] [place] [id number] Dec, [facility] [place] [address] [id number] [place] [id number] November, [facility] [place] [address] [id number] [place] [id number] November, Pharyngitis J02.9 [facility] [place] [address] [id number] [place] [id number] Oct, [facility] [place] [address] [id number] [place] [id number] Oct, Sciatic leg pain M54.30 [facility] [place] [address] [id number] [place] [id number] Sep, [facility] [place] [address] [id number] [place] [id number] Sep, [facility] [place] [address] [id number] [place] [id number] Sep, Sciatic leg pain M54.30 [facility] [place] [address] [id number] [place] [id number] Aug, Pharyngitis J02.9 [facility] [place] [address] [id number] [place] [id number] Jul, Type II or unspecified type diabetes belinda litus without mention of complication, uncontrolled E11.65 and Midline low back pain without sciatica M54.5 [facility] [place] [address] [id number] [place] [id number] Jun, Diabetes with unspecified complication, type II or unspecified type, uncontrolled 250.92 [facility] [place] [address] [id number] [place] [id number] Jun, [facility] [address] [id number] [place] [id number] May, [facility] [place] [address] [id number] [place] [id number] May, Diabetes with unspecified complication, type II or unspecified type, uncontrolled 250.92 [facility] [place] [address] [id number] [place] [id number] Apr, [facility] [address] [id number] [place] [id number] Apr, [facility] [place] [address] [id number] [place] [id number] Apr, Type 2 diabetes mellitus with hyperglyce giovani E11.65 ; Depression with anxiety F41.8 ; Influenza vaccination declined Z28.21 and Diabetes with unspecified complication, type II or unspecified type, uncontrolled 250.92 [facility] [place] [address] [id number] [place] [id number] Apr, [facility] [place] [address] [id number] [place] [id number] Mar, [facility] [place] [address] [id number] [place] [id number] Mar, [facility] [place] [address] [id number] [place] [id number] Mar, [facility] [place] [address] [id number] [place] [id number] Feb, [facility] [place] [address] [id number] [place] [id number] Feb, [facility] [place] [address] [id number] [place] [id number] Feb, [facility] [place] [address] [id number] [place] [id number] Feb, [place] [address] [facility] [address] [id number] [id number] Feb, Dental abscess 522.5 [facility] [address] [id number] [place] [id number] Jan, Diabetes with unspecified complication, type II or unspecified type, uncontrolled 250.92 ; Vaginal denise 112.1 ; Broken tooth 873.63 and Screening for STD (sexually transmitted disease) V74.5 [facility] [address] [facility] [id number] [address] [place] [address] Oct, [facility] [address] [facility] [id number] [address] [place] [address] Oct, [facility] [address] [id number] [place] [id number] Sep, [facility] [address] [facility] [id number] [address] [place] [address] Sep, [facility] [place] [address] [id number] [place] [id number] Aug, [facility] [address] [id number] [address] [place] [address], [place] [address] Aug, [facility] [place] [address] [id number] [place] [id number] Aug, [facility] [address] [id number] [address] [place] [address], [place] [address] Aug, [facility] [place] [address] [id number] [place] [id number] Jul, [facility] [place] [facility] [address] [id number] [address] [place] [address], [place] [address] Jul, [facility] [place] [address] [id number] [place] [id number] Jul, [facility] [address] [id number] [address] [place] [address], [place] [address] Jul, [facility] [address] [id number] [address] [place] [address], [place] [address] Jul, [facility] [place] [address] [id number] [place] [id number] Jul, [facility] [place] [address] [id number] [place] [id number] Jul, [facility] [address] [id number] [address] [place] [address], [place] [address] Jul, [facility] [place] [address] [id number] [place] [id number] Jul, [facility] [address] [id number] [address] [place] [address], [place] [address] Jul, [facility] [place] [address] [id number] [place] [id number] Jun, [facility] [address] [id number] [address] [place] [address] Jun, [facility] [address] [id number] [address] [place] [address], [place] [address] Jun, [facility] [place] [address] [id number] [place] [id number] Jun, [facility] [address] [id number] [address] [place] [address], [place] [address] Jun, [facility] [address] [id number] [address] [place] [address], [place] [address] May, [facility] [place] [address] [id number] [place] [id number] May, [facility] [place] [address] [id number] [place] [id number] May, [facility] [address] [id number] [address] [place] [address], [place] [address] May, [facility] [place] [address] [id number] [place] [id number] May, [facility] [address] [id number] [address] [place] [address], [place] [address] May, [facility] [address] [id number] [address] [place] [address], [place] [address] Apr, [facility] [address] [id number] [address] [place] [address], [place] [address] Mar, [facility] [address] [id number] [address] [place] [address], [place] [address] Jan, [facility] [place] [address] [id number] [place] [id number] Jan, [facility] [address] [id number] [address] [place] [address], [place] [address] Jan, [facility] [place] [address] [id number] [place] [id number] Jan, [facility] [address] [id number] [address] [place] [address], [place] [address] Jan, [facility] [place] [address] [id number] [place] [id number] Dec, [facility] [address] [id number] [address] [place] [address], [place] [address] Dec, [facility] [place] [address] [id number] [place] [id number] November, [facility] [address] [id number] [address] [place] [address], [place] [address] November, [facility] [place] [address] [id number] [place] [id number] November, [facility] [address] [id number] [address] [place] [address], [place] [address] November, [facility] [place] [address] [id number] [place] [id number] Oct, [facility] [address] [id number] [address] [place] [address], [place] [address] Oct, [facility] [place] [address] [id number] [place] [id number] Oct, [facility] [address] [id number] [address] [place] [address], [place] [address] Oct, [facility] [address] [id number] [address] [place] [address], [place] [address] Oct, [facility] [address] [facility] [id number] [address] [place] [address], [place] [address] Oct, [facility] [place] [address] [id number] [place] [id number] Sep, [facility] [address] [id number] [address] [place] [address], [place] [address] Sep, [facility] [address] [id number] [address] [place] [address], [place] [address] Aug, [facility] [place] [address] [id number] [place] [id number] Aug, [facility] [address] [id number] [address] [place] [address], [place] [address] Aug, [facility] [place] [address] [id number] [place] [id number] Aug, [facility] [address] [id number] [facility] [place] [address] Aug, [facility] [place] [address] [id number] [place] [id number] Aug, [facility] [address] [id number] [facility] [place] [address] Aug, [facility] [place] [address] [id number] [place] [id number] Aug, [facility] [address] [id number] [facility] [place] [address] Aug, [facility] [place] [address] [id number] [place] [id number] Jul, [facility] [address] [id number] [facility] [place] [address] Jul, [facility] [place] [address] [id number] [place] [id number] Jun, [facility] [address] [id number] [address] [place] [address], [place] [address] Jun, [facility] [place] [address] [id number] [place] [id number] Jun, [facility] [address] [id number] [facility] [place] [address] Jun, [facility] [place] [address] [id number] [place] [id number] Jun, [facility] [address] [id number] [facility] [place] [address] Jun, [facility] [address] [id number] [address] [place] [address], [place] [address] Jun, [facility] [address] [id number] [address] [place] [address], [place] [address] Jun, [facility] [address] [id number] [address] [place] [address], [place] [address] Jun, [facility] [place] [address] [id number] [place] [id number] Jun, [facility] [address] [id number] [address] [place] [address], [place] [address] Jun, [facility] [address] [id number] [address] [place] [address], [place] [address] May, [facility] [place] [address] [id number] [place] [id number] May, [facility] [address] [id number] [address] [place] [address], [place] [address] May, [facility] [place] [address] [id number] [place] [id number] May, [facility] [address] [id number] [address] [place] [address], [place] [address] May, [facility] [address] [id number] [address] [place] [address] Apr, [facility] [address] [id number] [address] [place] [address], [place] [address] Apr, [facility] [address] [id number] [address] [place] [address] Apr, [facility] [address] [id number] [address] [place] [address] Apr, [facility] [address] [id number] [address] [place] [address] Apr, [facility] [address] [id number] [address] [place] [address], [place] [address] Apr, [facility] [place] [address] [id number] [place] [id number] Apr, [facility] [address] [id number] [address] [place] [address], [place] [address] Apr, [facility] [place] [address] [id number] [place] [id number] Apr, [facility] [address] [id number] [address] [place] [address] Apr, [facility] [address] [facility] [id number] [address] [place] [address] Apr, [facility] [place] [address] [id number] [place] [id number] Apr, [facility] [address] [facility] [id number] [address] [place] [address] Apr, [facility] [place] [address] [id number] [place] [id number] Apr, [facility] [address] [facility] [id number] [address] [place] [address] Apr, [facility] [address] [facility] [id number] [address] [place] [address] Mar, [facility] [place] [address] [id number] [place] [id number] Mar, [facility] [address] [facility] [id number] [address] [place] [address] Mar, [facility] [address] [facility] [id number] [address] [place] [address] Mar, [facility] [place] [address] [id number] [place] [id number] Mar, [facility] [place] [address] [id number] [place] [id number] Mar, [facility] [place] [address] [id number] [place] [id number] Mar, [facility] [place] [address] [id number] [place] [id number] Mar, [facility] [place] [address] [id number] [place] [id number] Mar, [facility] [place] [address] [id number] [place] [id number] Mar, [facility] [place] [address] [id number] [place] [id number] Mar, [facility] [address] [facility] [id number] [place] [id number] Mar, [facility] [address] [facility] [id number] [address] [place] [address] Mar, [facility] [address] [facility] [id number] [place] [id number] Jul, [facility] [address] [facility] [id number] [address] [place] [address] Oct, [facility] [address] [facility] [id number] [address] [place] [address] Oct, [facility] [address] [facility] [id number] [address] [place] [address] May, [facility] [address] [facility] [id number] [address] [place] [address] Jun, IMMUNIZATIONS No Known Immunizations SOCIAL HISTORY [...] Surgical History had all teeth removed in [facility] 7 Hospitalization History DKA 07/2014 Hospitalization History [facility] hypoglycemia 08/2015 Hospitalization History [facility] elevated blood sugar 09/06 15 Hospitalization History Lupis C[place] in [place] for DKS for 3 days, sugar on admin 926 08/08/2017 Hospitalization History hypoglycemia April 22-2018 Hospitalization History admitted to ICU for low blood sugars 04/2019 Hospitalization History DKA 05/12/2019
--- OUTSIDE RECORDS SUMMARY | 2019-11-27 20:30 | XMS REPORT ---
Author Author Mickey GARCIA [address] Address [address] [place] [address] Care Team Providers Care Senior Maintenance Technician Name Role Phone SHELLY GARCIA Unavailable PROBLEMS Type Condition ICD9-CM Code [id number] Code Onset Dates Condition S tatus SNOMED Code Problem Type 1 diabetes mellitus with hypoglycemia and without com a E10.649 Active 60098643 Problem Anxiety F41.9 Active 00162178 Problem Adjustment disorder with mixed anxiety and depressed mood F43.23 Active 761950202 Problem Intractable migraine without status migrainosus, unspecified migraine type G43.919 Active 232649700 Problem Primary insomnia F51.01 Active 397 2004 Problem hand glove cleaner 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 Active 612990279 Problem Mixed hyperlipidemia E78.2 Active 206912517 Problem Mood disorder F39 Active 677447 05 ALLERGIES No Information ENCOUNTERS Encounter Location Date Diagnosis [facility] [address] [id number] [address] [place] [phone] 30 Oct, 2019 [facility] [address] [id number] [address] [place] [phone] 28 Sep, 2019 Intractable headache, unspec ified chronicity pattern, unspecified headache type R51 [facility] [address] [id number] [address] [place] [phone] 27 Sep, 2019 [facility] [address] [id number] [address] [place] [address] 16 Sep, 2019 [facility] [address] [id number] [address] [place] [phone] 10 Sep, 2019 [facility] [address] [id number] [address] [place] [phone] 02 Sep, 2019 [facility] [address] [id number] [address] [place] [address] 25 Aug, 2019 Adjustment disorder with mix ed anxiety and depressed mood F43.23 [facility] [address] [id number] [address] [place] [phone] 22 Aug, 2019 Nausea and vomiting, intract ability of vomiting not specified, unspecified vomiting type R11.2 and Flu-like symptoms R68.89 [facility] [address] [id number] [address] [place] [phone] 20 Aug, 2019 [facility] [address] [id number] [address] [place] [phone] 17 Aug, 2019 [facility] [id number] [place] [phone] 15 Aug, 2019 [facility] [address] [id number] [address] [place] [phone] 15 Aug, 2019 [facility] [address] [id number] [address] [place] [phone] 12 Aug, 2019 [facility] [address] [id number] [address] [place] [phone] 11 Aug, 2019 [facility] [address] [id number] [address] [place] [phone] 10 Aug, 2019 [facility] [address] [id number] [address] [place] [phone] 07 Aug, 2019 [facility] [address] [id number] [address] [place] [phone] 07 Aug, 2019 [facility] [address] [id number] [address] [place] [phone] 04 Aug, 2019 [facility] [address] [id number] [address] [place] [phone] 03 Aug, 2019 [facility] [address] [id number] [address] [place] [phone] 03 Aug, 2019 [facility] [address] [id number] [address] [place] [address] Aug, Urinary tract infection, sit e not specified N39.0 and Hematuria, unspecified R31.9 [facility] [address] [id number] [address] [place] [phone] Aug, [facility] [address] [id number] [address] [place] [phone] Jul, [facility] [address] [id number] [address] [place] [phone] Jul, [facility] [address] [id number] [address] [place] [phone] Jul, [facility] [address] [id number] [address] [place] [phone] Jul, Frequent UTI N39.0 [facility] [address] [id number] [address] [place] [address] Jul, [facility] [address] [id number] [address] [place] [address] Jul, Dysuria R30.0 [facility] [address] [id number] [address] [place] [address] Jul, [facility] [address] [id number] [address] [place] [phone] Jul, Dysuria R30.0 [facility] [address] [id number] [address] [place] [address] Jul, Adjustment disorder with mix ed anxiety and depressed mood F43.23 [facility] [address] [id number] [address] [place] [phone] Jul, [facility] [address] [id number] [address] [place] [address] Jul, [facility] [address] [id number] [address] [place] [address] Jul, Fatigue, unspecified type R5 3.83 ; Type 1 diabetes mellitus with hypoglycemia and without coma E10.649 and Mixed hyperlipidemia E78.2 [facility] [address] [id number] [address] [place] [address] Jul, [facility] [address] [id number] [address] [place] [address] Jul, [facility] [address] [id number] [address] [place] [address] Jun, [facility] [address] [id number] [address] [place] [address] Jun, [facility] [address] [id number] [address] [place] [address] Jun, Fatigue, unspecified type R5 3.83 [facility] [address] [id number] [address] [place] [address] Jun, [facility] [address] [id number] [address] [place] [address] Jun, [facility] [address] [id number] [address] [place] [address] Jun, [facility] [address] [id number] [address] [place] [address] Jun, [facility] [address] [id number] [address] [place] [phone] Jun, [facility] [address] [id number] [address] [place] [address] Jun, [facility] [address] [id number] [address] [place] [address] Jun, Type 2 diabetes mellitus wit h diabetic polyneuropathy E11.42 [facility] [address] [id number] [address] [place] [address] Jun, [facility] [address] [id number] [address] [place] [address] Jun, [facility] [address] [id number] [address] [place] [address] May, [facility] [address] [id number] [address] [place] [address] May, Type 2 diabetes mellitus wit h diabetic polyneuropathy E11.42 [facility] [address] [id number] [address] [place] [address] May, Type 1 diabetes mellitus wit h hypoglycemia and without coma E10.649 [facility] [address] [id number] [address] [place] [address] May, [facility] [address] [id number] [address] [place] [address] May, Type 2 diabetes mellitus wit h diabetic polyneuropathy E11.42 [facility] [address] [id number] [address] [place] [phone] May, Type 2 diabetes mellitus wit h diabetic polyneuropathy E11.42 [facility] [address] [id number] [address] [place] [address] May, Type 2 diabetes mellitus wit h diabetic polyneuropathy E11.42 [facility] [address] [id number] [address] [place] [address] May, Adjustment disorder with mix ed anxiety and depressed mood F43.23 [facility] [address] [id number] [address] [place] [address] May, Bronchitis J40 [facility] [address] [id number] [address] [place] [address] Apr, [facility] [address] [id number] [address] [place] [address] Apr, Bronchitis J40 [facility] [address] [id number] [address] [place] [address] Apr, Adjustment disorder with mix ed anxiety and depressed mood F43.23 ; Primary insomnia F51.01 and Mood disorder F39 [facility] [address] [id number] [address] [place] [address] Apr, [facility] [address] [id number] [address] [place] [address] Apr, Type 2 diabetes mellitus wit h diabetic polyneuropathy E11.42 and Mixed hyperlipidemia E78.2 [facility] [address] [id number] [address] [place] [address] Apr, Mood disorder F39 [facility] [address] [id number] [address] [place] [address] Apr, Type 2 diabetes mellitus wit h diabetic polyneuropathy E11.42 [facility] [address] [id number] [address] [place] [address] Apr, Type 2 diabetes mellitus wit h diabetic polyneuropathy E11.42 [facility] [address] [id number] [address] [place] [address] Apr, Type 2 diabetes mellitus wit h diabetic polyneuropathy E11.42 [facility] [address] [id number] [address] [place] [address] Apr, [facility] [address] [id number] [place] [address] Apr, [facility] [address] [id number] [address] [place] [address] Apr, [facility] [address] [id number] [address] [place] [phone] Apr, [facility] [address] [id number] [address] [place] [phone] Apr, [facility] [address] [id number] [address] [place] [address] Apr, [facility] [address] [id number] [address] [place] [address] Apr, Type 2 diabetes mellitus wit h diabetic polyneuropathy E11.42 ; Mixed hyperlipidemia E78.2 ; Dyshidrotic eczema L30.1 ; Frequent UTI N39.0 and Encounter for immunization Z23 [facility] [address] [id number] [address] [place] [address] 08 Apr, 2019 Adjustment disorder with mix ed anxiety and depressed mood F43.23 ; Primary insomnia F51.01 and Mood disorder F39 [facility] [address] [id number] [address] [place] [address] 08 Apr, 2019 [facility] [address] [id number] [address] [place] [address] Apr, [facility] [address] [id number] [address] [place] [phone] Apr, [facility] [address] [id number] [address] [place] [address] Apr, [facility] [address] [id number] [address] [place] [address] Apr, [facility] [address] [id number] [address] [place] [address] Apr, Mood disorder F39 [facility] [address] [id number] [address] [place] [phone] 30 Mar, 2019 Type 2 diabetes mellitus wit h diabetic polyneuropathy E11.42 [facility] [address] [id number] [address] [place] [address] Mar, Urinary tract infection, sit e not specified N39.0 [facility] [address] [id number] [address] [place] [phone] Mar, [facility] [address] [id number] [address] [place] [address] Mar, [facility] [address] [id number] [address] [place] [phone] Mar, [facility] [address] [id number] [address] [place] [address] Mar, Intractable migraine without status migrainosus, unspecified migraine type G43.919 [facility] [address] [id number] [address] [place] [address] 18 Mar, 2019 [facility] [address] [id number] [address] [place] [address] 18 Mar, 2019 [facility] [address] [id number] [address] [place] [address] 18 Mar, 2019 Urinary tract infection, sit e not specified N39.0 and Hematuria, unspecified R31.9 [facility] [address] [id number] [address] [place] [id number] 17 Mar, 2019 [facility] [address] [id number] [address] [place] [address] 16 Mar, 2019 Mood disorder F39 [facility] [address] [id number] [address] [place] [address] 13 Mar, 2019 Type 2 diabetes mellitus wit h diabetic polyneuropathy E11.42 [facility] [address] [id number] [address] [place] [address] Mar, [facility] [address] [id number] [address] [place] [address] Mar, [facility] [address] [id number] [address] [place] [address] Feb, [facility] [address] [id number] [address] [place] [address] Feb, [facility] [address] [id number] [address] [place] [address] Feb, [facility] [address] [id number] [address] [place] [address] Feb, [facility] [address] [id number] [address] [place] [address] Feb, [facility] [address] [id number] [address] [place] [address] Feb, [facility] [address] [id number] [address] [place] [address] Feb, Dysuria R30.0 [facility] [address] [id number] [address] [place] [address] Feb, [facility] [address] [id number] [address] [place] [address] Feb, [facility] [address] [id number] [address] [place] [address] Feb, [facility] [address] [id number] [address] [place] [phone] Feb, [facility] [address] [id number] [address] [place] [address] Jan, HPV (human papilloma virus) infection B97.7 [facility] [address] [id number] [address] [place] [address] Dec, [facility] [address] [id number] [address] [place] [address] Dec, [facility] [address] [id number] [address] [place] [address] Dec, [facility] [address] [id number] [address] [place] [address] Dec, Mixed hyperlipidemia E78.2 [facility] [address] [id number] [address] [place] [address] Dec, Type 2 diabetes mellitus wit h diabetic polyneuropathy E11.42 and hand glove cleaner 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 [facility] [address] [id number] [address] [place] [address] November, Type 2 diabetes mellitus wit h diabetic polyneuropathy E11.42 [facility] [address] [id number] [address] [place] [address] November, Dysuria R30.0 and History of HPV infection Z86.19 [facility] [address] [id number] [address] [place] [address] November, [facility] [address] [id number] [address] [place] [address] November, UTI symptoms R39.9 [facility] [address] [id number] [address] [place] [address] November, [facility] [address] [id number] [address] [place] [address] November, UTI symptoms R39.9 [facility] [address] [id number] [address] [place] [address] November, [facility] [address] [id number] [address] [place] [address] November, Acute cystitis with hematuri a N30.[id number] [place] [address] Sep, Acute UTI N39.0 and Uncontro lled type 2 diabetes mellitus with hyperglycemia E11.65 [facility] [address] [id number] [address] [place] [address] Jul, Type 2 diabetes mellitus wit h diabetic polyneuropathy E11.42 [facility] [address] [id number] [address] [place] [address] Jul, [facility] [address] [id number] [address] [place] [address] Jul, [facility] [address] [id number] [address] [place] [address] Jul, Acute cystitis without hemat uria N30.00 [facility] [address] [id number] [address] [place] [address] Jul, [facility] [address] [id number] [address] [place] [address] Jul, Acute UTI N39.0 [facility] [address] [id number] [address] [place] [address] Jun, [facility] [address] [id number] [address] [place] [address] Jun, Type 2 diabetes mellitus wit h diabetic polyneuropathy E11.42 ; hand glove cleaner 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 and Primary insomnia F51.01 [facility] [address] [id number] [address] [place] [address] Apr, Type 2 diabetes mellitus wit h diabetic polyneuropathy E11.[address] [id number] [place] [id number] Apr, Type 2 diabetes mellitus with diabetic p olyneuropathy E11.42 ; Primary insomnia F51.01 and Anxiety F41.9 [facility] [address] [facility] [id number] [place] [id number] Mar, Type 2 diabetes mellitus with diabetic p olyneuropathy E11.[address] [id number] [place] [id number] Mar, Type 2 diabetes mellitus with diabetic p olyneuropathy E11.42 ; penitentiary 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 ; Anxiety F41.9 and Primary insomnia F51.01 [facility] [address] [facility] [id number] [place] [id number] Feb, Type II or unspecified type diabetes belinda litus without mention of complication, uncontrolled E11.65 [facility] 120 [facility] [id number] [place] [id number] Jan, Type II or unspecified type diabetes belinda litus without mention of complication, uncontrolled E11.65 ; penitentiary 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 ; Type 2 diabetes mellitus with diabetic polyneuropathy E11.42 ; Tinea B35.9 ; Acute eczema L30.9 and Anxiety F41.9 [facility] 120 [facility] [id number] [place] [id number] November, [facility] 120 [facility] [id number] [place] [id number] November, Type 2 diabetes mellitus with diabetic p olyneuropathy E11.42 ; hand glove cleaner 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 ; Primary insomnia F51.01 and Anxiety F41.9 [facility] [address] [id number] [place] [id number] Oct, [facility] [place] [address] [id number] [place] [id number] Oct, [facility] [address] [id number] [place] [id number] Oct, Well woman exam with routine gynecologic al exam Z01.419 ; Screening breast examination Z12.31 ; Type 2 diabetes mellitus with diabetic polyneuropathy E11.42 ; hand glove cleaner 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 ; CVA tenderness M54.9 ; High risk sexual behavior Z72.51 ; Acute cystitis without hematuria N30.00 ; Anxiety F41.9 ; Type II or unspecified type diabetes mellitus without mention of complication, uncontrolled E11.65 and Primary insomnia F51.01 [facility] [address] [id number] [place] [id number] Aug, Primary insomnia F51.01 [facility] [address] [id number] [place] [id number] Aug, Abrasion T14.8XXA ; Open wound T14.8XXA and Type II or unspecified type diabetes mellitus without mention of complication, uncontrolled E11.65 [facility] [address] [id number] [place] [id number] Jul, Type II or unspecified type diabetes belinda litus without mention of complication, uncontrolled E11.65 ; Anxiety F41.9 ; Primary insomnia F51.01 ; Abrasion T14.8XXA and Pain in left ross M79.662 [facility] [address] [id number] [place] [id number] May, Type II or unspecified type diabetes belinda litus without mention of complication, uncontrolled E11.65 [facility] [address] [id number] [place] [id number] May, Primary insomnia F51.01 [facility] [address] [id number] [place] [id number] Apr, Primary insomnia F51.01 [facility] [address] [id number] [place] [id number] Mar, [facility] [place] [address] [id number] [place] [id number] Mar, Type II or unspecified type diabetes belinda litus without mention of complication, uncontrolled E11.65 ; Primary insomnia F51.01 ; Other insomnia G47.09 and Anxiety F41.9 [facility] [place] [address] [id number] [place] [id number] Jan, Type II or unspecified type diabetes belinda litus without mention of complication, uncontrolled E11.65 ; Anxiety F41.9 and Other insomnia G47.09 [facility] [place] [address] [id number] [place] [id number] Dec, Type II or unspecified type diabetes belinda litus without mention of complication, uncontrolled E11.65 ; Anxiety F41.9 and Other insomnia G47.09 [facility] [place] [address] [id number] [place] [id number] November, Type II or unspecified type diabetes belinda litus without mention of complication, uncontrolled E11.65 [facility] [place] [address] [id number] [place] [id number] 14 Oct, 2016 Dysuria R30.0 [facility] [place] [address] [id number] [place] [id number] 14 Sep, 2016 Pain, dental K08.89 [facility] [place] [address] [id number] [place] [id number] Aug, [facility] [place] [address] [id number] [place] [id number] Aug, Dysuria R30.0 ; Type II or unspecified t ype diabetes mellitus without mention of complication, uncontrolled E11.65 and Medial epicondylitis, left elbow M77.02 [facility] [place] [address] [id number] [place], [place] [id number] Jul, Acute pharyngitis due to other specified organisms J02.8 [facility] [place] [address] [id number] [place] [id number] Jun, Cellulitis of unspecified part of limb L 03.119 ; Type II or unspecified type diabetes mellitus without mention of complication, uncontrolled E11.65 ; Cellulitis of right lower extremity L03.115 and Ulcer of skin, limited to breakdown of skin L98.491 [facility] [place] [address] [id number] [place] [id number] Jun, Cellulitis of unspecified part of limb L 03.119 ; Cellulitis of right lower extremity L03.115 and Ulcer of skin, limited to breakdown of skin L98.491 [facility] [place] [address] [id number] [place] [id number] Jun, Cellulitis of unspecified part of limb L 03.119 ; Cellulitis of right lower extremity L03.115 and Ulcer of skin, limited to breakdown of skin L98.491 [facility] [place] [address] [id number] [place] [id number] Jun, [facility] [place] [address] [id number] [place] [id number] Jun, [facility] [place] [address] [id number] [place] [id number] Jun, Dysuria R30.0 [facility] [place] [address] [id number] [place] [id number] May, [facility] [place] [address] [id number] [place] [id number] May, Painful swelling of joint M25.40 and Typ e II or unspecified type diabetes mellitus without mention of complication, uncontrolled E11.65 [facility] [place] [address] [id number] [place] [id number] May, Painful swelling of joint M25.40 [facility] [place] [address] [id number] [place] [id number] May, Painful swelling of joint M25.40 ; Gluco suria R81 and History of chest pain Z87.898 [facility] [address] [id number] [place] [id number] May, [facility] [address] [id number] [place] [id number] Apr, Well woman exam with routine gynecologic al exam Z01.419 and High risk sexual behavior Z72.51 [facility] [place] [address] [id number] [place] [id number] Apr, Kidney infection N15.9 ; UTI symptoms R3 9.9 and Dysuria R30.0 [facility] [place] [address] [id number] [place] [id number] Apr, Grief reaction F43.20 [facility] [place] [address] [id number] [place] [id number] Mar, [facility] [place] [address] [id number] [place] [id number] Mar, Grief reaction F43.20 [facility] [place] [address] [id number] [place] [id number] Feb, [facility] [place] [address] [id number] [place] [id number] Feb, Stress reaction F43.0 and Type II or uns pecified type diabetes mellitus without mention of complication, uncontrolled E11.65 [facility] [place] [address] [id number] [place] [id number] Jan, [facility] [place] [address] [id number] [place] [id number] Dec, [facility] [place] [address] [id number] [place] [id number] Dec, [facility] [place] [address] [id number] [place] [id number] Dec, [facility] [place] [address] [id number] [place] [id number] November, [facility] [place] [address] [id number] [place] [id number] November, Pharyngitis J02.9 [facility] [place] [address] [id number] [place] [id number] Oct, [facility] [place] [address] [id number] [place] [id number] Oct, Sciatic leg pain M54.30 [facility] [place] [address] [id number] [place] [id number] Sep, [facility] [place] [address] [id number] [place] [id number] Sep, [facility] [place] [address] [id number] [place] [id number] Sep, Sciatic leg pain M54.30 [facility] [place] [address] [id number] [place] [id number] Aug, Pharyngitis J02.9 [facility] [place] [address] [id number] [place] [id number] Jul, Type II or unspecified type diabetes belinda litus without mention of complication, uncontrolled E11.65 and Midline low back pain without sciatica M54.5 [facility] [place] [address] [id number] [place] [id number] Jun, Diabetes with unspecified complication, type II or unspecified type, uncontrolled 250.92 [facility] [place] [address] [id number] [place] [id number] Jun, [facility] [address] [id number] [id number] May, [facility] [place] [address] [id number] [place] [id number] May, Diabetes with unspecified complication, type II or unspecified type, uncontrolled 250.92 [facility] [place] [address] [id number] [place] [id number] Apr, [facility] [address] [id number] [id number] Apr, [facility] [place] [address] [id number] [place] [id number] Apr, Type 2 diabetes mellitus with hyperglyce giovani E11.65 ; Depression with anxiety F41.8 ; Influenza vaccination declined Z28.21 and Diabetes with unspecified complication, type II or unspecified type, uncontrolled 250.92 [facility] [place] [address] [id number] [place] [id number] Apr, [facility] [place] [address] [id number] [place] [id number] Mar, [facility] [place] [address] [id number] [place] [id number] Mar, [facility] [place] [address] [id number] [place] [id number] Mar, [facility] [place] [address] [id number] [place] [id number] Feb, [facility] [place] [address] [id number] [place] [id number] Feb, [facility] [place] [address] [id number] [place] [id number] Feb, [facility] [place] [address] [id number] [place] [id number] Feb, [facility] [address] [id number] [id number] Feb, Dental abscess 522.5 [facility] [place] [address] [id number] [place] [id number] Jan, Diabetes with unspecified complication, type II or unspecified type, uncontrolled 250.92 ; Vaginal denise 112.1 ; Broken tooth 873.63 and Screening for STD (sexually transmitted disease) V74.5 [facility] [address] [id number] [place] [address] Oct, [facility] [address] [id number] [address] [place] [address] Oct, [facility] [address] [id number] [place] [id number] Sep, [facility] [address] [facility] [id number] [address] [place] [address] Sep, [facility] [address] [id number] [place] [id number] Aug, [facility] [address] [id number] [address] [place] [address] Aug, [facility] [address] [id number] [place] [id number] Aug, [facility] [id number] [place] [address], [place] [address] Aug, [facility] [place] [address] [id number] [place] [id number] Jul, [facility] [address] [id number] [address] [place] [address], [place] [address] Jul, [facility] [place] [address] [id number] [place] [id number] Jul, [facility] [address] [id number] [address] [place] [address], [place] [address] Jul, [facility] [address] [id number] [address] [place] [address], [place] [address] Jul, [facility] [place] [address] [id number] [place] [id number] Jul, [facility] [place] [address] [id number] [place] [id number] Jul, [facility] [address] [id number] [address] [place] [address], [place] [address] Jul, [facility] [place] [address] [id number] [place] [id number] Jul, [facility] [address] [id number] [address] [place] [address] Jul, [facility] [place] [address] [id number] [place] [id number] Jun, [facility] [address] [id number] [address] [place] [address] Jun, [facility] [address] [id number] [address] [place] [address], [place] [address] Jun, [facility] [place] [address] [id number] [place] [id number] Jun, [facility] [address] [id number] [address] [place] [address] Jun, [facility] [address] [id number] [address] [place] [address] May, [facility] [place] [address] [id number] [place] [id number] May, [facility] [place] [address] [id number] [place] [id number] May, [facility] [address] [id number] [address] [place] [address], [place] [address] May, [facility] [place] [address] [id number] [place] [id number] May, [facility] [address] [id number] [address] [place] [address], [place] [address] May, [facility] [address] [id number] [address] [place] [address], [place] [address] Apr, [facility] [address] [id number] [address] [place] [address], [place] [address] Mar, [facility] [address] [id number] [address] [place] [address], [place] [address] Jan, [facility] [address] [id number] [place] [id number] Jan, [facility] [address] [id number] [address] [place] [address], [place] [address] Jan, [facility] [place] [address] [id number] [place] [id number] Jan, [facility] [address] [id number] [address] [place] [address], [place] [address] Jan, [facility] [place] [address] [id number] [place] [id number] Dec, [facility] [address] [id number] [address] [place] [address], [place] [address] Dec, [facility] [place] [address] [id number] [place] [id number] November, [facility] [address] [id number] [address] [place] [address], [place] [address] November, [facility] [place] [address] [id number] [place] [id number] November, [facility] [address] [id number] [address] [place] [address], [place] [address] November, [facility] [place] [address] [id number] [place] [id number] Oct, [facility] [address] [id number] [address] [place] [address], [place] [address] Oct, [facility] [place] [address] [id number] [place] [id number] Oct, [facility] [address] [id number] [address] [place] [address], [place] [address] Oct, [facility] [address] [id number] [address] [place] [address], [place] [address] Oct, [facility] [address] [facility] [id number] [address] [place] [address] Oct, [facility] [place] [address] [id number] [place] [id number] Sep, [facility] [address] [facility] [id number] [address] [place] [address] Sep, [facility] [address] [facility] [id number] [address] [place] [address] Aug, [facility] [place] [address] [id number] [place] [id number] Aug, [facility] [address] [id number] [address] [place] [address], [place] [address] Aug, [facility] [place] [address] [id number] [place] [id number] Aug, [facility] [address] [id number] [address] [place] [address], [place] [address] Aug, [facility] [place] [address] [id number] [place] [id number] Aug, [facility] [address] [id number] [address] [place] [address] Aug, [facility] [place] [address] [id number] [place] [id number] Aug, [facility] [address] [id number] [address] [place] [address] Aug, [facility] [place] [address] [id number] [place] [id number] Jul, [facility] [address] [id number] [address] [place] [address] Jul, [facility] [place] [address] [id number] [place] [id number] Jun, [facility] [address] [id number] [address] [place] [address] Jun, [facility] [place] [address] [id number] [place] [id number] Jun, [facility] [address] [id number] [address] [place] [address] Jun, [facility] [place] [address] [id number] [place] [id number] Jun, [facility] [address] [id number] [address] [place] [address] Jun, [facility] [address] [id number] [address] [place] [address] Jun, [facility] [address] [id number] [address] [place] [address] Jun, [facility] [address] [id number] [address] [place] [address] Jun, [facility] [place] [address] [id number] [place] [id number] Jun, [facility] [address] [id number] [address] [place] [address] Jun, [facility] [address] [id number] [address] [place] [address] May, [facility] [place] [address] [id number] [place] [id number] May, [facility] [address] [id number] [address] [place] [address] May, [facility] [place] [address] [id number] [place] [id number] May, [facility] [address] [id number] [address] [place] [address] May, [facility] [address] [id number] [address] [place] [address], [place] [address] Apr, [facility] [address] [id number] [address] [place] [address], [place] [address] Apr, [facility] [address] [id number] [address] [place] [address], [place] [address] Apr, [facility] [address] [id number] [address] [place] [address] Apr, [facility] [address] [id number] [address] [place] [address] Apr, [facility] [address] [id number] [address] [place] [address] Apr, [facility] [place] [address] [id number] [place] [id number] Apr, [facility] [address] [id number] [address] [place] [address] Apr, [facility] [place] [address] [id number] [place] [id number] Apr, [facility] [address] [id number] [address] [place] [address] Apr, [facility] [address] [id number] [address] [place] [address] Apr, [facility] [place] [address] [id number] [place] [id number] Apr, [facility] [address] [id number] [address] [place] [address] Apr, [facility] [place] [address] [id number] [place] [id number] Apr, [facility] [address] [id number] [address] [place] [address] Apr, [facility] [address] [facility] [id number] [address] [place] [address] Mar, [facility] [place] [address] [id number] [place] [id number] Mar, [facility] [address] [facility] [id number] [address] [place] [address] Mar, [facility] [address] [facility] [id number] [address] [place] [address] Mar, [facility] [place] [address] [id number] [place] [id number] Mar, [facility] [place] [address] [id number] [place] [id number] Mar, [facility] [place] [address] [id number] [place] [id number] Mar, [facility] [place] [address] [id number] [place] [id number] Mar, [facility] [place] [address] [id number] [place] [id number] Mar, [facility] [place] [address] [id number] [place] [id number] Mar, [facility] [place] [address] [id number] [place] [id number] Mar, [facility] [place] [address] [id number] [place] S [id number] Mar, [facility] [address] [facility] [id number] [address] [place] [address] Mar, [facility] [place] [address] [id number] [place] [id number] Jul, [facility] [address] [facility] [id number] [address] [place] [address] Oct, [facility] [address] [facility] [id number] [address] [place] [address] Oct, [facility] [address] [facility] [id number] [address] [place] [address] May, [facility] [address] [facility] [id number] [address] [place] [address] Jun, IMMUNIZATIONS No Known Immunizations SOCIAL HISTORY Never Assessed REASON FOR VISIT PLAN OF CARE VITAL SIGNS Weight 265.6 lbs 2012-08-14 Temperature 98.8 degrees Fahrenheit 2012-08-14 Heart Rate 80 bpm 2012-08-14 Respiratory Rate 18 2012-08-14 Blood pressure systolic 118 mmHg 2012-08-14 Blood pressure diastolic 76 mmHg 2012-08-14 MEDICATIONS Unknown Medications RESULTS No Results PROCEDURES [...] Surgical History had all teeth removed in [facility] 7 Hospitalization History DKA 07/2014 Hospitalization History [facility] hypoglycemia 08/2015 Hospitalization History [facility] elevated blood sugar 09/06 15 Hospitalization History [facility] in [place] for DKS for 3 days, sugar on admin 926 08/08/2017 Hospitalization History hypoglycemia April 222018 Hospitalization History admitted to ICU for low blood sugars 04/2019 Hospitalization History DKA 05/12/2019
--- OUTSIDE RECORDS SUMMARY | 2019-11-27 20:30 | XMS REPORT ---
Author Author Mickey Perez [facility] Address [address] [place] [address] Care Team Providers Care Product Safety Professional Name Role Phone ALENA Perez Unavailable PROBLEMS Type Condition ICD9-CM Code DTX93-EA Code Onset Dates Condition S tatus SNOMED Code Problem Type 1 diabetes mellitus with hypoglycemia and without com a E10.649 Active 70554337 Problem Anxiety F41.9 Active 81994577 Problem Adjustment disorder with mixed anxiety and depressed mood F43.23 Active 648069747 Problem Intractable migraine without status migrainosus, unspecified migraine type G43.919 Active 433289992 Problem Primary insomnia F51.01 Active 397 2004 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 961429527 Problem Mixed hyperlipidemia E78.2 Active 848290157 Problem Mood disorder F39 Active 269412 05 ALLERGIES No Information ENCOUNTERS Encounter Location Date Diagnosis [facility] [address] [facility] [id number] [address] [place] [address] 30 Oct, 2019 [facility] [address] [facility] [id number] [address] [place] [phone] 28 Sep, 2019 Intractable headache, unspec ified chronicity pattern, unspecified headache type R51 [facility] [address] [facility] [id number] [address] [place] [id number] 27 Sep, 2019 [facility] [address] [facility] [id number] [address] [place] [address] 16 Sep, 2019 [facility] [address] [facility] [id number] [address] [place] [id number] 10 Sep, 2019 [facility] [address] [facility] [id number] [address] [place] [address] 02 Sep, 2019 [facility] [address] [place] [id number] [address] [place] [address] 25 Aug, 2019 Adjustment disorder with mix ed anxiety and depressed mood F43.23 [facility] [address] [address] 22 Aug, 2019 Nausea and vomiting, intract ability of vomiting not specified, unspecified vomiting type R11.2 and Flu-like symptoms R68.89 [facility] [address] [address] 20 Aug, 2019 [facility] [address] [place] [id number] [place] [address] 17 Aug, 2019 [facility] [address] [address] 15 Aug, 2019 [facility] [address] [id number] 15 Aug, 2019 [facility] [address] [address] 12 Aug, 2019 [facility] [address] [place] [id number] [address] [place] [address] 11 Aug, 2019 [facility] [address] [id number] 10 Aug, 2019 [facility] [address] [id number] [address] [place] [phone] 07 Aug, 2019 [facility] [address] [place] [id number] [address] [place] [phone] 07 Aug, 2019 [facility] [address] [place] [id number] [address] [place] [phone] 04 Aug, 2019 [facility] [address] [id number] [address] [place] [phone] 03 Aug, 2019 [facility] [address] [place] [id number] [address] [place] [phone] 03 Aug, 2019 [facility] [address] [id number] [address] [place] [address] Aug, Urinary tract infection, sit e not specified N39.0 and Hematuria, unspecified R31.9 [facility] [address] [id number] [address] [place] [phone] Aug, [facility] [address] [id number] [address] [place] [address] Jul, [facility] [address] [id number] [address] [place] [address] Jul, [facility] [address] [id number] [address] [place] [address] Jul, [facility] [address] [facility] [id number] [address] [place] [address] Jul, Frequent UTI N39.0 [facility] [address] [facility] [id number] [address] [place] [phone] Jul, [facility] [address] [id number] [address] [place] [phone] Jul, Dysuria R30.0 [facility] [address] [facility] [id number] [address] [place] [phone] Jul, [facility] [address] [facility] [id number] [address] [place] [address] Jul, Dysuria R30.0 [facility] [address] [facility] [id number] [address] [place] [address] Jul, Adjustment disorder with mix ed anxiety and depressed mood F43.23 [facility] [address] [id number] [address] [place] [address] Jul, [facility] [address] [facility] [id number] [address] [place] [phone] Jul, [facility] [address] [facility] [id number] [address] [place] [address] Jul, Fatigue, unspecified type R5 3.83 ; Type 1 diabetes mellitus with hypoglycemia and without coma E10.649 and Mixed hyperlipidemia E78.2 [facility] [address] [id number] [address] [place] [phone] Jul, [facility] [address] [id number] [address] [place] [phone] Jul, [facility] [address] [id number] [address] [place] [address] Jun, [facility] [address] [id number] [address] [place] [address] Jun, [facility] [address] [id number] [address] [place] [address] Jun, Fatigue, unspecified type R5 3.83 [facility] [address] [id number] [address] [place] [phone] Jun, [facility] [address] [id number] [address] [place] [phone] Jun, [facility] [address] [id number] [address] [place] [phone] Jun, [facility] [address] [id number] [address] [place] [address] Jun, [facility] [address] [id number] [address] [place] [address] Jun, [facility] [address] [id number] [address] [place] [address] Jun, [facility] [address] [id number] [address] [place] [address] Jun, Type 2 diabetes mellitus wit h diabetic polyneuropathy E11.42 [facility] [address] [id number] [address] [place] [address] Jun, [facility] [address] [facility] [id number] [address] [place] [id number] Jun, [facility] [address] [facility] [id number] [address] [place] [address] May, [facility] [address] [facility] [id number] [address] [place] [address] May, Type 2 diabetes mellitus wit h diabetic polyneuropathy E11.42 [facility] [address] [facility] [id number] [address] [place] [address] May, Type 1 diabetes mellitus wit h hypoglycemia and without coma E10.649 [facility] [address] [facility] [id number] [address] [place] [address] May, [facility] [address] [facility] [id number] [address] [place] [address] May, Type 2 diabetes mellitus wit h diabetic polyneuropathy E11.42 [facility] [address] [facility] [id number] [address] [place] [address] May, Type 2 diabetes mellitus wit h diabetic polyneuropathy E11.42 [facility] [address] [facility] [id number] [address] [place] [address] May, Type 2 diabetes mellitus wit h diabetic polyneuropathy E11.42 [facility] [address] [facility] [id number] [address] [place] [address] May, Adjustment disorder with mix ed anxiety and depressed mood F43.23 [facility] [address] [facility] [id number] [address] [place] [address] May, Bronchitis J40 [facility] [address] [facility] [id number] [address] [place] [address] Apr, [facility] [address] [facility] [id number] [address] [place] [id number] Apr, Bronchitis J40 [facility] [address] [facility] [id number] [address] [place] [phone] Apr, Adjustment disorder with mix ed anxiety and depressed mood F43.23 ; Primary insomnia F51.01 and Mood disorder F39 [facility] [address] [facility] [id number] [address] [place] [address] Apr, [facility] [address] [facility] [id number] [address] [place] [address] Apr, Type 2 diabetes mellitus wit h diabetic polyneuropathy E11.42 and Mixed hyperlipidemia E78.2 [facility] [address] [facility] [id number] [address] [place] [phone] Apr, Mood disorder F39 [facility] [address] [facility] [id number] [address] [place] [address] Apr, Type 2 diabetes mellitus wit h diabetic polyneuropathy E11.42 [facility] [address] [facility] [id number] [address] [place] [address] Apr, Type 2 diabetes mellitus wit h diabetic polyneuropathy E11.42 [facility] [address] [facility] [id number] [address] [place] [phone] Apr, Type 2 diabetes mellitus wit h diabetic polyneuropathy E11.42 [facility] [address] [facility] [id number] [address] [place] [address] Apr, [facility] [address] [id number] [place] [address] Apr, [facility] [address] [facility] [id number] [address] [place] [phone] Apr, [facility] [address] [facility] [id number] [address] [place] [address] Apr, [facility] [address] [facility] [id number] [address] [place] [phone] Apr, [facility] [address] [facility] [id number] [address] [place] [address] Apr, [facility] [address] [facility] [id number] [address] [place] [address] Apr, Type 2 diabetes mellitus wit h diabetic polyneuropathy E11.42 ; Mixed hyperlipidemia E78.2 ; Dyshidrotic eczema L30.1 ; Frequent UTI N39.0 and Encounter for immunization Z23 [facility] [address] [id number] [address] [place] [address] 08 Apr, 2019 Adjustment disorder with mix ed anxiety and depressed mood F43.23 ; Primary insomnia F51.01 and Mood disorder F39 [facility] [address] [id number] [address] [place] [address] 08 Apr, 2019 [facility] [address] [id number] [address] [place] [address] Apr, [facility] [address] [id number] [address] [place] [address] Apr, [facility] [address] [id number] [address] [place] [address] Apr, [facility] [address] [facility] [id number] [address] [place] [address] Apr, [facility] [address] [facility] [id number] [address] [place] [address] Apr, Mood disorder F39 [facility] [address] [facility] [id number] [address] [place] [phone] Mar, Type 2 diabetes mellitus wit h diabetic polyneuropathy E11.42 [facility] [address] [id number] [address] [place] [address] Mar, Urinary tract infection, sit e not specified N39.0 [facility] [address] [id number] [address] [place] [phone] Mar, [facility] [address] [id number] [address] [place] [address] Mar, [facility] [address] [facility] [id number] [address] [place] [address] Mar, [facility] [address] [facility] [id number] [address] [place] [address] Mar, Intractable migraine without status migrainosus, unspecified migraine type G43.919 [facility] [address] [id number] [address] [place] [address] 18 Mar, 2019 [facility] [address] [id number] [address] [place] [phone] 18 Mar, 2019 [facility] [address] [id number] [address] [place] [id number] 18 Mar, 2019 Urinary tract infection, sit e not specified N39.0 and Hematuria, unspecified R31.9 [facility] [address] [id number] [address] [place] [phone] 17 Mar, 2019 [facility] [address] [id number] [address] [place] [phone] 16 Mar, 2019 Mood disorder F39 [facility] [address] [facility] [id number] [address] [place] [phone] 13 Mar, 2019 Type 2 diabetes mellitus wit h diabetic polyneuropathy E11.42 [facility] [address] [id number] [address] [place] [phone] Mar, [facility] [address] [id number] [address] [place] [phone] Mar, [facility] [address] [id number] [address] [place] [address] Feb, [facility] [address] [id number] [address] [place] [phone] Feb, [facility] [address] [id number] [address] [place] [phone] Feb, [facility] [address] [id number] [address] [place] [address] Feb, [facility] [address] [facility] [id number] [address] [place] [phone] Feb, [facility] [address] [facility] [id number] [address] [place] [phone] Feb, [facility] [address] [facility] [id number] [address] [place] [address] Feb, Dysuria R30.0 [facility] [address] [facility] [id number] [address] [place] [phone] Feb, [facility] [address] [facility] [id number] [address] [place] [address] Feb, [facility] [address] [facility] [id number] [address] [place] [phone] Feb, [facility] [address] [facility] [id number] [address] [place] [phone] Feb, [facility] [address] [facility] [id number] [address] [place] [address] Jan, HPV (human papilloma virus) infection B97.7 [facility] [address] [facility] [id number] [address] [place] [phone] Dec, [facility] [address] [facility] [id number] [address] [place] [address] Dec, [facility] [address] [facility] [id number] [address] [place] [address] Dec, [facility] [address] [facility] [id number] [address] [place] [address] Dec, Mixed hyperlipidemia E78.2 [facility] [address] [facility] [id number] [address] [place] [address] Dec, Type 2 diabetes mellitus wit h diabetic polyneuropathy E11.42 and penitentiary 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 [facility] [address] [facility] [id number] [address] [place] [phone] November, Type 2 diabetes mellitus wit h diabetic polyneuropathy E11.42 [facility] [address] [facility] [id number] [address] [place] [address] November, Dysuria R30.0 and History of HPV infection Z86.19 [facility] [address] [facility] [id number] [address] [place] [address] 14 Nov, 2018 [facility] [address] [id number] [address] [place] [phone] November, UTI symptoms R39.9 [facility] [address] [id number] [address] [place] [phone] November, [facility] [address] [id number] [address] [place] [address] November, UTI symptoms R39.9 [facility] [address] [id number] [address] [place] [address] November, [facility] [address] [id number] [address] [place] [address] November, Acute cystitis with hematuri a N30.[id number] [place] [phone] Sep, Acute UTI N39.0 and Uncontro lled type 2 diabetes mellitus with hyperglycemia E11.65 [facility] [address] [id number] [address] [place] [address] Jul, Type 2 diabetes mellitus wit h diabetic polyneuropathy E11.42 [facility] [address] [id number] [address] [place] [address] Jul, [facility] [address] [id number] [address] [place] [id number] Jul, [facility] [address] [id number] [address] [place] [address] Jul, Acute cystitis without hemat uria N30.00 [facility] [address] [id number] [address] [place] [address] Jul, [facility] [address] [id number] [address] [place] [address] Jul, Acute UTI N39.0 [facility] [address] [id number] [address] [place] [address] Jun, [facility] [address] [facility] [id number] [address] [place] [address] Jun, Type 2 diabetes mellitus wit h diabetic polyneuropathy E11.42 ; 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 [address] [facility] [id number] [place] [id number] Apr, Type 2 diabetes mellitus with diabetic p olyneuropathy E11.42 ; Primary insomnia F51.01 and Anxiety F41.9 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 [address] [id number] [place] [id number] Feb, Type II or unspecified type diabetes belinda litus without mention of complication, uncontrolled E11.65 [facility] [id number] [place] [id number] Jan, Type II or unspecified type diabetes belinda litus without mention of complication, uncontrolled E11.65 ; penitentiary 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 ; Type 2 diabetes mellitus with diabetic polyneuropathy E11.42 ; Tinea B35.9 ; Acute eczema L30.9 and Anxiety F41.9 [facility] [address] [facility] [id number] [place] [id number] November, 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 ; Primary insomnia F51.01 and Anxiety F41.9 [facility] [address] [id number] [place] [id number] Oct, [facility] [place] [address] [id number] [place] [id number] Oct, [facility] [place] [address] [id number] [place] [id number] Oct, Well woman exam with routine gynecologic al exam Z01.419 ; Screening breast examination Z12.31 ; Type 2 diabetes mellitus with diabetic polyneuropathy E11.42 ; 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 ; CVA tenderness M54.9 ; High risk sexual behavior Z72.51 ; Acute cystitis without hematuria N30.00 ; Anxiety F41.9 ; Type II or unspecified type diabetes mellitus without mention of complication, uncontrolled E11.65 and Primary insomnia F51.01 [facility] [address] [id number] [place] [id number] Aug, Primary insomnia F51.01 [facility] [address] [id number] [place] [id number] Aug, Abrasion T14.8XXA ; Open wound T14.8XXA and Type II or unspecified type diabetes mellitus without mention of complication, uncontrolled E11.65 [facility] [address] [id number] [place] [id number] Jul, Type II or unspecified type diabetes belinda litus without mention of complication, uncontrolled E11.65 ; Anxiety F41.9 ; Primary insomnia F51.01 ; Abrasion T14.8XXA and Pain in left ross M79.662 [facility] [address] [id number] [place] [id number] May, Type II or unspecified type diabetes belinda litus without mention of complication, uncontrolled E11.65 [facility] [place] [address] [id number] [place] [id number] May, Primary insomnia F51.01 [facility] [place] [address] [id number] [place] [id number] Apr, Primary insomnia F51.01 [facility] [place] [address] [id number] [place] [id number] Mar, [facility] [place] [address] [id number] [place] [id number] Mar, Type II or unspecified type diabetes belinda litus without mention of complication, uncontrolled E11.65 ; Primary insomnia F51.01 ; Other insomnia G47.09 and Anxiety F41.9 [facility] [place] [address] [id number] [place] [id number] Jan, Type II or unspecified type diabetes belinda litus without mention of complication, uncontrolled E11.65 ; Anxiety F41.9 and Other insomnia G47.09 [facility] [place] [address] [id number] [place] [id number] Dec, Type II or unspecified type diabetes belinda litus without mention of complication, uncontrolled E11.65 ; Anxiety F41.9 and Other insomnia G47.09 [facility] [place] [address] [id number] [place] [id number] November, Type II or unspecified type diabetes belinda litus without mention of complication, uncontrolled E11.65 [facility] [place] [address] [id number] [place] [id number] 14 Oct, 2016 Dysuria R30.0 [facility] [address] [id number] [place] [id number] Sep, Pain, dental K08.89 [facility] [address] [id number] [place] [id number] Aug, [facility] [address] [id number] [place], [place] [id number] Aug, Dysuria R30.0 ; Type II or unspecified t ype diabetes mellitus without mention of complication, uncontrolled E11.65 and Medial epicondylitis, left elbow M77.02 [facility] [address] [id number] [place] [id number] Jul, Acute pharyngitis due to other specified organisms J02.8 [facility] [address] [id number] [place] [id number] Jun, Cellulitis of unspecified part of limb L 03.119 ; Type II or unspecified type diabetes mellitus without mention of complication, uncontrolled E11.65 ; Cellulitis of right lower extremity L03.115 and Ulcer of skin, limited to breakdown of skin L98.491 [facility] [address] [id number] [place] [id number] Jun, Cellulitis of unspecified part of limb L 03.119 ; Cellulitis of right lower extremity L03.115 and Ulcer of skin, limited to breakdown of skin L98.491 [facility] [address] [id number] [place] [id number] Jun, Cellulitis of unspecified part of limb L 03.119 ; Cellulitis of right lower extremity L03.115 and Ulcer of skin, limited to breakdown of skin L98.491 [facility] [address] [id number] [place] [id number] Jun, [facility] [address] [id number] [place] [id number] Jun, [facility] [address] [id number] [place] [id number] Jun, Dysuria R30.0 [facility] [address] [id number] [place] [id number] May, [facility] [address] [id number] [place] [id number] May, Painful swelling of joint M25.40 and Typ e II or unspecified type diabetes mellitus without mention of complication, uncontrolled E11.65 [facility] [address] [id number] [place] [id number] May, Painful swelling of joint M25.40 [facility] [address] [id number] [place] [id number] May, Painful swelling of joint M25.40 ; Gluco suria R81 and History of chest pain Z87.898 [facility] [address] [id number] [place] [id number] May, [facility] [address] [id number] [place] [id number] 25 Oct, 2016 Well woman exam with routine gynecologic al exam Z01.419 and High risk sexual behavior Z72.51 [facility] [place] [address] [id number] [place] [id number] Apr, Kidney infection N15.9 ; UTI symptoms R3 9.9 and Dysuria R30.0 [facility] [place] [address] [id number] [place] [id number] Apr, Grief reaction F43.20 [facility] [place] [address] [id number] [place] [id number] Mar, [facility] [place] [address] [id number] [place] [id number] Mar, Grief reaction F43.20 [facility] [place] [address] [id number] [place] [id number] Feb, [facility] [place] [address] [id number] [place] [id number] Feb, Stress reaction F43.0 and Type II or uns pecified type diabetes mellitus without mention of complication, uncontrolled E11.65 [facility] [place] [address] [id number] [place] [id number] Jan, [facility] [place] [address] [id number] [place] [id number] Dec, [facility] [place] [address] [id number] [place] [id number] Dec, [facility] [place] [address] [id number] [place] [id number] Dec, [facility] [place] [address] [id number] [place] [id number] November, [facility] [place] [address] [id number] [place] [id number] November, Pharyngitis J02.9 [facility] [place] [address] [id number] [place] [id number] Oct, [facility] [place] [address] [id number] [place] [id number] Oct, Sciatic leg pain M54.30 [facility] [place] [address] [id number] [place] [id number] Sep, [facility] [place] [address] [id number] [place] [id number] Sep, [facility] [place] [address] [id number] [place] [id number] Sep, Sciatic leg pain M54.30 [facility] [place] [address] [id number] [place] [id number] Aug, Pharyngitis J02.9 [facility] [place] [address] [id number] [place] [id number] Jul, Type II or unspecified type diabetes belinda litus without mention of complication, uncontrolled E11.65 and Midline low back pain without sciatica M54.5 [facility] [place] [address] [id number] [place] [id number] Jun, Diabetes with unspecified complication, type II or unspecified type, uncontrolled 250.92 [facility] [place] [address] [id number] [place] [id number] Jun, [facility] [address] [id number][place] [id number] May, [facility] [place] [address] [id number] [place] [id number] May, Diabetes with unspecified complication, type II or unspecified type, uncontrolled 250.92 [facility] [place] [address] [id number] [place] [id number] Apr, [facility] [address] [id number][place] [id number] Apr, [facility] [place] [address] [id number] [place] [id number] Apr, Type 2 diabetes mellitus with hyperglyce giovani E11.65 ; Depression with anxiety F41.8 ; Influenza vaccination declined Z28.21 and Diabetes with unspecified complication, type II or unspecified type, uncontrolled 250.92 [facility] [place] [address] [id number] [place] [id number] Apr, [facility] [place] [address] [id number] [place] [id number] Mar, [facility] [place] [address] [id number] [place] [id number] Mar, [facility] [place] [address] [id number] [place] [id number] Mar, [facility] [place] [address] [id number] [place] [id number] Feb, [facility] [place] [address] [id number] [place] [id number] Feb, [facility] [place] [address] [id number] [place] [id number] Feb, [facility] [place] [address] [id number] [place] [id number] Feb, [facility] [address] [id number][place] [id number] Feb, Dental abscess 522.5 [facility] [place] [address] [id number] [place] [id number] Jan, Diabetes with unspecified complication, type II or unspecified type, uncontrolled 250.92 ; Vaginal denise 112.1 ; Broken tooth 873.63 and Screening for STD (sexually transmitted disease) V74.5 [facility] [address] [id number] [address] [place] [address] Oct, [facility] [address] [facility] [id number] [address] [place] [address] Oct, [facility] [address] [id number] [place] [id number] Sep, [facility] [address] [facility] [id number] [address] [place] [address] Sep, [facility] [address] [id number] [place] [id number] Aug, [facility] [address] [facility] [id number] [address] [place] [phone] Aug, [facility] [address] [id number] [place] [id number] Aug, [facility] [address] [id number] [address] [place] [address] Aug, [facility] [place] [address] [id number] [place] [id number] Jul, [facility] [address] [id number] [address] [place] [address], [place] [address] Jul, [facility] [place] [address] [id number] [place] [id number] Jul, [facility] [address] [id number] [address] [place] [address], [place] [address] Jul, [facility] [address] [id number] [address] [place] [address], [place] [address] Jul, [facility] [place] [address] [id number] [place] [id number] Jul, [facility] [place] [address] [id number] [place] [id number] Jul, [facility] [address] [id number] [address] [place] [address], [place] [address] Jul, [facility] [place] [address] [id number] [place] [id number] Jul, [facility] [address] [facility] [id number] [address] [place] [address], [place] [address] Jul, [facility] [place] [address] [id number] [place] [id number] Jun, [facility] [address] [id number] [address] [place] [address] Jun, [facility] [address] [id number] [address] [place] [address], [place] [address] Jun, [facility] [place] [address] [id number] [place] [id number] Jun, [facility] [address] [id number] [address] [place] [address] Jun, [facility] [address] [id number] [address] [place] [address], [place] [address] May, [facility] [place] [address] [id number] [place] [id number] May, [facility] [place] [address] [id number] [place] [id number] May, [facility] [address] [id number] [address] [place] [address], [place] [address] May, [facility] [place] [address] [id number] [place] [id number] May, [facility] [address] [id number] [address] [place] [address], [place] [address] May, [facility] [address] [id number] [address] [place] [address], [place] [address] Apr, [facility] [address] [id number] [address] [place] [address], [place] [address] Mar, [facility] [address] [id number] [address] [place] [address], [place] [address] Jan, [facility] [place] [address] [id number] [place] [id number] Jan, [facility] [address] [id number] [address] [place] [address], [place] [address] Jan, [facility] [place] [address] [id number] [place] [id number] Jan, [facility] [address] [id number] [address] [place] [address], [place] [address] Jan, [facility] [place] [address] [id number] [place] [id number] Dec, [facility] [address] [id number] [address] [place] [address], [place] [address] Dec, [facility] [place] [address] [id number] [place] [id number] November, [facility] [address] [id number] [address] [place] [address], [place] [address] November, [facility] [place] [address] [id number] [place] [id number] November, [facility] [address] [id number] [address] [place] [address], [place] [address] November, [facility] [place] [address] [id number] [place] [id number] Oct, [facility] [address] [id number] [address] [place] [address], [place] [address] Oct, [facility] [place] [address] [id number] [place] [id number] Oct, [facility] [address] [id number] [address] [place] [address], [place] [address] Oct, [facility] [address] [facility] [id number] [address] [place] [address], [place] [address] Oct, [facility] [address] [facility] [id number] [address] [place] [address] Oct, [facility] [place] [address] [id number] [place] [id number] Sep, [facility] [address] [facility] [id number] [address] [place] [address] Sep, [facility] [address] [facility] [id number] [address] [place] [address] Aug, [facility] [place] [address] [id number] [place] [id number] Aug, [facility] [address] [id number] [address] [place] [address], [place] [address] Aug, [facility] [place] [address] [id number] [place] [id number] Aug, [facility] [address] [id number] [address] [place] [address], [place] [address] Aug, [facility] [place] [address] [id number] [place] [id number] Aug, [facility] [address] [id number] [address] [place] [address] Aug, [facility] [place] [address] [id number] [place] [id number] Aug, [facility] [address] [facility] [id number] [address] [place] [address] Aug, [facility] [place] [address] [id number] [place] [id number] Jul, [facility] [address] [id number] [address] [place] [address] Jul, [facility] [place] [address] [id number] [place] [id number] Jun, [facility] [address] [facility] [id number] [address] [place] [address] Jun, [facility] [place] [address] [facility] [id number] [place] [id number] Jun, [facility] [address] [facility] [id number] [address] [place] [address] Jun, [facility] [place] [address] [id number] [place] [id number] Jun, [facility] [address] [facility] [id number] [address] [place] [address] Jun, [facility] [address] [facility] [id number] [address] [place] [address] Jun, [facility] [address] [facility] [id number] [address] [place] [address] Jun, [facility] [address] [facility] [id number] [address] [place] [address] Jun, [facility] [place] [address] [id number] [place] [id number] Jun, [facility] [address] [facility] [id number] [address] [place] [address] Jun, [facility] [address] [facility] [id number] [address] [place] [address] May, [facility] [place] [address] [id number] [place] [id number] May, [facility] [address] [id number] [address] [place] [address] May, [facility] [place] [address] [id number] [place] [id number] May, [facility] [address] [id number] [address] [place] [address] May, [facility] [address] [id number] [address] [place] [address] Apr, [facility] [address] [id number] [address] [place] [address] Apr, [facility] [address] [id number] [address] [place] [address] Apr, [facility] [address] [id number] [address] [place] [address] Apr, [facility] [address] [id number] [address] [place] [address] Apr, [facility] [address] [id number] [address] [place] [address] Apr, [facility] [place] [address] [id number] [place] [id number] Apr, [facility] [address] [id number] [address] [place] [address] Apr, [facility] [place] [address] [id number] [place] [id number] Apr, [facility] [address] [id number] [address] [place] [address] Apr, [facility] [address] [id number] [address] [place] [address] 10 Apr, 2013 [facility] [place] [address] [id number] [place] [id number] Apr, [facility] [address] [id number] [address] [place] [address] Apr, [facility] [place] [address] [id number] [place] [id number] Apr, [facility] [address] [id number] [address] [place] [address] Apr, [facility] [address] [facility] [id number] [address] [place] [address] Mar, [facility] [place] [address] [id number] [place] [id number] Mar, [facility] [address] [id number] [address] [place] [address] Mar, [facility] [address] [facility] [id number] [address] [place] [address] Mar, [facility] [place] [address] [id number] [place] [id number] Mar, [facility] [place] [address] [id number] [place] [id number] Mar, [facility] [place] [address] [id number] [place] [id number] Mar, [facility] [place] [address] [id number] [place] [id number] Mar, [facility] [place] [address] [id number] [place] [id number] Mar, [facility] [place] [address] [id number] [place] [id number] Mar, [facility] [place] [address] [id number] [place] [id number] Mar, [facility] [place] [address] [id number] [place] [id number] Mar, [facility] [address] [id number] [address] [place] [address] Mar, [facility] [place] [address] [id number] [place] [id number] Jul, [facility] [address] [facility] [id number] [address] [place] [address] Oct, [facility] [address] [facility] [id number] [address] [place] [address] Oct, [facility] [address] [facility] [id number] [address] [place] [address] May, [facility] [address] [facility] [id number] [address] [place] [address] Jun, IMMUNIZATIONS No Known Immunizations SOCIAL HISTORY [...] Surgical History had all teeth removed in [facility] 7 Hospitalization History DKA 07/2014 Hospitalization History [facility] hypoglycemia 08/2015 Hospitalization History [facility] elevated blood sugar 09/06 15 Hospitalization History [facility] Negrete in [place] for DKS for 3 days, sugar on admin 926 08/08/2017 Hospitalization History hypoglycemia April 22-2018 Hospitalization History admitted to ICU for low blood sugars 04/2019 Hospitalization History DKA 05/12/2019
[2019-11-27 20:36] LABS: HEMOGLOBIN 12.8 G/DL (11.5-16.0); MEAN PLATELET VOLUME 9.8 FL (7.4-10.4); RED CELL DISTRIBUTION WIDTH 13.3 % (10.0-14.5); WHITE BLOOD COUNT 6.8 10^3/uL (4.3-11.0)
[2019-11-27] MEDS: NS IV 1000 ML 1,000 ML IV SCH (20:37)
--- OUTSIDE RECORDS SUMMARY | 2019-11-27 20:37 | XMS REPORT | Continuity of Care Document ---
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 4 SLEEP LAB TECHNOLOGIST (CURRENT) USE OF INSULIN 05/13/2019 EREN MICHAELS MD Ot Z98. 51 TUBAL LIGATION STATUS 09/08/2019 JAROD, SUDHEER LOCOMOTIVE OPERATOR Ot E10.10 TYPE 1 DIABETES MELLITUS WITH KETOACIDOS 09/08/2019 JAROD, SUDHEER LOCOMOTIVE OPERATOR Ot E10.65 TYPE 1 DIABETES MELLITUS WITH HYPERGLYCE 09/08/2019 JAROD, SUDHEER LOCOMOTIVE OPERATOR Ot J10.1 FLU DUE TO OTH IDENT INFLUENZA VIRUS W O 09/08/2019 JAROD, SUDHEER LOCOMOTIVE OPERATOR Ot R11.2 NAUSEA WITH VOMITING, UNSPECIFIED 09/08/2019 JAROD, SUDHEER LOCOMOTIVE OPERATOR Ot Z77.22 CNTCT W AND EXPSR TO ENVIRON TOBACCO SMO 09/08/2019 JAROD, SUDHEER LOCOMOTIVE OPERATOR Ot Z79.4 RETIREMENT (CURRENT) USE OF INSULIN 09/08/2019 JAROD, SUDHEER LOCOMOTIVE OPERATOR Ot Z88.1 ALLERGY STATUS TO OTHER ANTIBIOTIC AGENT 09/15/2019 JAROD, SUDHEER LOCOMOTIVE OPERATOR Ot E10.10 TYPE 1 DIABETES MELLITUS WITH KETOACIDOS 09/15/2019 JAROD, SUDHEER LOCOMOTIVE OPERATOR Ot E10.65 TYPE 1 DIABETES MELLITUS WITH HYPERGLYCE 09/15/2019 JAROD, SUDHEER LOCOMOTIVE OPERATOR Ot J10.1 FLU DUE TO OTH IDENT INFLUENZA VIRUS W O 09/15/2019 JAROD, SUDHEER LOCOMOTIVE OPERATOR Ot R11.2 NAUSEA WITH VOMITING, UNSPECIFIED 09/15/2019 JAROD, SUDHEER LOCOMOTIVE OPERATOR Ot Z77.22 CNTCT W AND EXPSR TO ENVIRON TOBACCO SMO 09/15/2019 JAROD, SUDHEER LOCOMOTIVE OPERATOR Ot Z79.4 SLEEP LAB TECHNOLOGIST (CURRENT) USE OF INSULIN 09/15/2019 JAROD, SUDHEER LOCOMOTIVE OPERATOR Ot Z88.1 ALLERGY STATUS TO OTHER ANTIBIOTIC AGENT 09/16/2019 Ot 780.6 09/16/2019 Ot V58.69 10/22/2019 AYSE ARROYO DOI Ot E11.10 TYPE 2 DIABETES MELLITUS WITH KETOACIDOS 10/22/2019 DINA MSUE RAIN Ot F17.21 0 NICOTINE DEPENDENCE, CIGARETTES, UNCOMPL 10/22/2019 DINA DO RAIN Ot Z79.4 RETIREMENT (CURRENT) USE OF INSULIN 10/22/2019 DINA MUSE RAIN Ot Z79.89 9 OTHER SLEEP LAB TECHNOLOGIST (CURRENT) DRUG THERAPY 10/22/2019 DINA MUSE RAIN Ot Z82.49 FAMILY HX OF ISCHEM HEART DIS AND OTH DI 10/22/2019 DINA MUSE RAIN Ot Z88.1 ALLERGY STATUS TO OTHER ANTIBIOTIC AGENT 10/22/2019 DINA MUSE, RAIN Ot Z90.49 ACQUIRED ABSENCE OF OTHER SPECIFIED PART 10/29/2019 DINA MUSE RAIN Ot E11.10 TYPE 2 DIABETES MELLITUS WITH KETOACIDOS 10/29/2019 DINA MUSE RAIN Ot F17.21 0 NICOTINE DEPENDENCE, CIGARETTES, UNCOMPL 10/29/2019 DINA MUSE RAIN Ot Z79.4 RETIREMENT (CURRENT) USE OF INSULIN 10/29/2019 DINA MUSE RAIN Ot Z79.89 9 OTHER SLEEP LAB TECHNOLOGIST (CURRENT) DRUG THERAPY 10/29/2019 DINA MUSE RAIN Ot Z82.49 FAMILY HX OF ISCHEM HEART DIS AND OTH DI 10/29/2019 DINA MUSE RAIN Ot Z88.1 ALLERGY STATUS TO OTHER ANTIBIOTIC AGENT 10/29/2019 DINA MUSE RAIN Ot Z90.49 ACQUIRED ABSENCE OF OTHER SPECIFIED PART Procedures There is no data. Results Test [...] NRG STATEMENT OF ADEQUACY: NRG INTERPRETATION/RESULT: NRG SHRIMP PACKER: NRG HPV mRNA E6/E7, SUREPATH VIAL Detected NOT DETECTED REVIEW SHRIMP PACKER: NRG INFECTION: NRG COMMENT NRG LIPID PANEL - 12/20/18 13:42 CHOLESTEROL, TOTAL 206 mg/dL <200 HDL CHOLESTEROL 42 mg/dL >50 TRIGLYCERIDES 187 mg/dL <150 LDL-CHOLESTEROL 132 mg/dL (calc) NRG CHOL/HDLC RATIO 4.9 (calc) <5.0 NON HDL CHOLESTEROL 164 mg/dL (calc) <13 0 CMP - 12/20/18 13:42 GLUCOSE 75 mg/dL 65-99 UREA NITROGEN (BUN) 15 mg/dL 7-25 CREATININE 0.71 mg/dL 0.50-1.10 eGFR NON-AFR. [place] 108 mL/min/1.73m2 > OR = 60 eGFR [...] 7-25 CREATININE 0.70 mg/dL 0.50-1.10 eGFR NON-AFR. [place] 109 mL/min/1.73m2 > OR = 60 eGFR [...] 01/04 09:20 Blood monocytes/100 leukocytes 1 % [facility] Manual blood segmented neutrophils/100 leukocytes 82 % [facility] Manual blood lymphocytes/100 leukocytes 16 % NR Manual eosinophils/100 leukocytes in nose 1 % [facility] Blood erythrocyte morphology finding identification NORMAL [facility] Comprehensive metabolic panel - 10/22/19 [...] urinalysis with reflex to culture NO NRG Whole blood basic metabolic panel - 01/04 12:20 Serum or plasma sodium measurement (moles/volume) 139 mmol/L 135-145 Serum or plasma potassium measurement (moles/volume) 3.8 mmol/L 3.6-5.0 Serum or plasma chloride measurement (moles/volume) 111 mmol/L 98-107 Carbon dioxide 19 mmol/L 21-32 Serum or plasma anion gap determination (moles/volume) 9 mmol/L 5-14 Serum or plasma urea nitrogen measurement (mass/volume ) 11 mg/dL 7-18 Serum or plasma creatinine measurement (mass/volume) 0.80 mg/dL 0.60-1.30 Serum or plasma urea nitrogen/creatinine mass ratio 14 NRG Serum or plasma creatinine measurement w ith calculation of estimated glomerular filtration rate > NRG Serum or plasma glucose measurement (mass/volume) 207 mg/dL 70-105 Serum or plasma calcium measurement (mass/volume) 8.1 mg/dL 8.5-10.1 Capillary blood glucose measurement by g lucometer (mass/volume) - 10/22/19 13:49 Capillary blood glucose measurement by glucometer (mas s/volume) 195 mg/dL 70-110 Whole blood basic metabolic panel - 01/04 14:40 Serum or plasma sodium measurement (moles/volume) 138 mmol/L 135-145 Serum or plasma potassium measurement (moles/volume) 3.6 mmol/L 3.6-5.0 Serum or plasma chloride measurement (moles/volume) 110 mmol/L 98-107 Carbon dioxide 21 mmol/L 21-32 Serum or plasma anion gap determination (moles/volume) 7 mmol/L 5-14 Serum or plasma urea nitrogen measurement (mass/volume ) 11 mg/dL 7-18 Serum or plasma creatinine measurement (mass/volume) 0.77 mg/dL 0.60-1.30 Serum or plasma urea nitrogen/creatinine mass ratio 14 NRG Serum or plasma creatinine measurement w ith calculation of estimated glomerular filtration rate > NRG Serum or plasma glucose measurement (mass/volume) 194 mg/dL 70-105 Serum or plasma calcium measurement (mass/volume) 7.9 mg/dL 8.5-10.1 Serum or plasma troponin i.cardiac measu rement (mass/volume) - 10/22/19 14:40 Serum or plasma troponin i.cardiac measurement (mass/v olume) < ng/mL <0.028 Capillary blood glucose measurement by g lucometer (mass/volume) - 10/22/19 15:05 Capillary blood glucose measurement by glucometer (mas s/volume) 212 mg/dL 70-110 CULTURE, URINE - 11/03/19 11:21 CULTURE, URINE, ROUTINE SEE NOTE NRG Complete urinalysis with reflex to cultu re - 11/27/19 17:59 Urine color determination YELLOW NRG Urine clarity [...] detection in urine sediment by light microscopy SMALL NRG Complete urinalysis with reflex to culture NO NRG Complete blood count (CBC) with automate d white blood cell (WBC) differential - 11/27/19 18:06 Blood leukocytes automated count (number/volume) 6.1 10*3/uL 4.3-11.0 Blood erythrocytes automated count (number/volume) 4.66 10*6/uL 4.35-5.85 Venous blood hemoglobin measurement (mass/volume) 14.5 g/dL 11.5-16.0 Blood hematocrit (volume fraction) 43 % 35-52 Automated erythrocyte mean corpuscular volume 93 [ foz_us] 80-99 Automated erythrocyte mean corpuscular h emoglobin (mass per erythrocyte) 31 pg 25-34 Automated erythrocyte mean corpuscular h emoglobin concentration measurement (mass/volume) 34 g/dL 32-36 Automated erythrocyte distribution width ratio 13. 7 % 10.0- 14.5 Automated blood platelet count (count/volume) 268 10*3/uL 130-400 Automated blood platelet mean volume measurement 10.3 [foz_us] 7.4-10.4 Automated blood neutrophils/100 leukocytes 59 % 42-75 Automated blood lymphocytes/100 leukocytes 33 % 12-44 Blood monocytes/100 leukocytes 4 % 0-12 Automated blood eosinophils/100 leukocytes 4 % 0-10 Automated blood basophils/100 leukocytes 0 % 0-10 Blood neutrophils automated count (number/volume) 3.6 10*3 1.8-7.8 Blood lymphocytes automated count (number/volume) 2.0 10*3 1.0-4.0 Blood monocytes automated count (number/volume) 0. 3 10*3 0.0-1.0 Automated eosinophil count 0.2 10*3/uL 0 .0-0.3 Automated blood basophil count (count/volume) 0.0 10*3/uL 0.0-0.1 Comprehensive metabolic panel - 11/27/19 18:06 Serum or plasma sodium measurement (moles/volume) 133 mmol/L 135-145 Serum or plasma potassium measurement (moles/volume) 4.4 mmol/L 3.6-5.0 Serum or plasma chloride measurement (moles/volume) 102 mmol/L 98-107 Carbon dioxide 18 mmol/L 21-32 Serum or plasma anion gap determination (moles/volume) 13 mmol/L 5-14 Serum or plasma urea nitrogen measurement (mass/volume ) 22 mg/dL 7-18 Serum or plasma creatinine measurement (mass/volume) 1.37 mg/dL 0.60-1.30 Serum or plasma urea nitrogen/creatinine mass ratio 16 NRG Serum or plasma creatinine measurement w ith calculation of estimated glomerular filtration rate 43 NRG Serum or plasma glucose measurement (mass/volume) 751 mg/dL 70-105 Serum or plasma calcium measurement (mass/volume) 8.9 mg/dL 8.5-10.1 Serum or plasma total bilirubin measurement (mass/volu me) 0.4 mg/dL 0.1-1.0 Serum or plasma alkaline phosphatase minh surement (enzymatic activity/volume) 113 U/L 40-136 Serum or plasma aspartate aminotransfera se measurement (enzymatic activity/volume) 18 U/L 5-34 Serum or plasma alanine aminotransferase measurement (enzymatic activity/volume) 20 U/L 0-55 Serum or plasma protein measurement (mass/volume) 7.5 g/dL 6.4-8.2 Serum or plasma albumin measurement (mass/volume) 4.1 g/dL 3.2-4.5 CALCIUM CORRECTED 8.8 mg/dL 8.5-10.1 Beta-hydroxybutyric acid measurement - 0 11/27/19 18:06 Beta-hydroxybutyric acid measurement 0.14 mmol/L 0.00-0.27 Capillary blood glucose measurement by g lucometer (mass/volume) - 11/27/19 18:07 Capillary blood glucose measurement by glucometer (mas s/volume) > mg/dL 70-110 Capillary blood glucose measurement by g lucometer (mass/volume) - 11/27/19 19:23 Capillary blood glucose measurement by glucometer (mas s/volume) 391 mg/dL 70-110 Capillary blood glucose measurement by g lucometer (mass/volume) - 11/27/19 20:09 Capillary blood glucose measurement by glucometer (mas s/volume) 247 mg/dL 70-110 Encounters ACCT No. Visit Date/Time Discharge Status Pt. Type Provider Facility Loc./Unit Complaint [id number] 11/03/2019 18:00:00 11/03/2019 23:59:5 9 [facility] Outpatient ALBERT CERVANTES [facility] [id number] 11/03/2019 18:00:00 Document Registration [id number] 08/20/2019 13:35:00 Document Registration [id number] 08/10/2019 15:20:00 Document Registration [id number] 07/24/2019 10:40:00 Document Registration [id number] 06/08/2019 10:15:00 Document Registration [id number] 05/07/2019 09:00:00 Document Registration [id number] 04/11/2019 10:00:00 Document Registration [id number] 04/04/2019 08:30:00 Document Registration [id number] 02/20/2019 10:20:00 Document Registration [id number] 02/14/2019 13:00:00 Document Registration [id number] 12/20/2018 13:00:00 Document Registration [id number] 12/05/2018 09:40:00 Document Registration [id number] 11/24/2018 15:40:00 Document Registration [id number] 11/17/2018 16:00:00 Document Registration [id number] 09/26/2018 11:20:00 Document Registration [id number] 05/09/2018 08:20:00 Document Registration [id number] 10/22/2019 12:00:00 16:15:00 DIS Outpatient RAIN RAROYO DO Via [facility] ICU CHEST PAIN,DKA [id number] 09/08/2019 17:04:00 19:50:00 DIS Emergency SUDHEER OLIVERA Via [facility] ER N/V/HEADACHE/ POSS HIGH BLOOD SUGAR [id number] 05/12/2019 22:46:00 09:54:00 DIS Inpatient XENIA COLBY, EREN Cardenas [facility] ICU DKA, CHEST PAIN, N/V [id number] 04/22/2019 13:20:00 019 11:20:00 DIS Inpatient RAIN ARROYO DO, V [facility] ICU HYPOGLYCEMIA,[place] [id number] 04/19/2013 10:59:00 013 23:59:59 CLS Outpatient [id number] 11/27/2019 18:19:00 Document Registration [id number] 05/08/2007 18:06:00 Document Registration
[2019-11-27 20:48] LABS: BUN/CREATININE RATIO 26; CALCIUM 8.3 MG/DL (8.5-10.1); CARBON DIOXIDE 17 MMOL/L (21-32); CHLORIDE 110 MMOL/L (98-107); GFR ESTIMATED > 60; GLUCOSE 218 MG/DL (70-105); POTASSIUM 3.9 MMOL/L (3.6-5.0); SODIUM 139 MMOL/L (135-145)
--- OUTSIDE RECORDS SUMMARY | 2019-11-27 20:57 | XMS REPORT | Continuity of Care Document ---
Author Organization Unknown Address Unknown Phone Unavailable Allergies Active Description Code Type Severity Reaction Onset Reported/Identified Relationship to Patient Clinical Status Yes cephalexin [id number] Drug Allerg y Unknown N/A 05/06/2007 Yes morphine [id number] Drug Allergy Unknown N/A 05/06/2007 Medications There [...] UNSPECIFIED 04/23/2019 AYSE ARROYO DOI Ot Z79.4 CORK TIPPER (CURRENT) USE OF INSULIN 04/23/2019 DINA MUSE [...] 05/13/2019 EREN MICHAELS MD Ot Z79. 4 CORK TIPPER (CURRENT) USE OF INSULIN 05/13/2019 EREN MICHAELS MD Ot Z98. 51 TUBAL LIGATION STATUS 09/08/2019 JAROD, SUDHEER BENCH PRECISION ASSEMBLER Ot E10.10 TYPE 1 DIABETES MELLITUS WITH KETOACIDOS 09/08/2019 JAROD, SUDHEER BENCH PRECISION ASSEMBLER Ot E10.65 TYPE 1 DIABETES MELLITUS WITH HYPERGLYCE 09/08/2019 JAROD, SUDHEER BENCH PRECISION ASSEMBLER Ot J10.1 FLU DUE TO OTH IDENT INFLUENZA VIRUS W O 09/08/2019 JAROD, SUDHEER BENCH PRECISION ASSEMBLER Ot R11.2 NAUSEA WITH VOMITING, UNSPECIFIED 09/08/2019 JAROD, SUDHEER BENCH PRECISION ASSEMBLER Ot Z77.22 CNTCT W AND EXPSR TO ENVIRON TOBACCO SMO 09/08/2019 JAROD, SUDHEER BENCH PRECISION ASSEMBLER Ot Z79.4 FDC (CURRENT) USE OF INSULIN 09/08/2019 JAROD, SUDHEER BENCH PRECISION ASSEMBLER Ot Z88.1 ALLERGY STATUS TO OTHER ANTIBIOTIC AGENT 09/15/2019 JAROD, SUDHEER BENCH PRECISION ASSEMBLER Ot E10.10 TYPE 1 DIABETES MELLITUS WITH KETOACIDOS 09/15/2019 JAROD, SUDHEER BENCH PRECISION ASSEMBLER Ot E10.65 TYPE 1 DIABETES MELLITUS WITH HYPERGLYCE 09/15/2019 JAROD, SUDHEER BENCH PRECISION ASSEMBLER Ot J10.1 FLU DUE TO OTH IDENT INFLUENZA VIRUS W O 09/15/2019 JAROD, SUDHEER BENCH PRECISION ASSEMBLER Ot R11.2 NAUSEA WITH VOMITING, UNSPECIFIED 09/15/2019 JAROD, SUDHEER BENCH PRECISION ASSEMBLER Ot Z77.22 CNTCT W AND EXPSR TO ENVIRON TOBACCO SMO 09/15/2019 JAROD, SUDHEER BENCH PRECISION ASSEMBLER Ot Z79.4 CORK TIPPER (CURRENT) USE OF INSULIN 09/15/2019 JAROD, SUDHEER BENCH PRECISION ASSEMBLER Ot Z88.1 ALLERGY STATUS TO OTHER ANTIBIOTIC AGENT 09/16/2019 Ot 780.6 09/16/2019 Ot V58.69 10/22/2019 AYSE ARROYO DOI Ot E11.10 TYPE 2 DIABETES MELLITUS WITH KETOACIDOS 10/22/2019 DINA MUSE RAIN Ot F17.21 0 NICOTINE DEPENDENCE, CIGARETTES, UNCOMPL 10/22/2019 DINA DO RAIN Ot Z79.4 FDC (CURRENT) USE OF INSULIN 10/22/2019 DINA MUSE RAIN Ot Z79.89 9 OTHER CORK TIPPER (CURRENT) DRUG THERAPY 10/22/2019 DINA MUSE RAIN [...] UNCOMPL 10/29/2019 DINA MUSE RAIN Ot Z79.4 FDC (CURRENT) USE OF INSULIN 10/29/2019 DINA MUSE RAIN Ot Z79.89 9 OTHER CORK TIPPER (CURRENT) DRUG THERAPY 10/29/2019 DINA MUSE RAIN [...] NRG STATEMENT OF ADEQUACY: NRG INTERPRETATION/RESULT: NRG MANAGER ASSURANCE: NRG HPV mRNA E6/E7, SUREPATH VIAL Detected NOT DETECTED REVIEW MANAGER ASSURANCE: NRG INFECTION: NRG COMMENT NRG LIPID PANEL - 12/20/18 13:42 CHOLESTEROL, TOTAL 206 mg/dL <200 HDL CHOLESTEROL 42 mg/dL >50 TRIGLYCERIDES 187 mg/dL <150 LDL-CHOLESTEROL 132 mg/dL (calc) NRG CHOL/HDLC RATIO 4.9 (calc) <5.0 NON HDL CHOLESTEROL 164 mg/dL (calc) <13 0 CMP - 12/20/18 13:42 GLUCOSE 75 mg/dL 65-99 UREA NITROGEN (BUN) 15 mg/dL 7-25 CREATININE 0.71 mg/dL 0.50-1.10 eGFR NON-AFR. [place] 108 mL/min/1.73m2 > OR = 60 eGFR [...] 7-25 CREATININE 0.70 mg/dL 0.50-1.10 eGFR NON-AFR. [place] 109 mL/min/1.73m2 > OR = 60 eGFR [...] 01/04 09:20 Blood monocytes/100 leukocytes 1 % [facility] Manual blood segmented neutrophils/100 leukocytes 82 % [facility] Manual blood lymphocytes/100 leukocytes 16 % NR Manual eosinophils/100 leukocytes in nose 1 % [facility] Blood erythrocyte morphology finding identification NORMAL [facility] Comprehensive metabolic panel - 10/22/19 09:35 Serum [...] by glucometer (mas s/volume) 247 mg/dL 70-110 Automated blood complete blood count (he mogram) panel - 11/27/19 20:24 Blood leukocytes automated count (number/volume) 6.8 10*3/uL 4.3-11.0 Blood erythrocytes automated count (number/volume) 4.21 10*6/uL 4.35-5.85 Venous blood hemoglobin measurement (mass/volume) 12.8 g/dL 11.5-16.0 Blood hematocrit (volume fraction) 39 % 35-52 Automated erythrocyte mean corpuscular volume 93 [ foz_us] 80-99 Automated erythrocyte mean corpuscular h emoglobin (mass per erythrocyte) 30 pg 25-34 Automated erythrocyte mean corpuscular h emoglobin concentration measurement (mass/volume) 33 g/dL 32-36 Automated erythrocyte distribution width ratio 13. 3 % 10.0- 14.5 Automated blood platelet count (count/volume) 251 10*3/uL 130-400 Automated blood platelet mean volume measurement 9.8 [foz_us] 7.4-10.4 Whole blood basic metabolic panel - 11/15 09/06 20:24 Serum or plasma sodium measurement (moles/volume) 139 mmol/L 135-145 Serum or plasma potassium measurement (moles/volume) 3.9 mmol/L 3.6-5.0 Serum or plasma chloride measurement (moles/volume) 110 mmol/L 98-107 Carbon dioxide 17 mmol/L 21-32 Serum or plasma anion gap determination (moles/volume) 12 mmol/L 5-14 Serum or plasma urea nitrogen measurement (mass/volume ) 21 mg/dL 7-18 Serum or plasma creatinine measurement (mass/volume) 0.80 mg/dL 0.60-1.30 Serum or plasma urea nitrogen/creatinine mass ratio 26 NRG Serum or plasma creatinine measurement w ith calculation of estimated glomerular filtration rate > NRG Serum or plasma glucose measurement (mass/volume) 218 mg/dL 70-105 Serum or plasma calcium measurement (mass/volume) 8.3 mg/dL 8.5-10.1 Encounters ACCT No. Visit Date/Time Discharge Status Pt. Type Provider Facility Loc./Unit Complaint [id number] 11/03/2019 18:00:00 11/03/2019 23:59:5 9 [facility] Outpatient ALBERT CERVANTES [facility] [id number] 11/03/2019 18:00:00 Document Registration [id number] 08/20/2019 13:35:00 Document Registration [id number] 08/10/2019 15:20:00 Document Registration [id number] 07/24/2019 10:40:00 Document Registration [id number] 06/08/2019 10:15:00 Document Registration [id number] 05/07/2019 09:00:00 Document Registration [id number] 04/11/2019 10:00:00 Document Registration [id number] 04/04/2019 08:30:00 Document Registration [id number] 02/20/2019 10:20:00 Document Registration [id number] 02/14/2019 13:00:00 Document Registration [id number] 12/20/2018 13:00:00 Document Registration [id number] 12/05/2018 09:40:00 Document Registration [id number] 11/24/2018 15:40:00 Document Registration [id number] 11/17/2018 16:00:00 Document Registration [id number] 09/26/2018 11:20:00 Document Registration [id number] 05/09/2018 08:20:00 Document Registration [id number] 10/22/2019 12:00:00 16:15:00 DIS Outpatient RAIN ARROYO DO Via [facility] ICU CHEST PAIN,DKA [id number] 09/08/2019 17:04:00 19:50:00 DIS Emergency JAROD, SUDHEER BENCH PRECISION ASSEMBLER Via [facility] ER N/V/HEADACHE/ POSS HIGH BLOOD SUGAR [id number] 05/12/2019 22:46:00 09:54:00 DIS Inpatient EREN MICHAELS MD Via [facility] ICU DKA, CHEST PAIN, N/V [id number] 04/22/2019 13:20:00 11:20:00 DIS Inpatient RAIN ARROYO DO, V ia [facility] ICU HYPOGLYCEMIA,[place] [id number] 04/19/2013 10:59:00 013 23:59:59 [facility] Outpatient [id number] 11/27/2019 18:19:00 Document Registration [id number] 05/08/2007 18:06:00 Document Registration
[2019-11-27] MEDS: inSUlin ASPART (NovoLOG) 1 UNIT/0.01 ML (CHARGE PER UNIT) SC SCH (21:12)
--- NOTE | 2019-11-27 22:24 | NUR ---
Dr Kobe Johnson ICU updated on patient condition at this time, accu check 99. Patient reports "I crash fast", no new orders, continue to monitor.
[2019-11-27] MEDS ORDERED: IBUPROFEN TABLET 200 MG TAB PO PRN (22:30)
[2019-11-28] VITALS (9 sets, daily range): BP systolic 94–132; BP diastolic 53–85
[2019-11-28] MEDS: NS IV 1000 ML 1,000 ML IV SCH (03:15)
[2019-11-28 03:40] LABS: BASOPHILS % (AUTO) 0 % (0-10); EOSINOPHILS # (AUTO) 0.2 10^3/uL (0.0-0.3); EOSINOPHILS % (AUTO) 4 % (0-10); HEMATOCRIT 38 % (35-52); HEMOGLOBIN 12.5 G/DL (11.5-16.0); LYMPHOCYTES # (AUTO) 2.3 X 10^3 (1.0-4.0); LYMPHOCYTES % (AUTO) 42 % (12-44); MEAN CORPUSCULAR HEMOGLOBIN 31 PG (25-34); MEAN CORPUSCULAR HGB CONC 33 G/DL (32-36); MEAN CORPUSCULAR VOLUME 93 FL (80-99); MONOCYTES # (AUTO) 0.4 X 10^3 (0.0-1.0); MONOCYTES % (AUTO) 7 % (0-12); NEUTROPHILS # (AUTO) 2.6 X 10^3 (1.8-7.8); NEUTROPHILS % (AUTO) 46 % (42-75); PLATELET COUNT 214 10^3/uL (130-400); RED CELL DISTRIBUTION WIDTH 13.4 % (10.0-14.5); WHITE BLOOD COUNT 5.5 10^3/uL (4.3-11.0)
[2019-11-28 03:52] LABS: ALBUMIN 3.1 GM/DL (3.2-4.5); CHLORIDE 107 MMOL/L (98-107); POTASSIUM 4.7 MMOL/L (3.6-5.0); SODIUM 133 MMOL/L (135-145)
[2019-11-28 03:54] LABS: CALCIUM 7.9 MG/DL (8.5-10.1)
[2019-11-28 03:55] LABS: TOTAL PROTEIN 5.7 GM/DL (6.4-8.2)
[2019-11-28 03:56] LABS: CARBON DIOXIDE 19 MMOL/L (21-32)
[2019-11-28 03:57] LABS: BILIRUBIN,TOTAL 0.4 MG/DL (0.1-1.0)
[2019-11-28 03:58] LABS: ALKALINE PHOSPHATASE 80 U/L (40-136); PHOSPHORUS 3.5 MG/DL (2.3-4.7)
[2019-11-28 03:59] LABS: CREATININE SERUM 0.81 MG/DL (0.60-1.30)
[2019-11-28 04:00] LABS: BUN/CREATININE RATIO 25
[2019-11-28 04:01] LABS: ALANINE AMINOTRANSFERASE 41 U/L (0-55); MAGNESIUM 1.9 MG/DL (1.6-2.4)
[2019-11-28 04:04] LABS: GFR ESTIMATED > 60
[2019-11-28 04:05] LABS: GLUCOSE 406 MG/DL (70-105)
--- NOTE | 2019-11-28 04:13 | NUR ---
Call placed to E ICU at this time to report Glucose [address] Bullock. Order to give 10U Novolog at this time.
[2019-11-28] MEDS: inSUlin ASPART (NovoLOG) 1 UNIT/0.01 ML (CHARGE PER UNIT) SC SCH (04:27)
--- NOTE | 2019-11-28 09:00 | NUR ---
PATIENT REQUESTED BLOOD SUGAR BE TAKEN AT THIS TIME. RESULT 393, NOTIFIED PHYSICIAN OF RESULT. PATIENT STATED SHE WANTED INSULIN NOW. THIS NURSE EXPLAINED THAT SHE HAD NO ORDERS AT THIS TIME, THAT SHE IS ON A SLIDING SCALE, BUT THAT I CONTACTED THE PHYSICIAN ET WAS WAITING FOR A CALL BACK. PATIENT CALLED THIRD GRADE TEACHER LIGHT, BORING MACHINE SET UP OPERATOR JIG ENTERED PATIENT ROOM, PATIENT STATED SHE WANTED HER INSULIN NOW. THIS NURSE WENT DOWN TO PATIENT ROOM AGAIN TO LET HER KNOW I AM WAITING TO HEAR BACK FROM PHYSICIAN, PATIENT BECAME ANGRY AND BEGAN YELLING AT THIS NURSE. THIS NURSE REQUESTED THAT PATIENT NOT RAISE VOICE TO STAFF, THAT WE ARE HERE TO HELP HER. PATIENT THEN STATED TO TAKE HER IV OUT SHE WAS LEAVING. IV D/C'D, TIP INTACT. PATIENT SIGNED AMA PAPERWORK.
--- NOTE | 2019-11-28 09:03 | NUR ---
SPOKE WITH THE PT AND WENT THRU THE EXT MED HISTORY TO COMPLETE THE MED REC HUMALOG- USES PER INSULIN PUMP HOWEVER THE PT INDICATES SHE WAS HAVING A REACTION TO THE ADHESIVES AND TOOK HER PUMP OFF ON Tuesday11-24-2019 BUT HAD BEEN INJECTING HER INSULIN SINCE THEN ALL MEDICATIONS FILLED AT [facility] AND ALL HAD GOOD FILL DATES
== END 2019-11-28 09:00 | disposition left against medical advice (07) ==
LOC: EDUNIT# 17:51 → ER 17:53 → ICU 18:39 → UNDOADMOB 18:39 → ICU 19:47 → UNDODISOB 11-28 09:30
PROVIDERS: ADMIT Family Medicine; ATTEND Family Medicine
DX: E11.00 Type 2 diabetes mellitus with hyperosmolarity without nonketotic hyperglycemic-hyperosmolar coma (NKHHC) (principal); E11.649 Type 2 diabetes mellitus with hypoglycemia without coma; G89.29 Other chronic pain; M54.9 Dorsalgia, unspecified; F17.210 Nicotine dependence, cigarettes, uncomplicated; Z88.6 Allergy status to analgesic agent; Z88.1 Allergy status to other antibiotic agents; Z79.4 Long term (current) use of insulin; Z98.51 Tubal ligation status; Z79.899 Other long term (current) drug therapy; Z91.048 Other nonmedicinal substance allergy status; Z82.49 Family history of ischemic heart disease and other diseases of the circulatory system
CPT/HCPCS: 36415; 71045; 80048; 80053; 81000; 82010; 82962; 83036; 83735; 84100; 85025; 85027; 96361; 96374; G0378

== ENCOUNTER → 2020-10-29 | Outpatient (CLI) | payer MEDICAID ==
--- NOTE | 2020-10-29 13:57 | Diagnostic Imaging Report ---
Indication: Routine screening. No prior mammograms are available for comparison. This is a baseline study. 2-D and 3-D bilateral screening mammography was performed with CAD. Both breasts are heterogeneously dense, limiting the sensitivity of mammography. There is an intraparenchymal lymph node in the outer right breast. No suspicious mass or malignant appearing microcalcifications are seen. Axillae are unremarkable. IMPRESSION: BI-RADS Category 2 No mammographic features suspicious for malignancy are identified. ACR BI-RADS Category 2: Benign findings. Result letter will be mailed to the patient. Note: At least 10% of breast cancer is not imaged by mammography. Dictated by: Dictated on workstation # [id number]
== END ==
LOC: RAD 10:58
PROVIDERS: ATTEND Nurse Practitioner
DX: Z12.31 Encounter for screening mammogram for malignant neoplasm of breast (principal)
CPT/HCPCS: 77063; 77067

== ENCOUNTER → 2021-03-24 | Outpatient (CLI) | payer MEDICAID ==
[~2021-03-24] MED LIST changes: +MIRT-68 PO; -MIRT15TA6 PO
--- NOTE | 2021-03-24 17:47 | Diagnostic Imaging Report ---
PROCEDURE: CT abdomen and pelvis without contrast. TECHNIQUE: Multiple contiguous axial images were obtained through the abdomen and pelvis without the use of intravenous contrast. Auto Exposure Controls were utilized during the CT exam to meet ALARA standards for radiation dose reduction. INDICATION: Gross hematuria for 3 weeks. CORRELATION is made with prior CT from 12/08/2010. Lung bases are clear. Liver is unremarkable. Gallbladder is surgically absent. There is no biliary ductal dilatation. The pancreas and spleen are unremarkable. No adrenal mass is detected. Kidneys are unremarkable. No calculi are detected. There is no hydronephrosis. No ureteral or bladder calculi are identified. Aorta is nonaneurysmal. The bowel loops are normal caliber. No obstruction. No free fluid or fluid collection. Uterus is unremarkable. Bony structures are intact. IMPRESSION: Unremarkable noncontrast CT of the abdomen and pelvis. No urinary tract calculi or obstruction is detected. Dictated by: Dictated on workstation # [id number]
== END ==
LOC: RAD 17:09
PROVIDERS: ATTEND Urology
DX: R31.0 Gross hematuria (principal); Z87.440 Personal history of urinary (tract) infections
CPT/HCPCS: 74176

== ENCOUNTER → 2021-06-15 | Outpatient (CLI) | payer MEDICAID ==
--- NOTE | 2021-06-15 13:40 | Diagnostic Imaging Report ---
EXAMINATION: Magnetic resonance imaging of the right knee without intravenous contrast DATE: June 15, 2021. COMPARISON: None. INDICATION: 41-year-old female, fall. Right knee pain. TECHNIQUE: Multiplanar, multisequence non contrast enhanced MR imaging was accomplished. FINDINGS: MENISCI: There is an oblique tear with inferior surface extension involving the body and posterior horn of the medial meniscus. The lateral meniscus is intact. LIGAMENTS AND TENDONS: The anterior and posterior cruciate ligaments are intact. The medial collateral ligament is intact. The iliotibial band, mid third lateral capsular ligament, fibular collateral ligament, biceps femoris tendon and conjoined tendon are intact. The quadriceps tendon and patella ligament are intact. JOINT: There are areas of full-thickness cartilage signal abnormality in the patella including involvement of the medial and lateral patellar facets as well as the median patellar ridge. There is mild underlying subchondral edema. There is no clearly identified surface defect of the cartilage. The medial and lateral compartment cartilage appears intact. There is no knee joint effusion, prominent synovitis, or intra-articular body. BONE: There is unremarkable bone marrow signal. Specifically, negative for fracture, osteomyelitis, osteonecrosis, or marrow replacing process. BURSAE AND SOFT TISSUES: No Bakers cyst. IMPRESSION: 1. Oblique tear involving the body and posterior horn of the medial meniscus. 2. Intact lateral meniscus. 3. Intact anterior and posterior cruciate ligaments. Additional ligaments and tendons are intact. 4. Extensive abnormal signal in the cartilage of the patella without clearly identified surface defect which may correlate with chondromalacia. There is mild underlying degenerative related marrow edema. Additional articular cartilage is intact. There is no knee joint effusion, prominent synovitis, or identified intra-articular body. 5. No acute fracture, bone contusion, or evidence of osteonecrosis. Dictated by: Dictated on workstation # [id number]
== END ==
LOC: RAD 12:30
PROVIDERS: ATTEND Nurse Practitioner Family
DX: S83.241A Other tear of medial meniscus, current injury, right knee, initial encounter (principal); X58.XXXA Exposure to other specified factors, initial encounter
CPT/HCPCS: 73721

== ENCOUNTER 2023-03-28 00:46 | Observation (INO) | payer MEDICAID ==
[~2023-03-28] VITALS: Ht 175 cm; Wt 107.0 kg
--- NOTE | 2023-03-28 01:08 | ED GI ---
General Stated Complaint: POSS C-DIFF Source of Information: Patient History of Present Illness Date Seen by Provider: Mar 28, 2023 Time Seen by Provider: 00:55 Initial Comments PT ARRIVES VIA POV FROM HOME STATES SHE HAS BEEN SICK SINCE 0700 THIS MORNING WITH -DIARRHEA--OVER 20 STOOLS TODAY--HAVING 4-6 STOOLS AN HOUR ALL DAY. SHE STATES THEY ARE NOW "LOOKING AND SMELLING LIKE C. DIFFICILE" -NO RECENT ANTIBIOTICS -NAUSEA--BEGAN VOMITING ON ARRIVAL TO ER. HAD NOT BEEN VOMITING PRIOR TO NOW -GENERALIZED ABDOMINAL PAIN SHE DOES NOT KNOW IF SHE HAS HAD FEVER OR NOT SHE IS STILL URINATING PT IS TYPE 1 DIABETIC, WITH CONTINUOUS GLUCOSE MONITOR IN PLACE AND HAS AN INSULIN PUMP--SHE IS NOT WEARING THE PUMP NOW. SHE C/O THIRST NO KNOWN SICK CONTACTS OR SUSPICIOUS FOODS STATES SHE WAS A VISITOR AT [facility] ON TUESDAY--SAT IN WAITING ROOM. DID NOT WEAR A MASK NO HISTORY OF SIMILAR, AND NO HISTORY OF C. DIFFICILE. LMP 03/17/23. NORMAL. S/P BTL PCP: RAUL. SIDNEY JULIO Allergies and Home Medications Allergies Coded Allergies: morphine (Verified Allergy, Intermediate, Rash, 11/28/19) Causes streaking up the arm at injection site per patient adhesive tape (Verified Allergy, Mild, Itching, 11/28/19) cephalexin (Verified Allergy, Unknown, 05/06/07) Patient Home Medication List Home Medication List Reviewed: Yes Hydroxyzine Pamoate (Hydroxyzine Pamoate) 50 Mg Capsule, 50 MG PO BID PRN for ALLERGY/ANXIETY, (Reported) Entered as Reported by: CRISPIN AKHTAR on 10/22/19928 Ibuprofen (Ibuprofen) 800 Mg Tablet, 800 MG PO BID PRN for PAIN-MILD, (Reported) Entered as Reported by: JULIETTE SHERIFF on 04/23/19 0905 Insulin Lispro (Humalog) 100 Unit/1 Ml Vial, UNITS SC PER PUMP, (Reported) Entered as Reported by: GERMANIA TEAGUE on 10/22/19 1410 Mirtazapine (Mirtazapine) 15 Mg Tablet, 15 MG PO HS, (Reported) Entered as Reported by: CRISPIN AKHTAR on 10/22/19 09 Review of Systems Review of Systems Constitutional: no symptoms reported Respiratory: No Symptoms Reported Cardiovascular: No Symptoms Reported Gastrointestinal: See HPI, Abdominal Pain, Diarrhea, Nausea, Poor Appetite, Vomiting Genitourinary: No Symptoms Reported Musculoskeletal: no symptoms reported Skin: no symptoms reported Psychiatric/Neurological: No Symptoms Reported Endocrine: Increased Thrist Hematologic/Lymphatic: No Symptoms Reported Past Cakgviu-Wrzrke-Xrlctj Hx Patient Social History Tobacco Use?: Yes Tobacco type used: Cigarettes Smoking Status: Current Everyday Smoker Substance use?: No Alcohol Use?: Yes Alcohol Frequency: Once in a while Immunizations Up To Date Tetanus Booster (TDap): Unknown PED Vaccines UTD: Yes Seasonal Allergies Seasonal Allergies: No Past Medical History Surgeries: Yes (WILEY., KIDNEY BIOPSY) Gallbladder, Renal, Tubal Ligation Respiratory: No Cardiac: No Neurological: No Reproductive Disorders: No RUG CLEANER HAND History: Tubal Ligation Sexually Transmitted Disease: No Genitourinary: Yes ("RENAL FAILURE" AGE 5. 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) Gastrointestinal: Yes Gastroesophageal Reflux Musculoskeletal: Yes (NO CURVATURE IN LOWER SPINE) Chronic Back Pain Endocrine: Yes (PT reports history of DKA, type I with insulin pump) Diabetes, Insulin dep HEENT: No Cancer: No Psychosocial: No Integumentary: No Blood Disorders: No Family Medical History Heart Disease, CAD Under 55 Years Old SOCIAL HISTORY: -SMOKES UP TO 2 PPD -ETOH--OCCASIONAL USE -DRUGS--DENIES USE Physical Exam Vital Signs Vital Signs - First Documented 03/28/23 00:54 Temp 37.0 Pulse 108 Resp 20 B/P (MAP) 126/94 (105) Pulse Ox 98 O2 Delivery Room Air Capillary Refill : Height/Weight/BMI Height: '" Weight: lbs. oz. kg; 28.76 BMI Method: General Appearance: WD/WN, other (VOMITING ON ARRIVAL) HEENT: PERRL/EOMI, other (ORAL MUCOSA DRY) Neck: normal inspection Respiratory: normal breath sounds, no respiratory distress, no accessory muscle use Cardiovascular: regular rate, rhythm Gastrointestinal: soft, no organomegaly, no pulsatile mass, abnormal bowel sounds (HYPERACTIVE); No distended, No guarding, No rebound; tenderness (DIFFUSE ); No hernia, No mass Extremities: normal inspection, no pedal edema, normal capillary refill Back: no vertebral tenderness, CVA tenderness (R), CVA tenderness (L) Neurologic/Psychiatric: fireperson II-XII nml as tested, no motor/sensory deficits, alert, oriented x 3 Skin: normal color, warm/dry, tattoos/piercings Progress/Results/Core Measures Results/Orders Lab Results Laboratory Tests Test 03/28/23 01:00 Range/Units White Blood Count 7.5 4.3-11.0 10^3/uL Red Blood Count 4.68 3.80-5.11 10^6/uL Hemoglobin 14.8 11.5-16.0 g/dL Hematocrit 45 35-52 % Mean Corpuscular Volume 95 80-99 fL Mean Corpuscular Hemoglobin 32 25-34 pg Mean Corpuscular Hemoglobin Concent 33 32-36 g/dL Red Cell Distribution Width 12.9 10.0-14.5 % Platelet Count 275 130-400 10^3/uL Mean Platelet Volume 9.6 9.0-12.2 fL Immature Granulocyte % (Auto) 0 % Neutrophils (%) (Auto) 74 42-75 % Lymphocytes (%) (Auto) 17 12-44 % Monocytes (%) (Auto) 4 0-12 % Eosinophils (%) (Auto) 4 0-10 % Basophils (%) (Auto) 1 0-10 % Neutrophils # (Auto) 5.6 1.8-7.8 10^3/uL Lymphocytes # (Auto) 1.3 1.0-4.0 10^3/uL Monocytes # (Auto) 0.3 0.0-1.0 10^3/uL Eosinophils # (Auto) 0.3 0.0-0.3 10^3/uL Basophils # (Auto) 0.0 0.0-0.1 10^3/uL Immature Granulocyte # (Auto) 0.0 0.0-0.1 10^3/uL Erythrocyte Sedimentation Rate 18 0-20 MM/HR Urine Color YELLOW Urine Clarity CLEAR Urine pH 5.5 5-9 Urine Specific [place] >=1.030 1.016-1.022 Urine Protein 2+ H NEGATIVE Urine Glucose (UA) 2+ H NEGATIVE Urine Ketones TRACE H NEGATIVE Urine Nitrite NEGATIVE NEGATIVE Urine Bilirubin 1+ H NEGATIVE Urine Urobilinogen 0.2 < = 1.0 MG/DL Urine Leukocyte Esterase NEGATIVE NEGATIVE Urine RBC (Auto) NEGATIVE NEGATIVE Urine RBC NONE /HPF Urine WBC NONE /HPF Urine Squamous Epithelial Cells 10-25 H /HPF Urine Crystals NONE /LPF Urine Bacteria FEW H /HPF Urine Casts NONE /LPF Urine Mucus MODERATE H /LPF Urine Culture Indicated NO Sodium Level 137 135-145 MMOL/L Potassium Level 3.4 L 3.6-5.0 MMOL/L Chloride Level 111 H 98-107 MMOL/L Carbon Dioxide Level 17 L 21-32 MMOL/L Anion Gap 9 5-14 MMOL/L Blood Urea Nitrogen 19 H 7-18 MG/DL Creatinine 0.89 0.60-1.30 MG/DL Estimat Glomerular Filtration Rate 83 BUN/Creatinine Ratio 21 Glucose Level 177 H 70-105 MG/DL Calcium Level 8.4 L 8.5-10.1 MG/DL Corrected Calcium 8.3 L 8.5-10.1 MG/DL Magnesium Level 2.0 1.6-2.4 MG/DL Total Bilirubin 0.6 0.1-1.0 MG/DL Aspartate Amino Transf (AST/SGOT) 16 5-34 U/L Alanine Aminotransferase (ALT/SGPT) 15 0-55 U/L Alkaline Phosphatase 84 40-136 U/L C-Reactive Protein High Sensitivity 2.23 H 0.00-0.50 MG/DL Total Protein 7.2 6.4-8.2 GM/DL Albumin 4.1 3.2-4.5 GM/DL Amylase Level 26 25-125 U/L Lipase 11 8-78 U/L Beta-Hydroxybutyrate (Chem panel) 0.07 0.00-0.27 MMOL/L Serum Test, Qualitative NEGATIVE NEGATIVE Influenza Type A (RT-PCR) Not Detected Not Detecte Influenza Type B (RT-PCR) Not Detected Not Detecte SARS-CoV-2 RNA (RT-PCR) Not Detected Not Detecte My Orders Orders - ELIESER MERINO DO Ed Iv/Invasive Line Start (03/28/23 00:55) Monitor-Rhythm Ecg Trace Only (03/28/23 00:55) Amylase (03/28/23 00:55) Cbc With Automated Diff (03/28/23:55) Comprehensive Metabolic Panel (03/28/23:55) Hs C Reactive Protein (03/28/23 00:55) Lipase (03/28/23 00:55) Magnesium (03/28/23 00:55) Ua Culture If Indicated (03/28/23:55) Stool Culture (03/28/23 00:55) Fecal Wbc (03/28/23 00:55) Erythrocyte Sedimentation Rate (03/28/23 00:55) Covid 19 Inhouse Test (03/28/23 00:55) Influenza A And B By Pcr (03/28/23 00:55) C Difficile Ag + Toxin A/B. (03/28/23 00:55) Ondansetron Injection (Ondansetron Inj (03/28/23 01:15) Ed Iv/Invasive Line Start (03/28/23 01:05) Ns Iv 1000 Ml (Ns Iv 1000 Ml) (03/28/23 01:15) Ct Abdomen/Pelvis W (03/28/23 01:39) Iohexol Injection (Omnipaque 350 Mg/Ml 1 (03/28/23 02:30) Received Contrast (Hold Metformin- Contr (03/28/23 02:30) Ns (Ivpb) 100 Ml (Sodium Chloride 0.9% 1 (03/28/23 02:30) Ketorolac Injection (Ketorolac Injection (03/28/23 03:00) Beta Hydroxybutyrate (03/28/23 02:56) Hemoglobin A1c (03/28/23 02:56) D5 1/2ns + Kcl 20 Meq/L 1000ml (Dextrose (03/28/23 03:00) Medications Given in ED Current Medications Medications Dose Ordered Sig/Yvan Route Start Time Stop Time Status Last Admin Dose Admin Iohexol 100 ml ONCE ONCE IV 03/28/23 02:30 03/28/23 02:31 DC 03/28/23 02:28 80 ML Ketorolac Tromethamine 30 mg ONCE ONCE IVP 03/28/23 03:00 03/28/23 03:01 DC 03/28/23 03:09 30 MG Ondansetron HCl 4 mg ONCE ONCE IVP 03/28/23 01:15 03/28/23 01:16 DC 03/28/23 01:41 4 MG Sodium Chloride 100 ml ONCE ONCE IV 03/28/23 02:30 03/28/23 02:31 DC 03/28/23 02:28 80 ML Vital Signs/I&O 03/28/23 00:54 Temp 37.0 Pulse 108 Resp 20 B/P (MAP) 126/94 (105) Pulse Ox 98 O2 Delivery Room Air Progress Progress Note : Progress Note VITALS ON ARRIVAL: TEMP 37.0, HR 108, RR 20, BP 126/94, O2 SAT 98% ON ROOM AIR GIVEN: -IV FLUIDS -ZOFRAN -TORADOL SYMPTOMS MUCH IMPROVED WITH MEDICATIONS PT CONTINUED TO HAVE DIARRHEAL STOOLS--AT LEAST 5--DURING ER STAY. PT CONTINUES TO C/O THIRST--ICE CHIPS GIVEN AND PT TOLERATED NO DETERIORATION IN PT'S CONDITION DURING ER STAY VITALS STABLE, AFEBRILE LABS: -CBC NORMAL WITH WBC 7.5 -CMP WITH NA 137, K 3.4, CO2 17, ANION GAP 9, BUN 19, CR 0.89, GLU 177 -MG 2.0 -AMYLASE / LIPASE NORMAL -CRP 2.23 -SED RATE 18 -BETA HYDROXYBUTYRATE 0.07 -UA WITH 2+ PROTEIN, 2+ GLUCOSE, TRACE KETONES. FEW BACTERIA, NO WBC, NO LEUKOCYTES -COVID AND FLU NEGATIVE -HCG NEGATIVE CT SCAN SHOWS FLUID THROUGHOUT COLON, NO BOWEL WALL THICKENING REVIEWED PRIOR RECORDS INCLUDING ER VISITS, ADMITS/H&P'S/CONSULTS/DISCHARGE SUMMARIES, TESTS/PROCEDURES DISCUSSED TEST RESULTS AND NEED FOR ADMIT AND PT IS AGREEABLE TO PLAN Diagnostic Imaging Comments CT ABDOMEN/PELVIS--PER [facility] VIA FAX AT [phone] -FLUID THROUGHOUT THE COLON CONSISTENT WITH DIARRHEAL STATE -NO COLONIC OR SMALL BOWEL WALL THICKENING. Reviewed: Reviewed by Me Departure Communication (Admissions) 0254--CALLED DR. AMAYA, [facility] RESIDENT. NO ANSWER. MESSAGE LEFT [phone]--CALLED DR. AMAYA, ACCEPTS PT FOR ADMIT. Impression Primary Impression: Enteritis Additional Impressions: Diarrhea Nausea & vomiting Insulin dependent diabetes mellitus Volume depletion Disposition: ADMITTED INPATIENT Condition: Improved Admissions Decision to Admit Reason: Admit from ER (General) Decision to Admit/Date: Mar 28, 2023 Time/Decision to Admit Time: 03:05 Departure-Patient Inst. Referrals: ARTUR SANCHEZ MD (PCP) Primary Care Physician [facility] (Family) Primary Care Physician ELIESER MERINO DO Mar 28, 2023 01:08
[2023-03-28 01:15] LABS: BASOPHILS % (AUTO) 1 % (0-10); EOSINOPHILS # (AUTO) 0.3 10^3/uL (0.0-0.3); EOSINOPHILS % (AUTO) 4 % (0-10); HEMATOCRIT 45 % (35-52); HEMOGLOBIN 14.8 g/dL (11.5-16.0); LYMPHOCYTES # (AUTO) 1.3 10^3/uL (1.0-4.0); LYMPHOCYTES % (AUTO) 17 % (12-44); MEAN CORPUSCULAR HEMOGLOBIN 32 pg (25-34); MEAN CORPUSCULAR HGB CONC 33 g/dL (32-36); MEAN CORPUSCULAR VOLUME 95 fL (80-99); MEAN PLATELET VOLUME 9.6 fL (9.0-12.2); MONOCYTES # (AUTO) 0.3 10^3/uL (0.0-1.0); MONOCYTES % (AUTO) 4 % (0-12); NEUTROPHILS # (AUTO) 5.6 10^3/uL (1.8-7.8); NEUTROPHILS % (AUTO) 74 % (42-75); PLATELET COUNT 275 10^3/uL (130-400); WHITE BLOOD COUNT 7.5 10^3/uL (4.3-11.0)
[2023-03-28] MEDS ORDERED: NS IV 1000 ML 1,000 ML IV SCH (01:15)
[2023-03-28] MEDS ORDERED: ONDANSETRON INJECTION 4 MG/2 ML (SDV) IVP ONE (01:15)
[2023-03-28 01:26] LABS: BACTERIA,URINE FEW /HPF; BILIRUBIN,URINE 1+ (NEGATIVE); CLARITY,URINE CLEAR; COLOR,URINE YELLOW; GLUCOSE, URINE (UA) 2+ (NEGATIVE); KETONES,URINE TRACE (NEGATIVE); LEUKOCYTE ESTERASE ,URINE NEGATIVE (NEGATIVE); NITRITE,URINE NEGATIVE (NEGATIVE); PH,URINE 5.5 (5-9); PROTEIN,URINE 2+ (NEGATIVE)
[2023-03-28 01:37] LABS: ALBUMIN 4.1 GM/DL (3.2-4.5); BILIRUBIN,TOTAL 0.6 MG/DL (0.1-1.0); CALCIUM 8.4 MG/DL (8.5-10.1); CREATININE SERUM 0.89 MG/DL (0.60-1.30); POTASSIUM 3.4 MMOL/L (3.6-5.0); TOTAL PROTEIN 7.2 GM/DL (6.4-8.2)
[2023-03-28 01:40] LABS: ERYTHROCYTE SEDIMENTATION RATE 18 MM/HR (0-20)
[2023-03-28] MEDS ORDERED: IOHEXOL 350 MG/ML 100 ML (OMNIPAQUE 350) VIAL IV ONE (02:30)
[2023-03-28] MEDS ORDERED: HOLD METFORMIN - RECEIVED CONTRAST 20 ML VIAL IV SCH (02:30)
[2023-03-28] MEDS ORDERED: NS 100 ML (IVPB) BAG IV ONE (02:30)
[2023-03-28] MEDS ORDERED: D5 1/2NS + KCL 20 MEQ/L 1000ML 1,000 ML IV SCH (03:00)
[2023-03-28] MEDS ORDERED: KETOROLAC INJ 30 MG/ML VIAL IVP ONE (03:00)
[2023-03-28] MEDS ORDERED: ONDANSETRON INJECTION 4 MG/2 ML (SDV) IV PRN (03:45)
[2023-03-28] MEDS ORDERED: ACETAMINOPHEN 325 MG TABLET PO PRN (03:45)
[2023-03-28] MEDS ORDERED: MELATONIN 3 MG TABLET PO PRN (03:45)
[2023-03-28] MEDS ORDERED: ONDANSETRON 4 MG ORAL DISSOLVE TABLET PO PRN (03:45)
[2023-03-28] MEDS ORDERED: CALCIUM CARBONATE 500 MG CHEW TABLET PO PRN (03:45)
[2023-03-28] MEDS ORDERED: inSUlin DETERMIR 1 UNIT/0.01 ML (CHARGE PER UNIT) SQ ONE (04:15)
[2023-03-28 04:20] VITALS: BP 99/64
[2023-03-28] MEDS: LACTATED RINGERS 1,000 ML 1,000 ML IV SCH ×3 (05:18→16:04)
[2023-03-28] MEDS: inSUlin ASPART 1 UNIT/0.01 ML (PER UNIT) SC SCH ×4 (05:19→21:17)
[2023-03-28] MEDS: ENOXAPARIN 40 MG/0.4 ML SYRINGE SC SCH (05:19)
[2023-03-28] MEDS ORDERED: fentaNYL INJECTION 100 MCG/2 ML VIAL IV PRN (06:00)
[2023-03-28] MEDS ORDERED: KETOROLAC INJ 30 MG/ML VIAL IV PRN (06:00)
[2023-03-28 07:53] VITALS: BP 97/53
[2023-03-28] MEDS: SENNOSIDES 8.6 MG TABLET PO SCH ×2 (08:12→20:17)
--- NOTE | 2023-03-28 08:12 | Diagnostic Imaging Report ---
Procedure: CT abdomen and pelvis with contrast. Technique: Multiple contiguous axial images were obtained through the abdomen and pelvis after administration of intravenous contrast. Auto Exposure Controls were utilized during the CT exam to meet ALARA standards for radiation dose reduction. All CT scans use one or more of the following dose optimizing techniques: automated exposure control, MA and/or KvP adjustment based on patient size and exam type or iterative reconstruction. Date: March 28, 2023. Indication: 42-year-old female, abdominal pain. Nausea, vomiting, and diarrhea. Comparison: CT abdomen and pelvis March 24, 2021. Findings: The visualized portions of the lung bases are clear. The heart is not enlarged. There is no pericardial effusion. The liver is unremarkable in size and contour. There is no identified liver lesion. The main, right, and left portal veins are patent. The gallbladder surgically absent. There is no biliary ductal dilation. Unremarkable evaluation of the pancreas. The spleen is normal in size. The adrenal glands are unremarkable. Unremarkable appearance of the renal parenchyma. The urinary collecting systems are not distended. There is no identified renal or ureteral stone. Urinary bladder is underdistended. The intestinal tract is not distended. The appendix is unremarkable. There is no free intraperitoneal air. There is no drainable fluid collection. There is no free fluid in the abdomen or pelvis. There are atherosclerotic calcifications. There is no identified abnormally enlarged lymph node in the abdomen or pelvis meeting CT size criteria for adenopathy. There are degenerative changes of the spine. There is no identified acute bony abnormality. Impression: 1. No identified acute abnormality in the abdomen or pelvis. Dictated by: Dictated on workstation # [id number]
[2023-03-28] MEDS ORDERED: PANTOPRAZOLE INJECTION 40 MG VIAL IV SCH (09:00)
[2023-03-28 11:36] VITALS: BP 87/50
[2023-03-28] MEDS ORDERED: PROP20TA5 PO (12:18)
[2023-03-28] MEDS ORDERED: TOPI200T8 PO (12:18)
[2023-03-28] MEDS ORDERED: ACET-2267 PO (12:18)
[2023-03-28] MEDS ORDERED: INSU100V45 SC (12:18)
[2023-03-28] MEDS ORDERED: BUSP10TA95 PO (12:18)
[2023-03-28] MEDS ORDERED: CALC-823 PO (12:18)
[2023-03-28] MEDS ORDERED: FLUO20CA48 PO (12:18)
[2023-03-28] MEDS ORDERED: LISI2.5T13 PO (12:18)
--- NOTE | 2023-03-28 15:05 | History & Physical ---
ALEKSANDAR TURNER 03/28/23 1505: HPI History of Present Illness: Patient presented to ED due to severe diarrhea. She says the diarrhea started on 03/27 and had 5-6 bowel movements every hour. She denies any recent antibiotic use, sick contacts, hematochezia, or different food choices. She was in the [place] ED last Rodney with her family member who was in a car wreck. She was very concerned she may have been infected with C. diff during this visit. Patient took imodium yesterday with no relief. Endorses chills, generalized abdominal pain, nausea/vomiting. Brief ED Course: Patient presented to ED and she had a normal CBC. CMP significant only for BUN of 19 and glucose of 177. Hgba1c of 9.4%. CRP level was high at 2.23. Negative beta-hydroxybutyrate. She had a CT scan of abdomen and pelvis showing no acute abnormality. She was admitted for acute gastroenteritis and volume depletion. Source: patient Exam Limitations: no limitations Date seen by provider: Mar 28, 2023 Time Seen by Provider: 12:10 Attending Physician Ro Parmar MD PCP Admitting Physician: Judit Jo DO Attending Physician: Florina Hernandez MD Consult Date of Admission Mar 28, 2023 at 03:17 Home Medications Home Medications Reviewed patient Home Medication Reconciliation performed by pharmacy medication reconciliations feed research technician and/or nursing. Patients Allergies have been reviewed. Allergies Coded Allergies: morphine (Verified Allergy, Intermediate, Rash, 11/28/19) Causes streaking up the arm at injection site per patient adhesive tape (Verified Allergy, Mild, Itching, 11/28/19) cephalexin (Verified Allergy, Unknown, 05/06/07) YID-Jgbwhg-[place] Hx Patient Social History Smoking Status: Current Everyday Smoker 2nd Hand Smoke Exposure: Yes Recent Hopitalizations: No Alcohol Use?: No Substance type: Nicotine Tobacco type used: Cigarettes Have you traveled recently?: No Immunizations Up To Date Tetanus Booster (TDap): Unknown Influenza Vaccine Up-to-Date: No; Not Current Past Medical History GERD Type 1 DM Migraines Chronic back pain Family Medical History Significant Family History: Heart Disease, CAD Under 55 Years Old Other Significan Family Hx: SOCIAL HISTORY: -SMOKES UP TO 2 PPD -ETOH--OCCASIONAL USE -DRUGS--DENIES USE Review of Systems (CHC) Constitutional: no symptoms reported, see HPI EENTM: no symptoms reported Respiratory: no symptoms reported Cardiovascular: no symptoms reported Gastrointestinal: see HPI Genitourinary: no symptoms reported : No Musculoskeletal: no symptoms reported Skin: no symptoms reported Psychiatric/Neurological: No Symptoms Reported Reviewed Test Results Reviewed Test Results Lab Laboratory Tests 03/28/23 01:00: White Blood Count 7.5, Red Blood Count 4.68, Hemoglobin 14.8, Hematocrit 45, Mean Corpuscular Volume 95, Mean Corpuscular Hemoglobin 32, Mean Corpuscular Hemoglobin Concent 33, Red Cell Distribution Width 12.9, Platelet Count 275, Mean Platelet Volume 9.6, Immature Granulocyte % (Auto) 0, Neutrophils (%) (Auto) 74, Lymphocytes (%) (Auto) 17, Monocytes (%) (Auto) 4, Eosinophils (%) (Auto) 4, Basophils (%) (Auto) 1, Neutrophils # (Auto) 5.6, Lymphocytes # (Auto) 1.3, Monocytes # (Auto) 0.3, Eosinophils # (Auto) 0.3, Basophils # (Auto) 0.0, Immature Granulocyte # (Auto) 0.0, Erythrocyte Sedimentation Rate 18, Urine Color YELLOW, Urine Clarity CLEAR, Urine pH 5.5, Urine Specific [place] >=1.030, Urine Protein 2+H, Urine Glucose (UA) 2+H, Urine Ketones TRACEH, Urine Nitrite NEGATIVE, Urine Bilirubin 1+H, Urine Urobilinogen 0.2, Urine Leukocyte Esterase NEGATIVE, Urine RBC (Auto) NEGATIVE, Urine RBC NONE, Urine WBC NONE, Urine Squam ous Epithelial Cells 10-25H, Urine Crystals NONE, Urine Bacteria FEWH, Urine Casts NONE, Urine Mucus MODERATEH, Urine Culture Indicated NO, Sodium Level 137, Potassium Level 3.4L, Chloride Level 111H, Carbon Dioxide Level 17L, Anion Gap 9, Blood Urea Nitrogen 19H, Creatinine 0.89, Estimat Glomerular Filtration Rate 83, BUN/Creatinine Ratio 21, Glucose Level 177H, Calcium Level 8.4L, Corrected Calcium 8.3L, Magnesium Level 2.0, Total Bilirubin 0.6, Aspartate Amino Transf (AST/SGOT) 16, Alanine Aminotransferase (ALT/SGPT) 15, Alkaline Phosphatase 84, C-Reactive Protein High Sensitivity 2.23H, Total Protein 7.2, Albumin 4.1, Amylase Level 26, Lipase 11, Beta-Hydroxybutyrate (Chem panel) 0.07, Serum Test, Qualitative NEGATIVE, Influenza Type A (RT-PCR) Not Detected, Influenza Type B (RT-PCR) Not Detected, SARS-CoV-2 RNA (RT-PCR) Not Detected 03/28/23 03:54: Glucometer 248H 03/28/23 05:16: Glucometer 294H 03/28/23 09:08: Glucometer 138H 03/28/23 12:05: Glucometer 63L Microbiology 03/28/23 Fecal Leukocyte Stain - Final, Resulted Radiology CT abdomen and pelvis: No identified acute abnormality in the abdomen or pelvis. Physical Exam-([facility]) Physical Exam Vital Signs VS - Last 72 Hours, by Label 03/28/23 03/28/23 03/28/23 03/28/23 00:54 03:23 04:20 04:21 Temp 37.0 36.7 Pulse 108 86 77 76 Resp 20 20 12 B/P (MAP) 126/94 (105) 116/68 99/64 (76) Pulse Ox 98 96 96 O2 Delivery Room Air Room Air Room Air 03/28/23 03/28/23 03/28/23 03/28/23 06:07 07:24 07:53 11:36 Temp 36.2 36.6 Pulse 75 71 69 Resp 18 16 B/P (MAP) 97/53 (68) 87/50 (62) Pulse Ox 96 98 O2 Delivery Room Air Room Air Room Air 03/28/23 12:48 Pulse 82 Capillary Refill : Less Than 3 Seconds General Appearance: WD/WN, no apparent distress Respiratory: lungs clear, normal breath sounds, no respiratory distress Cardiovascular: normal peripheral pulses, regular rate, rhythm, no edema, no gallop, no JVD, no murmur Gastrointestinal: no organomegaly, no pulsatile mass, abnormal bowel sounds (Hyperactive), tenderness (Diffuse) Extremities: normal range of motion, non-tender, normal inspection, no pedal edema Skin: normal color, warm/dry Assessment/Plan Assessment/Plan Admission Status: Observation (1) Hypotension Status: Acute Assessment & Plan: - Most likely secondary to volume depletion from acute gastroenteritis - Continue maintenance IV LR solution for volume repletion - Imodium started for relief from diarrhea. - Hold NETBACKUP ADMIN propranolol and lisinopril for migraine prophylaxis. Qualifiers: Qualified Codes: I95.89 - Other hypotension; E86.1 - Hypovolemia (2) Enteritis Status: Acute Assessment & Plan: - C. diff culture negative. No other signs or symptoms of inflammatory diarrhea. Most likely secondary to viral gastroenteritis. - CRP increased at 2.23. - Continue fluid replacement with maintenance LR. - Imodium started for relief from diarrhea. (3) Volume depletion Status: Acute Assessment & Plan: - Continue fluid replacement with maintenance dose LR/ (4) Insulin dependent diabetes mellitus Status: Chronic Assessment & Plan: - Patient is on NETBACKUP ADMIN continuous glucose monitor and glucose pump with insulin humalog. - Continue to monitor glucose levels. (5) Chronic migraine Status: Chronic Assessment & Plan: - Continue NETBACKUP ADMIN buspar and topamax for migraine prophylaxis. - Hold NETBACKUP ADMIN lisinopril and propranolol due to hypotension (6) Depression with anxiety Status: Chronic Assessment & Plan: - Continue NETBACKUP ADMIN prozac and buspar FLORINA HERNANDEZ MD 03/28/23 4093: Home Medications Allergies Coded Allergies: morphine (Verified Allergy, Intermediate, Rash, 11/28/19) Causes streaking up the arm at injection site per patient adhesive tape (Verified Allergy, Mild, Itching, 11/28/19) cephalexin (Verified Allergy, Unknown, 05/06/07) Supervisory-Addendum Brief Supervisory Addendum I personally performed or re-performed the history, physical exam and treatment for the E/M. I discussed the case with the Medical Student, and concur with the Medical Student documentation of history, physical exam and treatment plan unless otherwise noted. Continued on home insulin pump, not glucose pump. ALEKSANDAR TURNER Mar 28, 2023 15:05 FLORINA HERNANDEZ MD Mar 28, 2023 17:53
[2023-03-28 16:17] VITALS: BP 102/58
[2023-03-28] MEDS ORDERED: CALCIUM CARBONATE 600 MG TABLET PO SCH (18:00)
[2023-03-28] MEDS: LOPERAMIDE 2 MG CAPSULE PO PRN (18:16)
[2023-03-28 19:59] VITALS: BP 108/57
[2023-03-28] MEDS ORDERED: busPIRone 10 MG TABLET PO SCH (21:00)
[2023-03-28] MEDS ORDERED: NON-FORMULARY MEDICATION 1 EA EA (Topiramate 200 MG) PO SCH (21:00)
[2023-03-28] MEDS ORDERED: NON-FORMULARY MEDICATION 1 EA EA (Calcium Carbonate (Calcium) 500 MG) PO SCH (21:00)
[2023-03-28] MEDS ORDERED: FLUoxetine 20 MG CAPSULE PO SCH (21:00)
[2023-03-28] MEDS ORDERED: toPIRamate 100 MG (TOPAMAX) TAB PO SCH (21:00)
[2023-03-28 23:41] VITALS: BP 102/69
[2023-03-29] MEDS: LACTATED RINGERS 1,000 ML 1,000 ML IV SCH ×2 (00:54→09:03)
[2023-03-29] MEDS: LOPERAMIDE 2 MG CAPSULE PO PRN (00:55)
[2023-03-29 03:34] VITALS: BP_SYST 102; BP_SYST 104; BP_DIAS 56; BP_DIAS 68
[2023-03-29 05:35] LABS: BASOPHILS % (AUTO) 1 % (0-10); EOSINOPHILS # (AUTO) 0.2 10^3/uL (0.0-0.3); EOSINOPHILS % (AUTO) 5 % (0-10); HEMATOCRIT 36 % (35-52); HEMOGLOBIN 12.1 g/dL (11.5-16.0); LYMPHOCYTES # (AUTO) 1.5 10^3/uL (1.0-4.0); LYMPHOCYTES % (AUTO) 34 % (12-44); MEAN CORPUSCULAR HEMOGLOBIN 32 pg (25-34); MEAN CORPUSCULAR HGB CONC 34 g/dL (32-36); MEAN CORPUSCULAR VOLUME 94 fL (80-99); MEAN PLATELET VOLUME 9.8 fL (9.0-12.2); MONOCYTES # (AUTO) 0.3 10^3/uL (0.0-1.0); MONOCYTES % (AUTO) 7 % (0-12); NEUTROPHILS # (AUTO) 2.3 10^3/uL (1.8-7.8); NEUTROPHILS % (AUTO) 53 % (42-75); PLATELET COUNT 182 10^3/uL (130-400); WHITE BLOOD COUNT 4.4 10^3/uL (4.3-11.0)
[2023-03-29 05:56] LABS: BILIRUBIN,TOTAL 0.3 MG/DL (0.1-1.0); CALCIUM 7.6 MG/DL (8.5-10.1); CREATININE SERUM 0.84 MG/DL (0.60-1.30); POTASSIUM 3.5 MMOL/L (3.6-5.0); TOTAL PROTEIN 5.3 GM/DL (6.4-8.2)
[2023-03-29] MEDS: ENOXAPARIN 40 MG/0.4 ML SYRINGE SC SCH (05:56)
[2023-03-29] MEDS: inSUlin ASPART 1 UNIT/0.01 ML (PER UNIT) SC SCH ×2 (05:58→12:08)
[2023-03-29 07:41] VITALS: BP 124/65
[2023-03-29] MEDS ORDERED: PANTOPRAZOLE 40 MG TABLET PO SCH (09:00)
[2023-03-29] MEDS ORDERED: POTASSIUM CHLORIDE 20 MEQ TABLET PO NR (09:00)
[2023-03-29] MEDS: SENNOSIDES 8.6 MG TABLET PO SCH (09:03)
[2023-03-29 11:41] VITALS: BP 101/56
[2023-03-29 12:30] VITALS: BP 101/56
--- NOTE | 2023-03-29 16:18 | Discharge Summary ---
ALEKSANDAR TURNER 03/29/23 1618: Diagnosis/Chief Complaint Date of Admission Mar 28, 2023 at 03:17 Date of Discharge Mar 29, 2023 at 12:30 Admission Diagnosis Admission Diagnosis Acute gastroenteritis and volume depletion Discharge Diagnosis Acute gastroenteritis and volume depletion Problems/Diagnosis: (1) Hypotension Assessment & Plan: - Most likely secondary to volume depletion from acute gastroenteritis - Continue maintenance IV LR solution for volume repletion - Imodium started for relief from diarrhea. - Hold [employer] propranolol and lisinopril for migraine prophylaxis. Qualifiers: Qualified Codes: I95.89 - Other hypotension; E86.1 - Hypovolemia Status: Resolved Resolution Date/Time: 03/29/23 @ 16:13 (2) Enteritis Assessment & Plan: - C. diff culture negative. No other signs or symptoms of inflammatory diarrhea. Most likely secondary to viral gastroenteritis. - CRP increased at 2.23. - Continue fluid replacement with maintenance LR. - Imodium started for relief from diarrhea. Status: Acute (3) Volume depletion Assessment & Plan: - Continue fluid replacement with maintenance dose LR/ Status: Resolved Resolution Date/Time: 03/29/23 @ 16:13 (4) Insulin dependent diabetes mellitus Assessment & Plan: - Patient is on [employer] continuous glucose monitor and glucose pump with insulin humalog. - Continue to monitor glucose levels. Status: Chronic (5) Chronic migraine Assessment & Plan: - Continue [employer] buspar and topamax for migraine prophylaxis. - Hold [employer] lisinopril and propranolol due to hypotension Status: Chronic (6) Depression with anxiety Assessment & Plan: - Continue [employer] prozac and buspar Status: Chronic Chief Complaint/HPI Chief Complaint/HPI Patient presented to ED due to severe diarrhea. She says the diarrhea started on 03/27 and had 5-6 bowel movements every hour. She denies any recent antibiotic use, sick contacts, hematochezia, or different food choices. She was in the [place] ED last Rodney with her family member who was in a car wreck. She was very concerned she may have been infected with C. diff during this visit. Patient took imodium yesterday with no relief. Endorses chills, generalized abdominal pain, nausea/vomiting. Brief ED Course: Patient presented to ED and she had a normal CBC. CMP significant only for BUN of 19 and glucose of 177. Hgba1c of 9.4%. CRP level was high at 2.23. Negative beta-hydroxybutyrate. She had a CT scan of abdomen and pelvis showing no acute abnormality. She was admitted for acute gastroenteritis and volume depletion. Discharge Summary-Simple/Stand Consultations Discharge Physical Examination Allergies: Coded Allergies: morphine (Verified Allergy, Intermediate, Rash, 11/28/19) Causes streaking up the arm at injection site per patient adhesive tape (Verified Allergy, Mild, Itching, 11/28/19) cephalexin (Verified Allergy, Unknown, 05/06/07) Vitals & I&Os Vital Sign - Last 12Hours Date Time Temp Pulse Resp B/P (MAP) Pulse Ox O2 Delivery O2 Flow Rate FiO2 03/29/23 12:30 36.6 64 17 101/56 98 Room Air Intake and Output 03/29/23 00:00 Intake Total 1420 ml Balance 1420 ml General Appearance: Alert, Oriented X3 HEENT: Atraumatic Respiratory: Clear to Auscultation, Normal Air Movement Cardiovascular: Regular Rate, Normal S1, Normal S2, No Murmurs Abdominal: Soft, No Tenderness, No Hepatosplenomegaly, No Masses, Other (Hyperactive bowel sounds) Extremities: No Clubbing, No Cyanosis, No Edema, Normal Pulses, No Tenderness/Swelling Skin: No Rashes, No Breakdown, No Significant Lesion Neuro: Normal Speech Psych/Mental Status: Mental Status NL, Mood NL Hospital Course Was the Problem List Reviewed?: Yes Patient was admitted to the hospital for acute gastroenteritis and volume depletion. Patient was given fluids and C. diff was ruled out. We started imodium for relief from diarrhea. She was having episodes of hypotension so it was decided that we would keep patient overnight on 03/28. Today those episodes of hypotension resolved and her BP normalized. Her diarrhea was decreasing in frequency today and her fluid status was normal. She was eating and drinking without concern. Discharged on 03/29. Radiology Reviewed CT abdomen and pelvis: No identified acute abnormality in the abdomen or pelvis. Discharge Instructions to patient/family Please see electronic discharge instructions given to patient. Discharge Medications Reviewed and agree with Discharge Medication list on patient's Discharge Instruction sheet FLORINA HERNANDEZ MD 03/29/23 [id number]: Discharge Summary-Simple/Stand Discharge Physical Examination Allergies: Coded Allergies: morphine (Verified Allergy, Intermediate, Rash, 11/28/19) Causes streaking up the arm at injection site per patient adhesive tape (Verified Allergy, Mild, Itching, 11/28/19) cephalexin (Verified Allergy, Unknown, 05/06/07) Supervisory-Addendum Brief Supervisory Addendum I personally performed or re-performed the history, physical exam and treatment for the E/M. I discussed the case with the Medical Student, and concur with the Medical Student documentation of history, physical exam and treatment plan unless otherwise noted. ALEKSANDAR TURNER Mar 29, 2023 16:18 FLORINA HERNANDEZ MD Mar 29, 2023 18:35
== END 2023-03-29 11:50 | disposition home or self-care (01) ==
LOC: EDUNIT# 00:46 → ER 00:50 → 4TH 03:17 → UNDOADMOB 03:17 → INTOOBSV 03:17 → 4TH 03:40 → UNDODISOB 03-29 11:50
PROVIDERS: ADMIT Internal Medicine; ATTEND Family Medicine
DX: I95.9 Hypotension, unspecified (principal); K52.9 Noninfective gastroenteritis and colitis, unspecified; E86.9 Volume depletion, unspecified; E11.9 Type 2 diabetes mellitus without complications; G43.909 Migraine, unspecified, not intractable, without status migrainosus; F17.210 Nicotine dependence, cigarettes, uncomplicated; F41.8 Other specified anxiety disorders; Z79.899 Other long term (current) drug therapy; Z79.4 Long term (current) use of insulin
CPT/HCPCS: 74177; 80053 ×2; 81000; 82010; 82150 ×2; 82947; 83036; 83690 ×2; 83735; 84703; 85025 ×2; 85652; 86141; 87015; 87045; 87046; 87324; 87449; 87636; 87899; 89055; 96372 ×2; 96375; 99284; G0378; 36415